=== PATIENT | female | born 1955 | race Caucasian/White ===

== ENCOUNTER 2017-03-02 22:38 | Emergency (ER) | payer BC ==
[~2017-03-02] VITALS: Ht 152.4 cm; Wt 40.6 kg
[~2017-03-02 22:38] MED LIST: ATV/2 PO; CLON1TAB3 PO; HYDR-5688 PO; OLAN-111 PO; TRAZ100T29 PO; ZOLP1TAB PO
[2017-03-02 22:45] VITALS: BP 138/90; PULSE 84; TEMP 36.7; O2SAT 95; Ht 152.4 cm; Wt 40.6 kg
[2017-03-02] MEDS ORDERED: LEVO25TA PO (23:08)
[2017-03-02] MEDS ORDERED: LIDOCAINE HCL 2% VISCOUS SOLN 60 ML, DiphenhydrAMINE HCL SYRUP 150 MG, ALUMINUM/MAGNESI... MT PRN ×4 (23:15)
--- NOTE | 2017-03-02 23:53 | EMERGENCY ROOM VISIT NOTE ---
History Report prepared by Rebecca: Maite Larkin Under the Supervision of: Dr. Yogesh Grimes M.D. 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 The patient states that she woke up this morning and noticed the pain on her tongue and states she thinks it looks abnormal. The patient currently rates the pain as 10/ 10 in severity. The patient states that she has not drank or ate hot food, nor has she bit or sustained any trauma to her tongue. The patient states she has had canker sores in her mouth in the past but not on her tongue. The patient states that she is a chronic pain patient and takes Vicodin every day for another problem, but states she took that today but it did not resolve her pain. The patient denies any history of diabetes or thrush. 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 A total of 10 systems reviewed and were otherwise negative. Past Medical & Surgical Medical Problems: (1) Osteoporosis (2) Tonsillectomy and adenoidectomy (3) Tremor Family History Patient reports no known family medical history. Social History Smoking Status: Never Smoker Marital Status: in relationship Housing Status: lives with significant other Occupation Status: unemployed Current/Historical Medications Scheduled Levothyroxine Sodium (Synthroid), 25 MCG PO QAM Olanzapine (Zyprexa), 5 MG PO QID Trazodone Hcl (Trazodone), 150 MG PO HS Scheduled PRN Hydrocodone/Acetaminophen 5MG/325MG ([place] 5MG/325MG), 1 TABLET PO Q6H PRN for Pain Lorazepam (Ativan), 2 MG PO QID PRN for Anxiety Allergies Coded Allergies: Iodinated Diagnostic Agents (Verified Allergy, Severe, ANAPHYLAXIS, 03/02/17 ) Sulfa Drugs (Verified Allergy, Unknown, 03/02/17) Physical Exam Vital Signs Date Time Temp Pulse Resp B/P (MAP) Pulse Ox O2 Delivery O2 Flow Rate FiO2 03/02/17 22:45 36.7 84 18 138/90 95 Room Air Physical Exam GENERAL: Patient is in no acute distress. HEENT: No acute trauma, normocephalic atraumatic, mucous membranes moist, no nasal congestion, no scleral icterus. No throat erythema or exudate, no laceration to the tongue, no swelling of the floor of the mouth, apparent tiny ulcers forming along the tongue laterally both on the left and right side. NECK: No stridor, no adenopathy, no meningismus, trachea is midline. LUNGS: Clear to auscultation bilaterally, no wheeze, no rhonchi, breath sounds equal. HEART: Without murmurs gallops or rubs, regular rate and rhythm. ABDOMEN: Soft, nontender, bowel sounds positive, no hernias, no peritonitis. EXTREMITIES: No cyanosis or edema, full range of motion of all the joints without pain or difficulty, no signs for acute trauma. NEUROLOGIC: Oriented x 3, no acute motor or sensory deficits, no focal weakness. SKIN: No rash, no jaundice, no diaphoresis. Medical Decision & Procedures Medications Administered Medications (Trade) Dose Ordered Sig/Zeenat Route Start Time Stop Time Status Last Admin Dose Admin Lidocaine HCl/ Diphenhydramine HCl/Al Hydroxide/ Mg Hydroxide/ Glycerin/Barcode Q4H PRN MT 03/02/17 23:15 03/03/17 00:08 DC 03/02/17 23:33 10 ML ED Course 2253: The patient was evaluated in room B4B. A complete history and physical exam was performed. 2315: Ordered Lidocaine HCl/ Diphenhydramine HCl/ AL Hydroxide/ Mg Hydroxide/ Glycerin/ Barcode MT. 2347: I reevaluated the patient. Discussed results and discharge instructions: She verbalized understanding and agreement. The patient is ready for discharge. Medical Decision The patient is a 62 year old female who presents to the ED with complaints of tongue pain. Differential diagnoses considered include ulcers, laceration, pharyngitis, abscess, and thrush. The patient presents with a sore tongue. She has some forming tiny ulcers on both sides of her tongue. There was no pharyngitis or thrush. No swelling to the floor of the mouth. She was not toxic, there was no adenopathy. She was not febrile. There is no reason for antibiotics. The patient will be using some magic swizzle for discomfort. She was given a bottle and discharged home. Medication Reconciliation: I attest that I have personally reviewed the patient' s current medication list. Blood Pressure Screening: Patient was found to have an elevated blood pressure and was referred to their primary doctor for recheck and further treatment. Impression Primary Impression: Tongue pain Scribe Attestation The scribe's documentation has been prepared under my direction and personally reviewed by me in its entirety. I confirm that the note above accurately reflects all work, treatment, procedures, and medical decision making performed by me. Departure Information Dispostion Home / Self-Care Referrals Bernard Anthony PA-C (PCP) Forms HOME CARE DOCUMENTATION FORM, IMPORTANT VISIT INFORMATION, WORK / SCHOOL INSTRUCTIONS Patient Instructions My [facility] [employer] Additional Instructions magic swizzel 1 tsp as needed for tongue pain all other meds as before return for worsening symptoms or fever
== END 2017-03-02 23:33 | disposition home or self-care (01) ==
LOC: C.EDB 22:41
DX: K14.6 Glossodynia (principal); M81.0 Age-related osteoporosis without current pathological fracture; R25.1 Tremor, unspecified; Z79.899 Other long term (current) drug therapy

== ENCOUNTER 2018-05-07 04:47 | Emergency (ER) | payer OTHER ==
[~2018-05-07] VITALS: Ht 152.4 cm; Wt 46.0 kg
[~2018-05-07 04:47] MED LIST changes: +ATV/1 PO; -ATV/2 PO; -CLON1TAB3 PO; +FERR1TAB13 PO; +GABA400C PO; +LEVO25TA PO; -ZOLP1TAB PO
[2018-05-07 04:50] VITALS: TEMP 37; Ht 152.4 cm; Wt 46.0 kg
--- NOTE | 2018-05-07 05:40 | EMERGENCY ROOM VISIT NOTE ---
History Report prepared by Rebecca: Goran King Under the Supervision of: Dr. Juliet Loza D.O. First contact with patient: 05:21 Chief Complaint: OTHER COMPLAINT Stated Complaint: BODY JERKS History of Present Illness The patient is a 63 year old female who presents to the Emergency Room with complaints of intermittent body jerks beginning two days ago. She rates the severity of her jerks an 8/10. The patient states it feels like she is falling asleep, but she is not. She reports she has had two additional episodes, one Friday morning and one Friday morning. She notes she came to the ED because she is afraid she will fall from her jerks. The patient notes there is nothing triggering her symptoms. She states a history of this before when she was out of Lorazepam. The patient reports she went to her doctor and received more. She notes she takes 1mg every 6 hours. The patient states this was decreased from 2mg a few weeks ago. She reports she has chronic neck and back pain and is in pain management. The patient notes she does not know if it is working and may be mildly anxious because of this. She states she is able to walk without assistance at home, but she uses a wheelchair when she goes out. The patient reports she has been eating more often than usual, and this has increased the amount of BMs she has been having. The caregiver notes the patient has been taking an additional 200mg of gabapentin throughout the day on top of her 400mg prescribed dose. He states she was told to take the additional gabapentin to help her sleep because of a possible pinched nerve. The patient reports she is due for another dose of Lorazepam and hydrocodone at 0600. She is very insisting she receives her medication. The patient denies other recent medication changes, family history of seizures, personal history of seizures, urinary symptoms, rashes, diarrhea, joint pain, leg swelling, numbness, tingling , recent illness, recent injury, and recent falls. Source of History: patient, caregiver Onset: two days ago Symptom Intensity: 8/10 Quality: other (jerks) Timing: intermittent Associated Symptoms: No diarrhea, No urinary symptoms, No numbness, No rash Note: Denies: joint pain, leg swelling, tingling, recent illness, recent injury Review of Systems See HPI for pertinent positives & negatives. A total of 10 systems reviewed and were otherwise negative. Past Medical & Surgical Medical Problems: (1) Osteoporosis (2) Tonsillectomy and adenoidectomy (3) Tremor Family History Patient reports no known family medical history. Social History Smoking Status: Never Smoker Marital Status: Housing Status: lives with significant other Occupation Status: retired Current/Historical Medications Scheduled Cholecalciferol (Vitamin D3 Ultra Potency), 50,000 UNITS PO WK Gabapentin (Neurontin), 400 MG PO 6AM/12NOON/12AM Gabapentin (Neurontin), 300 MG PO DAILY@6PM Gabapentin (Neurontin), 200 MG PO 12AM Hydrocodone/Acetaminophen 5MG/325MG ([place] 5MG/325MG), 1 TABLET PO QID Levothyroxine Sodium (Synthroid), 25 MCG PO QAM Lorazepam (Ativan), 1 MG PO TID Olanzapine (Zyprexa), 10 MG PO DAILY Trazodone Hcl (Trazodone), 150 MG PO HS [Ferrous Sulfate], 25 MG PO BID [Vitamin B12 Inj], 1,000 MCG IM MONTHLY Allergies Coded Allergies: Iodinated Diagnostic Agents (Verified Allergy, Severe, ANAPHYLAXIS, 03/02/17 ) Sulfa Drugs (Verified Allergy, Unknown, 03/02/17) Banana (Unverified Adverse Reaction, Severe, GI SYMPTOMS, 04/16/18) Uncoded Allergies: red beets (Adverse Reaction, Severe, GI SYMPTOMS, 04/16/18) Physical Exam Vital Signs Date Time Temp Pulse Resp B/P (MAP) Pulse Ox O2 Delivery O2 Flow Rate FiO2 05/07/18 06:45 80 20 125/96 96 Room Air 05/07/18 06:07 76 18 137/85 96 Room Air 05/07/18 04:50 37.0 83 16 123/75 96 Room Air Physical Exam GENERAL: alert, anxious appearing, well nourished, no distress, non-toxic EYE EXAM: normal conjunctiva, PERRL and EOM's grossly intact OROPHARYNX: no exudate, no erythema, lips, buccal mucosa, and tongue normal and mucous membranes are moist NECK: supple, no nuchal rigidity, no adenopathy, non-tender LUNGS: Clear to auscultation. Normal chest wall mechanics HEART: no murmurs, S1 normal and S2 normal ABDOMEN: abdomen soft, non-tender, normo-active bowel sounds, no masses, no rebound or guarding. BACK: Back is symmetrical on inspection and there is no deformity, no midline tenderness, no CVA tenderness. SKIN: no rashes and no bruising UPPER EXTREMITIES: upper extremities are grossly normal. FROM, nml pulses. LOWER EXTREMITIES: No pitting edema. FROM, nml pulses. NEURO EXAM: Normal sensorium, cranial nerves II-XII grossly intact, normal speech, no gross weakness of arms, no gross weakness of legs. Intermittent myoclonic jerks. Medical Decision & Procedures Laboratory Results 05/07/18 05:54 Red Blood Count 4.39, Mean Corpuscular Volume 75.4, Mean Corpuscular Hemoglobin 24.1, Mean Corpuscular Hemoglobin Concent 32.0, Mean Platelet Volume 9.2, Neutrophils (%) (Auto) 65.1, Lymphocytes (%) (Auto) 19.1, Monocytes (%) (Auto) 13.2, Eosinophils (%) (Auto) 1.6, Basophils (%) (Auto) 0.7, Neutrophils # (Auto ) 4.50, Lymphocytes # (Auto) 1.32, Monocytes # (Auto) 0.91, Eosinophils # (Auto ) 0.11, Basophils # (Auto) 0.05 05/07/18 05:54 Test 05/07/18 05:54 White Blood Count 6.91 K/uL (4.8-10.8) Red Blood Count 4.39 M/uL (4.2-5.4) Hemoglobin 10.6 g/dL (12.0-16.0) Hematocrit 33.1 % (37-47) Mean Corpuscular Volume 75.4 fL (80-100) Mean Corpuscular Hemoglobin 24.1 pg (25-34) Mean Corpuscular Hemoglobin Concent 32.0 g/dl (32-36) Platelet Count 307 K/uL (130-400) Mean Platelet Volume 9.2 fL (7.4-10.4) Neutrophils (%) (Auto) 65.1 % Lymphocytes (%) (Auto) 19.1 % Monocytes (%) (Auto) 13.2 % Eosinophils (%) (Auto) 1.6 % Basophils (%) (Auto) 0.7 % Neutrophils # (Auto) 4.50 K/uL (1.4-6.5) Lymphocytes # (Auto) 1.32 K/uL (1.2-3.4) Monocytes # (Auto) 0.91 K/uL (0.11-0.59) Eosinophils # (Auto) 0.11 K/uL (0-0.5) Basophils # (Auto) 0.05 K/uL (0-0.2) RDW Standard Deviation 47.4 fL (36.4-46.3) RDW Coefficient of Variation 17.1 % (11.5-14.5) Immature Granulocyte % (Auto) 0.3 % Immature Granulocyte # (Auto) 0.02 K/uL (0.00-0.02) Anion Gap 7.0 mmol/L (3-11) Est Creatinine Clear Calc Drug Dose 63.9 ml/min Estimated GFR () 109.1 Estimated GFR (Non- 94.1 BUN/Creatinine Ratio 17.5 (10-20) Calcium Level 9.1 mg/dl (8.5-10.1) Magnesium Level 2.3 mg/dl (1.8-2.4) Total Bilirubin 0.3 mg/dl (0.2-1) Aspartate Amino Transf (AST/SGOT) 19 U/L (15-37) Alanine Aminotransferase (ALT/SGPT) 16 U/L (12-78) Alkaline Phosphatase 68 U/L (45-117) Troponin I < 0.015 ng/ml (0-0.045) Total Protein 8.1 gm/dl (6.4-8.2) Albumin 3.7 gm/dl (3.4-5.0) Globulin 4.4 gm/dl (2.5-4.0) Albumin/Globulin Ratio 0.8 (0.9-2) Thyroid Stimulating Hormone (TSH) 2.200 uIu/ml (0.300-4.500) Laboratory results per my review. Medications Administered Medications (Trade) Dose Ordered Sig/Zeenat Route Start Time Stop Time Status Last Admin Dose Admin Lorazepam (Ativan Tab) 1 mg NOW STAT PO 05/07/18 05:42 05/07/18 05:44 DC 05/07/18 06:02 1 MG Acetaminophen/ Hydrocodone Bitart ([place] 5/325 Tab) 1 tab NOW STAT PO 05/07/18 05:43 05/07/18 05:44 DC 05/07/18 06:03 1 TAB ECG Per My Interpretation Indication: weakness Rate (beats per minute): 66 Rhythm: sinus rhythm Findings: T-wave inversion (V2 and V3), no acute ischemic change, no ectopy, other (Normal axis. Normal intervals.) Comparison ECG Date: 07/23/2016 Change: Inverted T-waves in V2 and V3 are new. ED Course 0529: The patient was evaluated in room A02. A complete history and physical exam was performed. 0542: Ordered Lorazepam 1mg PO 0543: Ordered [place] 5/325 1 tab PO 0557: I discussed the patient's case medication list and possible side effects with the pharmacist Annemarie. 0611: I reevaluated the patient and updated her of the pharmacist consult. 0649: Upon reevaluation, the patient is feeling better. I discussed the findings and the treatment plan with the patient. She verbalizes agreement and understanding. The patient was discharged home. Medical Decision Differential Diagnosis includes but is not limited to dehydration, stroke, anemia, hypoglycemia, hyponatremia, hypernatremia, urinary tract infection, pneumonia, bronchitis, sepsis, gastroenteritis, additional abdominal pathology, metabolic abnormalities and infections. Patient here well-appearing despite complaints, very odd affect. No ectopy noted on telemetry, labs otherwise reassuring. EKG noted to have mild no abnormalities, however patient denied chest pain, trouble breathing, dizziness, or other anginal equivalents. Patient has not noticed any change in her exercise tolerance, breathing in recent weeks. Patient states she has previously had an echo however was several years ago. Discussed with her need for close follow-up with her family doctor and possible need for additional cardiology referral due to the mild EKG abnormality noted. I do not suspect acute ACS or PE given lack of other symptoms. Patient here for her myoclonic jerks which are likely related to her medications specifically her self administration of additional gabapentin at home. Discussed with her symptoms to watch and return for, she and her healthcare advocate verbalized understanding was agreeable to plan. I do not suspect acute intracranial process or neurologic pathology. Patient was in normal nonfocal neuro exam at bedside. I do not suspect occult infectious etiology. No symptoms to suggest ACS, PE, perforation, GI bleed. I do not think these are seizures. Medication Reconcilliation Current Medication List: was personally reviewed by me Blood Pressure Screening Patient's blood pressure: Normal blood pressure Blood pressure disposition: Did not require urgent referral Impression Primary Impression: Myoclonic jerking Additional Impressions: Anemia Anxiety Abnormal EKG Scribe Attestation The scribe's documentation has been prepared under my direction and personally reviewed by me in its entirety. I confirm that the note above accurately reflects all work, treatment, procedures, and medical decision making performed by me. Departure Information Dispostion Home / Self-Care Referrals Curtis Conner MD (PCP) Forms HOME CARE DOCUMENTATION FORM, IMPORTANT VISIT INFORMATION, WORK / SCHOOL INSTRUCTIONS Patient Instructions Anemia, Heart Attack Warning Signs, Heart Disease Women, My [facility] Additional Instructions Please call and follow-up with your family doctor. Please have them recheck your blood counts as he had a very mild anemia here compared to prior records. Please try to stop using extra gabapentin and stick to your regularly prescribed dose. Please also have your family doctor recheck your EKG as it was abnormal here compared to prior also, this may also require additional cardiology testing such as an echo or stress test. If you develop any worsening tremors or jerking, develop chest pain, trouble breathing, nausea or vomiting, dizziness, increased weakness, increased numbness or tingling, you have any other new and concerning symptoms, please return the emergency room immediately. Problem Qualifiers Additional Impressions: Anemia Anemia type: unspecified type Qualified Codes: D64.9 - Anemia, unspecified
[2018-05-07] MEDS ORDERED: LORAZEPAM 1 MG TAB PO STA (05:42)
[2018-05-07] MEDS ORDERED: HYDROCODONE/ACETAMIN 5/325MG TAB PO STA (05:43)
[2018-05-07] MEDS ORDERED: GABA-113 PO (05:44)
[2018-05-07] MEDS ORDERED: GABA-112 PO (05:46)
[2018-05-07] MEDS ORDERED: FERROUS SULFATE PO (05:56)
[2018-05-07] MEDS ORDERED: OLAN-111 PO (05:58)
[2018-05-07 06:03] LABS: BASO % 0.7 %; BASO ABS # 0.05 K/uL (0-0.2); EOS % 1.6 %; EOS ABS # 0.11 K/uL (0-0.5); HEMATOCRIT 33.1 % (37-47); HEMOGLOBIN 10.6 g/dL (12.0-16.0); IG# 0.02 K/uL (0.00-0.02); LYMPH % 19.1 %; LYMPH ABS # 1.32 K/uL (1.2-3.4); MEAN CELL VOLUME 75.4 fL (80-100); MEAN CORPUSCULAR HEMOGLOBIN 24.1 pg (25-34); MEAN PLATELET VOLUME 9.2 fL (7.4-10.4); MONO % 13.2 %; MONO ABS # 0.91 K/uL (0.11-0.59); NEUT % 65.1 %; PLATELET COUNT 307 K/uL (130-400); RED CELL DISTRIBUTION WIDTH CV 17.1 % (11.5-14.5); RED CELL DISTRIBUTION WIDTH SD 47.4 fL (36.4-46.3); WHITE BLOOD COUNT 6.91 K/uL (4.8-10.8)
[2018-05-07] MEDS ORDERED: VITAMIN B12 INJ IM (06:06)
[2018-05-07] MEDS ORDERED: CHOL500024 PO (06:08)
[2018-05-07 06:35] LABS: ALBUMIN 3.7 gm/dl (3.4-5.0); ALKALINE PHOSPHATASE 68 U/L (45-117); ALT/SGPT 16 U/L (12-78); AST/SGOT 19 U/L (15-37); BLOOD UREA NITROGEN 11 mg/dl (7-18); CALCIUM 9.1 mg/dl (8.5-10.1); CARBON DIOXIDE 27 mmol/L (21-32); CREATININE 0.63 mg/dl (0.60-1.20); GLUCOSE 86 mg/dl (70-99); POTASSIUM 3.9 mmol/L (3.5-5.1); SODIUM 136 mmol/L (136-145); TOTAL PROTEIN 8.1 gm/dl (6.4-8.2)
[2018-05-07 06:45] VITALS: BP 125/96; PULSE 80; O2SAT 96
== END 2018-05-07 07:00 | disposition home or self-care (01) ==
LOC: C.EDB 04:48 → C.EDA 07:00
DX: G25.3 Myoclonus (principal); D64.9 Anemia, unspecified; F41.9 Anxiety disorder, unspecified; R94.31 Abnormal electrocardiogram [ECG] [EKG]; M81.0 Age-related osteoporosis without current pathological fracture; Z79.899 Other long term (current) drug therapy; Z91.041 Radiographic dye allergy status; Z88.2 Allergy status to sulfonamides; Z91.018 Allergy to other foods

== ENCOUNTER 2022-11-26 11:31 | Observation (INO) ==
--- NOTE | 2022-11-26 11:54 | Emergency Department Note ---
History of Present Illness General Chief Complaint: Shortness of Breath/Dyspnea Stated Complaint: SOB, WEAKNESS Time Seen by Provider: 11/26/22 11:41 History of Present Illness Provider Complaint: shortness of breath Onset (ago): week(s) (1) Consistency/Duration: + progressively worsening Relieved By: + oxygen Exacerbated By: + lying flat, + exertion and + coughing Associated symptoms: + chest pain (L sided) and + chest congestion; no fever, no wheezing or no hemoptysis Related Data Home oxygen amount: none Home Medications Medication Instructions Recorded Confirmed Type lorazepam 1 mg tablet (Ativan) 1 mg PO TID 06/18/18 11/26/22 History cyclobenzaprine 10 mg tablet 10 mg PO BID 11/06/18 11/26/22 History duloxetine 60 mg capsule,delayed 60 mg PO DAILY 11/06/18 11/26/22 History release (Cymbalta) gabapentin 400 mg capsule 400 mg PO QID 07/12/20 11/26/22 History betamethasone dipropionate 0.05 % 1 applic topical DAILY PRN skin 06/05/21 11/26/22 Rx topical cream irritation #30 grams hydrocortisone 2.5 % topical 1 applic topical DAILY #28.35 grams 06/05/21 11/26/22 Rx ointment cholecalciferol (vitamin D3) 25 25 mcg PO DAILY 10/16/22 11/26/22 History mcg (1,000 unit) capsule Ca 600 mg-D3 20 mcg-mag oxide 50 1 tab PO DAILY 11/13/22 11/26/22 History kr-Ok-qsaceq-manganese-boron tablet (Calcium 600-D3 Plus (mag-zinc)) aspirin 81 mg tablet,delayed 81 mg PO DAILY 11/13/22 11/26/22 History release (Adult Low Dose Aspirin) acetaminophen 500 mg tablet 500 mg PO QID PRN Pain 11/26/22 11/26/22 History donepezil 5 mg tablet 5 mg PO HS INSOMNIA 11/26/22 11/26/22 History ferrous sulfate 325 mg (65 mg 325 mg PO TID 11/26/22 11/26/22 History iron) tablet quetiapine 50 mg tablet 50 mg PO HS 11/26/22 11/26/22 History tramadol 50 mg tablet 50 mg PO BID 11/26/22 11/26/22 History trazodone 100 mg tablet 100 mg PO HS 11/26/22 11/26/22 History Allergies Allergy/AdvReac Type Severity Reaction Status Date / Time Iodinated Contrast Media Allergy Severe ANAPHYLAXIS Verified 11/26/22 14:59 Sulfa (Sulfonamide Allergy Unknown Verified 11/26/22 14:59 Antibiotics) banana AdvReac Severe GI SYMPTOMS Verified 11/26/22 14:59 red beets AdvReac Severe GI SYMPTOMS Uncoded 11/26/22 14:59 Past Med/Surg History Medical History (Updated 11/26/22 @ 18:44 by Federico Greco) Anemia Anxiety disorder Cervicalgia Fibromyalgia Hypothyroidism Mood disorder due to known physiological condition Somatization disorder Vitamin B12 deficiency Vitamin D deficiency Surgical History History of adenoidectomy History of tonsillectomy Family History Father Allergies Asthma Other No family history of adverse response to anesthesia No family history of bleeding disorder Social History Smoking Status: Never smoker Hx Alcohol Use: No Hx Substance Use: No Preferred Language: Sinhala Communication Ability: Effective Visual Impairment: No Limitations Hearing Ability: Normal marital status: Current Living Situation: Other current occupational status: retired Feels Safe at Home: Yes Physical Exam Vital Signs: Vital Signs - 24 hr 11/26/22 11:43 11/26/22 11:43 11/26/22 11:43 Temperature 36.7 C Temperature Source Oral Pulse Rate 76 Pulse Rate [Right Finger] Pulse Rhythm Regular Pulse Rhythm [Righ t Finger] Pulse Strength Normal Pulse Strength [Ri ght Finger] Respiratory Rate 27 H Respiratory Effort / Characteristics Labored Labored Respiratory Depth Normal Respiratory Patter n Regular Blood Pressure [Ri ght Arm] Blood Pressure Melva n [Right Arm] Pulse Oximetry 85 L 96 Oxygen Delivery Me thod Room Air Nasal Cannula Oxygen Flow Rate 1 Sepsis Recent Feve r Within 48 Hours No Sepsis New/Unexpla ined Change in Men latasha Status N/A Sepsis Action Take n by Nursing No Action Required 11/26/22 11:52 11/26/22 13:01 11/26/22 12:43 Temperature Temperature Source Pulse Rate 70 Pulse Rate [Right Finger] 73 Pulse Rhythm Pulse Rhythm [Righ t Finger] Pulse Strength Pulse Strength [Ri ght Finger] Respiratory Rate 24 Respiratory Effort / Characteristics Respiratory Depth Normal Respiratory Patter n Blood Pressure [Ri ght Arm] 126/83 Blood Pressure Melva n [Right Arm] 97 Pulse Oximetry 96 95 Oxygen Delivery Me thod Nasal Cannula Nasal Cannula Oxygen Flow Rate 1 2 Sepsis Recent Feve r Within 48 Hours Sepsis New/Unexpla ined Change in Men latasha Status Sepsis Action Take n by Nursing 11/26/22 14:35 11/26/22 16:00 11/26/22 18:04 Temperature Temperature Source Pulse Rate Pulse Rate [Right Finger] 74 75 78 Pulse Rhythm Pulse Rhythm [Righ t Finger] Regular Regular Regular Pulse Strength Pulse Strength [Ri ght Finger] Normal Normal Normal Respiratory Rate 20 24 26 H Respiratory Effort / Characteristics Non-Labored Non-Labored Non-Labored Respiratory Depth Normal Normal Normal Respiratory Patter n Regular Regular Regular Blood Pressure [Ri ght Arm] 147/89 H 138/90 138/90 Blood Pressure Melva n [Right Arm] 108 106 106 Pulse Oximetry 97 97 97 Oxygen Delivery Me thod Nasal Cannula Nasal Cannula Nasal Cannula Oxygen Flow Rate 2 2 2 Sepsis Recent Feve r Within 48 Hours Sepsis New/Unexpla ined Change in Men latasha Status Sepsis Action Take n by Nursing Physical Exam: Physical Exam GENERAL: Cachectic and frail-appearing. HENT: Exam performed. -Head: Normocephalic and atraumatic. NECK: Normal range of motion. Neck supple. No JVD present. CV: Normal rate, regular rhythm, normal heart sounds and intact distal pulses. There is no peripheral edema. Palpable radial pulses bue. PULM/CHEST: Inspiratory rales bilaterally. Expiratory wheezes bilaterally. Rhonchi bilaterally. ABD: The abdomen is soft.There is no tenderness. NEURO: Motor and sensation grossly intact. SKIN: Skin is warm and dry. She is not diaphoretic. PSYCH: She has a normal mood and affect. Behavior is normal. Judgment and thought content normal. Course Course 1141: The patient was evaluated in room C2. A complete history and physical exam was performed Cardiac monitoring: An order was placed for continuous cardiac monitoring. The monitor shows a rate of 80 with sinus rhythm interpreted by me 1345: 1 view chest x-ray shows possible right-sided pneumothorax versus skinfold. Radiology recommends two-view chest. 1428: Two-view chest does confirm right-sided pneumothorax. Discussed the case with pulmonology Dr. Mcmahon. The patient is having no respiratory distress and is tolerating nasal cannula very well. He recommends getting CT of the chest. 1559: Vital signs stable. Labs within normal limits, venous pH 7.35 venous PCO2 [address] of the chest confirms a very small right-sided pneumothorax. Patient is in no respiratory distress. Patient is asking for her home food,anxiety and pain medication. Discussed the case with Dr. Mcmahon who reviewed the patient's CT states the patient has a history of interstitial lung disease based off her CT. He states he does not think that the patient's hypoxia is secondary to the very small right-sided pneumothorax and he states he does not think the patient needs any thoracostomy tube placement at this time. I agree with Dr. Mcmahon's assessment based off the very small size of the pneumothorax. He states that the patient does not need to be on a nonrebreather and can continue the 2 L nasal cannula. He states we can try to discharge patient home with supplemental oxygen but I explained to him I thought it would be best if we observe the patient overnight to make sure she does not develop any further respiratory distress or increased size of pneumothorax. He states patient can be admitted to the hospitalist team if we decide to admit the patient and he can be on consult. [facility] hospitalist team will admit the patient. Administered Medications Discontinued Medications Albuterol (Albut/Ipratrop 3mg/0.5mg Neb 3 Ml Vial) 3 ml NEB NOW STA; Protocol Stop: 11/26/22 13:49 Last Admin: 11/26/22 14:33 Dose: 3 ml Documented By: ROXANA Ketorolac Tromethamine (Ketorolac Tromethamine 15 Mg/Ml Vial) 15 mg IV NOW STA Stop: 11/26/22 16:01 Last Admin: 11/26/22 16:08 Dose: 15 mg Documented By: ROXANA Lorazepam (Lorazepam 1 Mg Tab) 1 mg SL NOW STA Stop: 11/26/22 16:13 Last Admin: 11/26/22 18:14 Dose: 1 mg Documented By: ROXANA Methylprednisolone (Methylprednisolone 125 Mg/2 Ml Vial) 125 mg IV NOW STA Stop: 11/26/22 13:49 Last Admin: 11/26/22 14:32 Dose: 125 mg Documented By: ROXANA Tramadol HCl (Tramadol Hcl 50 Mg Tablet) 50 mg PO NOW STA Stop: 11/26/22 16:13 Last Admin: 11/26/22 18:15 Dose: 50 mg Documented By: ROXANA Medical Decision Making Laboratory Data Attestation: I reviewed the patient's lab results. 11/26/22 13:18 11/26/22 13:18 Lab Results 11/26/22 11/26/22 11/26/22 Range/Units 13:18 13:18 13:18 WBC 9.14 (4.8-10.8) K/ul RBC 4.95 (4.20-5.40) M/uL Hgb 15.1 (12.0-16.0) g/dl Hct 44.9 (37.0-47.0) % MCV 90.7 (80.0-100.0) fL MCH 30.5 (25.0-34.0) pg MCHC 33.6 (32.0-36.0) g/dL RDW Std Deviation 40.9 (36.4-46.3) fL RDW Coeff of Caridad 12.5 (11.5-14.5) % Plt Count 290 (130-400) K/uL MPV 10.0 (9.4-12.4) fL Immature Gran % (Auto) 0.2 % Neut % (Auto) 75.8 % Lymph % (Auto) 13.1 % [place] % (Auto) 6.6 % Eos % (Auto) 3.4 % Baso % (Auto) 0.9 % Neut # (Auto) 6.93 H (1.40-6.50) K/uL Lymph # (Auto) 1.20 (1.2-3.4) K/uL [place] # (Auto) 0.60 H (0.11-0.59) K/uL Eos # (Auto) 0.31 (0-0.50) K/uL Baso # (Auto) 0.08 (0-0.2) K/uL Immature Gran # (Auto) 0.02 (0.01-0.20) K/uL PT 11.3 (9.0-12.0) Seconds INR 1.1 (0.9-1.1) APTT 28.7 (21.0-31.0) Seconds PTT Ratio 1.0 VBG pH (7.36-7.41) VBG pCO2 (38-50) mmHg VBG pO2 mmHg VBG HCO3 mmol/L VBG O2 Saturation % VBG Base Excess mEq/L Sodium 134 L (136-145) mmol/L Potassium 4.5 (3.5-5.1) mmol/L Chloride 96 L (98-107) mmol/L Carbon Dioxide 33 H (21-32) mmol/L Anion Gap 5 (3-11) BUN 15 (6-23) mg/dl Creatinine 0.56 L (0.6-1.2) mg/dl Est Cr Clr Drug Dosing Not Reportable Est GFR ( Amer) 110.3 ml/min Est GFR (Non-Af Amer) 95.1 ml/min BUN/Creatinine Ratio 26.8 H (10-20) Glucose 83 (70-99(Fasting)) mg/dl Calcium 9.8 (8.5-10.1) mg/dl Magnesium 2.0 (1.7-2.4) mg/dl Total Bilirubin 0.4 (0.2-1.0) mg/dl Direct Bilirubin 0.1 (0-0.2) mg/dl AST 22 (13-39) U/L ALT 15 (7-52) U/L Alkaline Phosphatase 80 (34-104) U/L Troponin I High Sens (0-14) pg/ml B-Natriuretic Peptide (0-100) pg/ml Total Protein 8.0 (6.0-8.3) gm/dl Albumin 4.0 (3.4-5.0) gm/dl Lipase (11-82) U/L SARS-CoV-2, RNA, NAAT (NEGATIVE) 11/26/22 11/26/22 11/26/22 Range/Units 13:18 13:18 13:18 WBC (4.8-10.8) K/ul RBC (4.20-5.40) M/uL Hgb (12.0-16.0) g/dl Hct (37.0-47.0) % MCV (80.0-100.0) fL MCH (25.0-34.0) pg MCHC (32.0-36.0) g/dL RDW Std Deviation (36.4-46.3) fL RDW Coeff of Caridad (11.5-14.5) % Plt Count (130-400) K/uL MPV (9.4-12.4) fL Immature Gran % (Auto) % Neut % (Auto) % Lymph % (Auto) % [place] % (Auto) % Eos % (Auto) % Baso % (Auto) % Neut # (Auto) (1.40-6.50) K/uL Lymph # (Auto) (1.2-3.4) K/uL [place] # (Auto) (0.11-0.59) K/uL Eos # (Auto) (0-0.50) K/uL Baso # (Auto) (0-0.2) K/uL Immature Gran # (Auto) (0.01-0.20) K/uL PT (9.0-12.0) Seconds INR (0.9-1.1) APTT (21.0-31.0) Seconds PTT Ratio VBG pH 7.35 L (7.36-7.41) VBG pCO2 68 H (38-50) mmHg VBG pO2 30 mmHg VBG HCO3 38 mmol/L VBG O2 Saturation < 60.0 % VBG Base Excess 8.8 mEq/L Sodium (136-145) mmol/L Potassium (3.5-5.1) mmol/L Chloride (98-107) mmol/L Carbon Dioxide (21-32) mmol/L Anion Gap (3-11) BUN (6-23) mg/dl Creatinine (0.6-1.2) mg/dl Est Cr Clr Drug Dosing Est GFR ( Amer) ml/min Est GFR (Non-Af Amer) ml/min BUN/Creatinine Ratio (10-20) Glucose (70-99(Fasting)) mg/dl Calcium (8.5-10.1) mg/dl Magnesium (1.7-2.4) mg/dl Total Bilirubin (0.2-1.0) mg/dl Direct Bilirubin (0-0.2) mg/dl AST (13-39) U/L ALT (7-52) U/L Alkaline Phosphatase (34-104) U/L Troponin I High Sens 5.1 (0-14) pg/ml B-Natriuretic Peptide 33 (0-100) pg/ml Total Protein (6.0-8.3) gm/dl Albumin (3.4-5.0) gm/dl Lipase 33 (11-82) U/L SARS-CoV-2, RNA, NAAT (NEGATIVE) 11/26/22 Range/Units 17:52 WBC (4.8-10.8) K/ul RBC (4.20-5.40) M/uL Hgb (12.0-16.0) g/dl Hct (37.0-47.0) % MCV (80.0-100.0) fL MCH (25.0-34.0) pg MCHC (32.0-36.0) g/dL RDW Std Deviation (36.4-46.3) fL RDW Coeff of Caridad (11.5-14.5) % Plt Count (130-400) K/uL MPV (9.4-12.4) fL Immature Gran % (Auto) % Neut % (Auto) % Lymph % (Auto) % [place] % (Auto) % Eos % (Auto) % Baso % (Auto) % Neut # (Auto) (1.40-6.50) K/uL Lymph # (Auto) (1.2-3.4) K/uL [place] # (Auto) (0.11-0.59) K/uL Eos # (Auto) (0-0.50) K/uL Baso # (Auto) (0-0.2) K/uL Immature Gran # (Auto) (0.01-0.20) K/uL PT (9.0-12.0) Seconds INR (0.9-1.1) APTT (21.0-31.0) Seconds PTT Ratio VBG pH (7.36-7.41) VBG pCO2 (38-50) mmHg VBG pO2 mmHg VBG HCO3 mmol/L VBG O2 Saturation % VBG Base Excess mEq/L Sodium (136-145) mmol/L Potassium (3.5-5.1) mmol/L Chloride (98-107) mmol/L Carbon Dioxide (21-32) mmol/L Anion Gap (3-11) BUN (6-23) mg/dl Creatinine (0.6-1.2) mg/dl Est Cr Clr Drug Dosing Est GFR ( Amer) ml/min Est GFR (Non-Af Amer) ml/min BUN/Creatinine Ratio (10-20) Glucose (70-99(Fasting)) mg/dl Calcium (8.5-10.1) mg/dl Magnesium (1.7-2.4) mg/dl Total Bilirubin (0.2-1.0) mg/dl Direct Bilirubin (0-0.2) mg/dl AST (13-39) U/L ALT (7-52) U/L Alkaline Phosphatase (34-104) U/L Troponin I High Sens (0-14) pg/ml B-Natriuretic Peptide (0-100) pg/ml Total Protein (6.0-8.3) gm/dl Albumin (3.4-5.0) gm/dl Lipase (11-82) U/L SARS-CoV-2, RNA, NAAT NEGATIVE (NEGATIVE) Imaging Data Attestation: I personally reviewed and interpreted this imaging study as follows: My Impression: Chest x-ray 1 view: Right-sided pneumothorax Chest x-ray 2 views: Right-sided pneumothorax very small CT chest: Small right-sided pneumothorax Radiologist's Impression: Chest X-Ray 11/26/22 11:48 XR chest 1V portable HISTORY: Shortness of breath. COMPARISON: Chest 12/08/2007. FINDINGS: Emphysematous changes with diffuse interstitial thickening. This has progressed and is likely related to chronic interstitial lung disease. Otherwise , no new focal lung consolidations to suggest a pneumonia. No evidence for pulmonary edema. The heart is normal in size. Skinfold versus pneumothorax within the right lung apex. IMPRESSION: 1. Skinfold versus small pneumothorax within the right lung apex. Repeat PA and lateral views of the chest are recommended. 2. Emphysema with diffuse interstitial thickening which is likely chronic. ACT 112: Negative or not required by law. Electronically signed by: Miguel Ángel Vyas M.D. 11/26/2022 1:00 PM Chest X-Ray 11/26/22 13:47 XR chest 2V PA/lateral CLINICAL HISTORY: sob ro ptx TECHNIQUE: 2 views of the chest were obtained. Comparison: Comparison is made to chest radiograph 11/26/2022 FINDINGS: No lines and tubes are seen. The cardiomediastinal silhouette is normal. Reticular interstitial opacities are seen. Right apical pneumothorax is slightly increased from prior exam measuring 12 mm in greatest thickness. A skinfold is noted in the left lung. IMPRESSION: Confirmation of a right apical pneumothorax which is slightly increased in size from prior exam. Extensive interstitial disease is noted. ACT 112: Negative or not required by law. Electronically signed by: Lalo Patel M.D. 11/26/2022 2:[address] 11/26/22 14:28 CT chest diagnostic wo con CLINICAL HISTORY: RPTXr TECHNIQUE: Multidetector row helical CT of the chest was performed. Coronal and sagittal reformations were obtained. Automated dose lowering techniques and/or adjustment according to patient size were utilized for this exam. CT DOSE: 198.61 mGy.cm Comparison: Comparison is made to chest radiograph 11/18/2022 FINDINGS: Lungs and pleura: There is a small right pneumothorax. Extensive interstitial lung disease is seen with bronchiectasis and interstitial thickening. Heart and pericardium: Heart size is normal. No pericardial effusion. Vessels: Severe atherosclerotic changes in the aorta and coronary arteries. Mediastinum and reese: Subcentimeter lymph nodes are seen. Chest wall and lower neck: Unremarkable. Abdomen: Unremarkable. Bones: Degenerative changes are seen and there is irregularity in the left fifth rib which may represent a subacute fracture. IMPRESSION: Small right pneumothorax is seen, similar to appearance on chest radiograph. Extensive interstitial lung disease is noted. ACT 112: Negative or not required by law. Electronically signed by: Lalo Patel M.D. 11/26/2022 3:48 PM ECG Data Attestation: I personally reviewed and interpreted this ECG as follows: Interpretation: Sinus rhythm with a rate of 70. [place] 132 QRS [address] elevation or ST depression. [facility] Narrative 1141: The patient was evaluated in room C2. A complete history and physical exam was performed Cardiac monitoring: An order was placed for continuous cardiac monitoring. The monitor shows a rate of 80 with sinus rhythm interpreted by co 1345: 1 view chest x-ray shows possible right-sided pneumothorax versus skinfold. Radiology recommends two-view chest. 1428: Two-view chest does confirm right-sided pneumothorax. Discussed the case with pulmonology Dr. Mcmahon. The patient is having no respiratory distress and is tolerating nasal cannula very well. He recommends getting CT of the chest. 1559: Vital signs stable. Labs within normal limits, venous pH 7.35 venous PCO2 [address] of the chest confirms a very small right-sided pneumothorax. Patient is in no respiratory distress. Patient is asking for her home food,anxiety and pain medication. Discussed the case with Dr. Mcmahon who reviewed the patient's CT states the patient has a history of interstitial lung disease based off her CT. He states he does not think that the patient's hypoxia is secondary to the very small right-sided pneumothorax and he states he does not think the patient needs any thoracostomy tube placement at this time. I agree with Dr. Mcmahon's assessment based off the very small size of the pneumothorax. He states that the patient does not need to be on a nonrebreather and can continue the 2 L nasal cannula. He states we can try to discharge patient home with supplemental oxygen but I explained to him I thought it would be best if we observe the patient overnight to make sure she does not develop any further respiratory distress or increased size of pneumothorax. He states patient can be admitted to the hospitalist team if we decide to admit the patient and he can be on consult. [facility] hospitalist team will admit the patient. Impression & Plan Pneumothorax Discharge Plan Visit Data Chief Complaint: Shortness of Breath/Dyspnea Stated Complaint: SOB, WEAKNESS ED Provider: Federico Greco Discharge Problem: Pneumothorax Patient Disposition: Admitted As Inpatient Forms Stand Alone Forms: My [facility] Prescriptions Prescriptions: No Action lorazepam [Ativan] 1 mg tablet 1 mg PO TID cyclobenzaprine 10 mg tablet 10 mg PO BID duloxetine [Cymbalta] 60 mg capsule,delayed release(DR/EC) 60 mg PO DAILY gabapentin 400 mg capsule 400 mg PO QID cholecalciferol (vitamin D3) 25 mcg (1,000 unit) capsule 25 mcg PO DAILY betamethasone dipropionate 0.05 % cream 1 applic topical DAILY PRN (Reason: skin irritation) Qty: 30 0RF Rx Instructions: Apply cream daily to the affected areas on the hands for 2 weeks or until resolved. hydrocortisone 2.5 % ointment 1 applic topical DAILY Qty: 28.35 1RF Ca-D3-mag [id number]-irha-ryp-nuria-bor [Calcium 600-D3 Plus (mag-zinc)] 600 mg calcium- 20 mcg-50 mg tablet 1 tab PO DAILY aspirin [Adult Low Dose Aspirin] 81 mg tablet,delayed release (DR/EC) 81 mg PO DAILY donepezil 5 mg tablet 5 mg PO HS tramadol 50 mg tablet 50 mg PO BID acetaminophen 500 mg Tablet 500 mg PO QID PRN (Reason: Pain) trazodone 100 mg tablet 100 mg PO HS ferrous sulfate 325 mg (65 mg iron) Tablet 325 mg PO TID quetiapine 50 mg tablet 50 mg PO HS Referrals Referrals: Garth Wellington, FRANNY [Primary Care Provider] -
--- NOTE | 2022-11-26 13:02 | XRay Report ---
XR chest 1V portable HISTORY: Shortness of breath. COMPARISON: Chest 12/08/2007. FINDINGS: Emphysematous changes with diffuse interstitial thickening. This has progressed and is like ly related to chronic interstitial lung disease. Otherwise, no new focal lung consolidations to sugge st a pneumonia. No evidence for pulmonary edema. The heart is normal in size. Skinfold versus pneumot horax within the right lung apex. IMPRESSION: 1. Skinfold versus small pneumothorax within the right lung apex. Repeat PA and lateral views of the chest are recommended. 2. Emphysema with diffuse interstitial thickening which is likely chronic. ACT 112: Negative or not required by law. Electronically signed by: Miguel Ángel Vyas M.D. 11/26/2022 1:00 PM
[2022-11-26 13:43] LABS: Base Excess VBG 8.8 mEq/L; HCO3 VBG 38 mmol/L; Oxygen Saturation VBG < 60.0 %; PCO2 VBG 68 mmHg (38-50); PO2 VBG 30 mmHg; pH VBG 7.35 (7.36-7.41)
[2022-11-26 13:48] LABS: Basophils # (auto) 0.08 K/uL (0-0.2); Basophils % (auto) 0.9 %; Eosinophils # (auto) 0.31 K/uL (0-0.50); Eosinophils % (auto) 3.4 %; Hematocrit (blood only) 44.9 % (37.0-47.0); Hemoglobin 15.1 g/dl (12.0-16.0); Immature Granulocytes # (auto) 0.02 K/uL (0.01-0.20); Immature Granulocytes % (auto) 0.2 %; Lymphocytes % (auto) 13.1 %; Mean Corpuscular Hemoglobin 30.5 pg (25.0-34.0); Mean Corpuscular Hgb Conc 33.6 g/dL (32.0-36.0); Mean Corpuscular Volume 90.7 fL (80.0-100.0); Monocytes % (auto) 6.6 %; Neutrophils # (auto) 6.93 K/uL (1.40-6.50); Neutrophils % (auto) 75.8 %; Platelet Count 290 K/uL (130-400); RDW Coefficient of Variation 12.5 % (11.5-14.5); RDW Standard Deviation 40.9 fL (36.4-46.3); Red Blood Count 4.95 M/uL (4.20-5.40); White Blood Count 9.14 K/ul (4.8-10.8)
[2022-11-26] MEDS ORDERED: ALBUT/IPRATROP 3MG/0.5MG NEB 3 ML VIAL NEB STA (13:48)
[2022-11-26] MEDS ORDERED: methylPREDNISolone 125 MG/2 ML VIAL IV STA (13:48)
[2022-11-26 14:07] LABS: Troponin I High Sensitivity 5.1 pg/ml (0-14)
[2022-11-26 14:10] LABS: Alanine Aminotransferase 15 U/L (7-52); Alkaline Phosphatase 80 U/L (34-104); Anion Gap 5 (3-11); Aspartate Aminotransferase 22 U/L (13-39); BUN Creatinine Ratio 26.8 (10-20); Bilirubin Direct 0.1 mg/dl (0-0.2); Bilirubin,Total 0.4 mg/dl (0.2-1.0); Blood Urea Nitrogen 15 mg/dl (6-23); Calcium 9.8 mg/dl (8.5-10.1); Carbon Dioxide 33 mmol/L (21-32); Chloride 96 mmol/L (98-107); Est GFR (African American) 110.3 ml/min; Est GFR (Non-African American) 95.1 ml/min; Glucose 83 mg/dl (70-99(Fasting)); Potassium 4.5 mmol/L (3.5-5.1); Sodium 134 mmol/L (136-145)
[2022-11-26 14:13] LABS: INR 1.1 (0.9-1.1); Partial Thromboplastin Time 28.7 Seconds (21.0-31.0); Prothrombin Time 11.3 Seconds (9.0-12.0)
--- NOTE | 2022-11-26 14:28 | XRay Report ---
XR chest 2V PA/lateral CLINICAL HISTORY: sob ro ptx TECHNIQUE: 2 views of the chest were obtained. Comparison: Comparison is made to chest radiograph 11/26/2022 FINDINGS: No lines and tubes are seen. The cardiomediastinal silhouette is normal. Reticular interstitial opaci ties are seen. Right apical pneumothorax is slightly increased from prior exam measuring 12 mm in gre atest thickness. A skinfold is noted in the left lung. IMPRESSION: Confirmation of a right apical pneumothorax which is slightly increased in size from prior exam. Exte nsive interstitial disease is noted. ACT 112: Negative or not required by law. Electronically signed by: Lalo Patel M.D. 11/26/2022 2:27 PM
--- NOTE | 2022-11-26 14:49 | Electrocardiogram Report ---
Test Reason : Blood Pressure : / mmHG Vent. Rate : 070 BPM Atrial Rate : 070 BPM P-R Int : 132 ms QRS Dur : 074 ms QT Int : 392 ms P-R-T Axes : 019 045 040 degrees QTc Int : 423 ms Normal sinus rhythm Normal ECG When compared with ECG of 07-MAY-2018 06:20, ST no longer depressed in Anterior leads Confirmed by Fritz Stringer ([id number]) on 11/26/2022 2:49:17 PM Referred By: Garth Wellington Confirmed By:Fritz Stringer
--- NOTE | 2022-11-26 15:50 | CT Scan Report ---
CT chest diagnostic wo con CLINICAL HISTORY: RPTXr TECHNIQUE: Multidetector row helical CT of the chest was performed. Coronal and sagittal reformations were obtained. Automated dose lowering techniques and/or adjustment according to patient size were u tilized for this exam. CT DOSE: 198.61 mGy.cm Comparison: Comparison is made to chest radiograph 11/18/2022 FINDINGS: Lungs and pleura: There is a small right pneumothorax. Extensive interstitial lung disease is seen wi th bronchiectasis and interstitial thickening. Heart and pericardium: Heart size is normal. No pericardial effusion. Vessels: Severe atherosclerotic changes in the aorta and coronary arteries. Mediastinum and reese: Subcentimeter lymph nodes are seen. Chest wall and lower neck: Unremarkable. Abdomen: Unremarkable. Bones: Degenerative changes are seen and there is irregularity in the left fifth rib which may repres ent a subacute fracture. IMPRESSION: Small right pneumothorax is seen, similar to appearance on chest radiograph. Extensive interstitial l amaury disease is noted. ACT 112: Negative or not required by law. Electronically signed by: Lalo Patel M.D. 11/26/2022 3:48 PM
[2022-11-26] MEDS ORDERED: KETOROLAC TROMETHAMINE 15 MG/ML VIAL IV STA (16:00)
[2022-11-26] MEDS ORDERED: GABAPENTIN 600 MG TAB PO STA (16:12)
[2022-11-26] MEDS ORDERED: traMADol HCL 50 MG TABLET PO STA (16:12)
[2022-11-26] MEDS ORDERED: LORazepam 1 MG TAB SL STA (16:12)
--- NOTE | 2022-11-26 16:38 | History & Physical Report ---
Date of Service November 26, 2022 Assessment & Plan (1) Pneumothorax: Plan: R sided on imaging, spontaneous. no trauma/falls reported - concerns for underlying anorexia (discussed w/ endocrinology, see HPI, client evaluator consulted while inpatient) Obs med/tele Supplemental O2 to maintain sats -- aim 100% Duonebs prn, incentive spirometer Pain control -- lidocaine patch for her R posterior rib pain, reproducible on exam (hx fibromyalgia), using heating pad at home. Added heat/lidocaine patches., Can continue tramadol prn as uses at home Antiemetics prn Further recs for her ILD per pulm, appreciate assistance Follow up CXR/VBG/labs in AM (2) Aryan's thyroiditis: Plan: follows with Endocrinology -- did discuss on admit and patient w/ underlying autoimmune/hypothyroidism. US prior w/o criteria for biopsy to be on low dose synthroid however patient reported that is what caused her weight loss and she REFUSES to be on again monitor on tele for any arrhthymia given underlying untreated thyroid with her anxiety however anxiety could be the symptom alone continued encouragement/follow up (3) Weight loss: Plan: currently 32.6kg concerning for underlying anorexia/eating disorder client evaluator/[facility] consulted (4) Anxiety disorder: Plan: follows w/ psych and has been on regimen of trazodone, lorazepam, Cymbalta, seroquel for several years and doesn't want to change these as discussed cymbalta could be making her anxiety worse (5) Cluster A personality disorder: (6) Somatization disorder: (7) Fibromyalgia: (8) Noncompliance with medication treatment due to intermittent use of medication: (9) Low BMI: History of Present Illness Chief Complaint: shortness of breath Primary Care Provider: Garth Wellington 67yo with PMHx significant for somatization disorder, mood disorder, cluster A personality, anxiety, autoimmune hypothyroidism presented with shortness of breath and found to have a pneumothorax on the right. Patient evaluated in C2, wanting something to eat. Stable on 2L presently but anxious appearing. States shortness of breath has been going on for about a month, if not longer. SHe does note she has not been coughing/no sputum production or fevers and that she has been able to go to the store/[employer] and do laps/full length of the store back and forth without assistive device despite this shortness of breath. No chest pain but does have discomfort in her left posterior ribs, no fractures seen on imaging. Had been using heat at home with effectiveness and discussed will continue and will add topical lidocaine patches. Her main concern is going home with continued pain. Discussed I reached out to Rabiaadelaida from endocrinology regarding her recent TSH and low dose Synthroid, which she discontinued. She DOES NOT want to be back on that and states that's how she lost all the weight. Her mother had hx hyperthyroidism failure to thrive when she passed and it does seem patient very concerned this will happen to her despite her labs showing HYPOthyroidism. She is currently about 60kg. Endocrinology did voice concerns for underlying eating disorder. Patient does endorse eating four times daily at home, small amounts as she reports feeling full early. Very active and reports she exercises all the time. CT chest on admit w/ small RIGHT PTx, extensive interstitial lung disease. No prior hx COPD/asthma reported, not on inhalers. Pulmonary consulted, discussed by ER provider on admit and recs for supplemental O2 and monitoring. Allergies Allergy/AdvReac Type Severity Reaction Status Date / Time Iodinated Contrast Media Allergy Severe ANAPHYLAXIS Verified 11/26/22 14:59 Sulfa (Sulfonamide Allergy Unknown Verified 11/26/22 14:59 Antibiotics) banana AdvReac Severe GI SYMPTOMS Verified 11/26/22 14:59 red beets AdvReac Severe GI SYMPTOMS Uncoded 11/26/22 14:59 Home Medications Medication Instructions Recorded Confirmed Type lorazepam 1 mg tablet (Ativan) 1 mg PO TID 06/18/18 11/26/22 History cyclobenzaprine 10 mg tablet 10 mg PO BID 11/06/18 11/26/22 History duloxetine 60 mg capsule,delayed 60 mg PO DAILY 11/06/18 11/26/22 History release (Cymbalta) gabapentin 400 mg capsule 400 mg PO QID 07/12/20 11/26/22 History betamethasone dipropionate 0.05 % 1 applic topical DAILY PRN skin 06/05/21 11/26/22 Rx topical cream irritation #30 grams hydrocortisone 2.5 % topical 1 applic topical DAILY #28.35 grams 06/05/21 11/26/22 Rx ointment cholecalciferol (vitamin D3) 25 25 mcg PO DAILY 10/16/22 11/26/22 History mcg (1,000 unit) capsule Ca 600 mg-D3 20 mcg-mag oxide 50 1 tab PO DAILY 11/13/22 11/26/22 History yx-Nk-ejgwmh-manganese-boron tablet (Calcium 600-D3 Plus (mag-zinc)) aspirin 81 mg tablet,delayed 81 mg PO DAILY 11/13/22 11/26/22 History release (Adult Low Dose Aspirin) acetaminophen 500 mg tablet 500 mg PO QID PRN Pain 11/26/22 11/26/22 History donepezil 5 mg tablet 5 mg PO HS INSOMNIA 11/26/22 11/26/22 History ferrous sulfate 325 mg (65 mg 325 mg PO TID 11/26/22 11/26/22 History iron) tablet quetiapine 50 mg tablet 50 mg PO HS 11/26/22 11/26/22 History tramadol 50 mg tablet 50 mg PO BID 11/26/22 11/26/22 History trazodone 100 mg tablet 100 mg PO HS 11/26/22 11/26/22 History Past Med/Surg History Medical History (Updated 11/26/22 @ 18:44 by Federico Greco) Anemia Anxiety disorder Cervicalgia Fibromyalgia Hypothyroidism Mood disorder due to known physiological condition Somatization disorder Vitamin B12 deficiency Vitamin D deficiency Surgical History History of adenoidectomy History of tonsillectomy Family History Father Allergies Asthma Other No family history of adverse response to anesthesia No family history of bleeding disorder Social History Smoking Status: Never smoker Hx Alcohol Use: No Hx Substance Use: No Preferred Language: Mosotho Communication Ability: Effective Visual Impairment: No Limitations Hearing Ability: Normal Cleaning Porter Required: No Beliefs That Will Affect Care: None marital status: Current Living Situation: Significant Other and Other Current Living Situation Comment: Lives in a home with life partner current occupational status: retired Other Information That Helps Us Care for You: No Feels Safe at Home: Yes Safety Concerns: Feels Safe At This Time Assistive Devices: Glasses Physical Exam Physical Exam: chronically ill, thin/cachectic, anxious appearing female sitting up in bed, inquiring about getting something to eat. anxious but no acute distress HEENT: head normocephalic, nodular thyroid, mm slightly dry, trachea midline/no deviation Resp: bilateral wheezing/rales, bibasilar crackles, on 2L NC SpO2 97% CV: rrr, no significant m/r/g, no pitting edema GI: scaphoid, soft, nt ; no ornelas MSK/Neuro: follows commands, no focal deficit Psych: alerted, oriented to person/place/time Skin: cool, dry Results & Data Results & Data ([facility]) Vital Signs (Past 12 Hours) Vital Signs Temp Pulse Pulse Resp BP Pulse Ox O2 Del Method 11/26/22 16:00 75 24 138/90 97 Nasal Cannula 11/26/22 14:35 74 20 147/89 H 97 Nasal Cannula 11/26/22 12:43 95 Nasal Cannula 11/26/22 13:01 70 11/26/22 11:52 73 24 126/83 96 Nasal Cannula 11/26/22 11:43 96 Nasal Cannula 11/26/22 11:43 36.7 C 76 27 H 85 L Room Air O2 Flow Rate 11/26/22 16:00 2 11/26/22 14:35 2 11/26/22 12:43 2 11/26/22 13:01 11/26/22 11:52 1 11/26/22 11:43 1 11/26/22 11:43 Laboratory Results 11/26/22 11/26/22 11/26/22 Range/Units 13:18 13:18 13:18 WBC (4.8-10.8) K/ul RBC (4.20-5.40) M/uL Hgb (12.0-16.0) g/dl Hct (37.0-47.0) % MCV (80.0-100.0) fL MCH (25.0-34.0) pg MCHC (32.0-36.0) g/dL RDW Std Deviation (36.4-46.3) fL RDW Coeff of Caridad (11.5-14.5) % Plt Count (130-400) K/uL MPV (9.4-12.4) fL Immature Gran % (Auto) % Neut % (Auto) % Lymph % (Auto) % [place] % (Auto) % Eos % (Auto) % Baso % (Auto) % Neut # (Auto) (1.40-6.50) K/uL Lymph # (Auto) (1.2-3.4) K/uL [place] # (Auto) (0.11-0.59) K/uL Eos # (Auto) (0-0.50) K/uL Baso # (Auto) (0-0.2) K/uL Immature Gran # (Auto) (0.01-0.20) K/uL PT (9.0-12.0) Seconds INR (0.9-1.1) APTT (21.0-31.0) Seconds PTT Ratio VBG pH 7.35 L (7.36-7.41) VBG pCO2 68 H (38-50) mmHg VBG pO2 30 mmHg VBG HCO3 38 mmol/L VBG O2 Saturation < 60.0 % VBG Base Excess 8.8 mEq/L Sodium (136-145) mmol/L Potassium (3.5-5.1) mmol/L Chloride (98-107) mmol/L Carbon Dioxide (21-32) mmol/L Anion Gap (3-11) BUN (6-23) mg/dl Creatinine (0.6-1.2) mg/dl Est Cr Clr Drug Dosing Est GFR ( Amer) ml/min Est GFR (Non-Af Amer) ml/min BUN/Creatinine Ratio (10-20) Glucose (70-99(Fasting)) mg/dl Calcium (8.5-10.1) mg/dl Magnesium (1.7-2.4) mg/dl Total Bilirubin (0.2-1.0) mg/dl Direct Bilirubin (0-0.2) mg/dl AST (13-39) U/L ALT (7-52) U/L Alkaline Phosphatase (34-104) U/L Troponin I High Sens 5.1 (0-14) pg/ml B-Natriuretic Peptide 33 (0-100) pg/ml Total Protein (6.0-8.3) gm/dl Albumin (3.4-5.0) gm/dl Lipase 33 (11-82) U/L 11/26/22 11/26/22 11/26/22 Range/Units 13:18 13:18 13:18 WBC 9.14 (4.8-10.8) K/ul RBC 4.95 (4.20-5.40) M/uL Hgb 15.1 (12.0-16.0) g/dl Hct 44.9 (37.0-47.0) % MCV 90.7 (80.0-100.0) fL MCH 30.5 (25.0-34.0) pg MCHC 33.6 (32.0-36.0) g/dL RDW Std Deviation 40.9 (36.4-46.3) fL RDW Coeff of Caridad 12.5 (11.5-14.5) % Plt Count 290 (130-400) K/uL MPV 10.0 (9.4-12.4) fL Immature Gran % (Auto) 0.2 % Neut % (Auto) 75.8 % Lymph % (Auto) 13.1 % [place] % (Auto) 6.6 % Eos % (Auto) 3.4 % Baso % (Auto) 0.9 % Neut # (Auto) 6.93 H (1.40-6.50) K/uL Lymph # (Auto) 1.20 (1.2-3.4) K/uL [place] # (Auto) 0.60 H (0.11-0.59) K/uL Eos # (Auto) 0.31 (0-0.50) K/uL Baso # (Auto) 0.08 (0-0.2) K/uL Immature Gran # (Auto) 0.02 (0.01-0.20) K/uL PT 11.3 (9.0-12.0) Seconds INR 1.1 (0.9-1.1) APTT 28.7 (21.0-31.0) Seconds PTT Ratio 1.0 VBG pH (7.36-7.41) VBG pCO2 (38-50) mmHg VBG pO2 mmHg VBG HCO3 mmol/L VBG O2 Saturation % VBG Base Excess mEq/L Sodium 134 L (136-145) mmol/L Potassium 4.5 (3.5-5.1) mmol/L Chloride 96 L (98-107) mmol/L Carbon Dioxide 33 H (21-32) mmol/L Anion Gap 5 (3-11) BUN 15 (6-23) mg/dl Creatinine 0.56 L (0.6-1.2) mg/dl Est Cr Clr Drug Dosing Not Reportable Est GFR ( Amer) 110.3 ml/min Est GFR (Non-Af Amer) 95.1 ml/min BUN/Creatinine Ratio 26.8 H (10-20) Glucose 83 (70-99(Fasting)) mg/dl Calcium 9.8 (8.5-10.1) mg/dl Magnesium 2.0 (1.7-2.4) mg/dl Total Bilirubin 0.4 (0.2-1.0) mg/dl Direct Bilirubin 0.1 (0-0.2) mg/dl AST 22 (13-39) U/L ALT 15 (7-52) U/L Alkaline Phosphatase 80 (34-104) U/L Troponin I High Sens (0-14) pg/ml B-Natriuretic Peptide (0-100) pg/ml Total Protein 8.0 (6.0-8.3) gm/dl Albumin 4.0 (3.4-5.0) gm/dl Lipase (11-82) U/L Diagnostic Findings Chest X-Ray 11/26/22 11:48 XR chest 1V portable HISTORY: Shortness of breath. COMPARISON: Chest 12/08/2007. FINDINGS: Emphysematous changes with diffuse interstitial thickening. This has progressed and is likely related to chronic interstitial lung disease. Othe rwise, no new focal lung consolidations to suggest a pneumonia. No evidence for pulmonary edema. The heart is normal in size. Skinfold versus pneumothorax within the right lung apex. IMPRESSION: 1. Skinfold versus small pneumothorax within the right lung apex. Repeat PA and lateral views of the chest are recommended. 2. Emphysema with diffuse interstitial thickening which is likely chronic. ACT 112: Negative or not required by law. Electronically signed by: Miguel Ángel Vyas M.D. 11/26/2022 1:00 PM Chest X-Ray 11/26/22 13:47 XR chest 2V PA/lateral CLINICAL HISTORY: sob ro ptx TECHNIQUE: 2 views of the chest were obtained. Comparison: Comparison is made to chest radiograph 11/26/2022 FINDINGS: No lines and tubes are seen. The cardiomediastinal silhouette is normal. Reticular interstitial opacities are seen. Right apical pneumothorax is slightly increased from prior exam measuring 12 mm in greatest thickness. A skinfold is noted in the left lung. IMPRESSION: Confirmation of a right apical pneumothorax which is slightly increased in size from prior exam. Extensive interstitial disease is noted. ACT 112: Negative or not required by law. Electronically signed by: Lalo Patel M.D. 11/26/2022 2:[address] 11/26/22 14:28 CT chest diagnostic wo con CLINICAL HISTORY: RPTXr TECHNIQUE: Multidetector row helical CT of the chest was performed. Coronal and sagittal reformations were obtained. Automated dose lowering techniques and/or adjustment according to patient size were utilized for this exam. CT DOSE: 198.61 mGy.cm Comparison: Comparison is made to chest radiograph 11/18/2022 FINDINGS: Lungs and pleura: There is a small right pneumothorax. Extensive interstitial lung disease is seen with bronchiectasis and interstitial thickening. Heart and pericardium: Heart size is normal. No pericardial effusion. Vessels: Severe atherosclerotic changes in the aorta and coronary arteries. Mediastinum and reese: Subcentimeter lymph nodes are seen. Chest wall and lower neck: Unremarkable. Abdomen: Unremarkable. Bones: Degenerative changes are seen and there is irregularity in the left fifth rib which may represent a subacute fracture. IMPRESSION: Small right pneumothorax is seen, similar to appearance on chest radiograph. Extensive interstitial lung disease is noted. ACT 112: Negative or not required by law. Electronically signed by: Lalo Patel M.D. 11/26/2022 3:48 PM Supervising Physician Co-Signing Physician Notes I personally saw and examined the patient. I verified all espinoza points and agree with Ayana Laureano PA-C with the following exceptions and/or additions: 67 year old female presents to the ER with shortness of breath and chest pain. Pneumothorax seen on CXR and CT. No known lung disease per patient although she appears to have some interstitial lung disease on CT. O/E Cachectic appearing, HS RRR, no murmurs, no respiratory distress, Chest reduced breath sounds throughout, Abdo SNT A/P Pneumothorax - aim O2 sats > 94%, avoid coughing, repeat CXR in AM Chest pain - reproducible on exam, MSK, acetaminophen PRN Interstitial lung disease - consult pulmonology Severe protein calorie malnutrition PG Care Time/CCT Total # of Minutes Spent Total Time Spent with Patient: Total time spent is greater than 50% in coordination of care (as documented) at patient's floor/unit and/or counseling patient: Coding Level of Care Code 12974 INT INP/OBS CARE MIN Diagnoses Pneumothorax J93.9 Aryan's thyroiditis E06.3 Weight loss R63.4 Anxiety disorder F41.9 Cluster A personality disorder F60.9 Somatization disorder F45.0 Fibromyalgia M79.7 Noncompliance with medication treatment due to intermittent use of medication Z91.14 Low BMI
[2022-11-26] MEDS ORDERED: GABAPENTIN 400 MG CAP PO STA (18:36)
[2022-11-26] MEDS ORDERED: ONDANSETRON INJ 2 MG/ML 2 ML VIAL IV PRN (20:59)
[2022-11-26] MEDS ORDERED: ALBUT/IPRATROP 3MG/0.5MG NEB 3 ML VIAL NEB PRN (20:59)
[2022-11-26] MEDS ORDERED: DONEPEZIL HCL 5 MG TAB PO SCH (21:00)
[2022-11-26] MEDS ORDERED: QUEtiapine FUMARATE 25 MG TABLET PO SCH (21:00)
[2022-11-26] MEDS ORDERED: traZODone HCL 100 MG TAB PO SCH (21:00)
[2022-11-26] MEDS ORDERED: LIDOCAINE 5% 1 PATCH TD SCH (21:30)
[2022-11-26] MEDS: GABAPENTIN 400 MG CAP PO SCH (22:30)
[2022-11-26] MEDS: CYCLOBENZAPRINE HCL 10 MG TAB PO SCH (22:34)
[2022-11-26] MEDS: LORazepam 1 MG TAB PO SCH (22:36)
[2022-11-26] MEDS: traMADol HCL 50 MG TABLET PO SCH (22:37)
[2022-11-27 07:47] LABS: Base Excess VBG 9.2 mEq/L; Basophils # (auto) 0.02 K/uL (0-0.2); Basophils % (auto) 0.2 %; Eosinophils # (auto) 0.02 K/uL (0-0.50); Eosinophils % (auto) 0.2 %; HCO3 VBG 37 mmol/L; Hematocrit (blood only) 41.6 % (37.0-47.0); Hemoglobin 13.9 g/dl (12.0-16.0); Immature Granulocytes # (auto) 0.04 K/uL (0.01-0.20); Immature Granulocytes % (auto) 0.4 %; Lymphocytes # (auto) 1.31 K/uL (1.2-3.4); Mean Corpuscular Hemoglobin 30.3 pg (25.0-34.0); Mean Corpuscular Hgb Conc 33.4 g/dL (32.0-36.0); Mean Corpuscular Volume 90.6 fL (80.0-100.0); Mean Platelet Volume 10.1 fL (9.4-12.4); Monocytes # (auto) 0.95 K/uL (0.11-0.59); Monocytes % (auto) 10.1 %; Neutrophils # (auto) 7.03 K/uL (1.40-6.50); Neutrophils % (auto) 75.1 %; Oxygen Saturation VBG 90.6 %; PCO2 VBG 64 mmHg (38-50); PO2 VBG 61 mmHg; Platelet Count 322 K/uL (130-400); RDW Coefficient of Variation 12.2 % (11.5-14.5); RDW Standard Deviation 40.4 fL (36.4-46.3); Red Blood Count 4.59 M/uL (4.20-5.40); White Blood Count 9.37 K/ul (4.8-10.8); pH VBG 7.37 (7.36-7.41)
[2022-11-27] MEDS: CYCLOBENZAPRINE HCL 10 MG TAB PO SCH (08:07)
[2022-11-27] MEDS: GABAPENTIN 400 MG CAP PO SCH ×2 (08:07→12:52)
[2022-11-27 08:10] LABS: BUN Creatinine Ratio 43.4 (10-20); Calcium 9.2 mg/dl (8.5-10.1); Creatinine Clr Calc Pharmacy 47.8 ml/min; Est GFR (African American) 112.3 ml/min; Est GFR (Non-African American) 96.9 ml/min; Magnesium 2.3 mg/dl (1.7-2.4); Potassium 4.8 mmol/L (3.5-5.1)
[2022-11-27] MEDS: LORazepam 1 MG TAB PO SCH ×2 (08:10→13:39)
[2022-11-27] MEDS: traMADol HCL 50 MG TABLET PO SCH (08:11)
[2022-11-27] MEDS ORDERED: ASPIRIN 81 MG ECTAB PO SCH (09:00)
[2022-11-27] MEDS ORDERED: DULoxetine HCL 60 MG CAP PO SCH (09:00)
--- NOTE | 2022-11-27 09:13 | Pulmonary Consultation ---
Date of Consultation November 27, 2022 Assessment & Plan (1) Pneumothorax: (2) Hypoxemic respiratory failure, chronic: (3) Interstitial lung disease: (4) Hypersensitivity pneumonitis: Plan Impression: 67-year-old female with diffuse parenchymal lung disease. The differential is broad and would include hypersensitivity pneumonitis especially given her bird exposure, interstitial lung disease related to connective tissue disease or other systemic disorders, NSIP with other diffuse parenchymal lung disease is being less likely. She has a secondary pneumothorax likely secondary to her structural lung disease but is minimally symptomatic. I think her shortness of breath is related to her ILD and bronchiectasis. This is the acute recognition of a chronic problem. Recommendations: 1. Pneumothorax: Repeat chest x-ray today. If the pneumothorax is stable or decreased, the patient can likely be dismissed from the hospital with outpatient pulmonary follow-up as indicated below. If the pneumothorax is increasing in size, may consider chest tube placement. Given the structural abnormalities of her lungs, if chest tube placement is required would strongly recommend referral to a tertiary center for potential pleurodesis. Surgical lung biopsy could be performed at that time as well to obtain a definitive diagnosis of her lung disease. 2. Interstitial lung disease: Highly likely that this may represent chronic HP given the bird exposure. Advised the patient that the bird needs to be removed from the house and the house needs to be thoroughly cleaned to remove all potential antigens. We will send serological evaluation including HP serologies. The patient will require outpatient follow-up with pulmonary function test. Would hold immunosuppression for now especially in light of her pneumothorax. Typically avoidance of additional antigen exposure is adequate therapy. Given the extensive fibrotic changes in the patient's lungs, I am not sure that immunosuppression at this point in time is good to have much of a role. 3. Bronchiectasis: Secondary to #2. No signs of exacerbation currently. Continue to follow clinically. 4. Recommend the patient be assessed for supplemental oxygen prior to discharge from the hospital. The above recommendations and plan were extensively discussed with the patient. Questions were answered to the best my ability. She expressed understanding and is in agreement with the plan as outlined. She would like to be dismissed from the hospital if at all possible. History of Present Illness Attending Physician: Ayah Mueller MD History of Present Illness Asked by hospitalist to assist in evaluation management as patient with an abnormal x-ray, pneumothorax, and shortness of breath. History is obtained from discussion with the patient as well as review the electronic medical record. Patient is a 67-year-old non-smoking female who gets her care in [place]. She has not seen a clam treader previously that she is aware of. She reports the insidious onset of shortness of breath going on actually for the last several years but over the last month or so its become markedly worse. She was seen by her primary care provider who referred her to the emergency room due to findings of hypoxemia. In the emergency room she was noted to have an apical pneumothorax on chest x-ray which persisted on follow-up imaging and a CT scan again confirmed the presence of diffuse parenchymal lung disease with fibrotic changes as well as a small pneumothorax. The patient was placed on oxygen and admitted to the hospitalist service. The patient does not report any prior pulmonary history. No family history of lung disease that she is aware of. Again she is a lifelong non-smoker. She worked in the clerical industry and had no significant occupational or environmental exposures. Her partner does keep a cockatiel at home. The bird has been in the house for over 20 years. She is unclear if the bird is sick. There is apparently an elder filter in the house. She does not have any asbestos exposure. No family history of lung disease that she is aware of. She does have osteoarthritis and degenerative joint disease but denies any other arthralgias or joint complaints. She has not had any skin lesions. No history of connective tissue disease that she is aware of. She is never been told that she had an abnormal chest x-ray. She has never undergone pulmonary function testing in the past. Her medical history and review of systems is otherwise well-documented on the H&P. No additions or deletions. Allergies Allergy/AdvReac Type Severity Reaction Status Date / Time Iodinated Contrast Media Allergy Severe ANAPHYLAXIS Verified 11/26/22 14:59 Sulfa (Sulfonamide Allergy Unknown Verified 11/26/22 14:59 Antibiotics) banana AdvReac Severe GI SYMPTOMS Verified 11/26/22 14:59 red beets AdvReac Severe GI SYMPTOMS Uncoded 11/26/22 14:59 Home Medications Medication Instructions Recorded Confirmed Type lorazepam 1 mg tablet (Ativan) 1 mg PO TID 06/18/18 11/26/22 History cyclobenzaprine 10 mg tablet 10 mg PO BID 11/06/18 11/26/22 History duloxetine 60 mg capsule,delayed 60 mg PO DAILY 11/06/18 11/26/22 History release (Cymbalta) gabapentin 400 mg capsule 400 mg PO QID 07/12/20 11/26/22 History betamethasone dipropionate 0.05 % 1 applic topical DAILY PRN skin 06/05/21 11/26/22 Rx topical cream irritation #30 grams hydrocortisone 2.5 % topical 1 applic topical DAILY #28.35 grams 06/05/21 11/26/22 Rx ointment cholecalciferol (vitamin D3) 25 25 mcg PO DAILY 10/16/22 11/26/22 History mcg (1,000 unit) capsule Ca 600 mg-D3 20 mcg-mag oxide 50 1 tab PO DAILY 11/13/22 11/26/22 History yn-Kq-mldazg-manganese-boron tablet (Calcium 600-D3 Plus (mag-zinc)) aspirin 81 mg tablet,delayed 81 mg PO DAILY 11/13/22 11/26/22 History release (Adult Low Dose Aspirin) acetaminophen 500 mg tablet 500 mg PO QID PRN Pain 11/26/22 11/26/22 History donepezil 5 mg tablet 5 mg PO HS INSOMNIA 11/26/22 11/26/22 History ferrous sulfate 325 mg (65 mg 325 mg PO TID 11/26/22 11/26/22 History iron) tablet quetiapine 50 mg tablet 50 mg PO HS 11/26/22 11/26/22 History tramadol 50 mg tablet 50 mg PO BID 11/26/22 11/26/22 History trazodone 100 mg tablet 100 mg PO HS 11/26/22 11/26/22 History Patient History Medical History (Updated 11/27/22 @ 09:09 by Alden Mcmahon MD) Anemia Anxiety disorder Cervicalgia Fibromyalgia Hypothyroidism Mood disorder due to known physiological condition Somatization disorder Vitamin B12 deficiency Vitamin D deficiency Surgical History History of adenoidectomy History of tonsillectomy Family History Father Allergies Asthma Other No family history of adverse response to anesthesia No family history of bleeding disorder Social History Smoking Status: Never smoker Hx Alcohol Use: No Hx Substance Use: No Preferred Language: Spanish Communication Ability: Effective Visual Impairment: No Limitations Hearing Ability: Normal [employer] Station Manager Required: No Beliefs That Will Affect Care: None marital status: Current Living Situation: Significant Other and Other Current Living Situation Comment: Lives in a home with life partner current occupational status: retired Other Information That Helps Us Care for You: No Feels Safe at Home: Yes Safety Concerns: Feels Safe At This Time Assistive Devices: Glasses Review of Systems Review of Systems: Per admission H&P Physical Exam Constitutional: + thin, + cachectic, + frail appearing and cooperative; no acute distress Neck: trachea midline, no thyromegaly Respiratory: no respiratory distress, no labored breathing and not tachypneic Auscultation: + crackles; no wheezes Cardiovascular: RRR, no murmur, no edema Gastrointestinal (Abdomen): normal bowel sounds, soft, nontender, no hepatosplenomegaly Musculoskeletal: Extremities: extremities normal to inspection Skin: no rashes, warm and dry Neurologic: Nonfocal exam Lymphatic: no cervical lymphadenopathy Results & Data Results & Data ([facility]) Vital Signs (Past 12 Hours) Vital Signs Temp Pulse Pulse Resp BP Pulse Ox O2 Del Method 11/27/22 08:00 Nasal Cannula 11/27/22 07:34 36.8 C 76 20 102/67 99 Nasal Cannula 11/27/22 07:17 68 11/27/22 03:11 36.7 C 83 18 96/61 L 99 Nasal Cannula 11/26/22 22:00 96 H 11/26/22 21:24 83 11/26/22 23:01 36.6 C 85 18 116/76 95 Nasal Cannula O2 Flow Rate 11/27/22 08:00 3 11/27/22 07:34 4 11/27/22 07:17 11/27/22 03:11 4 11/26/22 22:00 11/26/22 21:24 11/26/22 23:01 2 Critical Care Results & Data Vital Signs (Past 12 Hours) Vital Signs Temp Pulse Pulse Resp BP Pulse Ox O2 Del Method 11/27/22 08:00 Nasal Cannula 11/27/22 07:34 36.8 C 76 20 102/67 99 Nasal Cannula 11/27/22 07:17 68 11/27/22 03:11 36.7 C 83 18 96/61 L 99 Nasal Cannula 11/26/22 22:00 96 H 11/26/22 21:24 83 11/26/22 23:01 36.6 C 85 18 116/76 95 Nasal Cannula O2 Flow Rate 11/27/22 08:00 3 11/27/22 07:34 4 11/27/22 07:17 11/27/22 03:11 4 11/26/22 22:00 11/26/22 21:24 11/26/22 23:01 2 Lab & Micro Results (Past 24 Hours) RBC 4.59 M/uL (4.20-5.40) 11/27/22 WBC 9.37 K/ul (4.8-10.8) 11/27/22 Hgb 13.9 g/dl (12.0-16.0) 11/27/22 Hct 41.6 % (37.0-47.0) 11/27/22 MCV 90.6 fL (80.0-100.0) 11/27/22 MCH 30.3 pg (25.0-34.0) 11/27/22 MCHC 33.4 g/dL (32.0-36.0) 11/27/22 RDW Standard Deviation 40.4 fL (36.4-46.3) 11/27/22 RDW Coefficient of Variation 12.2 % (11.5-14.5) 11/27/22 Plt Count 322 K/uL (130-400) 11/27/22 MPV 10.1 fL (9.4-12.4) 11/27/22 Neutrophils (%) (Auto) 75.1 % 11/27/22 Lymphocytes (%) (Auto) 14.0 % 11/27/22 Monocytes # (Auto) 0.95 K/uL (0.11-0.59) H 11/27/22 Eosinophils # (Auto) 0.02 K/uL (0-0.50) 11/27/22 Immature Granulocyte % (Auto) 0.4 % 11/27/22 Neutrophils # (Auto) 7.03 K/uL (1.40-6.50) H 11/27/22 Lymphocytes # (Auto) 1.31 K/uL (1.2-3.4) 11/27/22 Monocytes # (Auto) 0.95 K/uL (0.11-0.59) H 11/27/22 Eosinophils # (Auto) 0.02 K/uL (0-0.50) 11/27/22 Basophils # (Auto) 0.02 K/uL (0-0.2) 11/27/22 Immature Granulocyte # (Auto) 0.04 K/uL (0.01-0.20) 3 Na 134 mmol/L (136-145) L 11/27/22 K 4.8 mmol/L (3.5-5.1) 11/27/22 Cl 99 mmol/L (98-107) 11/27/22 CO2 32 mmol/L (21-32) 11/27/22 Anion Gap 3 (3-11) 11/27/22 BUN 23 mg/dl (6-23) 11/27/22 Creatinine 0.53 mg/dl (0.6-1.2) L 11/27/22 Estimated GFR ( Amer) 112.3 ml/min 11/27/22 Estimated GFR (Non-Af Amer) 96.9 ml/min 11/27/22 BUN/Creatinine Ratio 43.4 (10-20) H 11/27/22 Glu 101 mg/dl (70-99(Fasting)) H 11/27/22 Ca 9.2 mg/dl (8.5-10.1) 11/27/22 Total Bilirubin 0.4 mg/dl (0.2-1.0) 11/26/22 Direct Bilirubin 0.1 mg/dl (0-0.2) 11/26/22 AST 22 U/L (13-39) 11/26/22 ALT 15 U/L (7-52) 11/26/22 Alkaline Phosphatase 80 U/L (34-104) 11/26/22 TP 8.0 gm/dl (6.0-8.3) 11/26/22 Albumin 4.0 gm/dl (3.4-5.0) 11/26/22 Mg 2.3 mg/dl (1.7-2.4) 11/27/22 07:21 Calcium Level 9.2 mg/dl (8.5-10.1) 11/27/22 07:21 Prothromb Time International Ratio 1.1 (0.9-1.1) 11/26/22 13:1 8 Venous Blood pH 7.37 (7.36-7.41) 11/27/22 07:21 Venous Blood Partial Pressure CO2 64 mmHg (38-50) H 11/27/22 07 :21 Venous Blood Partial Pressure O2 61 mmHg 11/27/22 07:21 Venous Blood HCO3 37 mmol/L 11/27/22 07:21 Venous Blood Base Excess 9.2 mEq/L 11/27/22 07:21 Venous Blood Oxygen Saturation 90.6 % 11/27/22 07:21 Diagnostic Findings (Past 24 Hours) Chest X-Ray 11/26/22 11:48 XR chest 1V portable HISTORY: Shortness of breath. COMPARISON: Chest 12/08/2007. FINDINGS: Emphysematous changes with diffuse interstitial thickening. This has progressed and is likely related to chronic interstitial lung disease. Otherwise, no new focal lung consolidations to suggest a pneumonia. No evidence for pulmonary edema. The heart is normal in size. Skinfold versus pneumothorax within the right lung apex. IMPRESSION: 1. Skinfold versus small pneumothorax within the right lung apex. Repeat PA and lateral views of the chest are recommended. 2. Emphysema with diffuse interstitial thickening which is likely chronic. ACT 112: Negative or not required by law. Electronically signed by: Miguel Ángel Vyas M.D. 11/26/2022 1:00 PM Chest X-Ray 11/26/22 13:47 XR chest 2V PA/lateral CLINICAL HISTORY: sob ro ptx TECHNIQUE: 2 views of the chest were obtained. Comparison: Comparison is made to chest radiograph 11/26/2022 FINDINGS: No lines and tubes are seen. The cardiomediastinal silhouette is normal. Reticular interstitial opacities are seen. Right apical pneumothorax is slightly increased from prior exam measuring 12 mm in greatest thickness. A skinfold is noted in the left lung. IMPRESSION: Confirmation of a right apical pneumothorax which is slightly increased in size from prior exam. Extensive interstitial disease is noted. ACT 112: Negative or not required by law. Electronically signed by: Lalo Patel M.D. 11/26/2022 2:[address] 11/26/22 14:28 CT chest diagnostic wo con CLINICAL HISTORY: RPTXr TECHNIQUE: Multidetector row helical CT of the chest was performed. Coronal and sagittal reformations were obtained. Automated dose lowering techniques and/or adjustment according to patient size were utilized for this exam. CT DOSE: 198.61 mGy.cm Comparison: Comparison is made to chest radiograph 11/18/2022 FINDINGS: Lungs and pleura: There is a small right pneumothorax. Extensive interstitial lung disease is seen with bronchiectasis and interstitial thickening. Heart and pericardium: Heart size is normal. No pericardial effusion. Vessels: Severe atherosclerotic changes in the aorta and coronary arteries. Mediastinum and reese: Subcentimeter lymph nodes are seen. Chest wall and lower neck: Unremarkable. Abdomen: Unremarkable. Bones: Degenerative changes are seen and there is irregularity in the left fifth rib which may represent a subacute fracture. IMPRESSION: Small right pneumothorax is seen, similar to appearance on chest radiograph. Extensive interstitial lung disease is noted. ACT 112: Negative or not required by law. Electronically signed by: Lalo Patel M.D. 11/26/2022 3:48 PM I & O Totals 24 Hours 11/26/22 11/27/22 11/28/22 06:59 06:59 06:59 Intake Total 240 / 240 Output Total 0 / 0 Balance 240 / 240 Cumulative 11/26/22 11:19 thru 11/27/22 05:40 Intake Total 240 Output Total 0 Balance 240 RT Ventilator Mngmt (Last Documented) Ventilator Ordered Settings Respiratory Rate 20 11/27/22 07:34 Ventilator - PT Measurements Respiratory Rate 20 PG Care Time/CCT Total # of Minutes Spent Total Time Spent with Patient: Total time spent is greater than 50% in coordination of care (as documented) at patient's floor/unit and/or counseling patient: Coding Level of Care Code 91287 INT INP/OBS CARE 3/75MIN Diagnoses Pneumothorax J93.9 Hypoxemic respiratory failure, chronic J96.11 Interstitial lung disease J84.9 Hypersensitivity pneumonitis J67.9
[2022-11-27 10:11] LABS: C Reactive Protein 0.95 mg/dl (0-0.5)
[2022-11-27] MEDS: ACETAMINOPHEN 500 MG TAB PO PRN ×2 (10:56→13:39)
[2022-11-27] MEDS ORDERED: CEROVITE ADV FORMULA TAB PO SCH (11:30)
--- NOTE | 2022-11-27 12:16 | XRay Report ---
XR chest 2V PA/lateral CLINICAL HISTORY: f/u PTX TECHNIQUE: 2 views of the chest were obtained. Comparison: Comparison is made to chest radiograph 11/26/2022 FINDINGS: No lines and tubes are seen. The cardiomediastinal silhouette is normal. Extensive interstitial opaci ties are again seen. Stable right pneumothorax. IMPRESSION: Stable right pneumothorax. Redemonstration of extensive interstitial disease. ACT 112: Negative or not required by law. Electronically signed by: Lalo Patel M.D. 11/27/2022 12:15 PM
--- NOTE | 2022-11-27 13:46 | Discharge Summary ---
Date of Service November 27, 2022 Admission HPI Per Admitting Provider 67yo with PMHx significant for somatization disorder, mood disorder, cluster A personality, anxiety, autoimmune hypothyroidism presented with shortness of breath and found to have a pneumothorax on the right. Patient evaluated in C2, wanting something to eat. Stable on 2L presently but anxious appearing. States shortness of breath has been going on for about a month, if not longer. SHe does note she has not been coughing/no sputum production or fevers and that she has been able to go to the store/[employer] and do laps/full length of the store back and forth without assistive device despite this shortness of breath. No chest pain but does have discomfort in her left posterior ribs, no fractures seen on imaging. Had been using heat at home with effectiveness and discussed will continue and will add topical lidocaine patches. Her main concern is going home with continued pain. Discussed I reached out to Odalys from endocrinology regarding her recent TSH and low dose Synthroid, which she discontinued. She DOES NOT want to be back on that and states that's how she lost all the weight. Her mother had hx hyperthyroidism failure to thrive when she passed and it does seem patient very concerned this will happen to her despite her labs showing HYPOthyroidism. She is currently about 60kg. Endocrinology did voice concerns for underlying eating disorder. Patient does endorse eating four times daily at home, small amounts as she reports feeling full early. Very active and reports she exercises all the time. CT chest on admit w/ small RIGHT PTx, extensive interstitial lung disease. No prior hx COPD/asthma reported, not on inhalers. Pulmonary consulted, discussed by ER provider on admit and recs for supplemental O2 and monitoring. Discharge Data Allergies Allergy/AdvReac Type Severity Reaction Status Date / Time Iodinated Contrast Media Allergy Severe ANAPHYLAXIS Verified 11/26/22 14:59 Sulfa (Sulfonamide Allergy Unknown Verified 11/26/22 14:59 Antibiotics) banana AdvReac Severe GI SYMPTOMS Verified 11/26/22 14:59 red beets AdvReac Severe GI SYMPTOMS Uncoded 11/26/22 14:59 Consultations 11/26/22 16:09 ED Decision to Admit Stat 11/26/22 16:34 Consult Pulmonology Routine 11/26/22 16:47 Consult Psychiatry Routine Ordered Studies 11/26/22 14:28 CT chest diagnostic wo con Stat Hospital Course (1) Pneumothorax: R sided on imaging, spontaneous. no trauma/falls reported - concerns for underlying anorexia (discussed w/ endocrinology, see HPI, shank sorter consulted while inpatient) Obs med/tele Supplemental O2 to maintain sats -- aim 100% Duonebs prn, incentive spirometer Pain control -- lidocaine patch for her R posterior rib pain, reproducible on exam (hx fibromyalgia), using heating pad at home. Added heat/lidocaine patches., Can continue tramadol prn as uses at home Antiemetics prn Further recs for her ILD per pulm, appreciate assistance Follow up CXR/VBG/labs in AM (2) Aryan's thyroiditis: follows with Endocrinology -- did discuss on admit and patient w/ underlying autoimmune/hypothyroidism. US prior w/o criteria for biopsy to be on low dose synthroid however patient reported that is what caused her weight loss and she REFUSES to be on again monitor on tele for any arrhthymia given underlying untreated thyroid with her anxiety however anxiety could be the symptom alone continued encouragement/follow up (3) Weight loss: currently 32.6kg concerning for underlying anorexia/eating disorder shank sorter/[facility] consulted (4) Anxiety disorder: follows w/ psych and has been on regimen of trazodone, lorazepam, Cymbalta, seroquel for several years and doesn't want to change these as discussed cymbalta could be making her anxiety worse (5) Cluster A personality disorder: (6) Somatization disorder: (7) Fibromyalgia: (8) Noncompliance with medication treatment due to intermittent use of med ication: (9) Low BMI: Discharge Plan Discharge Items Patient Disposition: Home - Self-Care Reason For Visit: SOB, WEAKNESS Discharge Diagnosis: Pneumothorax, Interstitial lung disease Hypoxia Condition on Discharge: Fair Activity: As commented below Lifting: Gradually increase as tolerated Bathing: No limitations Exercise/Sports: As tolerated Non-emergency contact: Primary Care Provider and [employer] Account Manager Call non-emergency contact if: you have any medication questions and your symptoms worsen Follow-up/Referrals: Alden Mcmahon MD [Physician] - (Please call to schedule a hospital follow up appointment within 2 weeks.) Garth Wellington PA-C [Primary Care Provider] - (PLEASE CALL YOUR PRIMARY CARE PROVIDER TO SCHEDULE A DISCHARGE FOLLOW-UP APPOINTMENT WITHIN 7-10 DAYS) Diet: Regular Addtl Attending Provider Instructions: You were admitted with shortness of breath related to scarring in your lungs and a small pneumothorax (air outside the lung from a small hole in the lung that has healed). You are requiring 3L of oxygen to wear when you are walking. You will need to follow up with the [employer] Account Manager within 2 weeks for review of the pending blood tests and for further evaluation and treatment. It is recommended that you not be exposed to the bird in your home as this may be triggering your lung issues. The pain in your left ribs is likely from muscle strain from your difficulty with breathing. Continue the pain medicine as needed but hopefully this will improve with time now that you are on supplemental oxygen. For your severe malnourishment, it is recommended that you expand your diet to include animal proteins, and drink 3 Boost shakes (or similar) daily. You should also take a multivitamin plus minerals. Pending Studies at Discharge: Yes Studies:: Multiple serological studies for lung disease Stand-Alone Forms: My [facility] Medications and DC Order Prescriptions: New Cerovite Senior 0.4 mg-300 mcg- 250 mcg Tablet 1 tab PO QAM Qty: 30 0RF Continued lorazepam [Ativan] 1 mg tablet 1 mg PO TID cyclobenzaprine 10 mg tablet 10 mg PO BID duloxetine [Cymbalta] 60 mg capsule,delayed release(DR/EC) 60 mg PO DAILY gabapentin 400 mg capsule 400 mg PO QID cholecalciferol (vitamin D3) 25 mcg (1,000 unit) capsule 25 mcg PO DAILY betamethasone dipropionate 0.05 % cream 1 applic topical DAILY PRN (Reason: skin irritation) Qty: 30 0RF Rx Instructions: Apply cream daily to the affected areas on the hands for 2 weeks or until resolved. hydrocortisone 2.5 % ointment 1 applic topical DAILY Qty: 28.35 1RF Ca-D3-mag zo-golz-tzh-nuria-bor [Calcium 600-D3 Plus (mag-zinc)] 600 mg c alcium- 20 mcg-50 mg tablet 1 tab PO DAILY aspirin [Adult Low Dose Aspirin] 81 mg tablet,delayed release (DR/EC) 81 mg PO DAILY donepezil 5 mg tablet 5 mg PO HS tramadol 50 mg tablet 50 mg PO BID acetaminophen 500 mg Tablet 500 mg PO QID PRN (Reason: Pain) trazodone 100 mg tablet 100 mg PO HS ferrous sulfate 325 mg (65 mg iron) Tablet 325 mg PO TID quetiapine 50 mg tablet 50 mg PO HS Discharge Orders: Discharge Order (Routine); Ordered 11/27/22 Ordered By: Ayah Day/Other Patient Handouts: Interstitial Lung Disease, Pneumothorax (Collapsed Lung), Understanding Chronic Pain, Managing Fibromyalgia Admission Data Admit Date/Time: 11/26/22 17:15 Attending Provider: Ayah Mueller Admit Provider: Kade Causey Primary Care Provider: Garth Wellington Other Providers: Kade Causey ; Alden Mcmahon ; Liberty Guerrero ; Tiara Rojas ; Ibrahima Morales Other Interventions: Discharge Summary Assessment (RN) Last Done: 11/27/22 13:02 Coding Diagnoses Pneumothorax J93.9 Aryan's thyroiditis E06.3 Weight loss R63.4 Anxiety disorder F41.9 Cluster A personality disorder F60.9 Somatization disorder F45.0 Fibromyalgia M79.7 Noncompliance with medication treatment due to intermittent use of medication Z91.14 Low BMI
[2022-12-05 15:47] LABS: Angiotensin Converting Enzyme 45 U/L (9-67); Anti-Centromere Ab <1.0 NEG AI (<1.0 NEG); Anti-Neutrophil Antibody NONE DETECTED (NONE DETECTED); Anti-SS-A <1.0 NEG AI (<1.0 NEG); Anti-SS-B <1.0 NEG AI (<1.0 NEG); Anti-dsDNA Recombinant 1 IU/mL; Aspergillus fumigatus NEGATIVE (NEGATIVE); Cyclic Citrullinated Pep IgG <16 UNITS; Immunoglobulin IgE 3 kU/L (<OR=114); JO 1 Antibody <1.0 NEG AI (<1.0 NEG); Proteinase-3 Ab <1.0 AI; RNP Antibody <1.0 NEG AI (<1.0 NEG); Scleroderma Anti Scl-70 Ab <1.0 NEG AI (<1.0 NEG); Sm Antibody <1.0 NEG AI (<1.0 NEG)
== END 2022-11-27 14:15 | disposition home or self-care (01) ==
LOC: 2N 11:31 → ED 11:31 → SUATTDRO 17:15 → 2N 20:38

== ENCOUNTER 2023-02-12 09:09 | Inpatient (IN) ==
[2023-02-12] MEDS ORDERED: SODIUM CHLORIDE 0.9% 500 ML IV ONE (09:32)
--- NOTE | 2023-02-12 10:05 | XRay Report ---
SINGLE VIEW CHEST CLINICAL HISTORY: Atypical chest pain. FINDINGS: An AP, portable, upright chest radiograph is compared to study dated 01/08/2023 and correlat ed with chest CT dated 11/26/2022. The examination is degraded by portable technique and patient rotat ion. The cardiomediastinal silhouette is unremarkable noting atherosclerotic calcification of the th oracic aorta. Fibrotic change is again seen throughout both lungs with a subpleural predominance. The re is no evidence of superimposed airspace consolidation or large pleural effusion. No pneumothorax i s seen. The skeletal structures are osteopenic. There are acute to subacute right anterior 5th and 6t h rib fractures. IMPRESSION: 1. Interstitial/fibrotic lung disease as above with no air space consolidation, large pleural effusio n, or pneumothorax identified. 2. Acute to subacute right-sided rib fractures as above. ACT 112: Negative or not required by law. Electronically signed by: Yogesh Parra M.D. 02/12/2023 10:04 AM
[2023-02-12 10:42] LABS: Basophils # (auto) 0.04 K/uL (0-0.2); Basophils % (auto) 0.3 %; Eosinophils # (auto) 0.09 K/uL (0-0.50); Eosinophils % (auto) 0.6 %; Hematocrit (blood only) 39.9 % (37.0-47.0); Hemoglobin 13.4 g/dl (12.0-16.0); Immature Granulocytes # (auto) 0.34 K/uL (0.01-0.20); Immature Granulocytes % (auto) 2.2 %; Lymphocytes # (auto) 1.86 K/uL (1.2-3.4); Lymphocytes % (auto) 12.1 %; Mean Corpuscular Hemoglobin 33.4 pg (25.0-34.0); Mean Corpuscular Hgb Conc 33.6 g/dL (32.0-36.0); Mean Corpuscular Volume 99.5 fL (80.0-100.0); Mean Platelet Volume 9.1 fL (9.4-12.4); Monocytes # (auto) 0.96 K/uL (0.11-0.59); Monocytes % (auto) 6.2 %; Neutrophils # (auto) 12.13 K/uL (1.40-6.50); Neutrophils % (auto) 78.6 %; Platelet Count 268 K/uL (130-400); RDW Coefficient of Variation 15.7 % (11.5-14.5); RDW Standard Deviation 57.5 fL (36.4-46.3); Red Blood Count 4.01 M/uL (4.20-5.40); White Blood Count 15.42 K/ul (4.8-10.8)
[2023-02-12 10:56] LABS: Alanine Aminotransferase 28 U/L (7-52); Albumin Globulin Ratio 1.4 (0.9-2); Albumin Level 3.8 gm/dl (3.4-5.0); Alkaline Phosphatase 63 U/L (34-104); Anion Gap 6 (3-11); Aspartate Aminotransferase 22 U/L (13-39); BUN Creatinine Ratio 28.8 (10-20); Bilirubin,Total 0.4 mg/dl (0.2-1.0); Blood Urea Nitrogen 15 mg/dl (6-23); Calcium 9.5 mg/dl (8.6-10.3); Carbon Dioxide 34 mmol/L (21-32); Chloride 96 mmol/L (98-107); Est GFR (African American) 112.2 ml/min; Est GFR (Non-African American) 96.8 ml/min; Globulin 2.8 gm/dl (2.5-4.0); Glucose 84 mg/dl (70-99(Fasting)); Lipase 21 U/L (11-82); Magnesium 2.2 mg/dl (1.7-2.4); Sodium 136 mmol/L (136-145); Total Protein 6.6 gm/dl (6.0-8.3)
[2023-02-12 11:01] LABS: Troponin I High Sensitivity 15.5 pg/ml (0-14)
[2023-02-12 11:34] LABS: INR 0.9 (0.9-1.1)
[2023-02-12] MEDS ORDERED: ALBUT/IPRATROP 3MG/0.5MG NEB 3 ML VIAL NEB STA (12:17)
[2023-02-12] MEDS ORDERED: methylPREDNISolone 125 MG/2 ML VIAL IV STA (12:20)
--- NOTE | 2023-02-12 12:21 | Emergency Department Note ---
Impression & Plan Pneumonia, Hypoxemic respiratory failure, chronic, Interstitial lung disease ED Provider Note NAME: MACIE KOU AGE: 68 SEX: F ARRIVES VIA: Walk-In INFORMANT: Patient ED PROVIDER(S): Jacques Saenz MD CHIEF COMPLAINT: SOB PLAN: Disposition: Admit MEDICAL DECISION MAKING: The patient is a pleasant 68-year-old woman with a past medical history of chronic hypoxemic respiratory failure, interstitial lung disease, mood disorder, somatizations disorder, fibromyalgia, history of pneumothorax who presents to the emergency department via walk-in accompanied by her life partner for evaluation of worsening shortness of breath for an unclear amount of time. The patient is a poor historian and the patient's partner left shortly after bringing the patient and cannot be contacted despite multiple attempts. Patient denies any fevers, cough, nausea, vomiting, diarrhea On my evaluation the patient is chronically ill-appearing and mildly dyspneic but no acute distress, afebrile with stable vital signs. O2 saturation is in the mid 90s on her home 3 L nasal cannula. EKG without overt acute ischemia. Chest x-ray negative for acute cardiopulmonary process though note is made of subacute appearing right-sided rib fractures. WBC 15.4 with neutrophil predominance and left shift. H/H and platelets within normal limits. Chemistry without metabolic acidosis. Bicarbonate 34 consistent with the patient's chronic respiratory failure. BUN/creatinine> 20 consistent with patient's clinically dry appearance. Initial lactic acid 2.7 improving to 2.1 following IV fluid hydration. Electrolytes without significant abnormality. LFTs unremarkable. High-sensitivity troponin 15.5, marginally above normal and nonspecific. BNP is normal. Lipase is not elevated. Procalcitonin is undetectable. Respiratory viral panel/[employer] was negative. CT of the chest was performed and demonstrates diffuse airspace opacities suspicious for pneumonia given the patient's history in addition to signs of interstitial lung disease. Subacute rib fractures are further characterized where there is fractures involving the right fourth, fifth, right rib as well as left fifth rib. Blood cultures were drawn and patient was treated empirically with cefepime. Given the patient's pneumonia in the setting of her interstitial lung disease and chronic respiratory failure she was referred to the hospital service for admission. Case was d/w Dr. Causey, [facility] hospitalist who will evaluate the patient for admission. Triage Nursing notes reviewed and agree them. Prior/outside medical records reviewed Vital Signs: reviewed Differential diagnosis: Reactive airway disease, pneumonia, pneumothorax, COPD, CHF, infections, cardiac ischemia, pulmonary embolism, musculoskeletal, gastrointestinal, as well as other pathologies. ER treatment provided: See below. Diagnostics interpreted by me: ECG: Normal sinus rhythm, 87 bpm, no ectopy, no overt ST elevation or depression, QTc 4 9, QRS 70 Cardiac Monitoring: An order for continuous cardiac monitoring was placed and demonstrated Normal sinus rhythm, 87 bpm, no ectopy. Laboratory studies: See below Imaging studies: See below Consultation(s): Dr. Causey, [facility] hospitalist HPI: The patient is a pleasant 68-year-old woman with a past medical history of chronic hypoxemic respiratory failure, interstitial lung disease, mood disorder, somatizations disorder, fibromyalgia, history of pneumothorax who presents to the emergency department via walk-in accompanied by her life partner for evaluation of worsening shortness of breath for an unclear amount of time. The patient is a poor historian and the patient's partner left shortly after bringing the patient and cannot be contacted despite multiple attempts. Patient denies any fevers, cough, nausea, vomiting, diarrhea ROS: See above HPI for pertinent positives & negatives. A total of 10 systems reviewed and were otherwise negative. VITALS:See Below PHYSICAL EXAMINATION: GENERAL: Awake, alert, chronically/cachectic ill-appearing, in no distress HENT: Normocephalic, atraumatic. Oropharynx with dry mucous membranes and otherwise unremarkable. EYES: Normal conjunctiva. Sclera non-icteric. NECK: Supple. No nuchal rigidity. FROM. No JVD. RESPIRATORY: Intermittent wheezes and diminished bilateral lung barrett. CARDIAC: Regular rate, normal rhythm. Extremities warm and well perfused. Pulses equal. ABDOMEN: Soft, non-distended. No tenderness to palpation. No rebound or guarding. No masses. RECTAL: Deferred. MUSCULOSKELETAL: Chest examination reveals no tenderness. The back is symmetrical on inspection without obvious abnormality. There is no CVA tenderness to palpation. No joint edema. LOWER EXTREMITIES: Calves are equal size bilaterally and non-tender. No edema. No discoloration. NEURO: Normal sensorium. No sensory or motor deficits noted. SKIN: No rash or jaundice noted. ED COURSE: Critical Care: I have personally spent greater than 35 minutes of critical care time in the direct management of this patient. This includes bedside care, interpretation of diagnostic studies, and testing, discussion with consultants, patient, and family members, and other required patient management activities. This 35 minutes is in excess of all separately billable procedures. Jacques Saenz MD Past Med/Surg History Medical History Eustachian tube dysfunction Mixed conductive and sensorineural hearing loss of left ear with restricted hearing of right ear Pneumothorax Seasonal allergies Surgical History History of adenoidectomy History of tonsillectomy Family History Father Allergies Asthma Other No family history of adverse response to anesthesia No family history of bleeding disorder Social History Smoking Status: Never smoker Hx Alcohol Use: No Hx Substance Use: No Preferred Language: Swedish Communication Ability: Effective Visual Impairment: No Limitations Hearing Ability: Normal 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 Required: No Beliefs That Will Affect Care: None marital status: Current Living Situation: Significant Other and Other Current Living Situation Comment: Lives in a home with life partner current occupational status: retired Feels Safe at Home: Yes Assistive Devices: Other Allergies Allergies Allergy/AdvReac Type Severity Reaction Status Date / Time Iodinated Contrast Media Allergy Severe ANAPHYLAXIS Verified 02/12/23 14:14 Sulfa (Sulfonamide Allergy Unknown Verified 02/12/23 14:14 Antibiotics) banana AdvReac Severe GI SYMPTOMS Verified 02/12/23 14:14 red beets AdvReac Severe GI SYMPTOMS Uncoded 02/12/23 14:14 Home Meds Home Medications Medication Instructions Recorded Confirmed lorazepam 1 mg tablet (Ativan) 1 mg PO TID 06/18/18 02/12/23 cyclobenzaprine 10 mg tablet 10 mg PO BID 11/06/18 02/12/23 duloxetine 60 mg capsule,delayed 60 mg PO DAILY 11/06/18 02/12/23 release (Cymbalta) gabapentin 400 mg capsule 400 mg PO QID 07/12/20 02/12/23 cholecalciferol (vitamin D3) 25 25 mcg PO DAILY 10/16/22 02/12/23 mcg (1,000 unit) capsule Ca 600 mg-D3 20 mcg-mag oxide 50 1 tab PO DAILY 11/13/22 02/12/23 er-Lt-vjcxup-manganese-boron tablet (Calcium 600-D3 Plus (mag-zinc)) aspirin 81 mg tablet,delayed 81 mg PO DAILY 11/13/22 02/12/23 release (Adult Low Dose Aspirin) acetaminophen 500 mg tablet 500 mg PO QID PRN Pain 11/26/22 02/12/23 ferrous sulfate 325 mg (65 mg 325 mg PO TID 11/26/22 02/12/23 iron) tablet quetiapine 50 mg tablet 50 mg PO HS 11/26/22 02/12/23 tramadol 50 mg tablet 50 mg PO BID 11/26/22 02/12/23 trazodone 100 mg tablet 100 mg PO HS 11/26/22 02/12/23 Previous Rx's Medication Instructions Recorded betamethasone dipropionate 0.05 % 1 applic topical DAILY PRN skin 06/05/21 topical cream irritation #30 grams hydrocortisone 2.5 % topical 1 applic topical DAILY #28.35 grams 06/05/21 ointment tbijusdh-ahh-wrjsl acid 0.4 1 tab PO QAM #30 tabs 11/27/22 mg-lycopene 300 mcg-lutein 250 mcg tablet (Cerovite Senior) prednisone 20 mg tablet 20 mg PO BID #60 tabs 12/03/22 sulfamethoxazole 800 1 tab PO .COMPLEX #30 tabs 12/03/22 mg-trimethoprim 160 mg tablet (Bactrim DS) Oxygen Home #1 ea 01/24/23 Ventolin HFA 90 mcg/actuation 1 inh inhalation QID PRN shortness 02/05/23 aerosol inhaler (albuterol sulfate) of breath or wheezing #1 inhaler compressor, for nebulizer #1 ea 02/05/23 ipratropium 0.5 mg-albuterol 3 mg 3 ml inhalation Q4H PRN wheezing 02/05/23 (2.5 mg base)/3 mL nebulization #180 mL soln nebulizer accessories #2 ea 02/05/23 glycopyrrolate 9 mcg-formoterol 2 puff inhalation Q12H #10.7 grams 02/06/23 4.8 mcg HFA aerosol inhaler (Bevespi Aerosphere) Results & Data (ED) Vital Signs Vital Signs - 24 hr 02/12/23 09:13 02/12/23 09:31 02/12/23 09:31 Temperature 36.8 C Temperature Source Temporal Artery Scan Pulse Rate 98 H Pulse Rate [Apical] 85 Pulse Rhythm [Apical] Pulse Strength [Apical] Respiratory Rate 18 18 Respiratory Effort / Characteristics Non-Labored Spontaneous Respiratory Depth Normal Respiratory Pattern Regular Blood Pressure 136/82 Blood Pressure [Right Arm] 169/97 H Blood Pressure Mean 100 Blood Pressure Mean [Right Arm] 121 Blood Pressure Position [Right Arm] Sitting Pulse Oximetry 100 100 100 Oxygen Delivery Method Nasal Cannula Nasal Cannula Nasal Cannula Oxygen Flow Rate 3 3 3 Sepsis Recent Fever Within 48 Hours No Sepsis New/Unexplained Change in Mental Status No Sepsis Action Taken by Nursing No Action Required 02/12/23 09:50 02/12/23 10:52 02/12/23 10:52 Temperature Temperature Source Pulse Rate 86 Pulse Rate [Apical] Pulse Rhythm [Apical] Pulse Strength [Apical] Respiratory Rate Respiratory Effort / Characteristics Spontaneous Respiratory Depth Respiratory Pattern Blood Pressure Blood Pressure [Right Arm] Blood Pressure Mean Blood Pressure Mean [Right Arm] Blood Pressure Position [Right Arm] Pulse Oximetry Oxygen Delivery Method Room Air Oxygen Flow Rate Sepsis Recent Fever Within 48 Hours Sepsis New/Unexplained Change in Mental Status Sepsis Action Taken by Nursing 02/12/23 15:28 Temperature Temperature Source Pulse Rate Pulse Rate [Apical] 95 H Pulse Rhythm [Apical] Regular Pulse Strength [Apical] Normal Respiratory Rate 20 Respiratory Effort / Characteristics Non-Labored Spontaneous Respiratory Depth Normal Respiratory Pattern Regular Blood Pressure Blood Pressure [Right Arm] 155/88 H Blood Pressure Mean Blood Pressure Mean [Right Arm] 110 Blood Pressure Position [Right Arm] Pulse Oximetry 98 Oxygen Delivery Method Nasal Cannula Oxygen Flow Rate 3 Sepsis Recent Fever Within 48 Hours Sepsis New/Unexplained Change in Mental Status Sepsis Action Taken by Nursing Laboratory Data Attestation: I reviewed the patient's lab results. 02/12/23 10:06 02/12/23 10:06 Lab Results 02/12/23 02/12/23 02/12/23 Range/Units 10:06 10:06 10:06 WBC 15.42 H (4.8-10.8) K/ul RBC 4.01 L (4.20-5.40) M/uL Hgb 13.4 (12.0-16.0) g/dl Hct 39.9 (37.0-47.0) % MCV 99.5 (80.0-100.0) fL MCH 33.4 (25.0-34.0) pg MCHC 33.6 (32.0-36.0) g/dL RDW Std Deviation 57.5 H (36.4-46.3) fL RDW Coeff of Caridad 15.7 H (11.5-14.5) % Plt Count 268 (130-400) K/uL MPV 9.1 L (9.4-12.4) fL Immature Gran % (Auto) 2.2 % Neut % (Auto) 78.6 % Lymph % (Auto) 12.1 % [place] % (Auto) 6.2 % Eos % (Auto) 0.6 % Baso % (Auto) 0.3 % Neut # (Auto) 12.13 H (1.40-6.50) K/uL Lymph # (Auto) 1.86 (1.2-3.4) K/uL [place] # (Auto) 0.96 H (0.11-0.59) K/uL Eos # (Auto) 0.09 (0-0.50) K/uL Baso # (Auto) 0.04 (0-0.2) K/uL Immature Gran # (Auto) 0.34 H (0.01-0.20) K/uL ESR (0-30) mm/hr PT 10.0 (9.0-12.0) Seconds INR 0.9 (0.9-1.1) ABG pH (7.35-7.45) ABG pCO2 (35-46) mmHg ABG pO2 (80-95) mmHg ABG HCO3 (19-24) mmol/L ABG O2 Saturation (90-95) % ABG Base Excess (-9-1.8) mEq/L Alok Test (Pos) Oxygen Given Sodium 136 (136-145) mmol/L Potassium 4.0 (3.5-5.1) mmol/L Chloride 96 L (98-107) mmol/L Carbon Dioxide 34 H (21-32) mmol/L Anion Gap 6 (3-11) BUN 15 (6-23) mg/dl Creatinine 0.52 L (0.6-1.2) mg/dl Est Cr Clr Drug Dosing Not Reportable Est GFR ( Amer) 112.2 ml/min Est GFR (Non-Af Amer) 96.8 ml/min BUN/Creatinine Ratio 28.8 H (10-20) Glucose 84 (70-99(Fasting)) mg/dl Lactate (0.4-2.0) mmol/L Calcium 9.5 (8.6-10.3) mg/dl Magnesium 2.2 (1.7-2.4) mg/dl Total Bilirubin 0.4 (0.2-1.0) mg/dl AST 22 (13-39) U/L ALT 28 (7-52) U/L Alkaline Phosphatase 63 (34-104) U/L Troponin I High Sens 15.5 H (0-14) pg/ml C-Reactive Protein (0-0.5) mg/dl B-Natriuretic Peptide (0-100) pg/ml Total Protein 6.6 (6.0-8.3) gm/dl Albumin 3.8 (3.4-5.0) gm/dl Globulin 2.8 (2.5-4.0) gm/dl Albumin/Globulin Ratio 1.4 (0.9-2) Lipase 21 (11-82) U/L Procalcitonin (0-0.5) ng/ml Adenovirus (PCR) (NotDetected) B. pertussis DNA (PCR) (NotDetected) B.parapertussis DNA PCR (NotDetected) C. pneumoniae DNA (PCR) (NotDetected) Coronavirus OC43 (PCR) (NotDetected) Coronavirus HKU1 (PCR) (NotDetected) Coronavirus 229E (PCR) (NotDetected) SARS-CoV-2 (PCR) (NotDetected) Coronavirus NL63 (PCR) (NotDetected) Human Metapneumovir PCR (NotDetected) Influenza Type A (PCR) (NotDetected) Influenza Type B (PCR) (NotDetected) M. pneumoniae (PCR) (NotDetected) Parainfluenza 1 (PCR) (NotDetected) Parainfluenza 2 (PCR) (NotDetected) Parainfluenza 3 (PCR) (NotDetected) Parainfluenza 4 (PCR) (NotDetected) RSV (PCR) (NotDetected) Entero/Rhino (PCR) (NotDetected) 02/12/23 02/12/23 02/12/23 Range/Units 10:06 13:10 13:35 WBC (4.8-10.8) K/ul RBC (4.20-5.40) M/uL Hgb (12.0-16.0) g/dl Hct (37.0-47.0) % MCV (80.0-100.0) fL MCH (25.0-34.0) pg MCHC (32.0-36.0) g/dL RDW Std Deviation (36.4-46.3) fL RDW Coeff of Caridad (11.5-14.5) % Plt Count (130-400) K/uL MPV (9.4-12.4) fL Immature Gran % (Auto) % Neut % (Auto) % Lymph % (Auto) % [place] % (Auto) % Eos % (Auto) % Baso % (Auto) % Neut # (Auto) (1.40-6.50) K/uL Lymph # (Auto) (1.2-3.4) K/uL [place] # (Auto) (0.11-0.59) K/uL Eos # (Auto) (0-0.50) K/uL Baso # (Auto) (0-0.2) K/uL Immature Gran # (Auto) (0.01-0.20) K/uL ESR (0-30) mm/hr PT (9.0-12.0) Seconds INR (0.9-1.1) ABG pH (7.35-7.45) ABG pCO2 (35-46) mmHg ABG pO2 (80-95) mmHg ABG HCO3 (19-24) mmol/L ABG O2 Saturation (90-95) % ABG Base Excess (-9-1.8) mEq/L Alok Test (Pos) Oxygen Given Sodium (136-145) mmol/L Potassium (3.5-5.1) mmol/L Chloride (98-107) mmol/L Carbon Dioxide (21-32) mmol/L Anion Gap (3-11) BUN (6-23) mg/dl Creatinine (0.6-1.2) mg/dl Est Cr Clr Drug Dosing Est GFR ( Amer) ml/min Est GFR (Non-Af Amer) ml/min BUN/Creatinine Ratio (10-20) Glucose (70-99(Fasting)) mg/dl Lactate 2.7 H* (0.4-2.0) mmol/L Calcium (8.6-10.3) mg/dl Magnesium (1.7-2.4) mg/dl Total Bilirubin (0.2-1.0) mg/dl AST (13-39) U/L ALT (7-52) U/L Alkaline Phosphatase (34-104) U/L Troponin I High Sens (0-14) pg/ml C-Reactive Protein (0-0.5) mg/dl B-Natriuretic Peptide 56 (0-100) pg/ml Total Protein (6.0-8.3) gm/dl Albumin (3.4-5.0) gm/dl Globulin (2.5-4.0) gm/dl Albumin/Globulin Ratio (0.9-2) Lipase (11-82) U/L Procalcitonin (0-0.5) ng/ml Adenovirus (PCR) Not Detected (NotDetected) B. pertussis DNA (PCR) Not Detected (NotDetected) B.parapertussis DNA PCR Not Detected (NotDetected) C. pneumoniae DNA (PCR) Not Detected (NotDetected) Coronavirus OC43 (PCR) Not Detected (NotDetected) Coronavirus HKU1 (PCR) Not Detected (NotDetected) Coronavirus 229E (PCR) Not Detected (NotDetected) SARS-CoV-2 (PCR) Not Detected (NotDetected) Coronavirus NL63 (PCR) Not Detected (NotDetected) Human Metapneumovir PCR Not Detected (NotDetected) Influenza Type A (PCR) Not Detected (NotDetected) Influenza Type B (PCR) Not Detected (NotDetected) M. pneumoniae (PCR) Not Detected (NotDetected) Parainfluenza 1 (PCR) Not Detected (NotDetected) Parainfluenza 2 (PCR) Not Detected (NotDetected) Parainfluenza 3 (PCR) Not Detected (NotDetected) Parainfluenza 4 (PCR) Not Detected (NotDetected) RSV (PCR) Not Detected (NotDetected) Entero/Rhino (PCR) Not Detected (NotDetected) 02/12/23 02/12/23 02/12/23 Range/Units 14:40 14:40 14:40 WBC (4.8-10.8) K/ul RBC (4.20-5.40) M/uL Hgb (12.0-16.0) g/dl Hct (37.0-47.0) % MCV (80.0-100.0) fL MCH (25.0-34.0) pg MCHC (32.0-36.0) g/dL RDW Std Deviation (36.4-46.3) fL RDW Coeff of Caridad (11.5-14.5) % Plt Count (130-400) K/uL MPV (9.4-12.4) fL Immature Gran % (Auto) % Neut % (Auto) % Lymph % (Auto) % [place] % (Auto) % Eos % (Auto) % Baso % (Auto) % Neut # (Auto) (1.40-6.50) K/uL Lymph # (Auto) (1.2-3.4) K/uL [place] # (Auto) (0.11-0.59) K/uL Eos # (Auto) (0-0.50) K/uL Baso # (Auto) (0-0.2) K/uL Immature Gran # (Auto) (0.01-0.20) K/uL ESR 21 (0-30) mm/hr PT (9.0-12.0) Seconds INR (0.9-1.1) ABG pH (7.35-7.45) ABG pCO2 (35-46) mmHg ABG pO2 (80-95) mmHg ABG HCO3 (19-24) mmol/L ABG O2 Saturation (90-95) % ABG Base Excess (-9-1.8) mEq/L Alok Test (Pos) Oxygen Given Sodium (136-145) mmol/L Potassium (3.5-5.1) mmol/L Chloride (98-107) mmol/L Carbon Dioxide (21-32) mmol/L Anion Gap (3-11) BUN (6-23) mg/dl Creatinine (0.6-1.2) mg/dl Est Cr Clr Drug Dosing Est GFR ( Amer) ml/min Est GFR (Non-Af Amer) ml/min BUN/Creatinine Ratio (10-20) Glucose (70-99(Fasting)) mg/dl Lactate (0.4-2.0) mmol/L Calcium (8.6-10.3) mg/dl Magnesium (1.7-2.4) mg/dl Total Bilirubin (0.2-1.0) mg/dl AST (13-39) U/L ALT (7-52) U/L Alkaline Phosphatase (34-104) U/L Troponin I High Sens (0-14) pg/ml C-Reactive Protein 0.99 H (0-0.5) mg/dl B-Natriuretic Peptide (0-100) pg/ml Total Protein (6.0-8.3) gm/dl Albumin (3.4-5.0) gm/dl Globulin (2.5-4.0) gm/dl Albumin/Globulin Ratio (0.9-2) Lipase (11-82) U/L Procalcitonin < 0.05 (0-0.5) ng/ml Adenovirus (PCR) (NotDetected) B. pertussis DNA (PCR) (NotDetected) B.parapertussis DNA PCR (NotDetected) C. pneumoniae DNA (PCR) (NotDetected) Coronavirus OC43 (PCR) (NotDetected) Coronavirus HKU1 (PCR) (NotDetected) Coronavirus 229E (PCR) (NotDetected) SARS-CoV-2 (PCR) (NotDetected) Coronavirus NL63 (PCR) (NotDetected) Human Metapneumovir PCR (NotDetected) Influenza Type A (PCR) (NotDetected) Influenza Type B (PCR) (NotDetected) M. pneumoniae (PCR) (NotDetected) Parainfluenza 1 (PCR) (NotDetected) Parainfluenza 2 (PCR) (NotDetected) Parainfluenza 3 (PCR) (NotDetected) Parainfluenza 4 (PCR) (NotDetected) RSV (PCR) (NotDetected) Entero/Rhino (PCR) (NotDetected) 02/12/23 02/12/23 Range/Units 15:17 15:19 WBC (4.8-10.8) K/ul RBC (4.20-5.40) M/uL Hgb (12.0-16.0) g/dl Hct (37.0-47.0) % MCV (80.0-100.0) fL MCH (25.0-34.0) pg MCHC (32.0-36.0) g/dL RDW Std Deviation (36.4-46.3) fL RDW Coeff of Caridad (11.5-14.5) % Plt Count (130-400) K/uL MPV (9.4-12.4) fL Immature Gran % (Auto) % Neut % (Auto) % Lymph % (Auto) % [place] % (Auto) % Eos % (Auto) % Baso % (Auto) % Neut # (Auto) (1.40-6.50) K/uL Lymph # (Auto) (1.2-3.4) K/uL [place] # (Auto) (0.11-0.59) K/uL Eos # (Auto) (0-0.50) K/uL Baso # (Auto) (0-0.2) K/uL Immature Gran # (Auto) (0.01-0.20) K/uL ESR (0-30) mm/hr PT (9.0-12.0) Seconds INR (0.9-1.1) ABG pH 7.49 H (7.35-7.45) ABG pCO2 39 (35-46) mmHg ABG pO2 146 H (80-95) mmHg ABG HCO3 30 H (19-24) mmol/L ABG O2 Saturation > 100.0 H (90-95) % ABG Base Excess 5.9 H (-9-1.8) mEq/L Alok Test POS (Pos) Oxygen Given FLOW RATE 3L Sodium (136-145) mmol/L Potassium (3.5-5.1) mmol/L Chloride (98-107) mmol/L Carbon Dioxide (21-32) mmol/L Anion Gap (3-11) BUN (6-23) mg/dl Creatinine (0.6-1.2) mg/dl Est Cr Clr Drug Dosing Est GFR ( Amer) ml/min Est GFR (Non-Af Amer) ml/min BUN/Creatinine Ratio (10-20) Glucose (70-99(Fasting)) mg/dl Lactate 2.1 H* (0.4-2.0) mmol/L Calcium (8.6-10.3) mg/dl Magnesium (1.7-2.4) mg/dl Total Bilirubin (0.2-1.0) mg/dl AST (13-39) U/L ALT (7-52) U/L Alkaline Phosphatase (34-104) U/L Troponin I High Sens (0-14) pg/ml C-Reactive Protein (0-0.5) mg/dl B-Natriuretic Peptide (0-100) pg/ml Total Protein (6.0-8.3) gm/dl Albumin (3.4-5.0) gm/dl Globulin (2.5-4.0) gm/dl Albumin/Globulin Ratio (0.9-2) Lipase (11-82) U/L Procalcitonin (0-0.5) ng/ml Adenovirus (PCR) (NotDetected) B. pertussis DNA (PCR) (NotDetected) B.parapertussis DNA PCR (NotDetected) C. pneumoniae DNA (PCR) (NotDetected) Coronavirus OC43 (PCR) (NotDetected) Coronavirus HKU1 (PCR) (NotDetected) Coronavirus 229E (PCR) (NotDetected) SARS-CoV-2 (PCR) (NotDetected) Coronavirus NL63 (PCR) (NotDetected) Human Metapneumovir PCR (NotDetected) Influenza Type A (PCR) (NotDetected) Influenza Type B (PCR) (NotDetected) M. pneumoniae (PCR) (NotDetected) Parainfluenza 1 (PCR) (NotDetected) Parainfluenza 2 (PCR) (NotDetected) Parainfluenza 3 (PCR) (NotDetected) Parainfluenza 4 (PCR) (NotDetected) RSV (PCR) (NotDetected) Entero/Rhino (PCR) (NotDetected) Administered Medications Azithromycin 500 mg/ Dextrose 255 mls @ 127.5 mls/hr IV NOW STA Stop: 02/12/23 16:39 Last Admin: 02/12/23 15:32 Dose: 127.5 mls/hr Documented By: TW Discontinued Medications Acetaminophen (Acetaminophen 325 Mg Tab) 650 mg PO NOW STA Stop: 02/12/23 13:56 Last Admin: 02/12/23 14:29 Dose: 650 mg Documented By: AP Albuterol (Albut/Ipratrop 3mg/0.5mg Neb 3 Ml Vial) 3 ml NEB NOW STA; Protocol Stop: 02/12/23 12:18 Last Admin: 02/12/23 13:05 Dose: 3 ml Documented By: QGV Sodium Chloride (Nss) 500 mls @ 999 mls/hr IV .Q31M ONE Stop: 02/12/23 10:02 Last Infusion: 02/12/23 12:24 Dose: 0 mls/hr Documented By: Admin: 02/12/23 10:55 Dose: 999 mls/hr Documented By: AP Cefepime HCl (Maxipime) 2,000 mg in 20 mls @ 5 mls/min IV NOW STA Stop: 02/12/23 13:09 Last Admin: 02/12/23 14:29 Dose: 5 mls/min Documented By: AP Lactated Ringer's (Lr) 500 mls @ 999 mls/hr IV .Q31M ONE Stop: 02/12/23 15:15 Last Infusion: 02/12/23 16:06 Dose: 0 mls/hr Documented By: Admin: 02/12/23 15:32 Dose: 999 mls/hr Documented By: TW Lorazepam (Lorazepam 1 Mg Tab) 1 mg PO NOW STA Stop: 02/12/23 14:07 Last Admin: 02/12/23 14:29 Dose: 1 mg Documented By: AP Methylprednisolone (Methylprednisolone 125 Mg/2 Ml Vial) 125 mg IV NOW STA Stop: 02/12/23 12:21 Last Admin: 02/12/23 13:05 Dose: 125 mg Documented By: QGV Imaging Data Radiologist's Impression: Chest X-Ray 02/12/23 09:31 SINGLE VIEW CHEST CLINICAL HISTORY: Atypical chest pain. FINDINGS: An AP, portable, upright chest radiograph is compared to study dated 01/08/2023 and correlated with chest CT dated 11/26/2022. The examination is degraded by portable technique and patient rotation. The cardiomediastinal silhouette is unremarkable noting atherosclerotic calcification of the thoracic aorta. Fibrotic change is again seen throughout both lungs with a subpleural predominance. There is no evidence of superimposed airspace consolidation or large pleural effusion. No pneumothorax is seen. The skeletal structures are osteopenic. There are acute to subacute right anterior 5th and 6th rib fractures. IMPRESSION: 1. Interstitial/fibrotic lung disease as above with no air space consolidation, large pleural effusion, or pneumothorax identified. 2. Acute to subacute right-sided rib fractures as above. ACT 112: Negative or not required by law. Electronically signed by: Yogesh Parra M.D. 02/12/2023 10:[address] 02/12/23 12:17 CT chest diagnostic wo con CLINICAL HISTORY: sob TECHNIQUE: Multidetector row helical CT of the chest was performed. Coronal and sagittal reformations were obtained. Automated dose lowering techniques and/or adjustment according to patient size were utilized for this exam. CT DOSE: 116.20 mGy.cm Comparison: Comparison is made to CT chest 11/18/2022 FINDINGS: Lungs and pleura: Extensive interstitial lung disease is seen. Compared to the prior exam, there appears to be ill-defined diffuse airspace opacity most prominent in the lower lungs. Heart and pericardium: Heart size is normal. No pericardial effusion. Vessels: Severe atherosclerotic changes in the aorta and coronary arteries. Mediastinum and reese: Subcentimeter lymph nodes are seen. Chest wall and lower neck: Unremarkable. Abdomen: A hiatal hernia is seen. Bones: Subacute appearing rib fractures are seen. Although evaluation is limited by patient motion, these appear to involve the right fourth, fifth, and sixth ribs as well as the left fifth rib. IMPRESSION: 1. Ill-defined diffuse airspace opacity most prominent in the lower lungs. This may represent aspiration/pneumonia. 2. Extensive interstitial lung disease. 3. Subacute rib fractures ACT 112: Negative or not required by law. Electronically signed by: Lalo Patel M.D. 02/12/2023 1:[address] 02/12/23 14:17 CT head/brain wo con CLINICAL HISTORY: 70 years-old Female with altered mental state. Acutely altered mental status with confusion TECHNIQUE: Multiple axial CT images of the head were obtained without contrast. A dose lowering technique was utilized adhering to the principles of ALARA. CT DOSE: 547.75 mGy.cm COMPARISON: 07/24/2016 FINDINGS: No acute intracranial hemorrhage, midline shift, intracranial mass, hydrocephalus, territorial ischemia or abnormal extra-axial collection. Involutional changes with chronic microvascular scheme disease. Cerebrovascular calcifications. The calvarium is intact. Mild mucosal thickening of the ethmoid air cells. Mastoid air cells are clear. Unremarkable soft tissues. IMPRESSION: No acute intracranial abnormality. ACT 112: Negative or not required by law. The above report was generated using voice recognition software. It may contain grammatical, syntax or spelling errors. Electronically signed by: Bhargav Adamson M.D. 02/12/2023 3:10 PM Discharge Plan Visit Data Chief Complaint: Shortness of Breath/Dyspnea Stated Complaint: SOB ED Provider: Jacques Saenz Discharge Problem: Pneumonia, Hypoxemic respiratory failure, chronic, Interstitial lung disease Forms Stand Alone Forms: Formerly [facility], 1928–1983 Prescriptions Prescriptions: No Action lorazepam [Ativan] 1 mg tablet 1 mg PO TID cyclobenzaprine 10 mg tablet 10 mg PO BID duloxetine [Cymbalta] 60 mg capsule,delayed release(DR/EC) 60 mg PO DAILY gabapentin 400 mg capsule 400 mg PO QID (DME) Oxygen Home Liters Per Minute See Rx Instructions .Route Qty: 1 0RF Rx Instructions: humidifcation for oxygen albuterol sulfate [Ventolin HFA] 90 mcg/actuation HFA aerosol inhaler 1 inh inhalation QID PRN (Reason: shortness of breath or wheezing) Qty: 1 3RF Bevespi Aerosphere 9-4.8 mcg HFA aerosol inhaler 2 puff inhalation Q12H Qty: 10.7 3RF cholecalciferol (vitamin D3) 25 mcg (1,000 unit) capsule 25 mcg PO DAILY betamethasone dipropionate 0.05 % cream 1 applic topical DAILY PRN (Reason: skin irritation) Qty: 30 0RF Rx Instructions: Apply cream daily to the affected areas on the hands for 2 weeks or until resolved. hydrocortisone 2.5 % ointment 1 applic topical DAILY Qty: 28.35 1RF prednisone 20 mg tablet 20 mg PO BID Qty: 60 2RF sulfamethoxazole-trimethoprim [Bactrim DS] 800-160 mg tablet 1 tab PO .COMPLEX Qty: 30 2RF Rx Instructions: 1 tab orally every Mon, Wed, and Fri; Anoro Ellipta 62.5-25 mcg/actuation blister with device 1 inh inhalation DAILY 0RF (DME) nebulizer accessories Kit See Rx Instructions .MEDSUPPLY Qty: 2 0RF Rx Instructions: Dx: ILD. LOS 99 years (DME) compressor, for nebulizer Device See Rx Instructions .Route Qty: 1 0RF Rx Instructions: Dx: ILD, hypoxia, LOS 99 years ipratropium-albuterol 0.5 mg-3 mg(2.5 mg base)/3 mL solution for nebulization 3 ml inhalation Q4H PRN (Reason: wheezing) Qty: 180 3RF Ca-D3-mag qp-cdzi-fqn-nuria-bor [Calcium 600-D3 Plus (mag-zinc)] 600 mg calcium- 20 mcg-50 mg tablet 1 tab PO DAILY aspirin [Adult Low Dose Aspirin] 81 mg tablet,delayed release (DR/EC) 81 mg PO DAILY tramadol 50 mg tablet 50 mg PO BID acetaminophen 500 mg Tablet 500 mg PO QID PRN (Reason: Pain) trazodone 100 mg tablet 100 mg PO HS ferrous sulfate 325 mg (65 mg iron) Tablet 325 mg PO TID quetiapine 50 mg tablet 50 mg PO HS Cerovite Senior 0.4 mg-300 mcg- 250 mcg Tablet 1 tab PO QAM Qty: 30 0RF Referrals Referrals: Garth Wellington PA-C [Primary Care Provider] -
[2023-02-12] MEDS ORDERED: CEFEPIME 2,000 MG/20 ML VIAL IV STA (13:06)
--- NOTE | 2023-02-12 13:22 | CT Scan Report ---
CT chest diagnostic wo con CLINICAL HISTORY: sob TECHNIQUE: Multidetector row helical CT of the chest was performed. Coronal and sagittal reformations were obtained. Automated dose lowering techniques and/or adjustment according to patient size were u tilized for this exam. CT DOSE: 116.20 mGy.cm Comparison: Comparison is made to CT chest 11/18/2022 FINDINGS: Lungs and pleura: Extensive interstitial lung disease is seen. Compared to the prior exam, there appe ars to be ill-defined diffuse airspace opacity most prominent in the lower lungs. Heart and pericardium: Heart size is normal. No pericardial effusion. Vessels: Severe atherosclerotic changes in the aorta and coronary arteries. Mediastinum and reese: Subcentimeter lymph nodes are seen. Chest wall and lower neck: Unremarkable. Abdomen: A hiatal hernia is seen. Bones: Subacute appearing rib fractures are seen. Although evaluation is limited by patient motion, t hese appear to involve the right fourth, fifth, and sixth ribs as well as the left fifth rib. IMPRESSION: 1. Ill-defined diffuse airspace opacity most prominent in the lower lungs. This may represent aspira tion/pneumonia. 2. Extensive interstitial lung disease. 3. Subacute rib fractures ACT 112: Negative or not required by law. Electronically signed by: Lalo Patel M.D. 02/12/2023 1:20 PM
[2023-02-12] MEDS ORDERED: ACETAMINOPHEN 325 MG TAB PO STA (13:55)
[2023-02-12] MEDS ORDERED: LORazepam 1 MG TAB PO STA (14:06)
[2023-02-12 14:27] LABS: Adenovirus PCR Not Detected (NotDetected); Bordetella parapertussis PCR Not Detected (NotDetected); Bordetella pertussis PCR Not Detected (NotDetected); Chlamydia pneumoniae PCR Not Detected (NotDetected); Coronavirus 229E PCR Not Detected (NotDetected); Coronavirus CoV-2 (COVID19)PCR Not Detected (NotDetected); Coronavirus HKU1 PCR Not Detected (NotDetected); Coronavirus NL63 PCR Not Detected (NotDetected); Coronavirus OC43PCR Not Detected (NotDetected); Human Metapneumovirus PCR Not Detected (NotDetected); Influenza A PCR Not Detected (NotDetected); Influenza B PCR Not Detected (NotDetected); Mycoplasma pneumoniae PCR Not Detected (NotDetected); Parainfluenza Virus 1 PCR Not Detected (NotDetected); Parainfluenza Virus 2 PCR Not Detected (NotDetected); Parainfluenza Virus 3 PCR Not Detected (NotDetected); Parainfluenza Virus 4 PCR Not Detected (NotDetected); Respiratory Syncytial VirusPCR Not Detected (NotDetected); Rhinovirus/Enterovirus PCR Not Detected (NotDetected)
[2023-02-12] MEDS ORDERED: AZITHROMYCIN 500 MG in DEXTROSE 5% 250 ML IV STA (14:40)
[2023-02-12] MEDS ORDERED: LACTATED RINGER'S 500 ML IV ONE (14:45)
--- NOTE | 2023-02-12 14:56 | History & Physical Report ---
Date of Service February 12, 2023 Assessment & Plan (1) Shortness of breath: Plan: Told her partner she had labored breathing this morning and wanted to go to the ER. Complaining of this for the last 2 days. No increased O2 requirement. No definite cause of this but treating for pneumonia as below (2) Pneumonia: Plan: Possible diagnosis although CT chest similar to prior (without pneumothorax) and procalcitonin negative. Discussed with pulmonology - recommended Cefepime + azithromycin, repeat procalcitonin in AM, possibly can d/c antibiotics at that time. Speech consult due to dilated esophagus on CT Continue Bactrim for PJP prophylaxis Consult pulmonology for ongoing advice (3) Hypoxemic respiratory failure, chronic: Plan: ABG without hypercapnia Wean O2 sats to 90% (4) Short-term memory loss: Plan: Concern regarding this from her partner CT head without acute abnormality No hypercapnia TSH WNL B12 level WNL Regularly picking up her medications until December and then missed a brain picker for duloxetine, quetiapine, trazodone and gabapentin - reports this was prescribed by her PCP but no evidence of this and other medications prescribed by PCP appear on external med rec therefore concern she is not taking her medications as prescribed. (5) Back pain: Plan: Appears MSK on exam with reproducibility on palpation - suspect this just occurred while in the ER due to lying in bed without her usual lorazepam. Will restart on her usual medications and monitor for now. (6) Hypersensitivity pneumonitis: Plan: No acute flare suspected. ESR improving. Continue prednisone 20mg PO BID. (7) Anxiety disorder: Plan: Continue her usual outpatient regimen - trazodone, quetiapine, lorazepam, gabapentin (8) Severe protein-calorie malnutrition: Plan: Dietary consult Boost drinks Plan VTE Prophyalxis - heparin 5000 units BID Diet - regular Disposition - admit to med/tele Admission and Anticipated Discharge Date Admission Date: February 12, 2023 History of Present Illness Chief Complaint: Shortness of breath Primary Care Provider: Garth Wellington Erin Louis is a 68 year old female with hypersensitivity pneumonitis who presents to the ER with back pain and shortness of breath. After discharge on November 27 for a pneumothorax which spontaneously resolved and more of an incidental diagnosis of hypersensitivity pneumonitis she reports her shortness of breath was improving on prednisone. She is unable to give me a time course of events regarding worsening of her shortness of breath and therefore reason she is here today. She denies any coughing/choking after eating, fever, chills, cough, nasal congestion. She also is reporting back pain which she reports she had during her prior hospitalization here. She has not taken any of her medications this morning as she was coming to the ER. On discussion with her partner Robert over the phone. He reports she has been complaining of more labored breathing over the last few days and asked to come to the ER today. He confirms she did not take her medications this morning. Confirms she is out of the Bactrim and is unsure whether she still should be taking this. He denies she was having any fever, chills, nasal congestion, cough or sinus pain. To him her breathing has been no different but he obliged her request to come to the ER today. She had not been complaining of any back pain until she came to the ER. He is mostly concerned about her altered mental status over the last month and feels her short term memory loss has become a lot worse and she is requiring more help to get around. She had been taking Aricept so presumably Dr Alonso has been concerned about her memory although the patient denies a history of dementia and reports the Aricept was discontinued as it was not felt to be helping. On review of her medications she reports taking all as prescribed. However it appears she was picking up her medications regularly up until December when it looks like she missed a prescription of duloxetine, gabapentin, quetiapine, lorazepam and trazodone. She reports her PCP took over the prescription from Dr Alonso although this explanation does not make sense why it doesn't appear on her external medications reconciliation. On discussion with her partner over the phone she does not use a weekly pill organizer and she takes all of her own medication (he does not get involved). Some pills he finds are labelled as 2020. She is significantly cachectic on exam but notes no recent weight loss. She is eating and drinking normally. No change in bowel, nausea, vomiting, melena or hematochezia. Allergies Allergy/AdvReac Type Severity Reaction Status Date / Time Iodinated Contrast Media Allergy Severe ANAPHYLAXIS Verified 02/12/23 14:14 Sulfa (Sulfonamide Allergy Unknown Verified 02/12/23 14:14 Antibiotics) banana AdvReac Severe GI SYMPTOMS Verified 02/12/23 14:14 red beets AdvReac Severe GI SYMPTOMS Uncoded 02/12/23 14:14 Home Medications Medication Instructions Recorded Confirmed Type lorazepam 1 mg tablet (Ativan) 1 mg PO TID 06/18/18 02/12/23 History cyclobenzaprine 10 mg tablet 10 mg PO BID 11/06/18 02/12/23 History duloxetine 60 mg capsule,delayed 60 mg PO DAILY 11/06/18 02/12/23 History release (Cymbalta) gabapentin 400 mg capsule 400 mg PO QID 07/12/20 02/12/23 History betamethasone dipropionate 0.05 % 1 applic topical DAILY PRN skin 06/05/21 02/12/23 Rx topical cream irritation #30 grams hydrocortisone 2.5 % topical 1 applic topical DAILY #28.35 grams 06/05/21 02/12/23 Rx ointment cholecalciferol (vitamin D3) 25 25 mcg PO DAILY 10/16/22 02/12/23 History mcg (1,000 unit) capsule Ca 600 mg-D3 20 mcg-mag oxide 50 1 tab PO DAILY 11/13/22 02/12/23 History li-Tp-pxfczz-manganese-boron tablet (Calcium 600-D3 Plus (mag-zinc)) aspirin 81 mg tablet,delayed 81 mg PO DAILY 11/13/22 02/12/23 History release (Adult Low Dose Aspirin) acetaminophen 500 mg tablet 500 mg PO QID PRN Pain 11/26/22 02/12/23 History ferrous sulfate 325 mg (65 mg 325 mg PO TID 11/26/22 02/12/23 History iron) tablet quetiapine 50 mg tablet 50 mg PO HS 11/26/22 02/12/23 History tramadol 50 mg tablet 50 mg PO BID 11/26/22 02/12/23 History trazodone 100 mg tablet 100 mg PO HS 11/26/22 02/12/23 History keatqyyz-srd-myosp acid 0.4 1 tab PO QAM #30 tabs 11/27/22 02/12/23 Rx mg-lycopene 300 mcg-lutein 250 mcg tablet (Cerovite Senior) prednisone 20 mg tablet 20 mg PO BID #60 tabs 12/03/22 02/12/23 Rx sulfamethoxazole 800 1 tab PO .COMPLEX #30 tabs 12/03/22 02/12/23 Rx mg-trimethoprim 160 mg tablet (Bactrim DS) Oxygen Home #1 ea 01/24/23 02/12/23 Rx Ventolin HFA 90 mcg/actuation 1 inh inhalation QID PRN shortness 02/05/23 02/12/23 Rx aerosol inhaler (albuterol sulfate) of breath or wheezing #1 inhaler compressor, for nebulizer #1 ea 02/05/23 02/12/23 Rx ipratropium 0.5 mg-albuterol 3 mg 3 ml inhalation Q4H PRN wheezing 02/05/23 02/12/23 Rx (2.5 mg base)/3 mL nebulization #180 mL soln nebulizer accessories #2 ea 02/05/23 02/12/23 Rx glycopyrrolate 9 mcg-formoterol 2 puff inhalation Q12H #10.7 grams 02/06/23 02/12/23 Rx 4.8 mcg HFA aerosol inhaler (Bevespi Aerosphere) Past Med/Surg History Medical History Eustachian tube dysfunction Mixed conductive and sensorineural hearing loss of left ear with restricted hearing of right ear Pneumothorax Seasonal allergies Surgical History History of adenoidectomy History of tonsillectomy Family History Father Allergies Asthma Other No family history of adverse response to anesthesia No family history of bleeding disorder Social History Smoking Status: Never smoker Second Hand Exposure: No; Do You Dip or Chew Tobacco: No; Tobacco Cessation Education Requested by Patient: No Hx Alcohol Use: No Hx Substance Use: No Preferred Language: [place] Communication Ability: Effective Visual Impairment: No Limitations Hearing Ability: Normal Silk Screener Required: No Beliefs That Will Affect Care: None marital status: Current Living Situation: Alone Current Living Situation Comment: Lives in a home with life partner current occupational status: retired Other Information That Helps Us Care for You: No Feels Safe at Home: Yes Safety Concerns: Feels Safe At This Time Assistive Devices: Oxygen - Continuous Assistive Devices Comment: x1 assist OOB Review of Systems Review of Systems: All systems reviewed & are unremarkable except as noted in HPI & below Physical Exam Constitutional: + cachectic; + not well nourished and no acute distress Eyes: PERRL, conjunctivae normal, anicteric sclerae ENMT: external ear and nose normal, oropharynx normal Neck: trachea midline, no thyromegaly Respiratory: normal respiratory effort; no respiratory distress Auscultation: + diminished lung sounds (throughout); no crackles, no rales, no rhonchi and no wheezes Cardiovascular: RRR, no murmur, no edema Gastrointestinal (Abdomen): normal bowel sounds, soft, nontender, no hepatosplenomegaly Skin: no rashes, warm and dry Neurologic: moves all extremities and awake; no focal motor deficits and not confused Speech / Cognition: normal speech Motor/Sensory: no tremor and no pronator drift Psychiatric: Orientation: alert, oriented to person, oriented to place and oriented to time Eye Contact: good eye contact Motor Behavior: no psychomotor agitation and no psychomotor retardation Speech: normal rate/rhythm/volume of speech Affect: euthymic affect Mood: no anxious mood Genitourinary: no CVA tenderness Results & Data Results & Data Vital Signs (Past 12 Hours) Vital Signs Temp Pulse Pulse Resp BP BP Pulse Ox 02/12/23 10:52 02/12/23 09:50 86 02/12/23 09:31 100 02/12/23 09:31 85 18 169/97 H 100 02/12/23 09:13 36.8 C 98 H 18 136/82 100 O2 Del Method O2 Flow Rate 02/12/23 10:52 Room Air 02/12/23 09:50 02/12/23 09:31 Nasal Cannula 3 02/12/23 09:31 Nasal Cannula 3 02/12/23 09:13 Nasal Cannula 3 Laboratory Results Abnormal lab results 02/12/23 02/12/23 02/12/23 Range/Units 10:06 10:06 13:35 WBC 15.42 H (4.8-10.8) K/ul RBC 4.01 L (4.20-5.40) M/uL RDW Std Deviation 57.5 H (36.4-46.3) fL RDW Coeff of Caridad 15.7 H (11.5-14.5) % MPV 9.1 L (9.4-12.4) fL Neut # (Auto) 12.13 H (1.40-6.50) K/uL Upton # (Auto) 0.96 H (0.11-0.59) K/uL Immature Gran # (Auto) 0.34 H (0.01-0.20) K/uL ABG pH (7.35-7.45) ABG pO2 (80-95) mmHg ABG HCO3 (19-24) mmol/L ABG O2 Saturation (90-95) % ABG Base Excess (-9-1.8) mEq/L Chloride 96 L (98-107) mmol/L Carbon Dioxide 34 H (21-32) mmol/L Creatinine 0.52 L (0.6-1.2) mg/dl BUN/Creatinine Ratio 28.8 H (10-20) Lactate 2.7 H* (0.4-2.0) mmol/L Troponin I High Sens 15.5 H (0-14) pg/ml C-Reactive Protein (0-0.5) mg/dl Urine Glucose (UA) (Negative) 02/12/23 02/12/23 02/12/23 Range/Units 14:40 15:17 15:19 WBC (4.8-10.8) K/ul RBC (4.20-5.40) M/uL RDW Std Deviation (36.4-46.3) fL RDW Coeff of Caridad (11.5-14.5) % MPV (9.4-12.4) fL Neut # (Auto) (1.40-6.50) K/uL Upton # (Auto) (0.11-0.59) K/uL Immature Gran # (Auto) (0.01-0.20) K/uL ABG pH 7.49 H (7.35-7.45) ABG pO2 146 H (80-95) mmHg ABG HCO3 30 H (19-24) mmol/L ABG O2 Saturation > 100.0 H (90-95) % ABG Base Excess 5.9 H (-9-1.8) mEq/L Chloride (98-107) mmol/L Carbon Dioxide (21-32) mmol/L Creatinine (0.6-1.2) mg/dl BUN/Creatinine Ratio (10-20) Lactate 2.1 H* (0.4-2.0) mmol/L Troponin I High Sens (0-14) pg/ml C-Reactive Protein 0.99 H (0-0.5) mg/dl Urine Glucose (UA) (Negative) 02/12/23 Range/Units 17:00 WBC (4.8-10.8) K/ul RBC (4.20-5.40) M/uL RDW Std Deviation (36.4-46.3) fL RDW Coeff of Caridad (11.5-14.5) % MPV (9.4-12.4) fL Neut # (Auto) (1.40-6.50) K/uL Upton # (Auto) (0.11-0.59) K/uL Immature Gran # (Auto) (0.01-0.20) K/uL ABG pH (7.35-7.45) ABG pO2 (80-95) mmHg ABG HCO3 (19-24) mmol/L ABG O2 Saturation (90-95) % ABG Base Excess (-9-1.8) mEq/L Chloride (98-107) mmol/L Carbon Dioxide (21-32) mmol/L Creatinine (0.6-1.2) mg/dl BUN/Creatinine Ratio (10-20) Lactate (0.4-2.0) mmol/L Troponin I High Sens (0-14) pg/ml C-Reactive Protein (0-0.5) mg/dl Urine Glucose (UA) 3+ H (Negative) Diagnostic Findings CT head/brain wo con CLINICAL HISTORY: 68 years-old Female with altered mental state. Acutely altered mental status with confusion TECHNIQUE: Multiple axial CT images of the head were obtained without contrast. A dose lowering technique was utilized adhering to the principles of ALARA. CT DOSE: 547.75 mGy.cm COMPARISON: 07/24/2016 FINDINGS: No acute intracranial hemorrhage, midline shift, intracranial mass, hydrocephalus, territorial ischemia or abnormal extra-axial collection. Involutional changes with chronic microvascular scheme disease. Cerebrovascular calcifications. The calvarium is intact. Mild mucosal thickening of the ethmoid air cells. Mastoid air cells are clear. Unremarkable soft tissues. IMPRESSION: No acute intracranial abnormality. SINGLE VIEW CHEST CLINICAL HISTORY: Atypical chest pain. FINDINGS: An AP, portable, upright chest radiograph is compared to study dated 01/08/2023 and correlated with chest CT dated 11/26/2022. The examination is degraded by portable technique and patient rotation. The cardiomediastinal silhouette is unremarkable noting atherosclerotic calcification of the thoracic aorta. Fibrotic change is again seen throughout both lungs with a subpleural predominance. There is no evidence of superimposed airspace consolidation or large pleural effusion. No pneumothorax is seen. The skeletal structures are osteopenic. There are acute to subacute right anterior 5th and 6th rib fractures. IMPRESSION: 1. Interstitial/fibrotic lung disease as above with no air space consolidation, large pleural effusion, or pneumothorax identified. 2. Acute to subacute right-sided rib fractures as above. CT chest diagnostic wo con CLINICAL HISTORY: sob TECHNIQUE: Multidetector row helical CT of the chest was performed. Coronal and sagittal reformations were obtained. Automated dose lowering techniques and/or adjustment according to patient size were utilized for this exam. CT DOSE: 116.20 mGy.cm Comparison: Comparison is made to CT chest 11/18/2022 FINDINGS: Lungs and pleura: Extensive interstitial lung disease is seen. Compared to the prior exam, there appears to be ill-defined diffuse airspace opacity most prominent in the lower lungs. Heart and pericardium: Heart size is normal. No pericardial effusion. Vessels: Severe atherosclerotic changes in the aorta and coronary arteries. Mediastinum and reese: Subcentimeter lymph nodes are seen. Chest wall and lower neck: Unremarkable. Abdomen: A hiatal hernia is seen. Bones: Subacute appearing rib fractures are seen. Although evaluation is limited by patient motion, these appear to involve the right fourth, fifth, and sixth ribs as well as the left fifth rib. IMPRESSION: 1. Ill-defined diffuse airspace opacity most prominent in the lower lungs. This may represent aspiration/pneumonia. 2. Extensive interstitial lung disease. 3. Subacute rib fractures Medications Administered ER Medications Given: NSS 500ml bolus Duoneb 3ml NEB Solu-medrol 125mg IV ECG Indication: back/shoulder pain Rate (beats per minute): 87 Rhythm: normal sinus Findings: no acute ischemic change Comparison ECG Date: from (Nov 26, 2022) Change: no significant change Code Status & VTE Plan Code Status DNR/DNI - as discussed with the patient VTE Prophylaxis Plan VTE Prophylaxis will be ordered: Yes PG Care Time/CCT Total # of Minutes Spent Total Time Spent with Patient: Total time spent is greater than 50% in coordination of care (as documented) at patient's floor/unit and/or counseling patient: Coding Level of Care Code 99903 INT INP/OBS CARE 3/75MIN Diagnoses Shortness of breath R06.02 Pneumonia J18.9 Hypoxemic respiratory failure, chronic J96.11 Short-term memory loss R41.3 Back pain M54.9 Hypersensitivity pneumonitis J67.9 Anxiety disorder F41.9 Severe protein-calorie malnutrition E43
--- NOTE | 2023-02-12 15:11 | CT Scan Report ---
CT head/brain wo con CLINICAL HISTORY: 68 years-old Female with altered mental state. Acutely altered mental status with confusion TECHNIQUE: Multiple axial CT images of the head were obtained without contrast. A dose lowering tech nique was utilized adhering to the principles of ALARA. CT DOSE: 547.75 mGy.cm COMPARISON: 07/24/2016 FINDINGS: No acute intracranial hemorrhage, midline shift, intracranial mass, hydrocephalus, territorial ischem ia or abnormal extra-axial collection. Involutional changes with chronic microvascular scheme disease . Cerebrovascular calcifications. The calvarium is intact. Mild mucosal thickening of the ethmoid air cells. Mastoid air cells are mindy ar. Unremarkable soft tissues. IMPRESSION: No acute intracranial abnormality. ACT 112: Negative or not required by law. The above report was generated using voice recognition software. It may contain grammatical, syntax o r spelling errors. Electronically signed by: Bhargav Adamson M.D. 02/12/2023 3:10 PM
[2023-02-12 15:30] LABS: Base Excess ABG 5.9 mEq/L (-9-1.8); HCO3 ABG 30 mmol/L (19-24); Oxygen Saturation ABG > 100.0 % (90-95); PCO2 ABG 39 mmHg (35-46); PO2 ABG 146 mmHg (80-95); pH ABG 7.49 (7.35-7.45)
[2023-02-12 15:31] LABS: Allen Test POS (Pos)
--- NOTE | 2023-02-12 16:51 | Electrocardiogram Report ---
Test Reason : Blood Pressure : / mmHG Vent. Rate : 090 BPM Atrial Rate : 090 BPM P-R Int : 122 ms QRS Dur : 068 ms QT Int : 342 ms P-R-T Axes : 054 035 056 degrees QTc Int : 418 ms Normal sinus rhythm Normal ECG When compared with ECG of 12-FEB-2023 09:30, (unconfirmed) No significant change was found Confirmed by Micky Bustamante ([id number]) on 02/12/2023 4:51:02 PM Referred By: REFERRED SELF Confirmed By:Heath Bustamante
--- NOTE | 2023-02-12 16:52 | Electrocardiogram Report ---
Test Reason : Blood Pressure : / mmHG Vent. Rate : 087 BPM Atrial Rate : 087 BPM P-R Int : 120 ms QRS Dur : 070 ms QT Int : 340 ms P-R-T Axes : 050 033 048 degrees QTc Int : 409 ms Normal sinus rhythm Normal ECG When compared with ECG of 26-NOV-2022 12:50, No significant change was found Confirmed by Micky Bustamante ([id number]) on 02/12/2023 4:52:35 PM Referred By: REFERRED SELF Confirmed By:Heath Bustamante
[2023-02-12 17:43] LABS: Appearance Urine Clear (Clear); Bilirubin Urine Negative (Negative); Blood Urine Negative (Negative); Color Urine Yellow; Glucose Urine UA 3+ (Negative); Ketones Urine Negative (Negative); Leukocyte Esterase Urine Negative (Negative); Nitrite Urine Negative (Negative); Protein Urine Negative (Negative); Specific Gravity Urine 1.023 (1.000-1.030); Urobilinogen Urine Negative (Negative)
[2023-02-12] MEDS ORDERED: CYCLOBENZAPRINE HCL 10 MG TAB PO PRN (18:15)
[2023-02-12] MEDS ORDERED: ALBUTEROL HFA 8 GM INHALER INH PRN (18:15)
[2023-02-12] MEDS ORDERED: ONDANSETRON INJ 2 MG/ML 2 ML VIAL IV PRN (18:15)
[2023-02-12] MEDS: FERROUS SULFATE 325 MG TAB PO SCH (20:33)
[2023-02-12] MEDS: traZODone HCL 100 MG TAB PO SCH (20:33)
[2023-02-12] MEDS: QUEtiapine FUMARATE 25 MG TABLET PO SCH (20:33)
[2023-02-12] MEDS: LORazepam 1 MG TAB PO SCH (20:33)
[2023-02-12] MEDS: traMADol HCL 50 MG TABLET PO SCH (20:33)
[2023-02-12] MEDS: GABAPENTIN 100 MG CAP PO SCH ×2 (20:34→20:44)
[2023-02-12] MEDS: CEFEPIME 2,000 MG in SYRINGE 0 ML IV SCH (20:35)
[2023-02-12] MEDS: HEPARIN SOD 5,000 UNIT/0.5 ML VIAL SQ SCH ×2 (20:35→20:43)
[2023-02-12] MEDS: SULFAMETHOXAZOLE/TRIMETHOPRIM DS 800/160MG TAB PO SCH (20:38)
[2023-02-12] MEDS ORDERED: ENOXAPARIN INJ 40 MG/0.4 ML SYR SQ SCH (21:00)
[2023-02-12] MEDS ORDERED: predniSONE 20 MG TAB PO SCH (21:00)
[2023-02-12] MEDS ORDERED: ENOXAPARIN INJ 30 MG/0.3 ML SYR SQ SCH (21:00)
[2023-02-13] MEDS: ACETAMINOPHEN 500 MG TAB PO PRN (00:23)
[2023-02-13] MEDS: CEFEPIME 2,000 MG in SYRINGE 0 ML IV SCH (06:16)
[2023-02-13 07:13] LABS: Calcium 9.3 mg/dl (8.6-10.3); Creatinine Clr Calc Pharmacy 56.9 ml/min; Est GFR (African American) 111.5 ml/min; Est GFR (Non-African American) 96.2 ml/min; Potassium 4.6 mmol/L (3.5-5.1)
[2023-02-13 07:14] LABS: Basophils # (auto) 0.02 K/uL (0-0.2); Basophils % (auto) 0.1 %; Hematocrit (blood only) 36.1 % (37.0-47.0); Hemoglobin 12.3 g/dl (12.0-16.0); Immature Granulocytes # (auto) 0.33 K/uL (0.01-0.20); Immature Granulocytes % (auto) 2.3 %; Lymphocytes # (auto) 0.59 K/uL (1.2-3.4); Lymphocytes % (auto) 4.2 %; Mean Corpuscular Hemoglobin 33.1 pg (25.0-34.0); Mean Corpuscular Hgb Conc 34.1 g/dL (32.0-36.0); Monocytes # (auto) 0.73 K/uL (0.11-0.59); Monocytes % (auto) 5.1 %; Neutrophils # (auto) 12.54 K/uL (1.40-6.50); Neutrophils % (auto) 88.3 %; Platelet Count 290 K/uL (130-400); RDW Coefficient of Variation 15.4 % (11.5-14.5); RDW Standard Deviation 54.5 fL (36.4-46.3); Red Blood Count 3.72 M/uL (4.20-5.40); White Blood Count 14.21 K/ul (4.8-10.8)
[2023-02-13] MEDS ORDERED: methylPREDNISolone 40 MG in SYRINGE 0 ML IV SCH (08:00)
[2023-02-13] MEDS: CEROVITE ADV FORMULA TAB PO SCH (08:19)
[2023-02-13] MEDS: UMECLIDINIUM/VILANTEROL 62.5/25MCG 7 PUFFS/INHALER INH SCH (08:19)
[2023-02-13] MEDS: GABAPENTIN 100 MG CAP PO SCH ×4 (08:19→20:06)
[2023-02-13] MEDS: HEPARIN SOD 5,000 UNIT/0.5 ML VIAL SQ SCH ×2 (08:19→20:07)
[2023-02-13] MEDS: ASPIRIN 81 MG ECTAB PO SCH (08:19)
[2023-02-13] MEDS: FERROUS SULFATE 325 MG TAB PO SCH ×3 (08:19→20:06)
[2023-02-13] MEDS: CHOLECALCIFEROL 1,000 UNITS 25 MCG TAB PO SCH (08:19)
[2023-02-13] MEDS: DULoxetine HCL 60 MG CAP PO SCH (08:20)
[2023-02-13] MEDS: AZITHROMYCIN 250 MG TAB PO SCH (08:20)
[2023-02-13] MEDS: traMADol HCL 50 MG TABLET PO SCH (08:22)
--- NOTE | 2023-02-13 09:03 | Pulmonary Consultation ---
Date of Consultation February 13, 2023 Assessment & Plan (1) Shortness of breath: (2) Severe protein-calorie malnutrition: (3) Hypersensitivity pneumonitis: (4) Interstitial lung disease: Plan I do not suspect an infectious etiology at this time given her normal procalcitonin and relatively unchanged CT chest. She likely has chronic aspiration. I will order a modified barium swallow. She does have a dilated esophagus on CT chest imaging. We will discontinue cefepime. Continue azithromycin for the time being. Will defer to her inclusion internship, Dr. Mcmahon in terms of starting the patient on chronic azithromycin every Friday, Friday and Friday. QTc is 418 ms Continue ICS/LABA/LAMA. Her prior PFTs reveal severe restriction likely multifactorial related to ILD and neuromuscular/respiratory muscle weakness. Dietitian consultation placed due to weight loss and malnutrition. Decrease oral corticosteroids to 30 mg p.o. prednisone daily. 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 Palliative care consultation will be placed as well given the patient's weight loss, poor insight and poor prognosis overall. History of Present Illness Reason for Consultation: ILD Attending Physician: Curtis Weems MD History of Present Illness 68-year-old female with a past medical history of ILD thought to be related to hypersensitivity pneumonitis presenting to the hospital for shortness of breath and back pain. The patient gives a very disjointed history and is overall a poor historian. She notes that her cough is increased. She also notes hypoxia at home, but she cannot recall any of her oxygen saturations. She says she has a pulse oximeter at home. She notes that her shortness of breath has been getting worse over the last few days, but she cannot quantify or qualify the shortness of breath episodes. She says that she lives with her partner and that she has been taking her medications as prescribed including prednisone and Bactrim. She follows closely with the pulmonary clinic and has seen Dr. Mcmahon and BIJAN frank. Her chest CT reveals bilateral reticular and nodular opacities. There is some trace bronchiectasis. Her prior CT chest revealed a pneumothorax which is now resolved. Blood gas completed today reveals metabolic alkalosis with a pH of 7.49 and a PCO2 of 39. Serologic testing in November was negative including rheumatoid factors, Sjogren's antibodies, Rose 1 antibody, [employer] RN antibody and double-stranded DNA. She is currently on 3 L of oxygen saturating 99%. Procalcitonin is negative x2 this admission. She is currently on methylprednisone 40 mg, 3 times daily, Bactrim every Friday and Friday and cefepime 2 g, 3 times daily. Allergies Allergy/AdvReac Type Severity Reaction Status Date / Time Iodinated Contrast Media Allergy Severe ANAPHYLAXIS Verified 02/12/23 14:14 Sulfa (Sulfonamide Allergy Unknown Verified 02/12/23 14:14 Antibiotics) banana AdvReac Severe GI SYMPTOMS Verified 02/12/23 14:14 red beets AdvReac Severe GI SYMPTOMS Uncoded 02/12/23 14:14 Home Medications Medication Instructions Recorded Confirmed Type lorazepam 1 mg tablet (Ativan) 1 mg PO TID 06/18/18 02/12/23 History cyclobenzaprine 10 mg tablet 10 mg PO BID 11/06/18 02/12/23 History duloxetine 60 mg capsule,delayed 60 mg PO DAILY 11/06/18 02/12/23 History release (Cymbalta) gabapentin 400 mg capsule 400 mg PO QID 07/12/20 02/12/23 History betamethasone dipropionate 0.05 % 1 applic topical DAILY PRN skin 06/05/21 02/12/23 Rx topical cream irritation #30 grams hydrocortisone 2.5 % topical 1 applic topical DAILY #28.35 grams 06/05/21 02/12/23 Rx ointment cholecalciferol (vitamin D3) 25 25 mcg PO DAILY 10/16/22 02/12/23 History mcg (1,000 unit) capsule Ca 600 mg-D3 20 mcg-mag oxide 50 1 tab PO DAILY 11/13/22 02/12/23 History mw-Ob-fxzkph-manganese-boron tablet (Calcium 600-D3 Plus (mag-zinc)) aspirin 81 mg tablet,delayed 81 mg PO DAILY 11/13/22 02/12/23 History release (Adult Low Dose Aspirin) acetaminophen 500 mg tablet 500 mg PO QID PRN Pain 11/26/22 02/12/23 History ferrous sulfate 325 mg (65 mg 325 mg PO TID 11/26/22 02/12/23 History iron) tablet quetiapine 50 mg tablet 50 mg PO HS 11/26/22 02/12/23 History tramadol 50 mg tablet 50 mg PO BID 11/26/22 02/12/23 History trazodone 100 mg tablet 100 mg PO HS 11/26/22 02/12/23 History zeffrgqe-bps-mdhzj acid 0.4 1 tab PO QAM #30 tabs 11/27/22 02/12/23 Rx mg-lycopene 300 mcg-lutein 250 mcg tablet (Cerovite Senior) prednisone 20 mg tablet 20 mg PO BID #60 tabs 12/03/22 02/12/23 Rx sulfamethoxazole 800 1 tab PO .COMPLEX #30 tabs 12/03/22 02/12/23 Rx mg-trimethoprim 160 mg tablet (Bactrim DS) Oxygen Home #1 ea 01/24/23 02/12/23 Rx Ventolin HFA 90 mcg/actuation 1 inh inhalation QID PRN shortness 02/05/23 02/12/23 Rx aerosol inhaler (albuterol sulfate) of breath or wheezing #1 inhaler compressor, for nebulizer #1 ea 02/05/23 02/12/23 Rx ipratropium 0.5 mg-albuterol 3 mg 3 ml inhalation Q4H PRN wheezing 02/05/23 02/12/23 Rx (2.5 mg base)/3 mL nebulization #180 mL soln nebulizer accessories #2 ea 02/05/23 02/12/23 Rx glycopyrrolate 9 mcg-formoterol 2 puff inhalation Q12H #10.7 grams 02/06/23 02/12/23 Rx 4.8 mcg HFA aerosol inhaler (Bevespi Aerosphere) Patient History Medical History Eustachian tube dysfunction Mixed conductive and sensorineural hearing loss of left ear with restricted hearing of right ear Pneumothorax Seasonal allergies Surgical History History of adenoidectomy History of tonsillectomy Family History Father Allergies Asthma Other No family history of adverse response to anesthesia No family history of bleeding disorder Social History Smoking Status: Never smoker Second Hand Exposure: No; Do You Dip or Chew Tobacco: No; Tobacco Cessation Education Requested by Patient: No Hx Alcohol Use: No Hx Substance Use: No Preferred Language: Greek Communication Ability: Effective Visual Impairment: No Limitations Hearing Ability: Normal Surveyor Helper Rod Required: No Beliefs That Will Affect Care: None marital status: Current Living Situation: Alone Current Living Situation Comment: Lives in a home with life partner current occupational status: retired Other Information That Helps Us Care for You: No Feels Safe at Home: Yes Safety Concerns: Feels Safe At This Time Assistive Devices: Oxygen - Continuous Assistive Devices Comment: x1 assist OOB Review of Systems Review of Systems: All systems reviewed & are unremarkable except as noted in HPI & below Physical Exam Physical Exam: Constitutional: Frail and thin appearing female no apparent distress. Eyes: Pupils are equal round and reactive to light. Conjunctivae are normal. Anicteric sclera. Ears nose, mouth and throat: Mallampati class 2. Normal posterior oropharynx. Uvula is midline. Neck: Trachea is midline. Visual inspection is normal. Respiratory: Mild inspiratory crackles in the lower lobes. No wheezes. Prolonged phase of exhalation. Cardiovascular: Regular rate and rhythm. No murmurs. No edema. Gastrointestinal: Normal bowel sounds, soft, nontender and nondistended. No hepatosplenomegaly noted. Musculoskeletal: No cyanosis. Patient is able to move all extremities. Strength is 5 out of 5 in the upper and lower extremities. Skin: No rashes, warm dry and intact. Neurologic: No obvious focal neurological deficits seen. Psychiatric: Alert and oriented x3 with a euthymic affect. Results & Data Results & Data Vital Signs (Past 12 Hours) Vital Signs Temp Pulse Pulse Pulse Resp BP BP 02/13/23 08:42 02/13/23 07:42 36.3 C L 96 H 20 120/77 02/13/23 03:05 36.5 C 88 18 122/77 02/13/23 01:20 02/12/23 22:00 99 H 02/12/23 23:10 36.3 C L 95 H 20 115/81 Pulse Ox O2 Del Method O2 Flow Rate 02/13/23 08:42 Nasal Cannula 3 02/13/23 07:42 99 Nasal Cannula 3 02/13/23 03:05 94 Room Air 02/13/23 01:20 Nasal Cannula 3 02/12/23 22:00 02/12/23 23:10 93 Room Air PG Care Time/CCT Total # of Minutes Spent Total Time Spent with Patient: Total time spent is greater than 50% in coordination of care (as documented) at patient's floor/unit and/or counseling patient: Coding Level of Care Code 19436 INT INP/OBS CARE 3/75MIN Diagnoses Shortness of breath R06.02 Severe protein-calorie malnutrition E43 Hypersensitivity pneumonitis J67.9 Interstitial lung disease J84.9
[2023-02-13] MEDS: LORazepam 1 MG TAB PO SCH ×4 (10:50→20:06)
[2023-02-13] MEDS: predniSONE 10 MG TABLET PO SCH (10:50)
--- NOTE | 2023-02-13 11:21 | Palliative Care Consultation ---
Date of Consultation February 13, 2023 Assessment & Plan (1) Palliative care by specialist: Met with pt. Provided overview of Palliative Medicine, a subspecialty that provides specialized medical care for people living with a serious illness by offering a focus on quality of life. Palliative Medicine is often conflated with hospice: I advised patient/family that Palliative and hospice can be partners but we are not the same. It is important to understand the difference so that we may be informed, and not afraid. Palliative Medicine works to improve QOL through reduction of symptom burden/more control over their illness, for both the patient and family. Palliative medicine clinicians are board certified, sp ecially-trained and another member of the patient's medical care team. We often provide an extra layer of support because our care is based on the needs of the patient, not the prognosis; as such, it's appropriate at any age/advancing stage of a serious illness and can be provided along with curative treatment. Palliative Medicine clinicians are also trained in advanced communication methodologies, to facilitate complex discussions about advanced illness planning, which are needed to help assure that the treatment choices match the patient's goals, aka delivering Goal Concordant care. Finally, we discussed that hospice is a visiting nurse service that focuses on care delivered at the very end of life for patients with terminal illness, with life expectancy less than 6 month. (2) Advanced care planning/counseling discussion: I spoke with Erin face to face for 75 min at bedside for this lengthy and complex ACP discussion: Erin's information seeking in low but she wants explanation in easy to understand terms about the status of her medical issues. We reviewed that all chronic/progressive disease such as her HP, has a declining trajectory over time where facets of patient self-identity and independence are lost. Every acute event leads to a further decline, resulting- many times, in a new baseline. Advised that the greatest priority is to determine what matters most to pt, then family and to develop a plan of care that is aligned with those kash orities.Advance illness planning conversations are conducted to review goals and expectations, support shared decision-making, and engage in disease specific advance care planning. This type of advance care planning is sometimes referred to as 'preparedness planning. It is used to review the risks and benefits of offered therapy, elicit and deepen understanding of the underlying illness and therapeutic options, ensure adequate psychosocial support, address existential concerns and coping, and engage in end-of-life planning. Preparedness planning is not meant to replace informed consent discussions. Palliative medicine plays a role in the process of deepening a patients understanding of this specific medical intervention and ensuring this treatment aligns with their goals of care remains a central tenet of the planning conversation. ILD + Pall Med: The majority of IPF patients in a hospital with ongoing life-prolonging procedures until . The frequent use of opioids is an indicator of an intention to relieve symptoms, but end-of-life decisions were still made very late. Early integrated palliative care with advance care plan could improve the end-of-life care of dying IPF patients. (Leeanna Teresa, Jolanta HyattT, Dana Darby, Isabel E, Ej Carty, Bertin Darby. End-of-life care of patients with idiopathic pulmonary fibrosis. BMC Palliat Care. 2016;15(1):85. Published 2016 Jul 10. doi:10.1186/h47662-988-5259-7) We spoke about limited treatment options toshia at this advanced age: although transplantation is a potentially effective surgical therapy, less than 20% of patients ever receive a lung transplant. The remaining 80% have few treatment options. As fibrosis advances and lung function deteriorates, patients experience a progressive increase in shortness of breath, cough and fatigue. These symptoms are distressing to patients and family care givers and present a challenge in maintaining quality of life as the disease relentlessly progresses. Despite the fatal prognosis, patients and caregivers often fail to understand the poor prognosis. (Abel GIVENS, Di E, Fan M, et al. Impact of a disease-management program on symptom burden and health- related quality of life in patients with idiopathic pulmonary fibrosis and their care partners. Heart Lung J Acute Crit Care. 2010;39(4):421846 and Ree Galvez, Alley Teresa, Sathya GALVAN. Interstitial lung disease original article: a qualitative study of informal caregivers perspectives on the effects of idiopathic pulmonary fibrosis. BMJ Open Resp Res. 2014:1.) Erin is very clear about goals: she knows her lung disease is fatal. She knows it is severe and time is running out. She did not understand the swallow study which we reviewed in detail and I advised her it showed she has profound esophageal issues. She has limited to no movement of food from her upper esophagus. She is unable to accept p.o. at this time as it will definitely result in aspiration and vomiting. Dr. Guy was called into the study with recommendation for GI scope and barium swallow if she can stand. She declined this firmly. Her esoph disease is profound both structurally and functionally. Erin is aware of the complexity of issues. She tells me her goal is to be home with Andre. She does not want to in hospital. She is open to hospice. I provided education about the hospice benefit: an interdisciplinary program offered by nurses, nurses aides, social workers, chaplains and a medical direct or for patients with a terminal condition and a life expectancy of less than 6 months. This is covered by Medicare at 100%/no out of pocket expense to patient and all meds/supplies needed by patient for the reason they are on hospice are paid for/covered by hospice. The goal is assure quality of life of the patient in their home setting (home, [facility], inpatient hospice setting) by providing symptoms management, psychosocial and spiritual support. However, they cannot offer 24 hours care and if the family is unable to provide that care, they will have to consider personal care with out of pocket cost vs. [facility] placement. We discussed the goals of hospice as a patient service and the goals of care; we discussed EOL trajectories and transitions toshia the emotional impact of realizing mortality as a concrete reality from prior abstract considerations. Pt was reassured that no matter where they are along this trajectory, they are not alone - their medical team will remain by their side through their journey. Discussed the pros/cons of accepting help when especially weakened and distressed by pain-which would also help provide relief/decrease caregiver burden/strain. She would like home with hospice. She wants focus on comfort. no further aggressive interventions (3) Dyspnea and respiratory abnormalities: (4) Hypersensitivity pneumonitis: (5) Hypoxemic respiratory failure, chronic: (6) Interstitial lung disease: (7) Weakness generalized: (8) Noncompliance with medication treatment due to intermittent use of medication: (9) Severe protein-calorie malnutrition: Plan Home with hospice primary team ST and CM aware Thank you for allowing us to participate in the ongoing care of this patient. Please don't hesitate to call or page with any additional concerns. Dr. Eulalia Chavarria DNP Director, Palliative Care History of Present Illness Reason for Consultation: ILD, poor insight, poor prgnosis Requesting Physician: Altagracia Attending Physician: Curtis Weems MD History of Present Illness 68yo female with chronic HP (bird exposure > 20yr) with worsening ILD presented to ED with c/o refractory dyspnea pt lives in trailer style home with Andre rodriguez. she states he re-homed the birds they are working on getting the trailer deep cleaned but have not completed it in prior pulm clinic visits she has indicated no desire to pursue lung transp lant evaluation Allergies Allergy/AdvReac Type Severity Reaction Status Date / Time Iodinated Contrast Media Allergy Severe ANAPHYLAXIS Verified 02/12/23 14:14 Sulfa (Sulfonamide Allergy Unknown Verified 02/12/23 14:14 Antibiotics) banana AdvReac Severe GI SYMPTOMS Verified 02/12/23 14:14 red beets AdvReac Severe GI SYMPTOMS Uncoded 02/12/23 14:14 Home Medications Medication Instructions Recorded Confirmed Type lorazepam 1 mg tablet (Ativan) 1 mg PO TID 06/18/18 02/12/23 History cyclobenzaprine 10 mg tablet 10 mg PO BID 11/06/18 02/12/23 History duloxetine 60 mg capsule,delayed 60 mg PO DAILY 11/06/18 02/12/23 History release (Cymbalta) gabapentin 400 mg capsule 400 mg PO QID 07/12/20 02/12/23 History betamethasone dipropionate 0.05 % 1 applic topical DAILY PRN skin 06/05/21 02/12/23 Rx topical cream irritation #30 grams hydrocortisone 2.5 % topical 1 applic topical DAILY #28.35 grams 06/05/21 02/12/23 Rx ointment cholecalciferol (vitamin D3) 25 25 mcg PO DAILY 10/16/22 02/12/23 History mcg (1,000 unit) capsule Ca 600 mg-D3 20 mcg-mag oxide 50 1 tab PO DAILY 11/13/22 02/12/23 History lq-Ys-yzezux-manganese-boron tablet (Calcium 600-D3 Plus (mag-zinc)) aspirin 81 mg tablet,delayed 81 mg PO DAILY 11/13/22 02/12/23 History release (Adult Low Dose Aspirin) acetaminophen 500 mg tablet 500 mg PO QID PRN Pain 11/26/22 02/12/23 History ferrous sulfate 325 mg (65 mg 325 mg PO TID 11/26/22 02/12/23 History iron) tablet quetiapine 50 mg tablet 50 mg PO HS 11/26/22 02/12/23 History tramadol 50 mg tablet 50 mg PO BID 11/26/22 02/12/23 History trazodone 100 mg tablet 100 mg PO HS 11/26/22 02/12/23 History kvrsxixl-vyw-xrjtm acid 0.4 1 tab PO QAM #30 tabs 11/27/22 02/12/23 Rx mg-lycopene 300 mcg-lutein 250 mcg tablet (Cerovite Senior) prednisone 20 mg tablet 20 mg PO BID #60 tabs 12/03/22 02/12/23 Rx sulfamethoxazole 800 1 tab PO .COMPLEX #30 tabs 12/03/22 02/12/23 Rx mg-trimethoprim 160 mg tablet (Bactrim DS) Oxygen Home #1 ea 01/24/23 02/12/23 Rx Ventolin HFA 90 mcg/actuation 1 inh inhalation QID PRN shortness 02/05/23 02/12/23 Rx aerosol inhaler (albuterol sulfate) of breath or wheezing #1 inhaler compressor, for nebulizer #1 ea 02/05/23 02/12/23 Rx ipratropium 0.5 mg-albuterol 3 mg 3 ml inhalation Q4H PRN wheezing 02/05/23 02/12/23 Rx (2.5 mg base)/3 mL nebulization #180 mL soln nebulizer accessories #2 ea 02/05/23 02/12/23 Rx glycopyrrolate 9 mcg-formoterol 2 puff inhalation Q12H #10.7 grams 02/06/23 02/12/23 Rx 4.8 mcg HFA aerosol inhaler (Bevespi Aerosphere) Patient History Medical History (Updated 02/13/23 @ 15:13 by Curtis Weems MD) Advanced care planning/counseling discussion Dyspnea and respiratory abnormalities Eustachian tube dysfunction Mixed conductive and sensorineural hearing loss of left ear with restricted hearing of right ear Palliative care by specialist Pneumothorax Seasonal allergies Weakness generalized Surgical History History of adenoidectomy History of tonsillectomy Family History Father Allergies Asthma Other No family history of adverse response to anesthesia No family history of bleeding disorder Social History Smoking Status: Never smoker Second Hand Exposure: No; Do You Dip or Chew Tobacco: No; Tobacco Cessation Education Requested by Patient: No Hx Alcohol Use: No Hx Substance Use: No Preferred Language: Israeli Communication Ability: Impaired Visual Impairment: No Limitations Hearing Ability: Normal Supervisor [employer]ning Required: No Beliefs That Will Affect Care: None marital status: Current Living Situation: Alone Current Living Situation Comment: Lives in a home with life partner current occupational status: retired Other Information That Helps Us Care for You: No Feels Safe at Home: Yes Safety Concerns: Feels Safe At This Time Assistive Devices: Glasses and Oxygen - Continuous Assistive Devices Comment: x1 assist OOB Review of Systems Review of Systems: All systems reviewed & are unremarkable except as noted in Subjective Physical Exam Constitutional: + ill appearing, + cachectic, + frail appearing and + disheveled Eyes: PERRL, conjunctivae normal, anicteric sclerae ENMT: Mouth: + dry oral mucous membranes and + poor dentition Neck: trachea midline, no thyromegaly Respiratory: + respiratory distress, + uses accessory muscles and symmetric chest movement Auscultation: + diminished lung sounds and + crackles Cardiovascular: RRR, no murmur, no edema Gastrointestinal (Abdomen): Inspection/Auscultation: normal bowel sounds and + scaphoid Musculoskeletal: +generalized weakness Skin: + turgor decreased, + skin tightening, + dry skin and + pallor Neurologic: PERRL, EOMI, accommodation nl, no face palsy, no dysarthria Psychiatric: A+Ox3, euthymic affect Results & Data Vital Signs (Past 12 Hours) Vital Signs Temp Pulse Resp BP BP Pulse Ox O2 Del Method 02/13/23 08:42 Nasal Cannula 02/13/23 07:42 36.3 C L 96 H 20 120/77 99 Nasal Cannula 02/13/23 03:05 36.5 C 88 18 122/77 94 Room Air 02/13/23 01:20 Nasal Cannula O2 Flow Rate 02/13/23 08:42 3 02/13/23 07:42 3 02/13/23 03:05 05/18/23 01:20 3 Laboratory Results data reviewed Diagnostic Findings Video swallow today, verbal from ST: video swallow on 276-2. While she does not aspirate she has profound esophageal issues. She has limited to no movement of food from her upper esophagus. She is unable to accept p.o. at this time as it will definitely result in aspiration and vomiting. Dr. Guy was called into the study with recommendation for GI scope and barium swallow if she can stand. PG Care Time/CCT Total # of Minutes Spent Total Time Spent: 125 Total Time Spent with Patient: Total time spent is greater than 50% in coordination of care (as documented) at patient's floor/unit and/or counseling patient: 75 min with ACP 50 min with pt, exam, chart review, discussion with other providers and review of OSH records, PFT data Prolonged Care Time Prolonged Care Time: Yes Advanced Care Planning 47753 Advanced Care Planning 30 Min 04442 Advanced Care Planning Additional 30 [place] [address] IN/OBS CONSULT LVL 5,80M Patient Type New History Comprehensive Exam Comprehensive Medical Decision Making High Complexity Diagnoses Palliative care by specialist Z51.5 Advanced care planning/counseling discussion Z71.89 Dyspnea and respiratory abnormalities R06.00; R06.89 Hypersensitivity pneumonitis J67.9 Hypoxemic respiratory failure, chronic J96.11 Interstitial lung disease J84.9 Weakness generalized R53.1 Noncompliance with medication treatment due to intermittent use of medication Z91.14 Severe protein-calorie malnutrition E43 Additional Codes Advanced Care Planning - 83665 Advanced Care Planning 30 Min: [id number] Advanced Care Planning 30 Min ([id number]) Advanced Care Planning - 12819 Advanced Care Planning Additional 30 Min: 18418 Advanced Care Planning Additional 30 Min ([id number]) Prolonged Care Time - Prolonged Care Time: Yes ([id number])
[2023-02-13] MEDS ORDERED: traMADol HCL 50 MG TABLET PO PRN (13:27)
--- NOTE | 2023-02-13 15:16 | Hospitalist Progress Note ---
Date of Service February 13, 2023 Assessment & Plan (1) Shortness of breath: Plan: No CHF on presentation. No evidence of pneumonia. Procalcitonin is negative x2. She denies aspiration but has markedly abnormal video swallow evaluation. GI consultation was recommended but she adamantly refuses EGD evaluation. She is on room air (2) Pneumonia: Plan: Ruled out. Antibiotics discontinued. Procalcitonin normal x2 (3) Hypoxemic respiratory failure, chronic: Plan: ABG without hypercapnia. Resolved. She is now on room air. (4) Short-term memory loss: Plan: She probably has a component of dementia. CT head without acute abnormality. Supportive care. No hypercapnia. She is on multiple INSECTICIDE SPRAYER affecting medications and this could be playing a role . Her PCP will need to address this (5) Back pain: Plan: Appears to be musculoskeletal. Will use tramadol as needed. Will avoid narcotics since she had issues with narcotic usage in the past (6) Hypersensitivity pneumonitis: Plan: No acute flare suspected. ESR improving. Continue prednisone 20mg PO BID. (7) Anxiety disorder: Plan: Continue her usual outpatient regimen - trazodone, quetiapine, lorazepam, gabapentin (8) Severe protein-calorie malnutrition: Plan: Dietary consult. Boost drinks (9) Presbyesophagus: Plan: She denies aspiration. She refuses EGD evaluation. Appreciate speech therapy recommendations Plan Anticipate discharge to home tomorrow, February 14 Admission and Anticipated Discharge Date Admission Date: February 12, 2023 Subjective Alert. No acute distress. Significant other is present but he left before results of the video swallow could be discussed. Video swallow was markedly abnormal and GI consultation has been recommended. However, the patient adamantly refuses to undergo EGD. This will need to be addressed as an outpatient. She denies any difficulty with swallowing although the swallowing study is markedly abnormal. She has suffered multiple falls and has acute or subacute right fifth and right sixth rib fracture, but minimally symptomatic. W ill use tramadol as needed. Procalcitonin is negative x2. Antibiotics discontinued. Probably home tomorrow, February 14 Review of Systems Review of Systems: Constitutional-no fever or chills ENT-no blurred vision, no double vision, no epistaxis, no sore throat Respiratory-no cough, no wheezing, no shortness of breath Cardiac-no palpitations, no chest pain, no syncope GI-no nausea, vomiting, diarrhea, melena, hematochezia -no urinary retention, no urinary incontinence, no dysuria, no hematuria Musculoskeletal-no joint pain, no muscle tenderness Skin-no bruising, no rashes, no pruritus Neuro-no isolated weakness, no paresthesia, no weakness Psych-no depression, no anxiety Physical Exam Physical Exam: General-alert. No acute distress. Cachectic appearing HEENT-head atraumatic and normocephalic, pupils equal and reactive to light, extraocular muscles intact Neck-no lymphadenopathy or thyromegaly, trachea midline Chest-diminished breath sounds bilaterally. No wheezing Cardiac-regular rate and rhythm, normal S1 and S2 Abdomen-normal bowel sounds, nontender, no hepatosplenomegaly Extremities-no cyanosis, clubbing, or edema Neuro-cranial nerves II through XII intact, motor and sensory function within normal limits, strength symmetrical , no focal deficits Psych-normal affect, normal mood Results & Data Results & Data Vital Signs (Past 12 Hours) Vital Signs Temp Pulse Pulse Resp BP Pulse Ox O2 Del Method 02/13/23 15:01 36.3 C L 99 H 20 142/94 H 100 Nasal Cannula 02/13/23 07:00 96 H 02/13/23 11:33 36.7 C 99 H 18 153/98 H 97 Nasal Cannula 02/13/23 08:42 Nasal Cannula 02/13/23 07:42 36.3 C L 96 H 20 120/77 99 Nasal Cannula O2 Flow Rate 02/13/23 15:01 3 02/13/23 07:00 02/13/23 11:33 3 02/13/23 08:42 3 02/13/23 07:42 3 Laboratory Results 02/13/23 06:42 02/13/23 06:42 PG Care Time/CCT Total # of Minutes Spent Total Time Spent with Patient: Total time spent is greater than 50% in coordination of care (as documented) at patient's floor/unit and/or counseling patient: Coding Level of Care Code 76746 SUB INP/OBS CARE 3/50MIN Diagnoses Shortness of breath R06.02 Pneumonia J18.9 Hypoxemic respiratory failure, chronic J96.11 Short-term memory loss R41.3 Back pain M54.9 Hypersensitivity pneumonitis J67.9 Anxiety disorder F41.9 Severe protein-calorie malnutrition E43 Presbyesophagus K22.89
--- NOTE | 2023-02-13 15:38 | Fluoroscopy Report ---
MODIFIED BARIUM SWALLOW CLINICAL HISTORY: concern for aspiration COMPARISON STUDY: Chest CT February 12, 2023. FLUOROSCOPY TIME: 2.1 minutes. Ka, r: 14.39 mGy. TECHNIQUE: A modified barium swallow was performed in conjunction with Speech Pathology. The patient ingested varying consistencies of barium containing material. Video fluoroscopy was performed. FINDINGS: No tracheal aspiration was identified with thin liquids, mildly thick liquids or pudding co nsistencies. Mild pharyngeal residuals were noted with pudding consistencies. Epiglottic inversion wa s mildly diminished. Although suboptimally assessed on this exam, there is severe esophageal dysmotil ity. There was a standing column of contrast within the esophagus. Contrast reached the midesophagus. Despite prolonged imaging, contrast did not pass into the distal esophagus. The opacified portion of the esophagus is mildly dilated. IMPRESSION: 1. No tracheal aspiration identified. 2. Findings suggestive of severe esophageal dysmotility, as detailed above. Opacified portion of the esophagus is mildly dilated. Remainder of the esophagus suboptimally assessed on this examination. 3. Full recommendations by Speech pathology to follow. ACT 112: Negative or not required by law. Electronically signed by: Jared Guy M.D. 02/13/2023 3:37 PM
[2023-02-13] MEDS: QUEtiapine FUMARATE 25 MG TABLET PO SCH (20:06)
[2023-02-13] MEDS: traZODone HCL 100 MG TAB PO SCH (20:07)
[2023-02-14] MEDS: ASPIRIN 81 MG ECTAB PO SCH (08:15)
[2023-02-14] MEDS: AZITHROMYCIN 250 MG TAB PO SCH (08:15)
[2023-02-14] MEDS: LORazepam 1 MG TAB PO SCH ×2 (08:16→13:34)
[2023-02-14] MEDS: DULoxetine HCL 60 MG CAP PO SCH (08:16)
[2023-02-14] MEDS: UMECLIDINIUM/VILANTEROL 62.5/25MCG 7 PUFFS/INHALER INH SCH (08:16)
[2023-02-14] MEDS: predniSONE 10 MG TABLET PO SCH (08:16)
[2023-02-14] MEDS: GABAPENTIN 100 MG CAP PO SCH ×2 (08:16→13:34)
[2023-02-14] MEDS: SULFAMETHOXAZOLE/TRIMETHOPRIM DS 800/160MG TAB PO SCH (08:16)
[2023-02-14] MEDS: ACETAMINOPHEN 500 MG TAB PO PRN (08:16)
[2023-02-14] MEDS: FERROUS SULFATE 325 MG TAB PO SCH ×2 (08:16→13:35)
[2023-02-14] MEDS: CHOLECALCIFEROL 1,000 UNITS 25 MCG TAB PO SCH (08:16)
[2023-02-14] MEDS: CEROVITE ADV FORMULA TAB PO SCH (10:26)
[2023-02-14] MEDS: HEPARIN SOD 5,000 UNIT/0.5 ML VIAL SQ SCH (10:27)
--- NOTE | 2023-02-14 12:18 | Hospitalist Progress Note ---
Date of Service February 14, 2023 Assessment & Plan (1) Shortness of breath: Plan: No CHF on presentation. No evidence of pneumonia. Procalcitonin is negative x2. She denies aspiration but has markedly abnormal video swallow evaluation. GI consultation was recommended but she adamantly refuses EGD evaluation. She is on room air (2) Pneumonia: Plan: Ruled out. Antibiotics have been discontinued. Procalcitonin normal x2 (3) Hypoxemic respiratory failure, chronic: Plan: ABG without hypercapnia. She states she is chronically on home oxygen. She is now back to her baseline. (4) Short-term memory loss: Plan: She probably has a component of dementia. CT head without acute abnormality. Supportive care. No hypercapnia. She is on multiple CHILD SUPPORT SPECIALIST affecting medications and this could be playing a role . Her PCP will need to address this (5) Back pain: Plan: Appears to be musculoskeletal. Will use tramadol as needed. Will avoid narcotics since she had issues with narcotic usage in the past (6) Hypersensitivity pneumonitis: Plan: No acute flare suspected. ESR improving. Continue prednisone 20mg PO BID. (7) Anxiety disorder: Plan: Continue her usual outpatient regimen - trazodone, quetiapine, lorazepam, gabapentin (8) Severe protein-calorie malnutrition: Plan: Dietary consult. Boost drinks (9) Presbyesophagus: Plan: She denies aspiration. She refuses EGD evaluation. Appreciate speech therapy recommendations Plan She is now requesting SNF placement. Case management notified Admission and Anticipated Discharge Date Admission Date: February 12, 2023 Subjective Alert and oriented. No acute distress. The patient now states she wants SNF placement. Case management notified. Appreciate palliative care consultation and recommendations. Eventual return to home with hospice care. She flatly refuses EGD evaluation of what appears to be presbyesophagus with markedly abnormal video swallow. Review of Systems Review of Systems: Constitutional-no fever or chills ENT-no blurred vision, no double vision, no epistaxis, no sore throat Respiratory-no cough, no wheezing, no shortness of breath Cardiac-no palpitations, no chest pain, no syncope GI-no nausea, vomiting, diarrhea, melena, hematochezia -no urinary retention, no urinary incontinence, no dysuria, no hematuria Musculoskeletal-no joint pain, no muscle tenderness Skin-no bruising, no rashes, no pruritus Neuro-no isolated weakness, no paresthesia, no weakness Psych-no depression, no anxiety Physical Exam Physical Exam: General-alert. No acute distress. Cachectic appearing HEENT-head atraumatic and normocephalic, pupils equal and reactive to light, extraocular muscles intact Neck-no lymphadenopathy or thyromegaly, trachea midline Chest-diminished breath sounds bilaterally. No wheezing Cardiac-regular rate and rhythm, normal S1 and S2 Abdomen-normal bowel sounds, nontender, no hepatosplenomegaly Extremities-no cyanosis, clubbing, or edema Neuro-cranial nerves II through XII intact, motor and sensory function within normal limits, strength symmetrical , no focal deficits Psych-normal affect, normal mood Results & Data Results & Data Vital Signs (Past 12 Hours) Vital Signs Temp Pulse Pulse Resp BP BP Pulse Ox 02/14/23 11:22 36.7 C 106 H 19 135/85 97 02/14/23 08:06 36.8 C 60 19 123/86 96 02/14/23 07:25 109 H 02/14/23 03:07 95 02/14/23 02:58 36.7 C 92 H 18 123/80 96 O2 Del Method O2 Flow Rate 02/14/23 11:22 Nasal Cannula 2 02/14/23 08:06 Nasal Cannula 2 02/14/23 07:25 02/14/23 03:07 Nasal Cannula 3 02/14/23 02:58 Room Air Laboratory Results 02/13/23 06:42 02/13/23 06:42 PG Care Time/CCT Total # of Minutes Spent Total Time Spent with Patient: Total time spent is greater than 50% in coordination of care (as documented) at patient's floor/unit and/or counseling patient: Coding Level of Care Code 90201 SUB INP/OBS CARE 3/50MIN Diagnoses Shortness of breath R06.02 Pneumonia J18.9 Hypoxemic respiratory failure, chronic J96.11 Short-term memory loss R41.3 Back pain M54.9 Hypersensitivity pneumonitis J67.9 Anxiety disorder F41.9 Severe protein-calorie malnutrition E43 Presbyesophagus K22.89
--- NOTE | 2023-02-14 14:09 | Discharge Summary ---
Date of Service February 14, 2023 Admission HPI Per Admitting Provider Erin Louis is a 68 year old female with hypersensitivity pneumonitis who presents to the ER with back pain and shortness of breath. After discharge on November 27 for a pneumothorax which spontaneously resolved and more of an incidental diagnosis of hypersensitivity pneumonitis she reports her shortness of breath was improving on prednisone. She is unable to give me a time course of events regarding worsening of her shortness of breath and therefore reason she is here today. She denies any coughing/choking after eating, fever, chills, cough, nasal congestion. She also is reporting back pain which she reports she had during her prior hospitalization here. She has not taken any of her medications this morning as she was coming to the ER. On discussion with her partner Robert over the phone. He reports she has been complaining of more labored breathing over the last few days and asked to come to the ER today. He confirms she did not take her medications this morning. Confirms she is out of the Bactrim and is unsure whether she still should be taking this. He denies she was having any fever, chills, nasal congestion, cough or sinus pain. To him her breathing has been no different but he obliged her request to come to the ER today. She had not been complaining of any back pain until she came to the ER. He is mostly concerned about her altered mental status over the last month and feels her short term memory loss has become a lot worse and she is requiring more help to get around. She had been taking Aricept so presumably Dr Alonso has been concerned about her memory although the patient denies a history of dementia and reports the Aricept was discontinued as it was not felt to be helping. On review of her medications she reports taking all as prescribed. However it appears she was picking up her medications regularly up until December when it looks like she missed a prescription of duloxetine, gabapentin, quetiapine, lorazepam and trazodone. She reports her PCP took over the prescription from Dr Alonso although this explanation does not make sense why it doesn't appear on her external medications reconciliation. On discussion with her partner over the phone she does not use a weekly pill organizer and she takes all of her own medication (he does not get involved). Some pills he finds are labelled as 2020. She is significantly cachectic on exam but notes no recent weight loss. She is eating and drinking normally. No change in bowel, nausea, vomiting, melena or hematochezia. Principal Diagnosis Shortness of breath, presbyesophagus, acute fracture of right fifth and right sixth ribs, multiple mechanical falls Discharge Exam General-alert. No acute distress. Cachectic appearing HEENT-head atraumatic and normocephalic, pupils equal and reactive to light, extraocular muscles intact Neck-no lymphadenopathy or thyromegaly, trachea midline Chest-diminished breath sounds bilaterally. No wheezing Cardiac-regular rate and rhythm, normal S1 and S2 Abdomen-normal bowel sounds, nontender, no hepatosplenomegaly Extremities-no cyanosis, clubbing, or edema Neuro-cranial nerves II through XII intact, motor and sensory function within normal limits, strength symmetrical , no focal deficits Psych-normal affect, normal mood Discharge Data Allergies Allergy/AdvReac Type Severity Reaction Status Date / Time Iodinated Contrast Media Allergy Severe ANAPHYLAXIS Verified 02/12/23 14:14 Sulfa (Sulfonamide Allergy Unknown Verified 02/12/23 14:14 Antibiotics) banana AdvReac Severe GI SYMPTOMS Verified 02/12/23 14:14 beet AdvReac Unknown Gastrointestinal Verified 02/13/23 16:55 Upset Consultations 02/12/23 13:38 ED Decision to Admit Stat 02/12/23 18:15 Consult Pulmonology Routine 02/13/23 09:02 Consult Palliative Care Routine Ordered Studies 02/12/23 12:17 CT chest diagnostic wo con Stat 02/12/23 14:17 CT head/brain wo con Stat 02/13/23 08:58 Fluoro swallow [FL video swallow] Routine Hospital Course (1) Shortness of breath: No CHF on presentation. No evidence of pneumonia. Procalcitonin is negative x2. She denies aspiration but has markedly abnormal video swallow evaluation. GI consultation was recommended but she adamantly refuses EGD evaluation. She is on room air . Right rib fractures are probably playing a role (2) Pneumonia: Ruled out. Antibiotics have been discontinued. Procalcitonin normal x2 (3) Hypoxemic respiratory failure, chronic: ABG without hypercapnia. She states she is chronically on home oxygen. She is now back to her baseline. (4) Short-term memory loss: She probably has a component of dementia. CT head without acute abnormality. Supportive care. No hypercapnia. She is on multiple FREIGHT BREAKER affecting medications and this could be playing a role . Her PCP will need to address this (5) Back pain: Appears to be musculoskeletal. Will use tramadol as needed. Will avoid narcotics since she had issues with narcotic usage in the past . Right rib fractures are probably contributing (6) Hypersensitivity pneumonitis: No acute flare suspected. ESR improving. Continue prednisone 20mg PO BID. (7) Anxiety disorder: Continue her usual outpatient regimen - trazodone, quetiapine, lorazepam, gabapentin (8) Severe protein-calorie malnutrition: Dietary consult appreciated. Boost drinks (9) Presbyesophagus: She denies aspiration. She refuses EGD evaluation. Appreciate speech therapy recommendations (10) Multiple rib fractures: Right fifth and right sixth ribs are fractured. Probably due to mechanical falls at home. Symptomatic treatment Plan We will discharge to [facility] today, February 14 Total Time Total Time Spent Total Time Spent (In Minutes): 45 minutes Discharge Plan Discharge Items Patient Disposition: Transfer Inpatient Rehab Fac Reason For Visit: SHORTNESS OF BREATH, ALTERED MENTAL STATUS Discharge Diagnosis: Multiple mechanical falls. Fractured right fifth and sixth ribs producing shortness of breath, presbyesophagus Activity: Resume your previous activity Non-emergency contact: Primary Care Provider Call non-emergency contact if: you have any medication questions Follow-up/Referrals: Garth Wellington PA-C [Primary Care Provider] - Diet: Regular and Heart Healthy Addtl Attending Provider Instructions: All medications remain the same Pending Studies at Discharge: No Stand-Alone Forms: My [facility] Skilled Items Patient informed of condition?: Yes DNR: Yes Discharge Level of Care: Acute rehab Communicable Disease: No Discharge Prognosis: Stable Lines: None Urinary Catheter: No Medications and DC Order Prescriptions: Continued lorazepam [Ativan] 1 mg tablet 1 mg PO TID cyclobenzaprine 10 mg tablet 10 mg PO BID duloxetine [Cymbalta] 60 mg capsule,delayed release(DR/EC) 60 mg PO DAILY gabapentin 400 mg capsule 400 mg PO QID (DME) Oxygen Home Liters Per Minute See Rx Instructions .Route Qty: 1 0RF Rx Instructions: humidifcation for oxygen albuterol sulfate [Ventolin HFA] 90 mcg/actuation HFA aerosol inhaler 1 inh inhalation QID PRN (Reason: shortness of breath or wheezing) Qty: 1 3RF Bevespi Aerosphere 9-4.8 mcg HFA aerosol inhaler 2 puff inhalation Q12H Qty: 10.7 3RF cholecalciferol (vitamin D3) 25 mcg (1,000 unit) capsule 25 mcg PO DAILY betamethasone dipropionate 0.05 % cream 1 applic topical DAILY PRN (Reason: skin irritation) Qty: 30 0RF Rx Instructions: Apply cream daily to the affected areas on the hands for 2 weeks or until resolved. hydrocortisone 2.5 % ointment 1 applic topical DAILY Qty: 28.35 1RF prednisone 20 mg tablet 20 mg PO BID Qty: 60 2RF sulfamethoxazole-trimethoprim [Bactrim DS] 800-160 mg tablet 1 tab PO .COMPLEX Qty: 30 2RF Rx Instructions: 1 tab orally every Mon, Wed, and Fri; Anoro Ellipta 62.5-25 mcg/actuation blister with device 1 inh inhalation DAILY 0RF (DME) nebulizer accessories Kit See Rx Instructions .MEDSUPPLY Qty: 2 0RF Rx Instructions: Dx: ILD. LOS 99 years (DME) compressor, for nebulizer Device See Rx Instructions .Route Qty: 1 0RF Rx Instructions: Dx: ILD, hypoxia, LOS 99 years ipratropium-albuterol 0.5 mg-3 mg(2.5 mg base)/3 mL solution for nebulization 3 ml inhalation Q4H PRN (Reason: wheezing) Qty: 180 3RF Ca-D3-mag fh-dgof-nrm-nuria-bor [Calcium 600-D3 Plus (mag-zinc)] 600 mg calcium- 20 mcg-50 mg tablet 1 tab PO DAILY aspirin [Adult Low Dose Aspirin] 81 mg tablet,delayed release (DR/EC) 81 mg PO DAILY tramadol 50 mg tablet 50 mg PO BID acetaminophen 500 mg Tablet 500 mg PO QID PRN (Reason: Pain) trazodone 100 mg tablet 100 mg PO HS ferrous sulfate 325 mg (65 mg iron) Tablet 325 mg PO TID quetiapine 50 mg tablet 50 mg PO HS Cerovite Senior 0.4 mg-300 mcg- 250 mcg Tablet 1 tab PO QAM Qty: 30 0RF Discharge Orders: Discharge Order (Routine); Ordered 02/14/23 Ordered By: Curtis Weems Admission Data Admit Date/Time: 02/12/23 14:46 Attending Provider: Curtis Weems Admit Provider: Kade Causey Primary Care Provider: Garth Wellington Other Providers: Kade Causey ; Lc Frias ; Juliet Mehta ; [facility] Coding Level of Care Code 07313 INP/OBS DISCH >30 MIN Diagnoses Shortness of breath R06.02 Pneumonia J18.9 Hypoxemic respiratory failure, chronic J96.11 Short-term memory loss R41.3 Back pain M54.9 Hypersensitivity pneumonitis J67.9 Anxiety disorder F41.9 Severe protein-calorie malnutrition E43 Presbyesophagus K22.89 Multiple rib fractures S22.49XA
--- NOTE | 2023-02-14 15:40 | Communication Note ---
Date of Service: February 14, 2023 Palliative Med Brief Note Advised pt now desires rehab She is unable to tell me if she prefers rehab over home with hospice but david rendon "I want to be with Andre." Her esophageal and swallow issues will not improve with rehab, swallow therapy or a PEG given the end stage/terminal nature of her lung disease. Rehab benefit, if any, will be low. I recommend a family meeting with pt, her signif other and all relevant specialties along with CM to clarify and solidify true goals and a plan of care moving forward. I do not believe she has a long anticipated survival with pulmonary cachexia, declining PS, progressive hypoxic resp failure, aspiration, esoph failure. Meeting coordination deferred to CM and primary team. Thank you for allowing us to participate in the ongoing care of this patient. Please don't hesitate to call or page with any additional concerns. Dr. Eulalia Chavarria DNP Director, Palliative Care
== END 2023-02-14 16:01 | DRG 183 ==
LOC: ED 09:09 → SUATTDRO 14:46 → 2N 14:46

== ENCOUNTER 2023-02-27 15:35 | Inpatient (IN) ==
[2023-02-27] MEDS ORDERED: ACETAMINOPHEN 500 MG TAB PO STA (16:36)
--- NOTE | 2023-02-27 16:41 | Emergency Department Note ---
History of Present Illness General Chief complaint: Fall Time Seen by Provider: 02/27/23 16:17 History of Present Illness Maximum Pain Intensity: 9 68-year-old female with past medical history significant for mood disorder, interstitial lung disease, hypothyroidism,fibromyalgia who presents to the emergency department via BLS for evaluation s/p fall. Patient states around 11 AM this morning she was walking to the kitchen while opening letters and lost her balance and fell. She reports left forearm pain as well as right hip/buttock pain. She was able to get herself off the floor and walk to her bedroom without issue. She denies hitting her head. She reports history of frequent falls secondary to "losing her balance." She denies feeling dizzy/lightheaded, having chest pain, shortness of breath, abdominal pain, feeling weak prior to fall. She denies headache, neck pain, back pain. There was no LOC. She denies nausea/vomiting. She was recently discharged from [facility] 5 days ago. She has not taken anything for her symptoms. Home Medications Medication Instructions Recorded Confirmed Type lorazepam 1 mg tablet (Ativan) 1 mg PO Q8H 06/18/18 02/27/23 History cyclobenzaprine 10 mg tablet 10 mg PO BID PRN MUSCLE SPASMS 11/06/18 02/27/23 History duloxetine 60 mg capsule,delayed 60 mg PO DAILY 11/06/18 02/27/23 History release (Cymbalta) betamethasone dipropionate 0.05 % 1 applic topical DAILY PRN skin 06/05/21 02/27/23 Rx topical cream irritation #30 grams cholecalciferol (vitamin D3) 25 25 mcg PO DAILY 10/16/22 02/27/23 History mcg (1,000 unit) capsule Ca 600 mg-D3 20 mcg-mag oxide 50 1 tab PO DAILY 11/13/22 02/27/23 History wz-Gw-jrdnue-manganese-boron tablet (Calcium 600-D3 Plus (mag-zinc)) aspirin 81 mg tablet,delayed 81 mg PO DAILY 11/13/22 02/27/23 History release (Adult Low Dose Aspirin) acetaminophen 500 mg tablet 500 mg PO QID PRN Pain 11/26/22 02/27/23 History ferrous sulfate 325 mg (65 mg 325 mg PO TID 11/26/22 02/27/23 History iron) tablet tramadol 50 mg tablet 50 mg PO BID 11/26/22 02/27/23 History trazodone 100 mg tablet 100 mg PO HS 11/26/22 02/27/23 History fyeujasc-drb-fzfjr acid 0.4 1 tab PO QAM #30 tabs 11/27/22 02/27/23 Rx mg-lycopene 300 mcg-lutein 250 mcg tablet (Cerovite Senior) prednisone 20 mg tablet 20 mg PO BID #60 tabs 12/03/22 02/27/23 Rx Oxygen Home #1 ea 01/24/23 02/12/23 Rx compressor, for nebulizer #1 ea 02/05/23 02/12/23 Rx nebulizer accessories #2 ea 02/05/23 02/12/23 Rx glycopyrrolate 9 mcg-formoterol 2 puff inhalation Q12H #10.7 grams 02/06/23 02/27/23 Rx 4.8 mcg HFA aerosol inhaler (Bevespi Aerosphere) donepezil 5 mg tablet 2.5 mg PO HS 02/27/23 02/27/23 History gabapentin 100 mg capsule 200 mg PO QID 02/27/23 02/27/23 History quetiapine 100 mg tablet (Seroquel) 100 mg PO HS 02/27/23 02/27/23 History sulfamethoxazole 800 1 tab PO 3XWK 02/27/23 02/27/23 History mg-trimethoprim 160 mg tablet (Bactrim DS) vit A 300 mcg-C 200 mg-E 27 1 tab PO DAILY 02/27/23 02/27/23 History mg-lutein 2 mg and minerals tablet (Vision Formula (with lutein)) Allergies Allergy/AdvReac Type Severity Reaction Status Date / Time Iodinated Contrast Media Allergy Severe ANAPHYLAXIS Verified 02/27/23 18:55 Sulfa (Sulfonamide Allergy Unknown SEE COMMENT Verified 02/27/23 18:55 Antibiotics) banana AdvReac Severe GI SYMPTOMS Verified 02/27/23 18:55 beet AdvReac Unknown Gastrointestinal Verified 02/27/23 18:55 Upset Past Med/Surg History Medical History Advanced care planning/counseling discussion Dyspnea and respiratory abnormalities Eustachian tube dysfunction Mixed conductive and sensorineural hearing loss of left ear with restricted hearing of right ear Palliative care by specialist Pneumothorax Seasonal allergies Weakness generalized Surgical History History of adenoidectomy History of tonsillectomy Family History Father Allergies Asthma Other No family history of adverse response to anesthesia No family history of bleeding disorder Social History Smoking Status: Never smoker Second Hand Exposure: No; Do You Dip or Chew Tobacco: No; Hx Alcohol Use: No Hx Substance Use: No Preferred Language: Maori Communication Ability: Impaired Visual Impairment: No Limitations Hearing Ability: Normal Blueprint Cutter Required: No Beliefs That Will Affect Care: None marital status: Current Living Situation: Alone Current Living Situation Comment: Lives in a home with life partner current occupational status: retired Feels Safe at Home: Yes Assistive Devices: Glasses and Oxygen - Continuous Physical Exam Vital Signs Vital Signs - 24 hr 02/27/23 15:28 02/27/23 15:28 02/27/23 16:06 Temperature 36.7 C 36.7 C Temperature Source Axillary Axillary Pulse Rate 92 H 94 H Pulse Rate [Bilateral] 92 H Pulse Rhythm Regular Respiratory Rate 20 20 Respiratory Effort / Characteristics Spontaneous Spontaneous Respiratory Depth Normal Normal Respiratory Pattern Regular Regular Blood Pressure 119/97 Blood Pressure [Right Arm] 119/97 Blood Pressure Mean 104 Blood Pressure Mean [Right Arm] 104 Blood Pressure Position Semi-fowlers Blood Pressure Position [Right Arm] Semi-fowlers Pulse Oximetry 98 98 Oxygen Delivery Method Nasal Cannula Nasal Cannula Oxygen Flow Rate 3 3 Sepsis Recent Fever Within 48 Hours No Sepsis New/Unexplained Change in Mental Status N/A Sepsis Action Taken by Nursing No Action Required 02/27/23 16:00 02/27/23 21:02 Temperature Temperature Source Pulse Rate 95 H Pulse Rate [Bilateral] 93 H Pulse Rhythm Respiratory Rate 22 25 H Respiratory Effort / Characteristics Non-Labored Respiratory Depth Respiratory Pattern Blood Pressure Blood Pressure [Right Arm] 139/89 Blood Pressure Mean Blood Pressure Mean [Right Arm] 105 Blood Pressure Position Blood Pressure Position [Right Arm] Pulse Oximetry 95 Oxygen Delivery Method Room Air Oxygen Flow Rate Sepsis Recent Fever Within 48 Hours Sepsis New/Unexplained Change in Mental Status Sepsis Action Taken by Nursing Constitutional: alert and oriented x3. no acute distress. Frail-appearing HEENT: normocephalic, atraumatic. Head nontender. No step-off or scalp hematoma. Normal conjunctiva.PERRLA. EOM's grossly intact. TMs pearly alcocer without effusion. Pharynx pink without exudate. Tonsils nonenlarged. Mucus membranes moist Neck: neck is supple, nontender. Midline C-spine nontender Respiratory: lungs are clear to auscultation without wheezes, rhonchi, or rales bilaterally. equal chest rise. normal respiratory effort, no accessory muscle use. Cardiovascular: normal heart sounds without murmur. regular rate and rhythm. GI: abdomen is soft, nontender. No palpable masses. No rebound tenderness or guarding. MSK: Mildly tender to palpation left lateral distal forearm with associated ecchymosis. No obvious bony deformity or swelling. Wrist/hand/elbow nontender. Left upper extremity ROM intact. Tender to palpation right gluteal region. Right hip nontender to palpation. Lower extremities and right upper extremity nontender to palpation. Midline thoracic and lumbar spine nontender Strength +3 and equal bilaterally Peripheral vascular: Upper and lower extremities warm and well perfused with palpable pulses. Brisk capillary refill. Sensation intact. Neuro: without focal neuro deficits. CNII-XII intact. Speech clear, tongue midline, without facial droop. Strength equal throughout all for extremities. Psych:appropriate mood and affect. Course Administered Medications Discontinued Medications Acetaminophen (Acetaminophen 500 Mg Tab) 1,000 mg PO NOW STA Stop: 02/27/23 16:37 Last Admin: 02/27/23 16:54 Dose: 1,000 mg Documented By: Sodium Chloride (Nss 1000ml) 1,000 mls @ 999 mls/hr IV .Q1H1M ONE Stop: 02/27/23 21:29 Last Admin: 02/27/23 20:59 Dose: 999 mls/hr Documented By: STEPHY Tramadol HCl (Tramadol Hcl 50 Mg Tablet) 50 mg PO NOW STA Stop: 02/27/23 20:23 Last Admin: 02/27/23 20:58 Dose: 50 mg Documented By: STEPHY Medical Decision Making Differential Diagnosis Fracture, dislocation, contusion, intra-abdominal, pneumothorax, intrathoracic, intracranial, neurologic, compartment syndrome, rhabdomyolysis, as well as other pathologies. Laboratory Data Attestation: I reviewed the patient's lab results. 02/27/23 20:56 02/27/23 20:56 Lab Results 02/27/23 Range/Units 20:56 WBC 14.53 H (4.8-10.8) K/ul RBC 3.72 L (4.20-5.40) M/uL Hgb 12.6 (12.0-16.0) g/dl Hct 36.6 L (37.0-47.0) % MCV 98.4 (80.0-100.0) fL MCH 33.9 (25.0-34.0) pg MCHC 34.4 (32.0-36.0) g/dL RDW Std Deviation 52.5 H (36.4-46.3) fL RDW Coeff of Caridad 14.4 (11.5-14.5) % Plt Count 266 (130-400) K/uL MPV 8.9 L (9.4-12.4) fL Immature Gran % (Auto) 3.4 % Neut % (Auto) 79.5 % Lymph % (Auto) 9.8 % Harvey % (Auto) 6.6 % Eos % (Auto) 0.4 % Baso % (Auto) 0.3 % Neut # (Auto) 11.54 H (1.40-6.50) K/uL Lymph # (Auto) 1.43 (1.2-3.4) K/uL Harvey # (Auto) 0.96 H (0.11-0.59) K/uL Eos # (Auto) 0.06 (0-0.50) K/uL Baso # (Auto) 0.04 (0-0.2) K/uL Immature Gran # (Auto) 0.50 H (0.01-0.20) K/uL Imaging Data My Impression: Left forearm x-ray personally viewed and per my interpretation demonstrates a comminuted distal ulna fracture mildly displaced. Right hip and pelvic x-ray personally reviewed and per my interpretation demonstrates a pubic symphysis fracture Radiologist's Impression: Forearm X-Ray 02/27/23 16:36 XR forearm LT 2V CLINICAL HISTORY: fall distal forearm pain TECHNIQUE: 2 views of the left forearm were obtained. Comparison: None available at the time of this dictation. FINDINGS: There is a comminuted fracture of the ulna with overriding of fragments. Joint spaces are well-preserved. Soft tissue swelling is seen. IMPRESSION: Comminuted fracture of the ulna with associated soft tissue swelling. ACT 112: Negative or not required by law. Electronically signed by: Lalo Patel M.D. 02/27/2023 6:54 PM Hip/Pelvis X-Ray 02/27/23 16:36 XR hip RT 2V w pelvis CLINICAL HISTORY: right hip pain TECHNIQUE: 2 views of the right hip and single frontal view of the pelvis were obtained. Comparison: None available at the time of this dictation. FINDINGS: Fixation hardware in the right femoral neck is noted. There is a fracture of the right pubic symphysis. Degenerative changes are seen in the hip joint. No soft tissue abnormality is seen. IMPRESSION: Right pubic symphysis fracture is seen. ACT 112: Negative or not required by law. Electronically signed by: aLlo Patel M.D. 02/27/2023 6:[address] 02/27/23 18:53 Exam(s): CT PELVIS Without Contrast EXAM: CT Pelvis Without Intravenous Contrast CLINICAL HISTORY: Reason for exam: trauma right hip/pelvic pain. TECHNIQUE: Axial computed tomography images of the pelvis without intravenous contrast. Automated exposure control was utilized for the study. A dose lowering technique was utilized adhering to the principles of ALARA. COMPARISON: No relevant prior studies available. FINDINGS: Bowel: Unremarkable. No obstruction. No mucosal thickening. Appendix: No findings to suggest acute appendicitis. Intraperitoneal space: Unremarkable. No free air. No significant fluid collection. Bladder: Unremarkable. No stones. Reproductive: Unremarkable as visualized. Bones/joints: Mildly displaced fracture of the RIGHT parasymphyseal superior pubic ramus. Nondisplaced fracture of the RIGHT inferior pubic ramus. Nondisplaced fracture of the RIGHT sacral ala. Severe osteoporosis. Lumbar spondylosis. 3 lag screws in the RIGHT femoral neck from percutaneous pinning. Old fracture deformity is identified. No acute fracture of the RIGHT hip. No dislocation. No LEFT hip fracture. Soft tissues: Unremarkable. Vasculature: Unremarkable. No lower abdominal aortic aneurysm. Lymph nodes: Unremarkable. No enlarged lymph nodes. IMPRESSION: Right-sided Malgaigne fracture: Mildly displaced fracture of the RIGHT parasymphyseal superior pubic ramus. Nondisplaced fracture of the RIGHT inferior pubic ramus. Nondisplaced fracture of the RIGHT sacral ala. Electronically signed by: Igor Trimble MD 02/27/23 20:34 PM MDM Narrative 68-year-old female who presents emergency department for evaluation of left arm and right hip pain s/p mechanical fall from ground. Review of pertinent visits and past medical history performed. Vital signs in ED demonstrate mild tachycardia otherwise within normal limits. She is afebrile. X-ray of the left forearm as well as right hip/pelvis were obtained. These were personally reviewed as well as interpreted by radiology and demonstrates a left distal ulnar fracture as well as a right pubic symphysis fracture. A CT of the pelvis without contrast was obtained for further evaluation of the pelvic fracture. This demonstrates fractures of the right superior and inferior pubic ramus as well as the sacral ala. Given findings, case was discussed with on-call orthopedics, Dr. Cornell, who did not feel surgical intervention was warranted at this time and recommended pain control with weightbearing as tolerated and physical therapy. On exam, patient is nontoxic-appearing in no acute distress. Lungs CTA. Ab domen is benign. She is neurologically intact without focal deficits. No signs of head injury. Midline spine nontender. There is tenderness over the left lateral forearm with associated swelling and ecchymosis. She is also tender to palpation over the right gluteal region. Pain elicited with hip ROM. All extremities are neurovascularly intact. She was initially treated with p.o. Tylenol for her symptoms. Upon reevaluation, patient remains stable. She did request something additional for pain. She was given dose of tramadol. She was updated on all exam findings and test results. Patient was placed in a sugar tong splint for her ulnar fracture. She is not able to ambulate on right leg secondary to pain. Fracture of left arm also causes concern for getting around and performing ADLs. Given this, I feel patient would be best managed inpatient for pain control and physical therapy. Patient was agreeable to this plan. Case was discussed with hospitalist, Dr. Glass, who reviewed work up and graciously accepted patient to his service. She was admitted in stable condition. Case was discussed with attending, Dr. Grimes, who agreed with work up and treatment plan Impression & Plan Left ulnar fracture, Closed fracture of symphysis pubis, Ambulatory dysfunction Discharge Plan Visit Data Chief Complaint: Fall ED Provider: Yogesh Grimes ED Midlevel Provider: Rand Arambula Discharge Problem: Left ulnar fracture, Closed fracture of symphysis pubis, Ambulatory dysfunction Forms Stand Alone Forms: My [facility] Prescriptions Prescriptions: No Action lorazepam [Ativan] 1 mg tablet 1 mg PO Q8H cyclobenzaprine 10 mg tablet 10 mg PO BID PRN (Reason: MUSCLE SPASMS) duloxetine [Cymbalta] 60 mg capsule,delayed release(DR/EC) 60 mg PO DAILY (DME) Oxygen Home Liters Per Minute See Rx Instructions .Route Qty: 1 0RF Rx Instructions: humidifcation for oxygen Bevespi Aerosphere 9-4.8 mcg HFA aerosol inhaler 2 puff inhalation Q12H Qty: 10.7 3RF cholecalciferol (vitamin D3) 25 mcg (1,000 unit) capsule 25 mcg PO DAILY betamethasone dipropionate 0.05 % cream 1 applic topical DAILY PRN (Reason: skin irritation) Qty: 30 0RF Rx Instructions: Apply cream daily to the affected areas on the hands for 2 weeks or until resolved. prednisone 20 mg tablet 20 mg PO BID Qty: 60 2RF Anoro Ellipta 62.5-25 mcg/actuation blister with device 1 inh inhalation DAILY 0RF (DME) nebulizer accessories Kit See Rx Instructions .MEDSUPPLY Qty: 2 0RF Rx Instructions: Dx: ILD. LOS 99 years (DME) compressor, for nebulizer Device See Rx Instructions .Route Qty: 1 0RF Rx Instructions: Dx: ILD, hypoxia, LOS 99 years Ca-D3-mag rm-arhc-grn-nuria-bor [Calcium 600-D3 Plus (mag-zinc)] 600 mg calcium- 20 mcg-50 mg tablet 1 tab PO DAILY aspirin [Adult Low Dose Aspirin] 81 mg tablet,delayed release (DR/EC) 81 mg PO DAILY tramadol 50 mg tablet 50 mg PO BID acetaminophen 500 mg Tablet 500 mg PO QID PRN (Reason: Pain) trazodone 100 mg tablet 100 mg PO HS ferrous sulfate 325 mg (65 mg iron) Tablet 325 mg PO TID Cerovite Senior 0.4 mg-300 mcg- 250 mcg Tablet 1 tab PO QAM Qty: 30 0RF donepezil 5 mg tablet 2.5 mg PO HS quetiapine [Seroquel] 100 mg Tablet 100 mg PO HS gabapentin 100 mg Capsule 200 mg PO QID Vision Formula (with lutein) 300 mcg-200 mg-27 mg-2 mg Tablet 1 tab PO DAILY Rx Instructions: administer after a meal sulfamethoxazole-trimethoprim [Bactrim DS] 800-160 mg tablet 1 tab PO 3XWK Rx Instructions: 1 tab orally every Mon, Wed, and Fri; Referrals Referrals: Garth Wellington PA-C [Primary Care Provider] -
--- NOTE | 2023-02-27 18:49 | XRay Report ---
XR hip RT 2V w pelvis CLINICAL HISTORY: right hip pain TECHNIQUE: 2 views of the right hip and single frontal view of the pelvis were obtained. Comparison: None available at the time of this dictation. FINDINGS: Fixation hardware in the right femoral neck is noted. There is a fracture of the right pubic symphysi s. Degenerative changes are seen in the hip joint. No soft tissue abnormality is seen. IMPRESSION: Right pubic symphysis fracture is seen. ACT 112: Negative or not required by law. Electronically signed by: Lalo Patel M.D. 02/27/2023 6:47 PM
--- NOTE | 2023-02-27 18:56 | XRay Report ---
XR forearm LT 2V CLINICAL HISTORY: fall distal forearm pain TECHNIQUE: 2 views of the left forearm were obtained. Comparison: None available at the time of this dictation. FINDINGS: There is a comminuted fracture of the ulna with overriding of fragments. Joint spaces are well-preser cesar. Soft tissue swelling is seen. IMPRESSION: Comminuted fracture of the ulna with associated soft tissue swelling. ACT 112: Negative or not required by law. Electronically signed by: Lalo Patel M.D. 02/27/2023 6:54 PM
--- NOTE | 2023-02-27 19:07 | Emergency Department Note ---
ED Visit Note I was consulted by the Advanced Practice Provider. I saw the patient personally and performed a substantive portion of the visit. This includes aspects of the HPI, MDM, diagnostic interpretations, and disposition/plan. The patient has fractured her distal ulna and also her right symphysis pubis. She cannot walk. She will require hospitalization. .
[2023-02-27] MEDS ORDERED: traMADol HCL 50 MG TABLET PO STA (20:22)
[2023-02-27] MEDS ORDERED: SODIUM CHLORIDE 0.9% 1000ML 1,000 ML IV ONE (20:29)
--- NOTE | 2023-02-27 21:02 | CT Scan Report ---
Exam(s): CT PELVIS Without Contrast EXAM: CT Pelvis Without Intravenous Contrast CLINICAL HISTORY: Reason for exam: trauma right hip/pelvic pain. TECHNIQUE: Axial computed tomography images of the pelvis without intravenous contrast. Automated exposure control was utilized for the study. A dose lowering technique was utilized adhering to the principles of ALARA. COMPARISON: No relevant prior studies available. FINDINGS: Bowel: Unremarkable. No obstruction. No mucosal thickening. Appendix: No findings to suggest acute appendicitis. Intraperitoneal space: Unremarkable. No free air. No significant fluid collection. Bladder: Unremarkable. No stones. Reproductive: Unremarkable as visualized. Bones/joints: Mildly displaced fracture of the RIGHT parasymphyseal superior pubic ramus. Nondisplaced fracture of the RIGHT inferior pubic ramus. Nondisplaced fracture of the RIGHT sacral ala. Severe osteoporosis. Lumbar spondylosis. 3 lag screws in the RIGHT femoral neck from percutaneous pinning. Old fracture deformity is identified. No acute fracture of the RIGHT hip. No dislocation. No LEFT hip fracture. Soft tissues: Unremarkable. Vasculature: Unremarkable. No lower abdominal aortic aneurysm. Lymph nodes: Unremarkable. No enlarged lymph nodes. IMPRESSION: Right-sided Malgaigne fracture: Mildly displaced fracture of the RIGHT parasymphyseal superior pubic ramus. Nondisplaced fracture of the RIGHT inferior pubic ramus. Nondisplaced fracture of the RIGHT sacral ala. Electronically signed by: Igor Trimble MD 02/27/23 20:34 PM
--- NOTE | 2023-02-27 21:14 | History & Physical Report ---
Resident Physician Supervision Note: I discussed the case with the resident and agree with the findings and plan as documented in the note. Documented By: Serge Glass MD Date of Service February 27, 2023 Assessment & Plan (1) Left ulnar fracture: Plan: Fracture of left Ulna and Right Hip - Ulna is splinted - Hemodynamically stable, will consult orthopedics - Non-weight bearing until she sees ortho - NPO after midnight pending evaluation - Pain Regimen; scheduled Tylenol, morphine prn Multiple Falls - Seem to be mechanical in nature - Will need PT/OT after ortho eval Leukocytosis - likely secondary to prednisone use - Afebrile without infectious symptoms - continue to trend Interstitial Lung Disease - On home oxygen, continue supplemental oxygen with a goal SpO2>88 - Continue prednisone 20mg twice daily - Continue Bactrim MWF, does have a listed sulfa allergy but she states she has been taking this without issue - continue home inhalers Anxiety/Mood Disorder - Continue home regimen; trazodone, quetiapine, lorazepam, gabapentin, duloxetine Malnutrition - Was seen by telemarketing fundraiser upon last admission, would likely benefit from Booster supplementation once she is no longer NPO History of Aryan's Thyroiditis - not currently on any medications - Will repeat TSH Iron Def Anemia - continue iron supplementation - Hemoglobin= 12.6 Diet; NPO after midnight pending ortho eval DVT Prophylaxis: SCD, defer pharmaceutical until ortho eval Dispo: Med Surg with Tele (2) Closed fracture of symphysis pubis: (3) Ambulatory dysfunction: (4) Hypoxemic respiratory failure, chronic: (5) Interstitial lung disease: (6) Aryan's thyroiditis: (7) Anxiety disorder: (8) Cluster A personality disorder: (9) Fibromyalgia: (10) Anemia: History of Present Illness Primary Care Provider: Garth Wellington 68 year old female with a past medical history of mood disorder, interstitial lung disease, hypothyroidism, fibromyalgia presenting after fall. Around 1100 this morning she was walking into her kitchen and lost her balance. She states that she was at the table doing bills and fell. States that she has pain in her left forearm and right hip. She was able to get up off the floor and walk to the bathroom. States she did not hit her head and no LOC. Does state that she has had multiple falls in the past few months. Lives in a one story house with her partner. Couple of steps to get into the house. She was recently discharged from [facility] after hospitalization for respitory failure/multiple falls. Denies headache, chest pain, dyspnea, nausea, vomiting. ED workup significant for Comminuted fracture of the left ulna and Mildly displaced fracture of the RIGHT parasymphyseal superior pubic ramus.Nondisplaced fracture of the RIGHT inferior pubic ramus. Nondisplaced fracture of the RIGHT sacral ala.. WBC= 14 in the setting in steroid use. Allergies Allergy/AdvReac Type Severity Reaction Status Date / Time Iodinated Contrast Media Allergy Severe ANAPHYLAXIS Verified 02/27/23 18:55 Sulfa (Sulfonamide Allergy Unknown SEE COMMENT Verified 02/27/23 18:55 Antibiotics) banana AdvReac Severe GI SYMPTOMS Verified 02/27/23 18:55 beet AdvReac Unknown Gastrointestinal Verified 02/27/23 18:55 Upset Home Medications Medication Instructions Recorded Confirmed Type lorazepam 1 mg tablet (Ativan) 1 mg PO Q8H 06/18/18 02/27/23 History cyclobenzaprine 10 mg tablet 10 mg PO BID PRN MUSCLE SPASMS 11/06/18 02/27/23 History duloxetine 60 mg capsule,delayed 60 mg PO DAILY 11/06/18 02/27/23 History release (Cymbalta) betamethasone dipropionate 0.05 % 1 applic topical DAILY PRN skin 06/05/21 02/27/23 Rx topical cream irritation #30 grams cholecalciferol (vitamin D3) 25 25 mcg PO DAILY 10/16/22 02/27/23 History mcg (1,000 unit) capsule Ca 600 mg-D3 20 mcg-mag oxide 50 1 tab PO DAILY 11/13/22 02/27/23 History xz-Iy-jpyqxa-manganese-boron tablet (Calcium 600-D3 Plus (mag-zinc)) aspirin 81 mg tablet,delayed 81 mg PO DAILY 11/13/22 02/27/23 History release (Adult Low Dose Aspirin) acetaminophen 500 mg tablet 500 mg PO QID PRN Pain 11/26/22 02/27/23 History ferrous sulfate 325 mg (65 mg 325 mg PO TID 11/26/22 02/27/23 History iron) tablet tramadol 50 mg tablet 50 mg PO BID 11/26/22 02/27/23 History trazodone 100 mg tablet 100 mg PO HS 11/26/22 02/27/23 History dqwmfapf-zhe-mxtze acid 0.4 1 tab PO QAM #30 tabs 11/27/22 02/27/23 Rx mg-lycopene 300 mcg-lutein 250 mcg tablet (Cerovite Senior) prednisone 20 mg tablet 20 mg PO BID #60 tabs 12/03/22 02/27/23 Rx Oxygen Home #1 ea 01/24/23 02/12/23 Rx compressor, for nebulizer #1 ea 02/05/23 02/12/23 Rx nebulizer accessories #2 ea 02/05/23 02/12/23 Rx glycopyrrolate 9 mcg-formoterol 2 puff inhalation Q12H #10.7 grams 02/06/23 02/27/23 Rx 4.8 mcg HFA aerosol inhaler (Bevespi Aerosphere) donepezil 5 mg tablet 2.5 mg PO HS 02/27/23 02/27/23 History gabapentin 100 mg capsule 200 mg PO QID 02/27/23 02/27/23 History quetiapine 100 mg tablet (Seroquel) 100 mg PO HS 02/27/23 02/27/23 History sulfamethoxazole 800 1 tab PO 3XWK 02/27/23 02/27/23 History mg-trimethoprim 160 mg tablet (Bactrim DS) vit A 300 mcg-C 200 mg-E 27 1 tab PO DAILY 02/27/23 02/27/23 History mg-lutein 2 mg and minerals tablet (Vision Formula (with lutein)) Past Med/Surg History Medical History Advanced care planning/counseling discussion Dyspnea and respiratory abnormalities Eustachian tube dysfunction Mixed conductive and sensorineural hearing loss of left ear with restricted hearing of right ear Palliative care by specialist Pneumothorax Seasonal allergies Weakness generalized Surgical History History of adenoidectomy History of tonsillectomy Family History Father Allergies Asthma Other No family history of adverse response to anesthesia No family history of bleeding disorder Social History Smoking Status: Never smoker Second Hand Exposure: No; Do You Dip or Chew Tobacco: No; Hx Alcohol Use: No Hx Substance Use: No Preferred Language: Niuean Communication Ability: Impaired Visual Impairment: No Limitations Hearing Ability: Normal Sail Maker Required: No Beliefs That Will Affect Care: None marital status: Current Living Situation: Alone Current Living Situation Comment: Lives in a home with life partner current occupational status: retired Feels Safe at Home: Yes Assistive Devices: Glasses and Oxygen - Continuous Review of Systems Review of Systems: As per above Physical Exam Physical Exam: Constitutional: well-appearing, no acute distress HEENT: NCAT, no conjunctival injection CV: regular rhythm, no murmur appreciated, extremities well-perfused, no LE ed anabell Resp: CTABL, no wheezes/rales/rhonchi appreciated, no increased work of breathing GI: soft, nondistended, nontender, BS normoactive MSK: no gross deformities appreciated, strength 5/5 LE, sensations intact, dorsal pedis pulses present. Left arm in splint Skin: warm, dry, no rash appreciated Neuro: alert, oriented, no focal neurologic deficit appreciated Results & Data Results & Data Vital Signs (Past 12 Hours) Vital Signs Temp Pulse Pulse Resp BP BP Pulse Ox 02/27/23 21:02 93 H 25 H 139/89 95 02/27/23 16:00 95 H 22 02/27/23 16:06 94 H 02/27/23 15:28 36.7 C 92 H 20 119/97 98 02/27/23 15:28 36.7 C 92 H 20 119/97 98 O2 Del Method O2 Flow Rate 02/27/23 21:02 Room Air 02/27/23 16:00 02/27/23 16:06 02/27/23 15:28 Nasal Cannula 3 02/27/23 15:28 Nasal Cannula 3 Resident Activity Tracking Resident Involvement: Resident Care Provided Care Provided: Adult Hospital Medicine
[2023-02-27 21:27] LABS: Basophils # (auto) 0.04 K/uL (0-0.2); Basophils % (auto) 0.3 %; Eosinophils # (auto) 0.06 K/uL (0-0.50); Eosinophils % (auto) 0.4 %; Hematocrit (blood only) 36.6 % (37.0-47.0); Hemoglobin 12.6 g/dl (12.0-16.0); Immature Granulocytes % (auto) 3.4 %; Lymphocytes # (auto) 1.43 K/uL (1.2-3.4); Lymphocytes % (auto) 9.8 %; Mean Corpuscular Hemoglobin 33.9 pg (25.0-34.0); Mean Corpuscular Hgb Conc 34.4 g/dL (32.0-36.0); Mean Corpuscular Volume 98.4 fL (80.0-100.0); Mean Platelet Volume 8.9 fL (9.4-12.4); Monocytes # (auto) 0.96 K/uL (0.11-0.59); Monocytes % (auto) 6.6 %; Neutrophils # (auto) 11.54 K/uL (1.40-6.50); Neutrophils % (auto) 79.5 %; Platelet Count 266 K/uL (130-400); RDW Coefficient of Variation 14.4 % (11.5-14.5); RDW Standard Deviation 52.5 fL (36.4-46.3); Red Blood Count 3.72 M/uL (4.20-5.40); White Blood Count 14.53 K/ul (4.8-10.8)
[2023-02-27 21:42] LABS: Albumin Globulin Ratio 1.4 (0.9-2); Albumin Level 3.3 gm/dl (3.4-5.0); BUN Creatinine Ratio 35.6 (10-20); Bilirubin,Total 0.6 mg/dl (0.2-1.0); Calcium 8.8 mg/dl (8.6-10.3); Creatinine Clr Calc Pharmacy 62.6 ml/min; Est GFR (African American) 117.7 ml/min; Est GFR (Non-African American) 101.5 ml/min; Globulin 2.4 gm/dl (2.5-4.0); Potassium 4.1 mmol/L (3.5-5.1); Total Protein 5.7 gm/dl (6.0-8.3)
[2023-02-28] MEDS ORDERED: MoRPHine SULFATE 2 MG/ML CARP IV PRN (00:13)
[2023-02-28] MEDS: ACETAMINOPHEN 500 MG TAB PO SCH ×4 (00:41→20:56)
[2023-02-28] MEDS ORDERED: QUEtiapine FUMARATE 100 MG TABLET PO ONE (01:24)
[2023-02-28] MEDS: LORazepam 1 MG TAB PO SCH ×3 (05:40→21:07)
--- NOTE | 2023-02-28 06:53 | Hospitalist Progress Note ---
Date of Service February 28, 2023 Assessment & Plan (1) Left ulnar fracture: Plan: 68-year-old female with history of chronic prednisone use for ILD who presented with a mechanical fall and discovered to have a Malgaigne fracture of RIGHT hip and LEFT ulna fracture. Malgaigne Fracture of RIGHT Hip - Following mechanical fall at home in setting of chronic prednisone use in postmenopausal female - CT demonstrating mildly displaced parasymphyseal superior pubic ramus fracture, alongside nondisplaced fractures of inferior ramus and sacral ala - Orthopedics consult appreciated - Maintain NWB for now, PT and OT when appropriate - Pain: APAP, oxycodone - Will require outpatient osteoporosis treatment discussion 6-8 weeks post- fracture Left Ulna Fracture - Continue stabilization with splint - Appreciate orthopedic input - PT/OT, pain control - Will require osteoporosis management as outpatient Multiple Falls - Seem to be mechanical in nature - Will need PT/OT after ortho eval Leukocytosis - Secondary to stress demargination from acute event and chronic steroids - No e/o infection at this time, will monitor Interstitial Lung Disease -- with pulmonary cachexia - On home oxygen, continue supplemental oxygen with a goal SpO2>88 - Continue prednisone 20mg twice daily - Continue Bactrim MWF for PJP PPX, does have a listed sulfa allergy but she states she has been taking this without issue - continue home inhalers - Seen by palliative during last admission: not interested in hospice at that time Presbyesophagus, Dysphagia - Extensively evaluated during last admission. Previous refused EGD evaluation - ROLLER LEVELER evaluated: Permissive aspiration per discussion. Aspiration and reflux precautions Anxiety/Mood Disorder - Continue home regimen; trazodone, quetiapine, lorazepam, gabapentin, duloxetine Malnutrition - Was seen by laborer prestressed concrete upon last admission, would likely benefit from Booster supplementation once she is no longer NPO History of Aryan's Thyroiditis - not currently on any medications - Will repeat TSH Iron Def Anemia - continue iron supplementation - Hemoglobin= 12.6 Severe protein calorie malnutrition - consult mail delivery supervisor Diet; regular diet DVT Prophylaxis: SCD, heparin Dispo: Med Surg with Tele Code: DNR/DNI (2) Closed fracture of symphysis pubis: (3) Ambulatory dysfunction: (4) Hypoxemic respiratory failure, chronic: (5) Interstitial lung disease: (6) Aryan's thyroiditis: (7) Anxiety disorder: (8) Cluster A personality disorder: (9) Fibromyalgia: (10) Anemia: Admission and Anticipated Discharge Date Admission Date: February 27, 2023 Supervising Physician Co-Signing Physician Notes Resident Physician Supervision Note: I independently interviewed and examined the patient and verified the espinoza history and physical, reviewed labs and image studies and agree with resident findings and care plan. Subjective NAEO. Continues to have pain in R hip/groin region. No numbness/tingling going down leg. No SOB. Review of Systems Review of Systems: as per HPI Physical Exam Physical Exam: General: 68-year-old female who is lying back in her bed with hips flexed, NAD. HEENT: NCAT. - Eyes - Sclera are white, anicteric, and without injection. - Mouth - MMM - Neck - supple, no appreciable JVD Cardiac: Normal rate and regular rhythm; S1 and S2 present with no murmur detected Pulmonary: Good respiratory effort with symmetric expansion of the chest. No use of accessory muscles. Lungs were CTAB Abdominal: Normoactive bowel sounds. Abdomen was soft, nondistended, and non- tender to palpation. Extremities: Upper and lower extremities are warm and well perfused. Ankle strength is 5/5 bilaterally. Normal sensation to light touch. No peripheral edema in the lower extremities bilaterally Results & Data Results & Data Vital Signs (Past 12 Hours) Vital Signs Temp Pulse Pulse Resp BP BP Pulse Ox 02/28/23 02:14 36.7 C 84 16 150/83 H 99 02/28/23 00:05 81 02/28/23 00:00 02/28/23 00:00 36.7 C 89 20 144/80 H 95 02/27/23 23:00 97 H 33 H 02/27/23 23:00 131/80 02/27/23 22:30 92 H 25 H 02/27/23 22:00 89 25 H 02/27/23 22:00 128/77 02/27/23 21:30 95 H 24 95 02/27/23 21:02 93 H 26 H 96 02/27/23 21:02 139/89 02/27/23 21:01 91 H 24 02/27/23 19:00 148/92 H 02/27/23 18:52 100 H 23 02/27/23 22:00 87 02/27/23 21:02 93 H 25 H 139/89 95 O2 Del Method O2 Flow Rate 02/28/23 02:14 Nasal Cannula 2 02/28/23 00:05 02/28/23 00:00 Nasal Cannula 2 02/28/23 00:00 Nasal Cannula 2 02/27/23 23:00 02/27/23 23:00 02/27/23 22:30 02/27/23 22:00 02/27/23 22:00 02/27/23 21:30 02/27/23 21:02 02/27/23 21:02 02/27/23 21:01 02/27/23 19:00 02/27/23 18:52 02/27/23 22:00 02/27/23 21:02 Room Air
[2023-02-28] MEDS: FERROUS SULFATE 325 MG TAB PO SCH ×3 (07:55→17:16)
[2023-02-28] MEDS: GABAPENTIN 100 MG CAP PO SCH ×4 (07:56→20:52)
[2023-02-28] MEDS: predniSONE 20 MG TAB PO SCH ×2 (07:56→20:53)
[2023-02-28] MEDS: UMECLIDINIUM/VILANTEROL 62.5/25MCG 7 PUFFS/INHALER INH SCH (07:56)
[2023-02-28] MEDS: DULoxetine HCL 60 MG CAP PO SCH (07:56)
[2023-02-28 08:46] LABS: Basophils # (auto) 0.02 K/uL (0-0.2); Basophils % (auto) 0.2 %; Eosinophils # (auto) 0.05 K/uL (0-0.50); Eosinophils % (auto) 0.6 %; Hematocrit (blood only) 35.1 % (37.0-47.0); Hemoglobin 11.5 g/dl (12.0-16.0); Immature Granulocytes # (auto) 0.31 K/uL (0.01-0.20); Immature Granulocytes % (auto) 3.7 %; Lymphocytes # (auto) 1.11 K/uL (1.2-3.4); Lymphocytes % (auto) 13.4 %; Mean Corpuscular Hemoglobin 33.5 pg (25.0-34.0); Mean Corpuscular Hgb Conc 32.8 g/dL (32.0-36.0); Mean Corpuscular Volume 102.3 fL (80.0-100.0); Mean Platelet Volume 8.7 fL (9.4-12.4); Monocytes # (auto) 0.67 K/uL (0.11-0.59); Monocytes % (auto) 8.1 %; Neutrophils # (auto) 6.14 K/uL (1.40-6.50); Platelet Count 191 K/uL (130-400); RDW Coefficient of Variation 14.3 % (11.5-14.5); RDW Standard Deviation 53.6 fL (36.4-46.3); Red Blood Count 3.43 M/uL (4.20-5.40)
[2023-02-28] MEDS ORDERED: SULFAMETHOXAZOLE/TRIMETHOPRIM DS 800/160MG TAB PO SCH (09:00)
[2023-02-28] MEDS ORDERED: UMECLIDINIUM/VILANTEROL 62.5/25MCG 7 PUFFS/INHALER INH SCH (09:00)
[2023-02-28 09:05] LABS: Albumin Globulin Ratio 1.4 (0.9-2); Albumin Level 3.1 gm/dl (3.4-5.0); BUN Creatinine Ratio 31.6 (10-20); Bilirubin,Total 0.6 mg/dl (0.2-1.0); Calcium 8.3 mg/dl (8.6-10.3); Creatinine Clr Calc Pharmacy 76.1 ml/min; Est GFR (African American) 124.4 ml/min; Est GFR (Non-African American) 107.3 ml/min; Globulin 2.2 gm/dl (2.5-4.0); Magnesium 1.8 mg/dl (1.7-2.4); Potassium 3.4 mmol/L (3.5-5.1); Total Protein 5.3 gm/dl (6.0-8.3)
--- NOTE | 2023-02-28 09:18 | Orthopedic Consultation ---
Date of Service February 28, 2023 Assessment & Plan (1) Left ulnar fracture: Plan: Nonoperative management for these fractures. Will cancel npo order as no orthopedic surgery planned. She was seen and examined by Dr. Burdick today as well. She can weightbear as tolerated on the lower extremities. It will take about 3 months for this pelvis fracture to fully heal but she can wbat. She may also weight bear on the left arm in the cast, which she will likely need to do using a walker, and it is okay to use her hand for activities in the cast. PT/OT ordered. She will likely need to go to a rehab facility. She will need to be in the cast for about 6 weeks. Follow up with Dr. Burdick in approximately 6 weeks for cast removal. (2) Pelvis fracture: History of Present Illness Reason for Consultation: . Requesting Physician: . Attending Physician: Jennyfer Espinoza MD . Erin is a 68 year old patient who fell yesterday while at home. She was brought to the ER, xrays showed a pelvis fracture/ulna fracture, and she was admitted to the hospitalist service. She is complaining of left wrist pain and right buttock pain. No groin pain. No other orthopedic complaints. She does have a history of screw fixation of the right femoral neck, which she says was done at [facility] in 2019. Allergies Allergy/AdvReac Type Severity Reaction Status Date / Time Iodinated Contrast Media Allergy Severe ANAPHYLAXIS Verified 02/27/23 18:55 Sulfa (Sulfonamide Allergy Unknown SEE COMMENT Verified 02/27/23 18:55 Antibiotics) banana AdvReac Severe GI SYMPTOMS Verified 02/27/23 18:55 beet AdvReac Unknown Gastrointestinal Verified 02/27/23 18:55 Upset Home Medications Medication Instructions Recorded Confirmed Type lorazepam 1 mg tablet (Ativan) 1 mg PO Q8H 06/18/18 02/27/23 History cyclobenzaprine 10 mg tablet 10 mg PO BID PRN MUSCLE SPASMS 11/06/18 02/27/23 History duloxetine 60 mg capsule,delayed 60 mg PO DAILY 11/06/18 02/27/23 History release (Cymbalta) betamethasone dipropionate 0.05 % 1 applic topical DAILY PRN skin 06/05/21 02/27/23 Rx topical cream irritation #30 grams cholecalciferol (vitamin D3) 25 25 mcg PO DAILY 10/16/22 02/27/23 History mcg (1,000 unit) capsule Ca 600 mg-D3 20 mcg-mag oxide 50 1 tab PO DAILY 11/13/22 02/27/23 History sf-Ua-aqaijq-manganese-boron tablet (Calcium 600-D3 Plus (mag-zinc)) aspirin 81 mg tablet,delayed 81 mg PO DAILY 11/13/22 02/27/23 History release (Adult Low Dose Aspirin) acetaminophen 500 mg tablet 500 mg PO QID PRN Pain 11/26/22 02/27/23 History ferrous sulfate 325 mg (65 mg 325 mg PO TID 11/26/22 02/27/23 History iron) tablet tramadol 50 mg tablet 50 mg PO BID 11/26/22 02/27/23 History trazodone 100 mg tablet 100 mg PO HS 11/26/22 02/27/23 History grifpcme-trx-oghqk acid 0.4 1 tab PO QAM #30 tabs 11/27/22 02/27/23 Rx mg-lycopene 300 mcg-lutein 250 mcg tablet (Cerovite Senior) prednisone 20 mg tablet 20 mg PO BID #60 tabs 12/03/22 02/27/23 Rx Oxygen Home #1 ea 01/24/23 02/12/23 Rx compressor, for nebulizer #1 ea 02/05/23 02/12/23 Rx nebulizer accessories #2 ea 02/05/23 02/12/23 Rx glycopyrrolate 9 mcg-formoterol 2 puff inhalation Q12H #10.7 grams 02/06/23 02/27/23 Rx 4.8 mcg HFA aerosol inhaler (Bevespi Aerosphere) donepezil 5 mg tablet 2.5 mg PO HS 02/27/23 02/27/23 History gabapentin 100 mg capsule 200 mg PO QID 02/27/23 02/27/23 History quetiapine 100 mg tablet (Seroquel) 100 mg PO HS 02/27/23 02/27/23 History sulfamethoxazole 800 1 tab PO 3XWK 02/27/23 02/27/23 History mg-trimethoprim 160 mg tablet (Bactrim DS) vit A 300 mcg-C 200 mg-E 27 1 tab PO DAILY 02/27/23 02/27/23 History mg-lutein 2 mg and minerals tablet (Vision Formula (with lutein)) Past Med/Surg History Medical History Advanced care planning/counseling discussion Dyspnea and respiratory abnormalities Eustachian tube dysfunction Mixed conductive and sensorineural hearing loss of left ear with restricted hearing of right ear Palliative care by specialist Pneumothorax Seasonal allergies Weakness generalized Surgical History History of adenoidectomy History of tonsillectomy Family History Father Allergies Asthma Other No family history of adverse response to anesthesia No family history of bleeding disorder Social History Smoking Status: Never smoker Second Hand Exposure: No; Do You Dip or Chew Tobacco: No; Hx Alcohol Use: No Hx Substance Use: No Preferred Language: Bruneian Communication Ability: Effective Visual Impairment: No Limitations Hearing Ability: Normal Interface Analyst Required: No Beliefs That Will Affect Care: None marital status: Current Living Situation: Other Current Living Situation Comment: partner Robert current occupational status: retired Feels Safe at Home: Yes Assistive Devices: Oxygen - Continuous and Walker Review of Systems All systems reviewed & are unremarkable except as noted in HPI & below. Physical Exam . alert and oriented. NAD Left arm: splint removed. Small abrasion on the ulnar side of wrist, with some ecchymosis. No pain with elbow range of motion. Tender at the distal ulna. Able to move her thumb and fingers, NVI Right leg: Able to do a straight leg raise. No groin pain with range of motion of her hip. Results & Data Results & Data Laboratory Results . Diagnostic Findings . xrays of the forearm and pelvis, as well as a ct scan of the pelvis reviewed and show a comminuted distal ulna fracture, right superior and inferior pubic rami fractures, and sacral ala fracture. She has previous screw fixation of the right femoral neck. PG Care Time/CCT Total # of Minutes Spent Total Time Spent with Patient: Total time spent is greater than 50% in coordination of care (as documented) at patient's floor/unit and/or counseling patient: Coding Level of Care Code 85604 IN/OBS CONSULT LVL 3,45M Diagnoses Left ulnar fracture S52.202A Pelvis fracture S32.9XXA
[2023-02-28] MEDS ORDERED: POTASSIUM CHLORIDE CRTAB 20 MEQ TABCR PO STA (09:49)
[2023-02-28] MEDS: oxyCODONE HCL IR 5 MG TAB (IMMEDIATE RELEASE) PO PRN ×2 (14:36→21:06)
[2023-02-28] MEDS: DONEPEZIL HCL 5 MG TAB PO SCH (20:52)
[2023-02-28] MEDS: traZODone HCL 100 MG TAB PO SCH (20:54)
[2023-02-28] MEDS: QUEtiapine FUMARATE 100 MG TABLET PO SCH (20:54)
[2023-02-28] MEDS: HEPARIN SOD 5,000 UNIT/0.5 ML VIAL SQ SCH (20:56)
[2023-03-01] MEDS: LORazepam 1 MG TAB PO SCH ×3 (05:46→21:39)
[2023-03-01] MEDS: ACETAMINOPHEN 500 MG TAB PO SCH ×3 (05:47→21:37)
[2023-03-01 06:45] LABS: Basophils # (auto) 0.04 K/uL (0-0.2); Basophils % (auto) 0.4 %; Eosinophils # (auto) 0.01 K/uL (0-0.50); Eosinophils % (auto) 0.1 %; Hematocrit (blood only) 37.9 % (37.0-47.0); Immature Granulocytes # (auto) 0.35 K/uL (0.01-0.20); Immature Granulocytes % (auto) 3.3 %; Lymphocytes # (auto) 0.94 K/uL (1.2-3.4); Mean Corpuscular Hemoglobin 33.9 pg (25.0-34.0); Mean Corpuscular Hgb Conc 34.3 g/dL (32.0-36.0); Mean Corpuscular Volume 98.7 fL (80.0-100.0); Mean Platelet Volume 9.2 fL (9.4-12.4); Monocytes # (auto) 0.52 K/uL (0.11-0.59); Neutrophils # (auto) 8.63 K/uL (1.40-6.50); Neutrophils % (auto) 82.2 %; Platelet Count 218 K/uL (130-400); RDW Coefficient of Variation 13.8 % (11.5-14.5); RDW Standard Deviation 50.4 fL (36.4-46.3); Red Blood Count 3.84 M/uL (4.20-5.40); White Blood Count 10.49 K/ul (4.8-10.8)
[2023-03-01 07:08] LABS: Albumin Globulin Ratio 1.2 (0.9-2); Albumin Level 3.4 gm/dl (3.4-5.0); BUN Creatinine Ratio 28.9 (10-20); Bilirubin,Total 0.5 mg/dl (0.2-1.0); Calcium 9.5 mg/dl (8.6-10.3); Creatinine Clr Calc Pharmacy 60.1 ml/min; Est GFR (African American) 117.7 ml/min; Est GFR (Non-African American) 101.5 ml/min; Globulin 2.9 gm/dl (2.5-4.0); Potassium 4.5 mmol/L (3.5-5.1); Total Protein 6.3 gm/dl (6.0-8.3)
--- NOTE | 2023-03-01 07:29 | Hospitalist Progress Note ---
Date of Service March 01, 2023 Assessment & Plan (1) Left ulnar fracture: Plan: 68-year-old female with history of chronic prednisone use for ILD who presented with a mechanical fall and discovered to have a Malgaigne fracture of RIGHT hip and LEFT ulna fracture. Malgaigne Fracture of RIGHT Hip - Following mechanical fall at home in setting of chronic prednisone use in postmenopausal female - CT demonstrating mildly displaced parasymphyseal superior pubic ramus fracture, alongside nondisplaced fractures of inferior ramus and sacral ala - Orthopedics following: Nonoperative management. WBAT. - PT, OT evaluations appreciated -- anticipating rehab - Pain: APAP, oxycodone - Will require outpatient osteoporosis treatment discussion 6-8 weeks post- fracture Left Ulna Fracture - Casted in the ED. Per orthopedics, OK w/ weightbearing as tolerated - PT, OT - Will require osteoporosis management as outpatient Multiple Falls - Seem to be mechanical in nature - PT, OT Interstitial Lung Disease -- with pulmonary cachexia Chronic Oxygen Requirement (~2L, goal SpO2 >88%) -- at baseline - Previously on 20mg b.i.d. -- during last admission, lowered to 30mg, but seems that the 40mg dose was continued at discharge - Recommend lowering dose to 30mg daily as suggested by [facility] Pulmonology once acute stressors resolve - Continue Bactrim MWF for PJP PPX, does have a listed sulfa allergy but she states she has been taking this without issue - Continue home inhalers - Seen by palliative during last admission: not interested in hospice at that time Presbyesophagus, Dysphagia - Extensively evaluated during last admission. Previous refused EGD evaluation - SOLAR/RENEWABLE ENERGY SALES evaluated: Permissive aspiration per discussion. Aspiration and reflux precautions Anxiety/Mood Disorder - Continue home regimen; trazodone, quetiapine, lorazepam, gabapentin, duloxetine Malnutrition - Was seen by terminal operator upon last admission, would likely benefit from Booster supplementation once she is no longer NPO History of Aryan's Thyroiditis - not currently on any medications - Will repeat TSH Iron Def Anemia - continue iron supplementation - Hemoglobin= 12.6 Severe Protein-Calorie Malnutrition - Nutrition consultation appreciated Diet: Permissive aspiration per [employer], soft/easy to chew DVT Prophylaxis: Heparin Dispo: MS Code: DNR/DNI (2) Closed fracture of symphysis pubis: (3) Ambulatory dysfunction: (4) Hypoxemic respiratory failure, chronic: (5) Interstitial lung disease: (6) Aryan's thyroiditis: (7) Anxiety disorder: (8) Cluster A personality disorder: (9) Fibromyalgia: (10) Anemia: Admission and Anticipated Discharge Date Admission Date: February 27, 2023 Supervising Physician Co-Signing Physician Notes Resident Physician Supervision Note: I independently interviewed and examined the patient and verified the espinoza history and physical, reviewed labs and image studies and agree with resident findings and care plan. Subjective Required 2 doses of oxycodone overnight. Otherwise feeling great today. Eager for rehab. Denies major pain. Review of Systems Review of Systems: as per HPI Physical Exam Physical Exam: General: 68-year-old female who is lying back in her bed NAD. HEENT: NCAT. - Eyes - Sclera are white, anicteric, and without injection. - Mouth - MMM - Neck - supple, no appreciable JVD Cardiac: Normal rate and regular rhythm; S1 and S2 present with no murmur detected Pulmonary: Good respiratory effort with symmetric expansion of the chest. No use of accessory muscles. Lungs were CTAB Abdominal: Normoactive bowel sounds. Abdomen was soft, nondistended, and non- tender to palpation. Extremities: Unchanged. Upper and lower extremities are warm and well perfused. Ankle strength is 5/5 bilaterally. Normal sensation to light touch. No peripheral edema in the lower extremities bilaterally Results & Data Results & Data Vital Signs (Past 12 Hours) Vital Signs Temp Pulse Pulse Resp BP Pulse Ox O2 Del Method 03/01/23 03:53 36.2 C L 107 H 20 123/87 98 Nasal Cannula 03/01/23 01:27 97 H 02/28/23 22:22 36.5 C 104 H 18 103/73 98 Nasal Cannula 02/28/23 21:20 Nasal Cannula 02/28/23 19:24 36.5 C 113 H 22 95 Nasal Cannula O2 Flow Rate 03/01/23 03:53 2 03/01/23 01:27 02/28/23 22:22 2 02/28/23 21:20 2 02/28/23 19:24 2 Resident Activity Tracking Resident Involvement: Resident Care Provided Care Provided: Adult Hospital Medicine
[2023-03-01] MEDS: oxyCODONE HCL IR 5 MG TAB (IMMEDIATE RELEASE) PO PRN ×3 (08:28→21:38)
[2023-03-01] MEDS: predniSONE 20 MG TAB PO SCH ×2 (08:29→21:36)
[2023-03-01] MEDS: FERROUS SULFATE 325 MG TAB PO SCH ×3 (08:29→16:28)
[2023-03-01] MEDS: DULoxetine HCL 60 MG CAP PO SCH (08:29)
[2023-03-01] MEDS: HEPARIN SOD 5,000 UNIT/0.5 ML VIAL SQ SCH ×2 (08:30→21:34)
[2023-03-01] MEDS: UMECLIDINIUM/VILANTEROL 62.5/25MCG 7 PUFFS/INHALER INH SCH (08:30)
[2023-03-01] MEDS: GABAPENTIN 100 MG CAP PO SCH ×4 (08:30→21:34)
--- NOTE | 2023-03-01 08:52 | Progress Notes ---
DATE OF SERVICE: 03/01/2023. SUBJECTIVE: A 68-year-old female admitted with a stable pelvis fracture and a left ulna fracture. S he is doing well this morning. Really denies any hip pain, just a little bit of thigh discomfort pos teriorly. Cast seems to be fitting well. Some pain in the cast, but manageable. OBJECTIVE: VITAL SIGNS: Temperature 36.2. Vital signs are stable. EXTREMITIES: The left arm reveals a short arm fiberglass cast is fitting well. She can flex and ext end her fingers appropriately. Full elbow motion. She is neurologically intact. Examination of the right hip reveals no obvious deformity. She can do a straight leg raise. Minimal, if any, pain wit h hip motion. ASSESSMENT: A 68-year-old female with: 1. Stable pelvis fracture. History of cannulated screw fixation in the past. This is a stable frac ture and she can weight bear as tolerated. 2. Left ulna fracture. Stable. She is in a short-arm cast. She will need a cast for 6 weeks. She can weight bear on that as tolerated and use a walker. As far as orthopedic followup care, we need to check her back in 6 weeks. She can use her left arm a s tolerated. Any orthopedic questions can be directed to me at [phone]. Job ID: [id number]
[2023-03-01] MEDS ORDERED: traMADol HCL 50 MG TABLET PO STA (11:10)
[2023-03-01] MEDS: DONEPEZIL HCL 5 MG TAB PO SCH (21:33)
[2023-03-01] MEDS: QUEtiapine FUMARATE 100 MG TABLET PO SCH (21:36)
[2023-03-01] MEDS: traZODone HCL 100 MG TAB PO SCH (21:37)
[2023-03-02] MEDS: ACETAMINOPHEN 500 MG TAB PO SCH ×2 (05:42→13:07)
[2023-03-02] MEDS: LORazepam 1 MG TAB PO SCH ×2 (05:42→13:07)
--- NOTE | 2023-03-02 06:54 | Hospitalist Progress Note ---
Date of Service March 02, 2023 Assessment & Plan (1) Left ulnar fracture: Plan: 68-year-old female with history of chronic prednisone use for ILD who presented with a mechanical fall and discovered to have a Malgaigne fracture of RIGHT hip and LEFT ulna fracture. Malgaigne Fracture of RIGHT Hip - Following mechanical fall at home in setting of chronic prednisone use in postmenopausal female - CT demonstrating mildly displaced parasymphyseal superior pubic ramus fracture, alongside nondisplaced fractures of inferior ramus and sacral ala - Orthopedics following: Nonoperative management. WBAT. - PT, OT evaluations appreciated -- anticipating rehab - Pain: APAP, oxycodone - Will require outpatient osteoporosis treatment discussion 6-8 weeks post- fracture Left Ulna Fracture - Casted in the ED. Per orthopedics, OK w/ weightbearing as tolerated - PT, OT - Will require osteoporosis management as outpatient Multiple Falls - Seem to be mechanical in nature - PT, OT Interstitial Lung Disease -- with pulmonary cachexia Chronic Oxygen Requirement (~2L, goal SpO2 >88%) -- at baseline - Previously on 20mg b.i.d. -- during last admission, lowered to 30mg, but seems that the 40mg dose was continued at discharge - Recommend lowering dose to 30mg daily as suggested by [facility] once acute stressors resolve - Continue Bactrim MWF for PJP PPX, does have a listed sulfa allergy but she states she has been taking this without issue - Continue home inhalers - Seen by palliative during last admission: not interested in hospice at that time Presbyesophagus, Dysphagia - Extensively evaluated during last admission. Previous refused EGD evaluation - WEIGHER OPERATOR evaluated: Permissive aspiration per discussion. Aspiration and reflux precautions Anxiety/Mood Disorder - Continue home regimen; trazodone, quetiapine, lorazepam, gabapentin, duloxetine Malnutrition - Was seen by product marketer upon last admission, would likely benefit from Booster supplementation once she is no longer NPO History of Aryan's Thyroiditis - not currently on any medications - Will repeat TSH Iron Def Anemia - continue iron supplementation - Hemoglobin= 12.6 Severe Protein-Calorie Malnutrition - Nutrition consultation appreciated Diet: Permissive aspiration per WEIGHER OPERATOR, soft/easy to chew DVT Prophylaxis: Heparin Dispo: MS Code: DNR/DNI (2) Closed fracture of symphysis pubis: (3) Ambulatory dysfunction: (4) Hypoxemic respiratory failure, chronic: (5) Interstitial lung disease: (6) Aryan's thyroiditis: (7) Anxiety disorder: (8) Cluster A personality disorder: (9) Fibromyalgia: (10) Anemia: Admission and Anticipated Discharge Date Admission Date: February 27, 2023 Results & Data Results & Data Vital Signs (Past 12 Hours) Vital Signs Temp Pulse Pulse Resp BP BP Pulse Ox 03/02/23 04:00 36.5 C 102 H 18 110/68 96 03/02/23 03:30 81 03/01/23 23:47 36.5 C 81 18 118/64 98 03/01/23 21:49 03/01/23 19:00 36.4 C L 89 18 129/86 98 O2 Del Method O2 Flow Rate 03/02/23 04:00 Nasal Cannula 2 03/02/23 03:30 03/01/23 23:47 Nasal Cannula 2 03/01/23 21:49 Nasal Cannula 2 03/01/23 19:00 Nasal Cannula 2
[2023-03-02] MEDS: oxyCODONE HCL IR 5 MG TAB (IMMEDIATE RELEASE) PO PRN (08:09)
[2023-03-02] MEDS: FERROUS SULFATE 325 MG TAB PO SCH ×2 (08:11→13:06)
[2023-03-02] MEDS: DULoxetine HCL 60 MG CAP PO SCH (08:12)
[2023-03-02] MEDS: GABAPENTIN 100 MG CAP PO SCH ×2 (08:13→13:07)
[2023-03-02] MEDS: predniSONE 20 MG TAB PO SCH (08:13)
[2023-03-02] MEDS: HEPARIN SOD 5,000 UNIT/0.5 ML VIAL SQ SCH (08:13)
[2023-03-02] MEDS: UMECLIDINIUM/VILANTEROL 62.5/25MCG 7 PUFFS/INHALER INH SCH (08:14)
--- NOTE | 2023-03-02 11:25 | Discharge Summary ---
Date of Service March 02, 2023 Admission HPI Per Admitting Provider 68 year old female with a past medical history of mood disorder, interstitial lung disease, hypothyroidism, fibromyalgia presenting after fall. Around 1100 this morning she was walking into her kitchen and lost her balance. She states that she was at the table doing bills and fell. States that she has pain in her left forearm and right hip. She was able to get up off the floor and walk to the bathroom. States she did not hit her head and no LOC. Does state that she has had multiple falls in the past few months. Lives in a one story house with her partner. Couple of steps to get into the house. She was recently discharged from [facility] after hospitalization for respitory failure/multiple falls. Denies headache, chest pain, dyspnea, nausea, vomiting. ED workup significant for Comminuted fracture of the left ulna and Mildly displaced fracture of the RIGHT parasymphyseal superior pubic ramus.Nondisplaced fracture of the RIGHT inferior pubic ramus. Nondisplaced fracture of the RIGHT sacral ala.. WBC= 14 in the setting in steroid use. Admission Exam Per Admitting Provider Constitutional: well-appearing, no acute distress HEENT: NCAT, no conjunctival injection CV: regular rhythm, no murmur appreciated, extremities well-perfused, no LE edema Resp: CTABL, no wheezes/rales/rhonchi appreciated, no increased work of breathing GI: soft, nondistended, nontender, BS normoactive MSK: no gross deformities appreciated, strength 5/5 LE, sensations intact, dorsal pedis pulses present. Left arm in splint Skin: warm, dry, no rash appreciated Neuro: alert, oriented, no focal neurologic deficit appreciated Principal Diagnosis right Malgaigne fx, left ulnar fx Discharge Exam Constitutional: well appearing, no acute distress HEENT: normocephalic, no conjunctival injection CV: regular rhythm, no murmur, no LE edema Respiratory: Clear to auscultation bilaterally. No rhonchi, wheezes, or crackles. No increased work of breathing MSK: no gross deformities noted- left arm in cast Skin: warm, dry, no rashes Neuro: alert, oriented, no FND noted Discharge Data Allergies Allergy/AdvReac Type Severity Reaction Status Date / Time Iodinated Contrast Media Allergy Severe ANAPHYLAXIS Verified 02/27/23 18:55 Sulfa (Sulfonamide Allergy Unknown SEE COMMENT Verified 02/27/23 18:55 Antibiotics) banana AdvReac Severe GI SYMPTOMS Verified 02/27/23 18:55 beet AdvReac Unknown Gastrointestinal Verified 02/27/23 18:55 Upset Consultations 02/27/23 20:46 ED Decision to Admit Stat 02/27/23 22:20 Consult Orthopedic Surgery Routine Ordered Studies 02/27/23 18:53 CT pelvis wo con Stat IMPRESSION: Right-sided Malgaigne fracture: Mildly displaced fracture of the RIGHT parasymphyseal superior pubic ramus. Nondisplaced fracture of the RIGHT inferior pubic ramus. Nondisplaced fracture of the RIGHT sacral ala. Hospital Course (1) Left ulnar fracture: 68-year-old female with history of chronic prednisone use for ILD who presented with a mechanical fall and discovered to have a Malgaigne fracture of RIGHT hip and LEFT ulna fracture. Malgaigne Fracture of RIGHT Hip - Following mechanical fall at home in setting of chronic prednisone use in postmenopausal female - CT demonstrating mildly displaced parasymphyseal superior pubic ramus fracture, alongside nondisplaced fractures of inferior ramus and sacral ala - Orthopedics following: Nonoperative management. WBAT. - PT, OT evaluations appreciated; d/c to rehab - Pain controlled with APAP, oxycodone - Will require outpatient osteoporosis treatment discussion 6-8 weeks post- fracture Left Ulna Fracture - Casted in the ED. Per orthopedics, OK w/ weightbearing as tolerated - Will require osteoporosis management as outpatient Multiple Falls - Seem to be mechanical in nature Interstitial Lung Disease--with pulmonary cachexia Chronic Oxygen Requirement (~2L, goal SpO2 >88%)--at baseline - Previously on 20mg b.i.d. -- during last admission, lowered to 30mg, but seems that the 40mg dose was continued at discharge - Recommend lowering dose to 30mg daily as suggested by [facility] [place] once acute stressors resolve - Continue Bactrim MWF for PJP PPX, does have a listed sulfa allergy but she states she has been taking this without issue - Continue home inhalers - Seen by palliative during last admission: not interested in hospice at that time Presbyesophagus,Dysphagia - Extensively evaluated during last admission. Previous refused EGD evaluation - CLOTH MERCERIZER OPERATOR evaluated: Permissive aspiration per discussion. Aspiration and reflux precautions Anxiety/Mood Disorder - Continue home regimen; trazodone, quetiapine, lorazepam, gabapentin, duloxetine Severe protein-calorie Malnutrition - seen by brake lining curer upon last admission - Boost supplementation twice a day and frequent snacking recommended. History of Aryan's Thyroiditis - not currently on any medications - recent TSH 02/12 WNL Iron Def Anemia - continue iron supplementation - Hemoglobin= 12.6 Diet: Permissive aspiration per CLOTH MERCERIZER OPERATOR, soft/easy to chew DVT Prophylaxis: Heparin Dispo: rehab Code: DNR/DNI (2) Closed fracture of symphysis pubis: (3) Ambulatory dysfunction: (4) Hypoxemic respiratory failure, chronic: (5) Interstitial lung disease: (6) Aryan's thyroiditis: (7) Anxiety disorder: (8) Cluster A personality disorder: (9) Fibromyalgia: (10) Anemia: Total Time Total Time Spent Total Time Spent (In Minutes): as per attending attestation Discharge Plan Discharge Items Patient Disposition: Transfer Inpatient Rehab Fac Reason For Visit: HIP FRACTURE Discharge Diagnosis: right Malgaigne fracture, left ulnar fracture Activity: Per Instructions section Weightbearing: Full weightbearing Non-emergency contact: Primary Care Provider Call non-emergency contact if: you have any medication questions, your symptoms worsen and your pain is not controlled Follow-up/Referrals: Shashi Burdick MD [Physician] - (Orthopedic follow-up 6 weeks from admission date.) Garth Wellington PA-C [Primary Care Provider] - Diet: Regular Addtl Attending Provider Instructions: 68-year-old female with history of chronic prednisone use for ILD who presented with a mechanical fall and discovered to have a Malgaigne fracture of RIGHT hip and LEFT ulna fracture. Malgaigne Fracture of RIGHT Hip - Following mechanical fall at home in setting of chronic prednisone use in postmenopausal female - CT demonstrating mildly displaced parasymphyseal superior pubic ramus fracture, alongside nondisplaced fractures of inferior ramus and sacral ala - Orthopedics following: Nonoperative management. WBAT. - PT, OT evaluations appreciated -- anticipating rehab - Pain: APAP, oxycodone 5 mg q6hr PRN - Will require outpatient osteoporosis treatment discussion 6-8 weeks post- fracture Left Ulna Fracture - Casted in the ED. Per orthopedics, OK w/ weightbearing as tolerated - Will require osteoporosis management as outpatient Multiple Falls - Seem to be mechanical in nature Interstitial Lung Disease--with pulmonary cachexia Chronic Oxygen Requirement (~2L, goal SpO2 >88%)--at baseline - Previously on 20mg b.i.d. -- during last admission, lowered to 30mg, but seems that the 40mg dose was continued at discharge - Recommend lowering dose to 30mg daily as suggested by [facility] [place] once acute stressors resolve - Continue Bactrim MWF for PJP PPX, does have a listed sulfa allergy but she states she has been taking this without issue - Continue home inhalers - Seen by palliative during last admission: not interested in hospice at that time Presbyesophagus,Dysphagia - Extensively evaluated during last admission. Previous refused EGD evaluation - CLOTH MERCERIZER OPERATOR evaluated: Permissive aspiration per discussion. Aspiration and reflux precautions Anxiety/Mood Disorder - Continue home regimen; trazodone, quetiapine, lorazepam, gabapentin, duloxetine Malnutrition - Was seen by brake lining curer upon last admission, would likely benefit from Booster supplementation once she is no longer NPO History of Aryan's Thyroiditis - not currently on any medications - last TSH 02/12 WNL Iron Def Anemia - continue iron supplementation - Hemoglobin= 12.6 Severe Protein-Calorie Malnutrition - Nutrition consultation appreciated Diet: Permissive aspiration per CLOTH MERCERIZER OPERATOR, soft/easy to chew DVT Prophylaxis: Heparin Dispo: inpatient rehab Code: DNR/DNI Addtl Dowel Inspector Provider Instructions: May fully Weightbear as tolerated. Will need a walker May weightbear on left arm in cast as tolerated. Pending Studies at Discharge: No Stand-Alone Forms: [employer] Skilled Items Patient informed of condition?: Yes DNR: Yes Discharge Level of Care: Acute rehab Communicable Disease: No Discharge Prognosis: Stable Lines: None Urinary Catheter: No Medications and DC Order Prescriptions: Continued lorazepam [Ativan] 1 mg tablet 1 mg PO Q8H cyclobenzaprine 10 mg tablet 10 mg PO BID PRN (Reason: MUSCLE SPASMS) duloxetine [Cymbalta] 60 mg capsule,delayed release(DR/EC) 60 mg PO DAILY (DME) Oxygen Home Liters Per Minute See Rx Instructions .Route Qty: 1 0RF Rx Instructions: humidifcation for oxygen Bevespi Aerosphere 9-4.8 mcg HFA aerosol inhaler 2 puff inhalation Q12H Qty: 10.7 3RF cholecalciferol (vitamin D3) 25 mcg (1,000 unit) capsule 25 mcg PO DAILY betamethasone dipropionate 0.05 % cream 1 applic topical DAILY PRN (Reason: skin irritation) Qty: 30 0RF Rx Instructions: Apply cream daily to the affected areas on the hands for 2 weeks or until resolved. prednisone 20 mg tablet 20 mg PO BID Qty: 60 2RF Anoro Ellipta 62.5-25 mcg/actuation blister with device 1 inh inhalation DAILY 0RF (DME) nebulizer accessories Kit See Rx Instructions .MEDSUPPLY Qty: 2 0RF Rx Instructions: Dx: ILD. LOS 99 years (DME) compressor, for nebulizer Device See Rx Instructions .Route Qty: 1 0RF Rx Instructions: Dx: ILD, hypoxia, LOS 99 years Ca-D3-mag [id number] [Calcium 600-D3 Plus (mag-zinc)] 600 mg calc ium- 20 mcg-50 mg tablet 1 tab PO DAILY aspirin [Adult Low Dose Aspirin] 81 mg tablet,delayed release (DR/EC) 81 mg PO DAILY tramadol 50 mg tablet 50 mg PO BID acetaminophen 500 mg Tablet 500 mg PO QID PRN (Reason: Pain) trazodone 100 mg tablet 100 mg PO HS ferrous sulfate 325 mg (65 mg iron) Tablet 325 mg PO TID Cerovite Senior 0.4 mg-300 mcg- 250 mcg Tablet 1 tab PO QAM Qty: 30 0RF donepezil 5 mg tablet 2.5 mg PO HS quetiapine [Seroquel] 100 mg Tablet 100 mg PO HS gabapentin 100 mg Capsule 200 mg PO QID Vision Formula (with lutein) 300 mcg-200 mg-27 mg-2 mg Tablet 1 tab PO DAILY Rx Instructions: administer after a meal sulfamethoxazole-trimethoprim [Bactrim DS] 800-160 mg tablet 1 tab PO [id number] Rx Instructions: 1 tab orally every Mon, Wed, and Fri; Discharge Orders: Discharge Order (Routine); Ordered 03/02/23 Ordered By: Debra Rios Admission Data Admit Date/Time: 02/27/23 22:02 Attending Provider: Jennyfer Espinoza Admit Provider: Mariangel Cabrera Primary Care Provider: Garth Wellington Other Providers: [facility] ; Serge Glass ; Hung Hernández ; Ayana Lombardi ; Gus Madrigal ; Sweta Thompson ; Napoleon Moore ; Dee Alonso ; Bess Lyons ; Salas Davis ; Shashi Burdick ; Ebonie Johnson ; Eloy Cali ; Sekou Joe ; Sekou Good Other Interventions: Discharge Summary Assessment (RN) Last Done: 03/02/23 14:35 Supervising Physician Co-Signing Physician Notes Resident Physician Supervision Note: I independently interviewed and examined the patient and verified the espinoza history and physical, reviewed labs and image studies and agree with resident findings and care plan. Resident Activity Tracking Resident Involvement: Resident Care Provided Care Provided: Adult Hospital Medicine
== END 2023-03-02 15:35 | DRG 963 ==
LOC: ED 15:35 → 2N 22:02 → SUATTDRO 22:02 → 2N 23:49

== ENCOUNTER 2023-04-28 19:23 | Inpatient (IN) ==
[2023-04-28 20:44] LABS: Hematocrit (blood only) 37.8 % (37.0-47.0); Hemoglobin 12.7 g/dl (12.0-16.0); Mean Corpuscular Hemoglobin 33.5 pg (25.0-34.0); Mean Corpuscular Hgb Conc 33.6 g/dL (32.0-36.0); Mean Corpuscular Volume 99.7 fL (80.0-100.0); Platelet Count 359 K/uL (130-400); RDW Coefficient of Variation 12.5 % (11.5-14.5); RDW Standard Deviation 46.2 fL (36.4-46.3); Red Blood Count 3.79 M/uL (4.20-5.40)
[2023-04-28 21:01] LABS: Albumin Globulin Ratio 1.2 (0.9-2); Albumin Level 3.7 gm/dl (3.4-5.0); BUN Creatinine Ratio 38.2 (10-20); Bilirubin,Total 0.4 mg/dl (0.2-1.0); Calcium 9.7 mg/dl (8.6-10.3); Creatinine Clr Calc Pharmacy 43.8 ml/min; Est GFR (African American) 92.1 ml/min; Est GFR (Non-African American) 79.5 ml/min; Potassium 4.3 mmol/L (3.5-5.1); Total Protein 6.7 gm/dl (6.0-8.3)
[2023-04-28 21:18] LABS: Appearance Urine Clear (Clear); Bacteria Urine Automated Negative (Negative); Bilirubin Urine Negative (Negative); Blood Urine Negative (Negative); Cast Urine Automated 0 /lpf (0-5); Color Urine Yellow; Glucose Urine UA Negative (Negative); Ketones Urine Trace (Negative); Leukocyte Esterase Urine Negative (Negative); Nitrite Urine Negative (Negative); Protein Urine Trace (Negative); Specific Gravity Urine 1.034 (1.000-1.030); Urobilinogen Urine Negative (Negative); pH Urine 5.5 (4.5-7.5)
[2023-04-28 21:26] LABS: Basophils # (auto) 0.07 K/uL (0-0.2); Basophils % (auto) 0.5 %; Eosinophils # (auto) 0.02 K/uL (0-0.50); Eosinophils % (auto) 0.1 %; Immature Granulocytes # (auto) 0.79 K/uL (0.01-0.20); Immature Granulocytes % (auto) 5.5 %; Lymphocytes # (auto) 1.04 K/uL (1.2-3.4); Lymphocytes % (auto) 7.2 %; Monocytes # (auto) 1.01 K/uL (0.11-0.59); Neutrophils # (auto) 11.47 K/uL (1.40-6.50); Neutrophils % (auto) 79.7 %
[2023-04-28] MEDS ORDERED: ACETAMINOPHEN 1,000 MG/100 ML VIAL IV STA (21:40)
--- NOTE | 2023-04-28 23:11 | CT Scan Report ---
Exam(s): CT ABDOMEN + PELVIS Without Contrast EXAM: CT Abdomen and Pelvis Without Intravenous Contrast CLINICAL HISTORY: rlq pain. TECHNIQUE: Axial computed tomography images of the abdomen and pelvis without intravenous contrast. Automated exposure control was utilized for the study. A dose lowering technique was utilized adhering to the principles of ALARA. COMPARISON: No relevant prior studies available. FINDINGS: Lung bases: Unremarkable. No mass. No consolidation. ABDOMEN: Liver: Unremarkable. Gallbladder and bile ducts: Unremarkable. No calcified stones. No ductal dilation. Pancreas: Unremarkable. No ductal dilation. Spleen: Unremarkable. No splenomegaly. Adrenals: Unremarkable. No mass. Kidneys and ureters: Unremarkable. No obstructing stones. No hydronephrosis. Stomach and bowel: No evidence for bowel obstruction. Evaluation of the bowel mucosa is slightly limited without contrast; however, no definite focal asymmetry suggested. At least moderate stool burden involving the cecum and ascending colon with some retained fecal appearing material in nondilated small bowel loops in the pelvis. PELVIS: Appendix: The appendix is not clearly delineated. No secondary findings to suggest acute appendicitis. Bladder: Unremarkable. No stones. Reproductive: Unremarkable as visualized. ABDOMEN and PELVIS: Intraperitoneal space: Unremarkable. No free air. No significant fluid collection. Bones/joints: There has been interval healing of the previously noted right symphysis pubis and right inferior pubic rami with incomplete osseous bridging. Developing sclerosis involving the lateral left sacral wing adjacent to sacroiliac joint is noted, consistent with a healing fracture. Prior ORIF of the proximal right femur and hip are stable. No dislocation. Soft tissues: Unremarkable. Vasculature: Unremarkable. No abdominal aortic aneurysm. Lymph nodes: Unremarkable. No enlarged lymph nodes. IMPRESSION: 1. No evidence for bowel obstruction. Evaluation of the bowel mucosa is slightly limited without contrast; however, no definite focal asymmetry suggested. At least moderate stool burden involving the cecum and ascending colon with some retained fecal appearing material in nondilated small bowel loops in the pelvis. Findings suggest a component of constipation with potential reactive enteritis and delayed transit through the small bowel. No free intraperitoneal fluid or pneumoperitoneum. 2. There has been interval healing of the previously noted right symphysis pubis and right inferior pubic rami with incomplete osseous bridging. Developing sclerosis involving the lateral left sacral wing adjacent to sacroiliac joint is noted, consistent with a healing fracture. Electronically signed by: Mannie Aquino MD 04/28/23 23:10 PM
--- NOTE | 2023-04-28 23:18 | CT Scan Report ---
Exam(s): CT L SPINE EXAM: CT Lumbar Spine Without Intravenous Contrast CLINICAL HISTORY: lbp. TECHNIQUE: Axial computed tomography images of the lumbar spine without intravenous contrast. Automated exposure control was utilized for the study. A dose lowering technique was utilized adhering to the principles of ALARA. COMPARISON: CT abdomen and pelvis dated 01/09/2013 FINDINGS: Vertebrae: There are compression fractures at T12 and L2 levels. There is approximately 65% loss of height centrally at T12 level and approximately 70% loss of height centrally at L2 level. There is buckling of the posterior cortex bilaterally with only 2-3 mm retropulsion noted at each level. No extension to the pedicles identified. The pedicles, facet joints, spinous processes and transverse processes are intact. The remaining lumbar vertebral body heights are maintained without acute fracture. Sacrum/coccyx: Healing right sacral wing fracture noted. Discs/spinal canal/neural foramina: No acute findings. No spinal canal stenosis. Soft tissues: Unremarkable. IMPRESSION: 1. There are compression fractures at T12 and L2 levels. There is approximately 65% loss of height centrally at T12 level and approximately 70% loss of height centrally at L2 level. There is buckling of the posterior cortex bilaterally with only 2-3 mm retropulsion noted at each level. No extension to the pedicles or posterior elements identified. 2. Subacute healing fracture involving the lateral right sacral wing. Electronically signed by: Mannie Aquino MD 04/28/23 23:17 PM
[2023-04-28] MEDS ORDERED: MoRPHine SULFATE 4 MG/ML 1 ML CARP\\VIAL IV STA (23:30)
--- NOTE | 2023-04-28 23:53 | History & Physical Report ---
Date of Service April 28, 2023 Assessment & Plan (1) Closed compression fracture of L2 vertebra: (2) Compression fracture of T12 vertebra: (3) Pelvis fracture: (4) Closed fracture of symphysis pubis: (5) Ambulatory dysfunction: (6) Cluster A personality disorder: (7) Mood disorder due to known physiological condition: (8) Fibromyalgia: (9) Anxiety disorder: Plan Closed compression fracture of T12 with 65% height loss/closed fracture of L2 with 70% height loss- Tramadol 50 mg by mouth 4 times daily as needed moderate pain Morphine sulfate 2 mg IV every 4 hours as needed severe pain Continue cyclobenzaprine Consult orthopedic spine surgery Dr. [place] Anxiety/fibromyalgia- Continue trazodone, quetiapine, lorazepam, gabapentin, duloxetine and donepezil COPD- Continue usual inhalers and nebulizers History of Present Illness Chief Complaint: The patient presents to the emergency department with complaint of 10/10 back pain all day long. Primary Care Provider: Garth Wellington The patient is a 68-year-old female resident of local [facility], who presents to the emergency department complaining of back pain over the past 4 days, which is worsened to 10/10 throughout the day today. She denies any history of trauma, and reports that this came on suddenly. CT scan of lumbar spine shows T12 compression fracture with 65% height loss, and L2 compression fracture with 70% height loss CT scan of abdomen pelvis primarily shows fecal retention with suggestion of reactive enteritis and delayed transit through the small bowel. CT scan abdomen pelvis also shows healing pelvic fractures Allergies Allergy/AdvReac Type Severity Reaction Status Date / Time Iodinated Contrast Media Allergy Severe ANAPHYLAXIS Verified 02/27/23 18:55 Sulfa (Sulfonamide Allergy Unknown SEE COMMENT Verified 02/27/23 18:55 Antibiotics) banana AdvReac Severe GI SYMPTOMS Verified 02/27/23 18:55 beet AdvReac Unknown Gastrointestinal Verified 02/27/23 18:55 Upset Home Medications Medication Instructions Recorded Confirmed Type lorazepam 1 mg tablet (Ativan) 1 mg PO Q8H 06/18/18 04/29/23 History cyclobenzaprine 10 mg tablet 10 mg PO BID PRN MUSCLE SPASMS 11/06/18 04/28/23 History duloxetine 60 mg capsule,delayed 60 mg PO DAILY 11/06/18 04/29/23 History release (Cymbalta) cholecalciferol (vitamin D3) 25 25 mcg PO DAILY 10/16/22 04/29/23 History mcg (1,000 unit) capsule aspirin 81 mg tablet,delayed 81 mg PO DAILY 11/13/22 04/29/23 History release (Adult Low Dose Aspirin) ferrous sulfate 325 mg (65 mg 325 mg PO DAILY 11/26/22 04/29/23 History iron) tablet trazodone 100 mg tablet 100 mg PO HS 11/26/22 04/29/23 History Oxygen Home #1 ea 01/24/23 04/29/23 Rx compressor, for nebulizer #1 ea 02/05/23 04/29/23 Rx nebulizer accessories #2 ea 02/05/23 04/29/23 Rx donepezil 5 mg tablet 2.5 mg PO HS 02/27/23 04/28/23 History quetiapine 100 mg tablet (Seroquel) 100 mg PO HS 02/27/23 04/29/23 History sulfamethoxazole 800 1 tab PO 3XWK 02/27/23 04/29/23 History mg-trimethoprim 160 mg tablet (Bactrim DS) gabapentin 400 mg capsule 400 mg PO TID 04/28/23 04/28/23 History calcium carbonate 500 mg-vitamin 1 tab PO DAILY 04/29/23 04/29/23 History D3 5 mcg (200 unit) tablet (Oyster Shell Calcium-Vitamin D3) oxycodone 5 mg tablet 5 mg PO QID PRN pain 4-10 04/29/23 04/29/23 History prednisone 20 mg tablet 20 mg PO DAILY 04/29/23 04/29/23 History Past Med/Surg History Medical History (Updated 04/29/23 @ 04:21 by Chidi Woods MD) Anxiety disorder Dyspnea and respiratory abnormalities Eustachian tube dysfunction Hypersensitivity pneumonitis Hypoxemic respiratory failure, chronic Interstitial lung disease Mixed conductive and sensorineural hearing loss of left ear with restricted hearing of right ear Pneumothorax Seasonal allergies Severe protein-calorie malnutrition Short-term memory loss Weakness generalized Surgical History History of adenoidectomy History of tonsillectomy Family History Father Allergies Asthma Other No family history of adverse response to anesthesia No family history of bleeding disorder Social History Smoking Status: Never smoker Second Hand Exposure: No; Do You Dip or Chew Tobacco: No; Hx Alcohol Use: No Hx Substance Use: No Preferred Language: Uzbek Communication Ability: Effective Visual Impairment: No Limitations Hearing Ability: Normal Fur Trimmer Required: No Beliefs That Will Affect Care: None marital status: Current Living Situation: Personal Care Facility Current Living Situation Comment: [facility] current occupational status: retired Feels Safe at Home: Yes Safety Concerns: Feels Safe At This Time Assistive Devices: Glasses, Oxygen - Continuous and Walker Review of Systems Review of Systems: The patient denies chest pain, palpitations, shortness of breath, dyspnea on exertion, cough, lower extremity swelling, sore throat, fevers, chills, sweats, weight change, fatigue, nausea, vomiting, diarrhea , constipation, abdominal pain, pelvic pain, blood in urine or stool, dysuria, urinary frequency or urgency, lightheadedness, dizziness, headache, memory loss, loss of consciousness, rash, abnormal bruising or bleeding, focal or generalized weakness, numbness or tingling in arms or legs, generalized arthralgias or myalgias, or night sweats. The review of systems is otherwise negative other than for that already noted above, and at least 10 systems have been reviewed. Physical Exam Physical Exam: The patient is awake, alert and oriented 3, well developed and well nourished, normocephalic and atraumatic, lying in bed and in moderate distress. HEENT--PERRL, EOMI, mucous membranes and oropharynx dry. Neck--supple. No JVD. No bruits. Thyroid normal, trachea midline, no adenopathy. Heart--normal S1 and S2. No murmurs, rubs or gallops. Lungs--clear bilaterally, no respiratory distress, no accessory muscle use. Abdomen--normal bowel sounds and soft. Nontender. Nondistended, no hernias or masses, no organomegaly. Extremities--no cyanosis or clubbing. No edema. There are good distal pulses b/l. Dermatologic--normal skin turgor, normal color, no abnormal lymph nodes, no rash. Neurologic--cranial nerves II through XII grossly intact. Rheumatologic--exam limited by back pain, reproducible pain over T12 L2 and and less so over remaining lumbar spine Psychiatric--normal affect. Results & Data Results & Data Vital Signs (Past 12 Hours) Vital Signs Temp Pulse Pulse Resp BP BP Pulse Ox 04/28/23 23:25 84 04/28/23 23:00 85 23 96 04/28/23 23:00 137/84 04/28/23 22:50 84 20 97 04/28/23 22:40 81 24 138/85 97 04/28/23 22:37 85 24 95 04/28/23 22:37 138/85 04/28/23 22:10 82 24 97 04/28/23 22:00 83 23 97 04/28/23 22:00 134/83 04/28/23 21:50 84 25 H 97 04/28/23 21:40 83 40 H 97 04/28/23 21:30 84 26 H 97 04/28/23 21:30 124/79 04/28/23 21:20 84 28 H 97 04/28/23 21:10 85 34 H 98 04/28/23 21:00 98 H 20 95 04/28/23 21:00 146/97 H 04/28/23 20:50 90 25 H 97 04/28/23 21:44 85 18 124/79 96 04/28/23 21:11 24 146/97 H 97 04/28/23 20:40 83 22 97 04/28/23 20:30 84 22 97 04/28/23 20:30 131/86 04/28/23 20:20 85 97 04/28/23 20:10 88 23 95 04/28/23 20:00 87 23 95 04/28/23 20:00 114/78 04/28/23 19:50 87 23 96 04/28/23 19:40 92 H 18 94 04/28/23 19:33 99 H 18 88 L 04/28/23 19:33 126/84 04/28/23 19:34 95 H 04/28/23 19:15 36.4 C L 25 H 95 04/28/23 19:15 36.4 C L 93 H 27 H 126/84 95 O2 Del Method O2 Flow Rate 04/28/23 23:25 04/28/23 23:00 07/31/23 23:00 04/28/23 22:50 04/28/23 22:40 04/28/23 22:37 04/28/23 22:37 04/28/23 22:10 04/28/23 22:00 04/28/23 22:00 04/28/23 21:50 04/28/23 21:40 04/28/23 21:30 04/28/23 21:30 04/28/23 21:20 04/28/23 21:10 04/28/23 21:00 04/28/23 21:00 04/28/23 20:50 04/28/23 21:44 Room Air 04/28/23 21:11 Nasal Cannula 2 04/28/23 20:40 04/28/23 20:30 04/28/23 20:30 04/28/23 20:20 04/28/23 20:10 04/28/23 20:00 04/28/23 20:00 04/28/23 19:50 04/28/23 19:40 04/28/23 19:33 04/28/23 19:33 04/28/23 19:34 04/28/23 19:15 3 04/28/23 19:15 3 Laboratory Results Laboratory Results WBC 14.40 K/ul (4.8-10.8) H 04/28/23 19:13 RBC 3.79 M/uL (4.20-5.40) L 04/28/23 19:13 Hgb 12.7 g/dl (12.0-16.0) 04/28/23 19:13 Hct 37.8 % (37.0-47.0) 04/28/23 19:13 MCV 99.7 fL (80.0-100.0) 04/28/23 19:13 MCH 33.5 pg (25.0-34.0) 04/28/23 19:13 MCHC 33.6 g/dL (32.0-36.0) 04/28/23 19:13 RDW Std Deviation 46.2 fL (36.4-46.3) 04/28/23 19:13 RDW Coeff of [place] 12.5 % (11.5-14.5) 04/28/23 19:13 Plt Count 359 K/uL (130-400) 04/28/23 19:13 MPV 9.0 fL (9.4-12.4) L 04/28/23 19:13 Immature Gran % (Auto) 5.5 % 04/28/23 19:13 Neut % (Auto) 79.7 % 04/28/23 19:13 Lymph % (Auto) 7.2 % 04/28/23 19:13 [place] % (Auto) 7.0 % 04/28/23 19:13 Eos % (Auto) 0.1 % 04/28/23 19:13 Baso % (Auto) 0.5 % 04/28/23 19:13 Neut # (Auto) 11.47 K/uL (1.40-6.50) H 04/28/23 19:13 Lymph # (Auto) 1.04 K/uL (1.2-3.4) L 04/28/23 19:13 [place] # (Auto) 1.01 K/uL (0.11-0.59) H 04/28/23 19:13 Eos # (Auto) 0.02 K/uL (0-0.50) 04/28/23 19:13 Baso # (Auto) 0.07 K/uL (0-0.2) 04/28/23 19:13 Immature Gran # (Auto) 0.79 K/uL (0.01-0.20) H 04/28/23 19:13 Sodium 137 mmol/L (136-145) 04/28/23 19:13 Potassium 4.3 mmol/L (3.5-5.1) 04/28/23 19:13 Chloride 100 mmol/L (98-107) 04/28/23 19:13 Carbon Dioxide 29 mmol/L (21-32) 04/28/23 19:13 Anion Gap 8 (3-11) 04/28/23 19:13 BUN 29 mg/dl (6-23) H 04/28/23 19:13 Creatinine 0.76 mg/dl (0.6-1.2) 04/28/23 19:13 Est Cr Clr Drug Dosing 43.8 ml/min 04/28/23 19:13 Est GFR ( Amer) 92.1 ml/min 04/28/23 19:13 Est GFR (Non-Af Amer) 79.5 ml/min 04/28/23 19:13 BUN/Creatinine Ratio 38.2 (10-20) H 04/28/23 19:13 Glucose 121 mg/dl (70-99(Fasting)) H 04/28/23 19:13 Calcium 9.7 mg/dl (8.6-10.3) 04/28/23 19:13 Total Bilirubin 0.4 mg/dl (0.2-1.0) 04/28/23 19:13 AST 17 U/L (13-39) 04/28/23 19:13 ALT 31 U/L (7-52) 04/28/23 19:13 Alkaline Phosphatase 116 U/L (34-104) H 04/28/23 19:13 Total Protein 6.7 gm/dl (6.0-8.3) 04/28/23 19:13 Albumin 3.7 gm/dl (3.4-5.0) 04/28/23 19:13 Globulin 3.0 gm/dl (2.5-4.0) 04/28/23 19:13 Albumin/Globulin Ratio 1.2 (0.9-2) 04/28/23 19:13 Urine Color Yellow 04/28/23 21:03 Urine Appearance Clear (Clear) 04/28/23 21:03 Urine pH 5.5 (4.5-7.5) 04/28/23 21:03 Ur Specific [place] 1.034 (1.000-1.030) H 04/28/23 21:03 Urine Protein Trace (Negative) H 04/28/23 21:03 Urine Glucose (UA) Negative (Negative) 04/28/23 21:03 Urine Ketones Trace (Negative) H 04/28/23 21:03 Urine Blood Negative (Negative) 04/28/23 21:03 Urine Nitrite Negative (Negative) 04/28/23 21:03 Urine Bilirubin Negative (Negative) 04/28/23 21:03 Urine Urobilinogen Negative (Negative) 04/28/23 21:03 Ur Leukocyte Esterase Negative (Negative) 04/28/23 21:03 Urine WBC (Auto) 1-5 /hpf (0-5) 04/28/23 21:03 Urine RBC (Auto) 5-10 /hpf (0-4) H 04/28/23 21:03 U Hyaline Cast (Auto) 0 /lpf (0-5) 04/28/23 21:03 U Epithel Cells (Auto) 5-10 /lpf (0-5) H 04/28/23 21:03 Urine Bacteria (Auto) Negative (Negative) 04/28/23 21:03 Impressions Abdomen/Pelvis CT 04/28/23 21:40 Exam(s): CT ABDOMEN + PELVIS Without Contrast EXAM: CT Abdomen and Pelvis Without Intravenous Contrast CLINICAL HISTORY: rlq pain. TECHNIQUE: Axial computed tomography images of the abdomen and pelvis without intravenous contrast. Automated exposure control was utilized for the study. A dose lowering technique was utilized adhering to the principles of ALARA. COMPARISON: No relevant prior studies available. FINDINGS: Lung bases: Unremarkable. No mass. No consolidation. ABDOMEN: Liver: Unremarkable. Gallbladder and bile ducts: Unremarkable. No calcified stones. No ductal dilation. Pancreas: Unremarkable. No ductal dilation. Spleen: Unremarkable. No splenomegaly. Adrenals: Unremarkable. No mass. Kidneys and ureters: Unremarkable. No obstructing stones. No hydronephrosis. Stomach and bowel: No evidence for bowel obstruction. Evaluation of the bowel mucosa is slightly limited without contrast; however, no definite focal asymmetry suggested. At least moderate stool burden involving the cecum and ascending colon with some retained fecal appearing material in nondilated small bowel loops in the pelvis. PELVIS: Appendix: The appendix is not clearly delineated. No secondary findings to suggest acute appendicitis. Bladder: Unremarkable. No stones. Reproductive: Unremarkable as visualized. ABDOMEN and PELVIS: Intraperitoneal space: Unremarkable. No free air. No significant fluid collection. Bones/joints: There has been interval healing of the previously noted right symphysis pubis and right inferior pubic rami with incomplete osseous bridging. Developing sclerosis involving the lateral left sacral wing adjacent to sacroiliac joint is noted, consistent with a healing fracture. Prior ORIF of the proximal right femur and hip are stable. No dislocation. Soft tissues: Unremarkable. Vasculature: Unremarkable. No abdominal aortic aneurysm. Lymph nodes: Unremarkable. No enlarged lymph nodes. IMPRESSION: 1. No evidence for bowel obstruction. Evaluation of the bowel mucosa is slightly limited without contrast; however, no definite focal asymmetry suggested. At least moderate stool burden involving the cecum and ascending colon with some retained fecal appearing material in nondilated small bowel loops in the pelvis. Findings suggest a component of constipation with potential reactive enteritis and delayed transit through the small bowel. No free intraperitoneal fluid or pneumoperitoneum. 2. There has been interval healing of the previously noted right symphysis pubis and right inferior pubic rami with incomplete osseous bridging. Developing sclerosis involving the lateral left sacral wing adjacent to sacroiliac joint is noted, consistent with a healing fracture. Electronically signed by: Mannie Aquino MD 04/28/23 23:[address] 04/28/23 21:40 Exam(s): CT L SPINE EXAM: CT Lumbar Spine Without Intravenous Contrast CLINICAL HISTORY: lbp. TECHNIQUE: Axial computed tomography images of the lumbar spine without intravenous contrast. Automated exposure control was utilized for the study. A dose lowering technique was utilized adhering to the principles of ALARA. COMPARISON: CT abdomen and pelvis dated 01/09/2013 FINDINGS: Vertebrae: There are compression fractures at T12 and L2 levels. There is approximately 65% loss of height centrally at T12 level and approximately 70% loss of height centrally at L2 level. There is buckling of the posterior cortex bilaterally with only 2-3 mm retropulsion noted at each level. No extension to the pedicles identified. The pedicles, facet joints, spinous processes and transverse processes are intact. The remaining lumbar vertebral body heights are maintained without acute fracture. Sacrum/coccyx: Healing right sacral wing fracture noted. Discs/spinal canal/neural foramina: No acute findings. No spinal canal stenosis. Soft tissues: Unremarkable. IMPRESSION: 1. There are compression fractures at T12 and L2 levels. There is approximately 65% loss of height centrally at T12 level and approximately 70% loss of height centrally at L2 level. There is buckling of the posterior cortex bilaterally with only 2-3 mm retropulsion noted at each level. No extension to the pedicles or posterior elements identified. 2. Subacute healing fracture involving the lateral right sacral wing. Electronically signed by: Mannie Aquino MD 04/28/23 23:17 PM Code Status & VTE Plan Code Status Full code VTE Prophylaxis Plan VTE Prophylaxis will be ordered: Yes PG Care Time/CCT Total # of Minutes Spent Total Time Spent with Patient: Total time spent is greater than 50% in coordination of care (as documented) at patient's floor/unit and/or counseling patient: Coding Level of Care Code 55205 INT INP/OBS CARE 3/75MIN Diagnoses Closed compression fracture of L2 vertebra S32.020A Encounter type: initial encounter Compression fracture of T12 vertebra S22.080A Pelvis fracture S32.9XXA Closed fracture of symphysis pubis S32.599A Ambulatory dysfunction R26.2 Cluster A personality disorder F60.9 Mood disorder due to known physiological condition F06.30 Fibromyalgia M79.7 Anxiety disorder F41.9 (1) Closed compression fracture of L2 vertebra Encounter type: initial encounter Qualified Code(s): S32.020A - Wedge compression fracture of second lumbar vertebra, initial encounter for closed fracture
[2023-04-29] MEDS ORDERED: ACETAMINOPHEN 325 MG TAB PO PRN (01:11)
[2023-04-29] MEDS ORDERED: CYCLOBENZAPRINE HCL 10 MG TAB PO PRN (01:11)
[2023-04-29] MEDS ORDERED: ONDANSETRON INJ 2 MG/ML 2 ML VIAL IV PRN (01:11)
--- NOTE | 2023-04-29 01:38 | Emergency Department Note ---
History of Present Illness General Chief complaint: Back Injury/Pain Stated complaint: BACK PAIN, NAUSEA Time Seen by Provider: 04/28/23 21:26 History of Present Illness Maximum Pain Intensity: 5 This 68-year-old from the residential presents ER complaining of severe back pain for the past 4 days. Patient did not fall. Patient denies chest pain, dyspnea, nausea, vomiting, abdominal pain, numbness, tingling, localized weakness. Home Medications Medication Instructions Recorded Confirmed Type lorazepam 1 mg tablet (Ativan) 1 mg PO Q8H 06/18/18 04/29/23 History cyclobenzaprine 10 mg tablet 10 mg PO BID PRN MUSCLE SPASMS 11/06/18 04/28/23 History duloxetine 60 mg capsule,delayed 60 mg PO DAILY 11/06/18 04/29/23 History release (Cymbalta) cholecalciferol (vitamin D3) 25 25 mcg PO DAILY 10/16/22 04/29/23 History mcg (1,000 unit) capsule aspirin 81 mg tablet,delayed 81 mg PO DAILY 11/13/22 04/29/23 History release (Adult Low Dose Aspirin) ferrous sulfate 325 mg (65 mg 325 mg PO DAILY 11/26/22 04/29/23 History iron) tablet trazodone 100 mg tablet 100 mg PO HS 11/26/22 04/29/23 History Oxygen Home #1 ea 01/24/23 04/29/23 Rx compressor, for nebulizer #1 ea 02/05/23 04/29/23 Rx nebulizer accessories #2 ea 02/05/23 04/29/23 Rx donepezil 5 mg tablet 2.5 mg PO HS 02/27/23 04/28/23 History quetiapine 100 mg tablet (Seroquel) 100 mg PO HS 02/27/23 04/29/23 History sulfamethoxazole 800 1 tab PO 3XWK 02/27/23 04/29/23 History mg-trimethoprim 160 mg tablet (Bactrim DS) gabapentin 400 mg capsule 400 mg PO TID 04/28/23 04/28/23 History calcium carbonate 500 mg-vitamin 1 tab PO DAILY 04/29/23 04/29/23 History D3 5 mcg (200 unit) tablet (Oyster Shell Calcium-Vitamin D3) oxycodone 5 mg tablet 5 mg PO QID PRN pain 4-10 04/29/23 04/29/23 History prednisone 20 mg tablet 20 mg PO DAILY 04/29/23 04/29/23 History Allergies Allergy/AdvReac Type Severity Reaction Status Date / Time Iodinated Contrast Media Allergy Severe ANAPHYLAXIS Verified 02/27/23 18:55 Sulfa (Sulfonamide Allergy Unknown SEE COMMENT Verified 02/27/23 18:55 Antibiotics) banana AdvReac Severe GI SYMPTOMS Verified 02/27/23 18:55 beet AdvReac Unknown Gastrointestinal Verified 02/27/23 18:55 Upset Past Med/Surg History Medical History Anxiety disorder Dyspnea and respiratory abnormalities Eustachian tube dysfunction Hypersensitivity pneumonitis Hypoxemic respiratory failure, chronic Interstitial lung disease Mixed conductive and sensorineural hearing loss of left ear with restricted hearing of right ear Pneumothorax Seasonal allergies Severe protein-calorie malnutrition Short-term memory loss Weakness generalized Surgical History History of adenoidectomy History of tonsillectomy Family History Father Allergies Asthma Other No family history of adverse response to anesthesia No family history of bleeding disorder Social History Smoking Status: Never smoker Second Hand Exposure: No; Do You Dip or Chew Tobacco: No; Hx Alcohol Use: No Hx Substance Use: No Preferred Language: Trinidadian Communication Ability: Effective Visual Impairment: No Limitations Hearing Ability: Normal Associate Agent Insurance Sales Required: No Beliefs That Will Affect Care: None marital status: Current Living Situation: Personal Care Facility Current Living Situation Comment: [facility] current occupational status: retired Feels Safe at Home: Yes Safety Concerns: Feels Safe At This Time Assistive Devices: Glasses, Oxygen - Continuous and Walker Review of Systems A total of 10 systems reviewed and were otherwise negative Physical Exam Vital Signs Vital Signs - 24 hr 04/28/23 19:15 04/28/23 19:15 04/28/23 19:34 Temperature 36.4 C L 36.4 C L Temperature Source Oral Oral Pulse Rate 93 H 95 H Pulse Rate [Apical] Pulse Rate from SpO2 Sensor Respiratory Rate 27 H 25 H Respiratory Depth Normal Blood Pressure 126/84 Blood Pressure [Left Arm] Blood Pressure Mean 98 Blood Pressure Mean [Left Arm] Pulse Oximetry 95 95 Oxygen Delivery Method Oxygen Flow Rate 3 3 Sepsis Recent Fever Within 48 Hours No Sepsis New/Unexplained Change in Mental Status N/A Sepsis Action Taken by Nursing No Action Required 04/28/23 19:33 04/28/23 19:33 04/28/23 19:40 Temperature Temperature Source Pulse Rate 99 H 92 H Pulse Rate [Apical] Pulse Rate from SpO2 Sensor 92 H Respiratory Rate 18 18 Respiratory Depth Blood Pressure 126/84 Blood Pressure [Left Arm] Blood Pressure Mean 93 Blood Pressure Mean [Left Arm] Pulse Oximetry 88 L 94 Oxygen Delivery Method Oxygen Flow Rate Sepsis Recent Fever Within 48 Hours Sepsis New/Unexplained Change in Mental Status Sepsis Action Taken by Nursing 04/28/23 19:50 04/28/23 20:00 04/28/23 20:00 Temperature Temperature Source Pulse Rate 87 87 Pulse Rate [Apical] Pulse Rate from SpO2 Sensor 87 Respiratory Rate 23 23 Respiratory Depth Blood Pressure 114/78 Blood Pressure [Left Arm] Blood Pressure Mean 94 Blood Pressure Mean [Left Arm] Pulse Oximetry 96 95 Oxygen Delivery Method Oxygen Flow Rate Sepsis Recent Fever Within 48 Hours Sepsis New/Unexplained Change in Mental Status Sepsis Action Taken by Nursing 04/28/23 20:10 04/28/23 20:20 04/28/23 20:30 Temperature Temperature Source Pulse Rate 88 85 Pulse Rate [Apical] Pulse Rate from SpO2 Sensor 88 85 Respiratory Rate 23 Respiratory Depth Blood Pressure 131/86 Blood Pressure [Left Arm] Blood Pressure Mean 104 Blood Pressure Mean [Left Arm] Pulse Oximetry 95 97 Oxygen Delivery Method Oxygen Flow Rate Sepsis Recent Fever Within 48 Hours Sepsis New/Unexplained Change in Mental Status Sepsis Action Taken by Nursing 04/28/23 20:30 04/28/23 20:40 04/28/23 21:11 Temperature Temperature Source Pulse Rate 84 83 Pulse Rate [Apical] Pulse Rate from SpO2 Sensor Respiratory Rate 22 22 24 Respiratory Depth Blood Pressure Blood Pressure [Left Arm] 146/97 H Blood Pressure Mean Blood Pressure Mean [Left Arm] 113 Pulse Oximetry 97 97 97 Oxygen Delivery Method Nasal Cannula Oxygen Flow Rate 2 Sepsis Recent Fever Within 48 Hours Sepsis New/Unexplained Change in Mental Status Sepsis Action Taken by Nursing 04/28/23 21:44 04/28/23 20:50 04/28/23 21:00 Temperature Temperature Source Pulse Rate 90 Pulse Rate [Apical] 85 Pulse Rate from SpO2 Sensor 89 Respiratory Rate 18 25 H Respiratory Depth Blood Pressure 146/97 H Blood Pressure [Left Arm] 124/79 Blood Pressure Mean 111 Blood Pressure Mean [Left Arm] 94 Pulse Oximetry 96 97 Oxygen Delivery Method Room Air Oxygen Flow Rate Sepsis Recent Fever Within 48 Hours Sepsis New/Unexplained Change in Mental Status Sepsis Action Taken by Nursing 04/28/23 21:00 04/28/23 21:10 04/28/23 21:20 Temperature Temperature Source Pulse Rate 98 H 85 84 Pulse Rate [Apical] Pulse Rate from SpO2 Sensor 98 H 85 85 Respiratory Rate 20 34 H 28 H Respiratory Depth Blood Pressure Blood Pressure [Left Arm] Blood Pressure Mean Blood Pressure Mean [Left Arm] Pulse Oximetry 95 98 97 Oxygen Delivery Method Oxygen Flow Rate Sepsis Recent Fever Within 48 Hours Sepsis New/Unexplained Change in Mental Status Sepsis Action Taken by Nursing 04/28/23 21:30 04/28/23 21:30 04/28/23 21:40 Temperature Temperature Source Pulse Rate 84 83 Pulse Rate [Apical] Pulse Rate from SpO2 Sensor 85 83 Respiratory Rate 26 H 40 H Respiratory Depth Blood Pressure 124/79 Blood Pressure [Left Arm] Blood Pressure Mean 95 Blood Pressure Mean [Left Arm] Pulse Oximetry 97 97 Oxygen Delivery Method Oxygen Flow Rate Sepsis Recent Fever Within 48 Hours Sepsis New/Unexplained Change in Mental Status Sepsis Action Taken by Nursing 04/28/23 21:50 04/28/23 22:00 04/28/23 22:00 Temperature Temperature Source Pulse Rate 84 83 Pulse Rate [Apical] Pulse Rate from SpO2 Sensor 84 83 Respiratory Rate 25 H 23 Respiratory Depth Blood Pressure 134/83 Blood Pressure [Left Arm] Blood Pressure Mean 106 Blood Pressure Mean [Left Arm] Pulse Oximetry 97 97 Oxygen Delivery Method Oxygen Flow Rate Sepsis Recent Fever Within 48 Hours Sepsis New/Unexplained Change in Mental Status Sepsis Action Taken by Nursing 04/28/23 22:10 04/28/23 22:37 04/28/23 22:37 Temperature Temperature Source Pulse Rate 82 85 Pulse Rate [Apical] Pulse Rate from SpO2 Sensor 82 84 Respiratory Rate 24 24 Respiratory Depth Blood Pressure 138/85 Blood Pressure [Left Arm] Blood Pressure Mean 102 Blood Pressure Mean [Left Arm] Pulse Oximetry 97 95 Oxygen Delivery Method Oxygen Flow Rate Sepsis Recent Fever Within 48 Hours Sepsis New/Unexplained Change in Mental Status Sepsis Action Taken by Nursing 04/28/23 22:40 04/28/23 22:50 04/28/23 23:00 Temperature Temperature Source Pulse Rate 81 84 Pulse Rate [Apical] Pulse Rate from SpO2 Sensor 81 84 Respiratory Rate 24 20 Respiratory Depth Blood Pressure 138/85 137/84 Blood Pressure [Left Arm] Blood Pressure Mean 102 93 Blood Pressure Mean [Left Arm] Pulse Oximetry 97 97 Oxygen Delivery Method Oxygen Flow Rate Sepsis Recent Fever Within 48 Hours Sepsis New/Unexplained Change in Mental Status Sepsis Action Taken by Nursing 04/28/23 23:00 04/28/23 23:25 04/28/23 23:10 Temperature Temperature Source Pulse Rate 85 84 83 Pulse Rate [Apical] Pulse Rate from SpO2 Sensor 87 83 Respiratory Rate 23 22 Respiratory Depth Blood Pressure Blood Pressure [Left Arm] Blood Pressure Mean Blood Pressure Mean [Left Arm] Pulse Oximetry 96 96 Oxygen Delivery Method Nasal Cannula Oxygen Flow Rate 2 Sepsis Recent Fever Within 48 Hours Sepsis New/Unexplained Change in Mental Status Sepsis Action Taken by Nursing 04/28/23 23:20 04/28/23 23:30 04/28/23 23:30 Temperature Temperature Source Pulse Rate 82 85 Pulse Rate [Apical] Pulse Rate from SpO2 Sensor 82 85 Respiratory Rate Respiratory Depth Blood Pressure 140/84 Blood Pressure [Left Arm] Blood Pressure Mean 99 Blood Pressure Mean [Left Arm] Pulse Oximetry 97 96 Oxygen Delivery Method Oxygen Flow Rate Sepsis Recent Fever Within 48 Hours Sepsis New/Unexplained Change in Mental Status Sepsis Action Taken by Nursing 04/28/23 23:40 04/28/23 23:50 Temperature Temperature Source Pulse Rate 87 87 Pulse Rate [Apical] Pulse Rate from SpO2 Sensor 87 Respiratory Rate 23 Respiratory Depth Blood Pressure Blood Pressure [Left Arm] Blood Pressure Mean Blood Pressure Mean [Left Arm] Pulse Oximetry 97 Oxygen Delivery Method Oxygen Flow Rate Sepsis Recent Fever Within 48 Hours Sepsis New/Unexplained Change in Mental Status Sepsis Action Taken by Nursing VITALS: Vitals are noted on the nurse's note and reviewed by myself. Vital signs stable. GENERAL: Pleasant female who appears in pain, in no acute distress, nondiaphoretic, well-developed well-nourished. SKIN: The skin was without rashes, erythema, edema, or bruising. There is no tenting of the skin. Capillary reflex less than 2 seconds. HEAD: Normocephalic atraumatic. EARS: External auditory canals clear, EYES: Pupils equal round and reactive to light and accommodation. Conjunctivae without injection, sclerae without icterus. Extraocular movements intact. NOSE: Patent, turbinates without inflammation or discharge MOUTH: Mucous membranes moist. Pharynx without erythema or exudate. Uvula midline. Airway patent. Tongue does not deviate. NECK: Supple without nuchal rigidity. No lymphadenopathy. No thyromegaly. Cervical spine is nontender. No JVD. HEART: Regular rate and rhythm LUNGS: Clear to auscultation bilaterally without wheezes, rales or rhonchi. No retractions or accessory muscle use. ABDOMEN: Positive bowel sounds x 4. Normal tympanic percussion. Soft, tender right lower quadrant, without masses or organomegaly. Ward sign negative. No guarding or rebound tenderness. No CVA tenderness MUSCULOSKELETAL: No muscle atrophy, erythema, or edema noted. No thoracic tenderness. Lumbar tenderness present. No step-offs. NEURO: Patient was alert and oriented to person place and time. Normal sensation to light and sharp touch. No focal neurological deficits. Course Administered Medications Discontinued Medications Acetaminophen (Ofirmev) 1,000 mg in 100 mls @ 400 mls/hr IV NOW STA Stop: 04/28/23 21:54 Last Infusion: 04/28/23 22:01 Dose: 0 mls/hr Documented By: Admin: 04/28/23 21:46 Dose: 400 mls/hr Documented By: FLEX Morphine Sulfate (Morphine Sulfate 4 Mg/Ml 1 Ml Carp\Vial) 4 mg IV NOW STA Stop: 04/28/23 23:31 Last Admin: 04/29/23 00:16 Dose: 4 mg Documented By: LYNN Medical Decision Making Medical Records Attestation: I reviewed the patient's medical records. Home Medications Current Medication List: was personally reviewed by me Laboratory Data Attestation: I reviewed the patient's lab results. 04/28/23 19:13 04/28/23 19:13 Lab Results 04/28/23 04/28/23 04/28/23 Range/Units 19:13 19:13 21:03 WBC 14.40 H (4.8-10.8) K/ul RBC 3.79 L (4.20-5.40) M/uL Hgb 12.7 (12.0-16.0) g/dl Hct 37.8 (37.0-47.0) % MCV 99.7 (80.0-100.0) fL MCH 33.5 (25.0-34.0) pg MCHC 33.6 (32.0-36.0) g/dL RDW Std Deviation 46.2 (36.4-46.3) fL RDW Coeff of [place] 12.5 (11.5-14.5) % Plt Count 359 (130-400) K/uL MPV 9.0 L (9.4-12.4) fL Immature Gran % (Auto) 5.5 % Neut % (Auto) 79.7 % Lymph % (Auto) 7.2 % [place] % (Auto) 7.0 % Eos % (Auto) 0.1 % Baso % (Auto) 0.5 % Neut # (Auto) 11.47 H (1.40-6.50) K/uL Lymph # (Auto) 1.04 L (1.2-3.4) K/uL [place] # (Auto) 1.01 H (0.11-0.59) K/uL Eos # (Auto) 0.02 (0-0.50) K/uL Baso # (Auto) 0.07 (0-0.2) K/uL Immature Gran # (Auto) 0.79 H (0.01-0.20) K/uL Sodium 137 (136-145) mmol/L Potassium 4.3 (3.5-5.1) mmol/L Chloride 100 (98-107) mmol/L Carbon Dioxide 29 (21-32) mmol/L Anion Gap 8 (3-11) BUN 29 H (6-23) mg/dl Creatinine 0.76 (0.6-1.2) mg/dl Est Cr Clr Drug Dosing 43.8 ml/min Est GFR ( Amer) 92.1 ml/min Est GFR (Non-Af Amer) 79.5 ml/min BUN/Creatinine Ratio 38.2 H (10-20) Glucose 121 H (70-99(Fasting)) mg/dl Calcium 9.7 (8.6-10.3) mg/dl Total Bilirubin 0.4 (0.2-1.0) mg/dl AST 17 (13-39) U/L ALT 31 (7-52) U/L Alkaline Phosphatase 116 H (34-104) U/L Total Protein 6.7 (6.0-8.3) gm/dl Albumin 3.7 (3.4-5.0) gm/dl Globulin 3.0 (2.5-4.0) gm/dl Albumin/Globulin Ratio 1.2 (0.9-2) Urine Color Yellow Urine Appearance Clear (Clear) Urine pH 5.5 (4.5-7.5) Ur Specific [place] 1.034 H (1.000-1.030) Urine Protein Trace H (Negative) Urine Glucose (UA) Negative (Negative) Urine Ketones Trace H (Negative) Urine Blood Negative (Negative) Urine Nitrite Negative (Negative) Urine Bilirubin Negative (Negative) Urine Urobilinogen Negative (Negative) Ur Leukocyte Esterase Negative (Negative) Urine WBC (Auto) 1-5 (0-5) /hpf Urine RBC (Auto) 5-10 H (0-4) /hpf U Hyaline Cast (Auto) 0 (0-5) /lpf U Epithel Cells (Auto) 5-10 H (0-5) /lpf Urine Bacteria (Auto) Negative (Negative) Imaging Data Attestation: I personally reviewed and interpreted this imaging study as vickie moore: Radiologist's Impression: Abdomen/Pelvis CT 04/28/23 21:40 Exam(s): CT ABDOMEN + PELVIS Without Contrast EXAM: CT Abdomen and Pelvis Without Intravenous Contrast CLINICAL HISTORY: rlq pain. TECHNIQUE: Axial computed tomography images of the abdomen and pelvis without intravenous contrast. Automated exposure control was utilized for the study. A dose lowering technique was utilized adhering to the principles of ALARA. COMPARISON: No relevant prior studies available. FINDINGS: Lung bases: Unremarkable. No mass. No consolidation. ABDOMEN: Liver: Unremarkable. Gallbladder and bile ducts: Unremarkable. No calcified stones. No ductal dilation. Pancreas: Unremarkable. No ductal dilation. Spleen: Unremarkable. No splenomegaly. Adrenals: Unremarkable. No mass. Kidneys and ureters: Unremarkable. No obstructing stones. No hydronephrosis. Stomach and bowel: No evidence for bowel obstruction. Evaluation of the bowel mucosa is slightly limited without contrast; however, no definite focal asymmetry suggested. At least moderate stool burden involving the cecum and ascending colon with some retained fecal appearing material in nondilated small bowel loops in the pelvis. PELVIS: Appendix: The appendix is not clearly delineated. No secondary findings to suggest acute appendicitis. Bladder: Unremarkable. No stones. Reproductive: Unremarkable as visualized. ABDOMEN and PELVIS: Intraperitoneal space: Unremarkable. No free air. No significant fluid collection. Bones/joints: There has been interval healing of the previously noted right symphysis pubis and right inferior pubic rami with incomplete osseous bridging. Developing sclerosis involving the lateral left sacral wing adjacent to sacroiliac joint is noted, consistent with a healing fracture. Prior ORIF of the proximal right femur and hip are stable. No dislocation. Soft tissues: Unremarkable. Vasculature: Unremarkable. No abdominal aortic aneurysm. Lymph nodes: Unremarkable. No enlarged lymph nodes. IMPRESSION: 1. No evidence for bowel obstruction. Evaluation of the bowel mucosa is slightly limited without contrast; however, no definite focal asymmetry suggested. At least moderate stool burden involving the cecum and ascending colon with some retained fecal appearing material in nondilated small bowel loops in the pelvis. Findings suggest a component of constipation with potential reactive enteritis and delayed transit through the small bowel. No free intraperitoneal fluid or pneumoperitoneum. 2. There has been interval healing of the previously noted right symphysis pubis and right inferior pubic rami with incomplete osseous bridging. Developing sclerosis involving the lateral left sacral wing adjacent to sacroiliac joint is noted, consistent with a healing fracture. Electronically signed by: Mannie Aquino MD 04/28/23 23:[address] 04/28/23 21:40 Exam(s): CT L SPINE EXAM: CT Lumbar Spine Without Intravenous Contrast CLINICAL HISTORY: lbp. TECHNIQUE: Axial computed tomography images of the lumbar spine without intravenous contrast. Automated exposure control was utilized for the study. A dose lowering technique was utilized adhering to the principles of ALARA. COMPARISON: CT abdomen and pelvis dated 01/09/2013 FINDINGS: Vertebrae: There are compression fractures at T12 and L2 levels. There is approximately 65% loss of height centrally at T12 level and approximately 70% loss of height centrally at L2 level. There is buckling of the posterior cortex bilaterally with only 2-3 mm retropulsion noted at each level. No extension to the pedicles identified. The pedicles, facet joints, spinous processes and transverse processes are intact. The remaining lumbar vertebral body heights are maintained without acute fracture. Sacrum/coccyx: Healing right sacral wing fracture noted. Discs/spinal canal/neural foramina: No acute findings. No spinal canal stenosis. Soft tissues: Unremarkable. IMPRESSION: 1. There are compression fractures at T12 and L2 levels. There is approximately 65% loss of height centrally at T12 level and approximately 70% loss of height centrally at L2 level. There is buckling of the posterior cortex bilaterally with only 2-3 mm retropulsion noted at each level. No extension to the pedicles or posterior elements identified. 2. Subacute healing fracture involving the lateral right sacral wing. Electronically signed by: Mannie Aquino MD 04/28/23 23:17 PM MDM Narrative Prior records/ancillary studies reviewed. Triage Nursing notes reviewed. Additional history obtained from nursing. The patient's history was concerning for back pain. Differential diagnosis: Etiologies such as musculoskeletal, disc herniation, fracture, aortic disease, metastatic disease, cord compression, discitis, infection, renal colic, gastrointestinal, acute exacerbation of chronic back pain, sciatica, cauda equina, as well as others were entertained. Physical findings: As above. No focal neurologic findings noted. ER treatment provided: Tylenol and morphine were ordered On reassessment the patient felt better. Diagnostics interpreted by me: The labs Independently Interpreted by myself revealed leukocytosis, negative urine Imaging studies: CT of the L-spine concerning for compression fractures of T12 and L2 per my independent interpretation and report was reviewed as above CT the abdomen pelvis concerning for healing pubic rami fracture per my independent interpretation and report was reviewed as above Consultation: A consultation was placed with hospitalist. The case was discussed and diagnostics were reviewed. Patient will be admitted for further evaluation and work. This appears to be consistent with compressions fractures of the T and L-spine. Patient had no trauma. She was in severe amount of pain. Medicine is consulted the case is discussed. She will be evaluated for possible admission. Patient is agreeable. Labs and diagnostics were independent after by myself. Patient was neurovascularly neurologically intact. Patient is agreeable. By the evaluation outlined above emergent etiologies such as aortic disease, metastatic disease, infection, renal colic, gastrointestinal, cord compression, cauda equina, as well as others were deemed relatively unlikely. The pt informed about the findings as listed above. All questions were answered and pleased with the treatment. The chart was completed utilizing [employer] recognition software. Grammatical errors, random word insertions, pronoun errors, and incomplete sentences are an occassional consequence of this system due to software limitations, ambient noise, and hardware issues. Any formal questions or concerns about the content, text, or information contained within the body of this dictation should be directly addressed to the physician captain assistant for clarification. Impression & Plan Closed compression fracture of L2 vertebra, Compression fracture of T12 vertebra Discharge Plan Visit Data Chief Complaint: Back Injury/Pain Stated Complaint: BACK PAIN, NAUSEA ED Provider: Ju[facility] ED Midlevel Provider: Anna Christian Discharge Problem: Closed compression fracture of L2 vertebra, Compression fracture of T12 vertebra Patient Disposition: Admitted As Inpatient Condition: Fair Discharge Instructions Interventions: ED Discharge Assessment Last Done: 04/29/23 00:40
[2023-04-29] MEDS ORDERED: QUEtiapine FUMARATE 100 MG TABLET PO STA (01:46)
[2023-04-29] MEDS ORDERED: traZODone HCL 100 MG TAB PO STA (01:46)
[2023-04-29] MEDS ORDERED: DONEPEZIL HCL 5 MG TAB PO STA (01:46)
[2023-04-29] MEDS: traMADol HCL 50 MG TABLET PO PRN ×4 (01:59→20:31)
[2023-04-29] MEDS: MoRPHine SULFATE 2 MG/ML CARP IV PRN ×3 (04:20→14:43)
[2023-04-29] MEDS: LORazepam 1 MG TAB PO SCH ×3 (05:23→21:51)
[2023-04-29] MEDS: HEPARIN SOD 5,000 UNIT/0.5 ML VIAL SQ SCH ×2 (07:30→20:32)
[2023-04-29] MEDS: CALCIUM 600MG + VIT D 400 IU TAB PO SCH (07:31)
[2023-04-29] MEDS: DULoxetine HCL 60 MG CAP PO SCH (07:33)
[2023-04-29] MEDS: CHOLECALCIFEROL 1,000 UNITS 25 MCG TAB PO SCH (07:33)
[2023-04-29] MEDS: ASPIRIN 81 MG ECTAB PO SCH (07:33)
[2023-04-29] MEDS: FERROUS SULFATE 325 MG TAB PO SCH ×3 (07:33→20:32)
[2023-04-29] MEDS: GABAPENTIN 100 MG CAP PO SCH ×4 (07:33→20:31)
[2023-04-29] MEDS: predniSONE 20 MG TAB PO SCH ×2 (07:34→20:31)
[2023-04-29] MEDS: CEROVITE ADV FORMULA TAB PO SCH (07:34)
[2023-04-29] MEDS: UMECLIDINIUM/VILANTEROL 62.5/25MCG 7 PUFFS/INHALER INH SCH (07:34)
--- NOTE | 2023-04-29 12:30 | Orthopedic Consultation ---
Date of Consultation April 29, 2023 Assessment & Plan (1) Compression fracture of T12 vertebra: Assessment T12 and L2 compression fracture plan at this time we will attempt a trial of a TLSO brace and physical therapy. Ideally these would heal without surgical intervention. If she continues to have incapacitating pain she may be a candidate for kyphoplasty. She understands agrees with this plan. History of Present Illness Reason for Consultation: Back pain Attending Physician: Billy Vo History of Present Illness This is a very pleasant 68-year-old female presents with fairly incapacitating thoracolumbar back pain. She states this began last . She does not recall any specific trauma fall or event. She states she did undergo a prolonged car ride that may have caused the symptoms. She denies any numbness or tingling in the lower extremities but denies any leg weakness. She does state her pain is a 10 out of 10 with activity. She is comfortable at this time lying in bed. Allergies Allergy/AdvReac Type Severity Reaction Status Date / Time Iodinated Contrast Media Allergy Severe ANAPHYLAXIS Verified 02/27/23 18:55 Sulfa (Sulfonamide Allergy Unknown SEE COMMENT Verified 02/27/23 18:55 Antibiotics) banana AdvReac Severe GI SYMPTOMS Verified 02/27/23 18:55 beet AdvReac Unknown Gastrointestinal Verified 02/27/23 18:55 Upset Home Medications Medication Instructions Recorded Confirmed Type lorazepam 1 mg tablet (Ativan) 1 mg PO Q8H 06/18/18 04/29/23 History cyclobenzaprine 10 mg tablet 10 mg PO BID PRN MUSCLE SPASMS 11/06/18 04/28/23 History duloxetine 60 mg capsule,delayed 60 mg PO DAILY 11/06/18 04/29/23 History release (Cymbalta) cholecalciferol (vitamin D3) 25 25 mcg PO DAILY 10/16/22 04/29/23 History mcg (1,000 unit) capsule aspirin 81 mg tablet,delayed 81 mg PO DAILY 11/13/22 04/29/23 History release (Adult Low Dose Aspirin) ferrous sulfate 325 mg (65 mg 325 mg PO DAILY 11/26/22 04/29/23 History iron) tablet trazodone 100 mg tablet 100 mg PO HS 11/26/22 04/29/23 History Oxygen Home #1 ea 01/24/23 04/29/23 Rx compressor, for nebulizer #1 ea 02/05/23 04/29/23 Rx nebulizer accessories #2 ea 02/05/23 04/29/23 Rx donepezil 5 mg tablet 2.5 mg PO HS 02/27/23 04/28/23 History quetiapine 100 mg tablet (Seroquel) 100 mg PO HS 02/27/23 04/29/23 History sulfamethoxazole 800 1 tab PO 3XWK 02/27/23 04/29/23 History mg-trimethoprim 160 mg tablet (Bactrim DS) gabapentin 400 mg capsule 400 mg PO TID 04/28/23 04/28/23 History calcium carbonate 500 mg-vitamin 1 tab PO DAILY 04/29/23 04/29/23 History D3 5 mcg (200 unit) tablet (Oyster Shell Calcium-Vitamin D3) oxycodone 5 mg tablet 5 mg PO QID PRN pain 4-10 04/29/23 04/29/23 History prednisone 20 mg tablet 20 mg PO DAILY 04/29/23 04/29/23 History Patient History Medical History (Updated 04/29/23 @ 04:21 by Chidi Woods MD) Anxiety disorder Dyspnea and respiratory abnormalities Eustachian tube dysfunction Hypersensitivity pneumonitis Hypoxemic respiratory failure, chronic Interstitial lung disease Mixed conductive and sensorineural hearing loss of left ear with restricted hearing of right ear Pneumothorax Seasonal allergies Severe protein-calorie malnutrition Short-term memory loss Weakness generalized Surgical History History of adenoidectomy History of tonsillectomy Family History Father Allergies Asthma Other No family history of adverse response to anesthesia No family history of bleeding disorder Social History Smoking Status: Never smoker Second Hand Exposure: No; Do You Dip or Chew Tobacco: No; Hx Alcohol Use: No Hx Substance Use: No Preferred Language: Greek Communication Ability: Effective Visual Impairment: No Limitations Hearing Ability: Normal Director Of Public Health Required: No Beliefs That Will Affect Care: None marital status: Current Living Situation: Personal Care Facility Current Living Situation Comment: [facility] current occupational status: retired Feels Safe at Home: Yes Safety Concerns: Feels Safe At This Time Assistive Devices: Glasses, Oxygen - Continuous and Walker Physical Exam Physical Exam: On exam she is alert and oriented and very cooperative. She has good strength testing lower extremities. Sensory is intact. Results & Data Vital Signs (Past 12 Hours) Vital Signs Temp Pulse Pulse Resp BP BP Pulse Ox 04/29/23 09:55 04/29/23 07:23 36.9 C 92 H 16 117/75 95 04/29/23 00:40 89 19 92 04/29/23 00:30 90 20 93 04/29/23 00:30 154/97 H 04/29/23 00:40 04/29/23 01:17 04/29/23 01:17 36.5 C 81 16 157/79 H 95 O2 Del Method O2 Flow Rate 04/29/23 09:55 Nasal Cannula 2 04/29/23 07:23 Nasal Cannula 1.5 04/29/23 00:40 04/29/23 00:30 04/29/23 00:30 04/29/23 00:40 Room Air 04/29/23 01:17 Nasal Cannula 2 04/29/23 01:17 Nasal Cannula 2
[2023-04-29] MEDS: ACETAMINOPHEN 325 MG TAB PO SCH ×2 (20:31→21:42)
[2023-04-29] MEDS: traZODone HCL 100 MG TAB PO SCH (20:32)
[2023-04-29] MEDS: QUEtiapine FUMARATE 100 MG TABLET PO SCH (20:32)
--- NOTE | 2023-04-29 21:16 | Hospitalist Progress Note ---
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 Canada added calcitonin and tylenol on 04/29 Anxiety/fibromyalgia- Continue trazodone, quetiapine, lorazepam, gabapentin, duloxetine and donepezil COPD- Continue usual inhalers and nebulizers Admission and Anticipated Discharge Date Admission Date: April 28, 2023 Subjective Patient reports no new symptoms. Review of Systems Review of Systems: All systems reviewed & are unremarkable except as noted in HPI & below Physical Exam Physical Exam: The patient is awake, alert and oriented 3 HEENT--PERRL, EOMI Neck--supple. No JVD. No bruits. Thyroid normal, trachea midline, no adenopathy. Heart--normal S1 and S2. No murmurs, rubs or gallops. Lungs--clear bilaterally, no respiratory distress, no accessory muscle use. Abdomen--normal bowel sounds and soft. Nontender. Nondistended Extremities--no cyanosis or clubbing. No edema. There are good distal pulses b/l. Dermatologic--normal skin turgor, normal color, no abnormal lymph nodes, no rash. Neurologic--cranial nerves II through XII grossly intact. Rheumatologic--exam limited by back pain, reproducible pain over T12 L2 and and less so over remaining lumbar spine Psychiatric--normal affect. Results & Data Results & Data Vital Signs (Past 12 Hours) Vital Signs Temp Pulse Pulse Resp BP BP Pulse Ox 04/29/23 20:20 36.5 C 86 20 136/82 94 04/29/23 15:14 36.9 C 96 H 18 163/90 H 91 04/29/23 09:55 O2 Del Method O2 Flow Rate 04/29/23 20:20 Nasal Cannula 2 04/29/23 15:14 Nasal Cannula 2 04/29/23 09:55 Nasal Cannula 2 PG Care Time/CCT Total # of Minutes Spent Total Time Spent with Patient: Total time spent is greater than 50% in coordination of care (as documented) at patient's floor/unit and/or counseling patient: Coding Level of Care Code 40542 SUB INP/OBS CARE 2/35MIN Diagnoses Closed compression fracture of L2 vertebra S32.020A Encounter type: initial encounter Compression fracture of T12 vertebra S22.080A Pelvis fracture S32.9XXA Closed fracture of symphysis pubis S32.599A Ambulatory dysfunction R26.2 Cluster A personality disorder F60.9 Mood disorder due to known physiological condition F06.30 Fibromyalgia M79.7 Anxiety disorder F41.9 (1) Closed compression fracture of L2 vertebra Encounter type: initial encounter Qualified Code(s): S32.020A - Wedge compression fracture of second lumbar vertebra, initial encounter for closed fracture
[2023-04-29] MEDS: CALCITONIN SALMON NA 200 IU/AC 3.7 ML BTL SCH (21:40)
[2023-04-29] MEDS: DONEPEZIL HCL 5 MG TAB PO SCH (21:52)
[2023-04-30] MEDS: MoRPHine SULFATE 2 MG/ML CARP IV PRN ×4 (04:18→19:29)
[2023-04-30] MEDS: LORazepam 1 MG TAB PO SCH ×3 (05:35→21:02)
[2023-04-30] MEDS: traMADol HCL 50 MG TABLET PO PRN (08:03)
[2023-04-30] MEDS: CEROVITE ADV FORMULA TAB PO SCH (08:04)
[2023-04-30] MEDS: DULoxetine HCL 60 MG CAP PO SCH (08:04)
[2023-04-30] MEDS: predniSONE 20 MG TAB PO SCH ×2 (08:04→21:00)
[2023-04-30] MEDS: GABAPENTIN 100 MG CAP PO SCH ×4 (08:05→21:00)
[2023-04-30] MEDS: CALCIUM 600MG + VIT D 400 IU TAB PO SCH (08:05)
[2023-04-30] MEDS: ASPIRIN 81 MG ECTAB PO SCH (08:05)
[2023-04-30] MEDS: FERROUS SULFATE 325 MG TAB PO SCH ×3 (08:05→21:00)
[2023-04-30] MEDS: HEPARIN SOD 5,000 UNIT/0.5 ML VIAL SQ SCH ×2 (08:06→21:00)
[2023-04-30] MEDS: CHOLECALCIFEROL 1,000 UNITS 25 MCG TAB PO SCH (08:06)
[2023-04-30] MEDS: ACETAMINOPHEN 325 MG TAB PO SCH ×4 (08:06→20:59)
[2023-04-30] MEDS: UMECLIDINIUM/VILANTEROL 62.5/25MCG 7 PUFFS/INHALER INH SCH (08:07)
[2023-04-30 08:50] LABS: Hemoglobin 12.7 g/dl (12.0-16.0); Mean Corpuscular Hemoglobin 33.5 pg (25.0-34.0); Mean Corpuscular Hgb Conc 33.4 g/dL (32.0-36.0); Mean Corpuscular Volume 100.3 fL (80.0-100.0); Mean Platelet Volume 8.8 fL (9.4-12.4); Platelet Count 340 K/uL (130-400); RDW Coefficient of Variation 12.5 % (11.5-14.5); RDW Standard Deviation 46.1 fL (36.4-46.3); Red Blood Count 3.79 M/uL (4.20-5.40); White Blood Count 9.95 K/ul (4.8-10.8)
[2023-04-30 09:21] LABS: BUN Creatinine Ratio 51.1 (10-20); C Reactive Protein 1.47 mg/dl (0-0.5); Calcium 9.4 mg/dl (8.6-10.3); Creatinine Clr Calc Pharmacy 65.1 ml/min; Est GFR (Non-African American) 100.1 ml/min; Potassium 4.1 mmol/L (3.5-5.1)
[2023-04-30] MEDS: QUEtiapine FUMARATE 100 MG TABLET PO SCH (21:00)
[2023-04-30] MEDS: traZODone HCL 100 MG TAB PO SCH (21:00)
[2023-04-30] MEDS: DONEPEZIL HCL 5 MG TAB PO SCH (21:00)
[2023-04-30] MEDS: CALCITONIN SALMON NA 200 IU/AC 3.7 ML BTL SCH (21:01)
--- NOTE | 2023-04-30 22:37 | Hospitalist Progress Note ---
Date of Service April 30, 2023 Assessment & Plan (1) Closed compression fracture of L2 vertebra: Plan: osteoporosis with current pathological fracture, L2 and T12 vertebrae Closed compression fracture of T12 with 65% height loss/closed fracture of L2 with 70% height loss- Tramadol 50 mg by mouth 4 times daily as needed moderate pain Morphine sulfate 2 mg IV every 4 hours as needed severe pain Continue cyclobenzaprine Consult orthopedic spine surgery Dr. 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 Review of Systems Review of Systems: All systems reviewed & are unremarkable except as noted in HPI & below Physical Exam Physical Exam: The patient is awake, alert and oriented 3 HEENT--PERRL, EOMI Neck--supple. No JVD. No bruits. Thyroid normal, trachea midline, no adenopathy. Heart--normal S1 and S2. No murmurs, rubs or gallops. Lungs--clear bilaterally, no respiratory distress, no accessory muscle use. Abdomen--normal bowel sounds and soft. Nontender. Nondistended Extremities--no cyanosis or clubbing. No edema. There are good distal pulses b/l. Dermatologic--normal skin turgor, normal color, no abnormal lymph nodes, no rash. Neurologic--cranial nerves II through XII grossly intact. Rheumatologic--exam limited by back pain, reproducible pain over T12 L2 and and less so over remaining lumbar spine Psychiatric--normal affect. Results & Data Results & Data Vital Signs (Past 12 Hours) Vital Signs Temp Pulse Resp BP BP Pulse Ox O2 Del Method 04/30/23 22:23 36.4 C L 84 16 113/68 98 Room Air 04/30/23 16:12 36.6 C 95 H 15 151/93 H 95 Nasal Cannula O2 Flow Rate 04/30/23 22:23 04/30/23 16:12 2 PG Care Time/CCT Total # of Minutes Spent Total Time Spent with Patient: Total time spent is greater than 50% in coordination of care (as documented) at patient's floor/unit and/or counseling patient: Coding Level of Care Code 68633 SUB INP/OBS CARE 2/35MIN Diagnoses Closed compression fracture of L2 vertebra S32.020A Encounter type: initial encounter Compression fracture of T12 vertebra S22.080A Pelvis fracture S32.9XXA Closed fracture of symphysis pubis S32.599A Ambulatory dysfunction R26.2 Cluster A personality disorder F60.9 Mood disorder due to known physiological condition F06.30 Fibromyalgia M79.7 Anxiety disorder F41.9 (1) Closed compression fracture of L2 vertebra Encounter type: initial encounter Qualified Code(s): S32.020A - Wedge compression fracture of second lumbar vertebra, initial encounter for closed fracture
[2023-05-01] MEDS: traMADol HCL 50 MG TABLET PO PRN ×2 (02:23→17:13)
[2023-05-01] MEDS: MoRPHine SULFATE 2 MG/ML CARP IV PRN ×3 (04:56→19:19)
[2023-05-01] MEDS: LORazepam 1 MG TAB PO SCH ×3 (06:00→21:16)
[2023-05-01] MEDS: CHOLECALCIFEROL 1,000 UNITS 25 MCG TAB PO SCH (07:36)
[2023-05-01] MEDS: ASPIRIN 81 MG ECTAB PO SCH (07:36)
[2023-05-01] MEDS: DULoxetine HCL 60 MG CAP PO SCH (07:37)
[2023-05-01] MEDS: HEPARIN SOD 5,000 UNIT/0.5 ML VIAL SQ SCH ×2 (07:37→20:50)
[2023-05-01] MEDS: predniSONE 20 MG TAB PO SCH ×2 (07:37→20:49)
[2023-05-01] MEDS: CALCIUM 600MG + VIT D 400 IU TAB PO SCH (07:37)
[2023-05-01] MEDS: CEROVITE ADV FORMULA TAB PO SCH (07:37)
[2023-05-01] MEDS: FERROUS SULFATE 325 MG TAB PO SCH ×3 (07:38→20:51)
[2023-05-01] MEDS: GABAPENTIN 100 MG CAP PO SCH ×4 (07:38→20:51)
[2023-05-01] MEDS: UMECLIDINIUM/VILANTEROL 62.5/25MCG 7 PUFFS/INHALER INH SCH (07:39)
[2023-05-01] MEDS: ACETAMINOPHEN 325 MG TAB PO SCH ×4 (07:42→21:12)
--- NOTE | 2023-05-01 09:49 | Hospitalist Progress Note ---
Date of Service May 01, 2023 Assessment & Plan (1) Closed compression fracture of L2 vertebra: Plan: osteoporosis with current pathological fracture, L2 and T12 vertebrae Closed compression fracture of T12 with 65% height loss/closed fracture of L2 with 70% height loss- Tramadol 50 mg by mouth 4 times daily as needed moderate pain Morphine sulfate 2 mg IV every 4 hours as needed severe pain Continue cyclobenzaprine Consult orthopedic spine surgery Dr. 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: (8) Fibromyalgia: (9) Anxiety disorder: Admission and Anticipated Discharge Date Admission Date: April 28, 2023 Subjective Pt is with good pain control, able to have some movement, brace at bedside Physical Exam Physical Exam: cardiac exam is regular, lungs are clear no radicular leg pain Results & Data Results & Data Vital Signs (Past 12 Hours) Vital Signs Temp Pulse Resp BP Pulse Ox O2 Del Method O2 Flow Rate 05/01/23 07:47 Nasal Cannula 2 05/01/23 07:18 97.9 F 85 17 128/87 97 Nasal Cannula 2 04/30/23 22:23 97.5 F L 84 16 113/68 98 Room Air PG Care Time/CCT Total # of Minutes Spent Total Time Spent with Patient: Total time spent is greater than 50% in coordination of care (as documented) at patient's floor/unit and/or counseling patient: Coding Level of Care Code 03194 SUB INP/OBS CARE 2/35MIN Diagnoses Closed compression fracture of L2 vertebra S32.020A Encounter type: initial encounter Compression fracture of T12 vertebra S22.080A Pelvis fracture S32.9XXA Closed fracture of symphysis pubis S32.599A Ambulatory dysfunction R26.2 Cluster A personality disorder F60.9 Mood disorder due to known physiological condition F06.30 Fibromyalgia M79.7 Anxiety disorder F41.9 (1) Closed compression fracture of L2 vertebra Encounter type: initial encounter Qualified Code(s): S32.020A - Wedge compression fracture of second lumbar vertebra, initial encounter for closed fracture
[2023-05-01] MEDS: CALCITONIN SALMON NA 200 IU/AC 3.7 ML BTL SCH (19:22)
[2023-05-01] MEDS: traZODone HCL 100 MG TAB PO SCH (20:50)
[2023-05-01] MEDS: QUEtiapine FUMARATE 100 MG TABLET PO SCH (20:51)
[2023-05-01] MEDS: DONEPEZIL HCL 5 MG TAB PO SCH (21:12)
[2023-05-02] MEDS: LORazepam 1 MG TAB PO SCH ×3 (05:33→23:12)
[2023-05-02] MEDS: MoRPHine SULFATE 2 MG/ML CARP IV PRN (05:34)
[2023-05-02] MEDS: HEPARIN SOD 5,000 UNIT/0.5 ML VIAL SQ SCH ×2 (08:14→19:57)
[2023-05-02] MEDS: GABAPENTIN 100 MG CAP PO SCH ×4 (08:14→19:57)
[2023-05-02] MEDS: ACETAMINOPHEN 325 MG TAB PO SCH ×2 (08:14→13:33)
[2023-05-02] MEDS: CHOLECALCIFEROL 1,000 UNITS 25 MCG TAB PO SCH (08:15)
[2023-05-02] MEDS: CEROVITE ADV FORMULA TAB PO SCH (08:15)
[2023-05-02] MEDS: FERROUS SULFATE 325 MG TAB PO SCH ×3 (08:15→19:57)
[2023-05-02] MEDS: DULoxetine HCL 60 MG CAP PO SCH (08:15)
[2023-05-02] MEDS: CALCIUM 600MG + VIT D 400 IU TAB PO SCH (08:15)
[2023-05-02] MEDS: predniSONE 20 MG TAB PO SCH (08:15)
[2023-05-02] MEDS: UMECLIDINIUM/VILANTEROL 62.5/25MCG 7 PUFFS/INHALER INH SCH (08:16)
[2023-05-02] MEDS: ASPIRIN 81 MG ECTAB PO SCH (08:16)
[2023-05-02] MEDS: traMADol HCL 50 MG TABLET PO PRN (13:30)
[2023-05-02] MEDS ORDERED: traMADol HCL 50 MG TABLET PO PRN (15:31)
--- NOTE | 2023-05-02 15:36 | Hospitalist Progress Note ---
Date of Service May 02, 2023 Assessment & Plan (1) Closed compression fracture of L2 vertebra: Plan: osteoporosis with current pathological fracture, L2 and T12 vertebrae Closed compression fracture of T12 with 65% height loss/closed fracture of L2 with 70% height loss- Tramadol 50 mg by mouth 4 times daily as needed moderate pain has not been effective we will use oxycodone 5 every 6 6 as needed Morphine sulfate 2 mg IV every 4 hours as needed severe pain Continue cyclobenzaprine Consult orthopedic spine surgery Dr. 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 Her pain is not optimally controlled. She has no radicular components Of note pain medicine to use cautiously this patient is on many psychotropic medications including benzodiazepines and atypical antipsychotic Physical Exam Physical Exam: cardiac exam is regular, lungs are clear no radicular leg pain Results & Data Results & Data Vital Signs (Past 12 Hours) Vital Signs Temp Pulse Resp BP BP Pulse Ox O2 Del Method 05/02/23 14:00 97.5 F L 96 H 18 131/83 97 Nasal Cannula 05/02/23 08:00 Nasal Cannula 05/02/23 07:20 85 17 128/83 96 Nasal Cannula O2 Flow Rate 05/02/23 14:00 2 05/02/23 08:00 2 05/02/23 07:20 2 PG Care Time/CCT Total # of Minutes Spent Total Time Spent with Patient: Total time spent is greater than 50% in coordination of care (as documented) at patient's floor/unit and/or counseling patient: Coding Level of Care Code 92466 SUB INP/OBS CARE 2/35MIN Diagnoses Closed compression fracture of L2 vertebra S32.020A Encounter type: initial encounter Compression fracture of T12 vertebra S22.080A Pelvis fracture S32.9XXA Closed fracture of symphysis pubis S32.599A Ambulatory dysfunction R26.2 Cluster A personality disorder F60.9 Mood disorder due to known physiological condition F06.30 Fibromyalgia M79.7 Anxiety disorder F41.9 (1) Closed compression fracture of L2 vertebra Encounter type: initial encounter Qualified Code(s): S32.020A - Wedge compression fracture of second lumbar vertebra, initial encounter for closed fracture
[2023-05-02] MEDS: CALCITONIN SALMON NA 200 IU/AC 3.7 ML BTL SCH (19:55)
[2023-05-02] MEDS: DONEPEZIL HCL 5 MG TAB PO SCH (19:56)
[2023-05-02] MEDS: QUEtiapine FUMARATE 100 MG TABLET PO SCH (19:58)
[2023-05-02] MEDS: traZODone HCL 100 MG TAB PO SCH (19:59)
[2023-05-02] MEDS: ACETAMINOPHEN 500 MG TAB PO SCH (20:00)
[2023-05-02] MEDS: oxyCODONE HCL IR 5 MG TAB (IMMEDIATE RELEASE) PO PRN (23:11)
[2023-05-03] MEDS: oxyCODONE HCL IR 5 MG TAB (IMMEDIATE RELEASE) PO PRN ×2 (05:45→21:47)
[2023-05-03] MEDS: LORazepam 1 MG TAB PO SCH ×2 (05:46→13:39)
[2023-05-03] MEDS: ACETAMINOPHEN 500 MG TAB PO SCH ×3 (07:54→19:16)
[2023-05-03] MEDS: ASPIRIN 81 MG ECTAB PO SCH (07:55)
[2023-05-03] MEDS: CHOLECALCIFEROL 1,000 UNITS 25 MCG TAB PO SCH (07:56)
[2023-05-03] MEDS: FERROUS SULFATE 325 MG TAB PO SCH ×2 (07:56→13:39)
[2023-05-03] MEDS: CALCIUM 600MG + VIT D 400 IU TAB PO SCH (07:56)
[2023-05-03] MEDS: DULoxetine HCL 60 MG CAP PO SCH (07:56)
[2023-05-03] MEDS: CEROVITE ADV FORMULA TAB PO SCH (07:57)
[2023-05-03] MEDS: GABAPENTIN 100 MG CAP PO SCH ×4 (07:57→19:14)
[2023-05-03] MEDS: HEPARIN SOD 5,000 UNIT/0.5 ML VIAL SQ SCH ×2 (07:58→19:15)
[2023-05-03] MEDS: predniSONE 20 MG TAB PO SCH (08:02)
[2023-05-03] MEDS: UMECLIDINIUM/VILANTEROL 62.5/25MCG 7 PUFFS/INHALER INH SCH (08:03)
[2023-05-03] MEDS ORDERED: LIDOCAINE 5% 1 PATCH TD STA (10:48)
[2023-05-03] MEDS ORDERED: oxyCODONE HCL IR 5 MG TAB (IMMEDIATE RELEASE) PO STA (10:51)
--- NOTE | 2023-05-03 13:15 | Discharge Summary ---
Date of Service May 03, 2023 Admission HPI Per Admitting Provider The patient is a 68-year-old female resident [facility], who presents to the emergency department complaining of back pain over the past 4 days, which is worsened to 10/10 throughout the day today. She denies any history of trauma, and reports that this came on suddenly. CT scan of lumbar spine shows T12 compression fracture with 65% height loss, and L2 compression fracture with 70% height loss CT scan of abdomen pelvis primarily shows fecal retention with suggestion of reactive enteritis and delayed transit through the small bowel. CT scan abdomen pelvis also shows healing pelvic fractures Principal Diagnosis T12 L2 osteoporotic pathological compression fracture polypharmacy Discharge Exam cardiac exam is regular, lungs are clear no radicular leg pain Discharge Data Allergies Allergy/AdvReac Type Severity Reaction Status Date / Time Iodinated Contrast Media Allergy Severe ANAPHYLAXIS Verified 02/27/23 18:55 Sulfa (Sulfonamide Allergy Unknown SEE COMMENT Verified 02/27/23 18:55 Antibiotics) banana AdvReac Severe GI SYMPTOMS Verified 02/27/23 18:55 beet AdvReac Unknown Gastrointestinal Verified 02/27/23 18:55 Upset Consultations 04/28/23 23:34 ED Decision to Admit Stat 04/29/23 04:24 Consult Orthopedic Spine Surgery Routine Ordered Studies 04/28/23 21:40 CT abd pelvis wo con Stat CT lumbar spine wo con Stat Hospital Course (1) Closed compression fracture of L2 vertebra: osteoporosis with current pathological fracture, L2 and T12 vertebrae Closed compression fracture of T12 with 65% height loss/closed fracture of L2 with 70% height loss- patient typically on home oxycodone as needed this may be why it is less than effective increase the dose to 10 from 5 patient also chronically on gabapentin and this dose was continued Continue cyclobenzaprine Consult orthopedic spine surgery Dr. Canada recommend attempts at medical management and TLSO brace. 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: (8) Fibromyalgia: (9) Anxiety disorder: Plan patient able to move reasonably well rehab's choice whether to use chemoprophylaxis for DVT prevention Total Time Total Time Spent Total Time Spent (In Minutes): it required greater than 30 minutes to prepare this patient for discharge Discharge Plan Discharge Items Patient Disposition: Transfer Inpatient Rehab Fac Reason For Visit: T12 & L2 COMPRESSION FRACTURES, PELVIC FRACTURES Discharge Diagnosis: T12 and L2 compression fractures Condition on Discharge: Fair Activity: Per Instructions section Activity Comment: wear brace when ambulating Non-emergency contact: Primary Care Provider Call non-emergency contact if: your symptoms worsen Follow-up/Referrals: Garth Wellington PA-C [Primary Care Provider] - Diet: Regular Addtl Attending Provider Instructions: Dr. Canada is seen this patient in consultation and recommends a trial of pain medications and physical therapy with a TLSO brace. He is open to repeat visit in the office to consider kyphoplasty if her pain is suboptimally controlled of note the patient is on many habit-forming medications and medications that likely using combination may be unfavorable for someone in their 70s however these are her home medications and we have had some challenges controlling pain likely due to chronic opiate use at home. Subsequently her pain regiment does include her home opiates a slightly higher dose but as her pain improves it may be an opportunity to consider having a pharmacy consult for medicine reconciliation to streamline her medication list Pending Studies at Discharge: No Stand-Alone Forms: My [facility] Skilled Items Patient informed of condition?: Yes DNR: No Discharge Level of Care: Acute rehab Communicable Disease: No Discharge Prognosis: Stable Lines: None Urinary Catheter: No Medications and DC Order Prescriptions: New acetaminophen [Tylenol Extra Strength] 500 mg Tablet 1,000 mg PO TID Qty: 90 0RF calcitonin (salmon) 200 unit/actuation [place],Non-Aerosol 1 spray NA Q24H Qty: 1 0RF lidocaine [Lidoderm] 5 % adhesive patch,medicated 1 patch topical DAILY Qty: 15 0RF Rx Instructions: leave on most painful area for up to 12 hrs Continued lorazepam [Ativan] 1 mg tablet 1 mg PO Q8H cyclobenzaprine 10 mg tablet 10 mg PO BID PRN (Reason: MUSCLE SPASMS) duloxetine [Cymbalta] 60 mg capsule,delayed release(DR/EC) 60 mg PO DAILY (DME) Oxygen Home Liters Per Minute See Rx Instructions .Route Qty: 1 0RF Rx Instructions: humidifcation for oxygen cholecalciferol (vitamin D3) 25 mcg (1,000 unit) capsule 25 mcg PO DAILY Anoro Ellipta 62.5-25 mcg/actuation blister with device 1 inh inhalation DAILY 0RF (DME) nebulizer accessories Kit See Rx Instructions .MEDSUPPLY Qty: 2 0RF Rx Instructions: Dx: ILD. LOS 99 years (DME) compressor, for nebulizer Device See Rx Instructions .Route Qty: 1 0RF Rx Instructions: Dx: ILD, hypoxia, LOS 99 years aspirin [Adult Low Dose Aspirin] 81 mg tablet,delayed release (DR/EC) 81 mg PO DAILY trazodone 100 mg tablet 100 mg PO HS ferrous sulfate 325 mg (65 mg iron) Tablet 325 mg PO DAILY donepezil 5 mg tablet 2.5 mg PO HS quetiapine [Seroquel] 100 mg Tablet 100 mg PO HS sulfamethoxazole-trimethoprim [Bactrim DS] 800-160 mg tablet 1 tab PO 3XWK Rx Instructions: 1 tab orally every Mon, Wed, and Fri; gabapentin 400 mg capsule 400 mg PO TID calcium carbonate-vitamin D3 [Oyster Shell Calcium-Vit D3] 500 mg-5 mcg (200 unit) Tablet 1 tab PO DAILY prednisone 20 mg tablet 20 mg PO DAILY Changed oxycodone 5 mg tablet 10 mg PO QID PRN (Reason: pain 4-10) Qty: 60 0RF Discharge Orders: Discharge Order (Routine); Ordered 05/03/23 Ordered By: Elieser Cutler Admission Data Admit Date/Time: 04/28/23 23:52 Attending Provider: Elieser Cutler Admit Provider: Chidi Woods Primary Care Provider: Garth Wellington. Other Providers: Chidi Woods ; Alden Canada ; [facility] Coding Level of Care Code 98854 INP/OBS DISCH >30 MIN Diagnoses Closed compression fracture of L2 vertebra S32.020A Encounter type: initial encounter Compression fracture of T12 vertebra S22.080A Pelvis fracture S32.9XXA Closed fracture of symphysis pubis S32.599A Ambulatory dysfunction R26.2 Cluster A personality disorder F60.9 Mood disorder due to known physiological condition F06.30 Fibromyalgia M79.7 Anxiety disorder F41.9
[2023-05-03] MEDS: CALCITONIN SALMON NA 200 IU/AC 3.7 ML BTL SCH (18:20)
[2023-05-03] MEDS: DONEPEZIL HCL 5 MG TAB PO SCH (19:13)
[2023-05-03] MEDS: QUEtiapine FUMARATE 100 MG TABLET PO SCH (19:15)
[2023-05-03] MEDS ORDERED: traZODone HCL 50 MG TAB PO SCH (21:00)
[2023-05-03] MEDS: LORazepam 0.5 MG TAB PO SCH (21:47)
[2023-05-04] MEDS: oxyCODONE HCL IR 5 MG TAB (IMMEDIATE RELEASE) PO PRN ×3 (06:09→18:45)
[2023-05-04] MEDS: LORazepam 0.5 MG TAB PO SCH ×2 (06:09→14:16)
[2023-05-04] MEDS: ASPIRIN 81 MG ECTAB PO SCH (08:33)
[2023-05-04] MEDS: ACETAMINOPHEN 500 MG TAB PO SCH ×2 (08:33→14:16)
[2023-05-04] MEDS: CALCIUM 600MG + VIT D 400 IU TAB PO SCH (08:35)
[2023-05-04] MEDS: CHOLECALCIFEROL 1,000 UNITS 25 MCG TAB PO SCH (08:35)
[2023-05-04] MEDS: GABAPENTIN 100 MG CAP PO SCH ×3 (08:36→17:04)
[2023-05-04] MEDS: CEROVITE ADV FORMULA TAB PO SCH (08:36)
[2023-05-04] MEDS: DULoxetine HCL 60 MG CAP PO SCH (08:36)
[2023-05-04] MEDS: predniSONE 20 MG TAB PO SCH (08:36)
[2023-05-04] MEDS: UMECLIDINIUM/VILANTEROL 62.5/25MCG 7 PUFFS/INHALER INH SCH (08:37)
[2023-05-04] MEDS: HEPARIN SOD 5,000 UNIT/0.5 ML VIAL SQ SCH (08:37)
--- NOTE | 2023-05-04 10:05 | Orthopedic Progress Note ---
Date of Service May 04, 2023 Assessment & Plan (1) Compression fracture of T12 vertebra: Plan: At this time and recommend that she continue physical therapy with the brace. Would like to avoid surgery. She understands agrees. She is stable from an orthopedic standpoint. Admission and Anticipated Discharge Date Admission Date: April 28, 2023 Subjective Patient states her back pain is still troublesome but it is improving. She is tolerating physical therapy. Physical Exam Physical Exam: On exam she is sitting in bed. She appears comfortable. She is neurologically intact. Results & Data Vital Signs (Past 12 Hours) Vital Signs Temp Pulse Resp BP Pulse Ox O2 Del Method O2 Flow Rate 05/04/23 07:30 36.4 C L 81 18 115/72 98 Nasal Cannula 2 05/04/23 07:10 Nasal Cannula 2
--- NOTE | 2023-05-04 16:58 | Hospitalist Progress Note ---
Date of Service May 04, 2023 Assessment & Plan (1) Closed compression fracture of L2 vertebra: Plan: osteoporosis with current pathological fracture, L2 and T12 vertebrae Closed compression fracture of T12 with 65% height loss/closed fracture of L2 with 70% height loss- patient typically on home oxycodone as needed this may be why it is less than effective increase the dose to 10 from 5 patient also chronically on gabapentin and this dose was continued Continue cyclobenzaprine Consult orthopedic spine surgery Dr. Canada recommend attempts at medical management and TLSO brace. 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: (8) Fibromyalgia: (9) Anxiety disorder: Plan patient able to move reasonably well rehab's choice whether to use chemoprophylaxis for DVT prevention Admission and Anticipated Discharge Date Admission Date: April 28, 2023 Subjective pt has fair pain control was seen by Dr Canada and continued to have plan of TLSO brace and medication for pain control and rehab Physical Exam Physical Exam: Awake and alert no focal pain or radicular losses Results & Data Results & Data Vital Signs (Past 12 Hours) Vital Signs Temp Pulse Resp BP Pulse Ox O2 Del Method O2 Flow Rate 05/04/23 15:55 97.5 F L 74 18 138/82 97 Nasal Cannula 2 05/04/23 07:30 97.5 F L 81 18 115/72 98 Nasal Cannula 2 05/04/23 07:10 Nasal Cannula 2 PG Care Time/CCT Total # of Minutes Spent Total Time Spent with Patient: Total time spent is greater than 50% in coordination of care (as documented) at patient's floor/unit and/or counseling patient: Coding Diagnoses Closed compression fracture of L2 vertebra S32.020A Encounter type: initial encounter Compression fracture of T12 vertebra S22.080A Pelvis fracture S32.9XXA Closed fracture of symphysis pubis S32.599A Ambulatory dysfunction R26.2 Cluster A personality disorder F60.9 Mood disorder due to known physiological condition F06.30 Fibromyalgia M79.7 Anxiety disorder F41.9 (1) Closed compression fracture of L2 vertebra Encounter type: initial encounter Qualified Code(s): S32.020A - Wedge compression fracture of second lumbar vertebra, initial encounter for closed fracture
--- NOTE | 2023-05-04 16:59 | Discharge Summary ---
Date of Service May 04, 2023 Admission HPI Per Admitting Provider The patient is a 68-year-old female resident of local senior care, who presents to the emergency department complaining of back pain over the past 4 days, which is worsened to 10/10 throughout the day today. She denies any history of trauma, and reports that this came on suddenly. CT scan of lumbar spine shows T12 compression fracture with 65% height loss, and L2 compression fracture with 70% height loss CT scan of abdomen pelvis primarily shows fecal retention with suggestion of reactive enteritis and delayed transit through the small bowel. CT scan abdomen pelvis also shows healing pelvic fractures Principal Diagnosis Compression fracture T12 L2 Underweight BMI of 15.9 Fibromyalgia with polypharmacy Discharge Exam Patient is awake and alert still has back pain no radicular pain or focal neurological deficits Discharge Data Allergies Allergy/AdvReac Type Severity Reaction Status Date / Time Iodinated Contrast Media Allergy Severe ANAPHYLAXIS Verified 02/27/23 18:55 Sulfa (Sulfonamide Allergy Unknown SEE COMMENT Verified 02/27/23 18:55 Antibiotics) banana AdvReac Severe GI SYMPTOMS Verified 02/27/23 18:55 beet AdvReac Unknown Gastrointestinal Verified 02/27/23 18:55 Upset Consultations 04/28/23 23:34 ED Decision to Admit Stat 04/29/23 04:24 Consult Orthopedic Spine Surgery Routine Ordered Studies 04/28/23 21:40 CT abd pelvis wo con Stat CT lumbar spine wo con Stat Hospital Course (1) Closed compression fracture of L2 vertebra: osteoporosis with current pathological fracture, L2 and T12 vertebrae Closed compression fracture of T12 with 65% height loss/closed fracture of L2 with 70% height loss- patient typically on home oxycodone as needed this may be why it is less than effective increase the dose to 10 from 5 patient also chronically on gabapentin and this dose was continued Continue cyclobenzaprine Consult orthopedic spine surgery Dr. Canada recommend attempts at medical management and TLSO brace. 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: (8) Fibromyalgia: (9) Anxiety disorder: Plan patient able to move reasonably well rehab's choice whether to use chemoprophylaxis for DVT prevention Total Time Total Time Spent Total Time Spent (In Minutes): It required less than 30 minutes to prepare this patient for discharge Discharge Plan Discharge Items Patient Disposition: Transfer Inpatient Rehab Fac Reason For Visit: T12 & L2 COMPRESSION FRACTURES, PELVIC FRACTURES Discharge Diagnosis: T12 and L2 compression fractures Condition on Discharge: Fair Activity: Per Instructions section Activity Comment: wear brace when ambulating Non-emergency contact: Primary Care Provider Call non-emergency contact if: your symptoms worsen Follow-up/Referrals: Garth Wellington PA-C [Primary Care Provider] - Diet: Regular Addtl Attending Provider Instructions: Dr. Canada is seen this patient in consultation and recommends a trial of pain medications and physical therapy with a TLSO brace. He is open to repeat visit in the office to consider kyphoplasty if her pain is suboptimally controlled of note the patient is on many habit-forming medications and medications that likely using combination may be unfavorable for someone in their 70s however these are her home medications and we have had some challenges controlling pain likely due to chronic opiate use at home. Subsequently her pain regiment does include her home opiates a slightly higher dose but as her pain improves it may be an opportunity to consider having a pharmacy consult for medicine reconciliation to streamline her medication list Pending Studies at Discharge: No Stand-Alone Forms: My [facility] Skilled Items Patient informed of condition?: Yes DNR: No Discharge Level of Care: Acute rehab Communicable Disease: No Discharge Prognosis: Stable Lines: None Urinary Catheter: No Medications and DC Order Prescriptions: New acetaminophen [Tylenol Extra Strength] 500 mg Tablet 1,000 mg PO TID Qty: 90 0RF calcitonin (salmon) 200 unit/actuation Lyman,Non-Aerosol 1 spray NA Q24H Qty: 1 0RF lidocaine [Lidoderm] 5 % adhesive patch,medicated 1 patch topical DAILY Qty: 15 0RF Rx Instructions: leave on most painful area for up to 12 hrs celecoxib [Celebrex] 100 mg capsule 100 mg PO DAILY Qty: 20 0RF Continued lorazepam [Ativan] 1 mg tablet 1 mg PO Q8H cyclobenzaprine 10 mg tablet 10 mg PO BID PRN (Reason: MUSCLE SPASMS) duloxetine [Cymbalta] 60 mg capsule,delayed release(DR/EC) 60 mg PO DAILY (DME) Oxygen Home Liters Per Minute See Rx Instructions .Route Qty: 1 0RF Rx Instructions: humidifcation for oxygen cholecalciferol (vitamin D3) 25 mcg (1,000 unit) capsule 25 mcg PO DAILY Anoro Ellipta 62.5-25 mcg/actuation blister with device 1 inh inhalation DAILY 0RF (DME) nebulizer accessories Kit See Rx Instructions .MEDSUPPLY Qty: 2 0RF Rx Instructions: Dx: ILD. LOS 99 years (DME) compressor, for nebulizer Device See Rx Instructions .Route Qty: 1 0RF Rx Instructions: Dx: ILD, hypoxia, LOS 99 years aspirin [Adult Low Dose Aspirin] 81 mg tablet,delayed release (DR/EC) 81 mg PO DAILY trazodone 100 mg tablet 100 mg PO HS ferrous sulfate 325 mg (65 mg iron) Tablet 325 mg PO DAILY donepezil 5 mg tablet 2.5 mg PO HS quetiapine [Seroquel] 100 mg Tablet 100 mg PO HS sulfamethoxazole-trimethoprim [Bactrim DS] 800-160 mg tablet 1 tab PO [id number] Rx Instructions: 1 tab orally every Mon, Wed, and Fri; gabapentin 400 mg capsule 400 mg PO TID calcium carbonate-vitamin D3 [Oyster Shell Calcium-Vit D3] 500 mg-5 mcg (200 unit) Tablet 1 tab PO DAILY prednisone 20 mg tablet 20 mg PO DAILY Changed oxycodone 5 mg tablet 10 mg PO QID PRN (Reason: pain 4-10) Qty: 60 0RF Discharge Orders: Discharge Order (Routine); Ordered 05/04/23 Ordered By: Elieser Cutler Admission Data Admit Date/Time: 04/28/23 23:52 Attending Provider: Elieser Cutler Admit Provider: Chidi Woods Primary Care Provider: Garth Wellington Other Providers: Chidi Woods ; Alden Canada ; [facility] Other Interventions: Discharge Summary Assessment (RN) Last Done: 05/03/23 13:32 Coding Level of Care Code 45203 IN/OBS DISCH 30 MIN/LESS Diagnoses Closed compression fracture of L2 vertebra S32.020A Encounter type: initial encounter Compression fracture of T12 vertebra S22.080A Pelvis fracture S32.9XXA Closed fracture of symphysis pubis S32.599A Ambulatory dysfunction R26.2 Cluster A personality disorder F60.9 Mood disorder due to known physiological condition F06.30 Fibromyalgia M79.7 Anxiety disorder F41.9
[2023-05-04] MEDS: CALCITONIN SALMON NA 200 IU/AC 3.7 ML BTL SCH (18:42)
[2023-05-05] MEDS ORDERED: FERROUS SULFATE 325 MG TAB PO SCH (09:00)
== END 2023-05-04 19:18 | DRG 543 ==
LOC: ED 19:23 → 3N 23:52 → SUATTDRO 23:52 → 3N 04-29 00:40 → 3W 04-29 19:03

== ENCOUNTER 2023-08-25 15:14 | Inpatient (IN) ==
[2023-08-25 16:16] LABS: Appearance Urine Clear (Clear); Bacteria Urine Automated Negative (Negative); Bilirubin Urine Negative (Negative); Blood Urine 2+ (Negative); Color Urine Yellow; Epithelial Cell Urine Auto 20-30 /lpf (0-5); Glucose Urine UA Negative (Negative); Ketones Urine Negative (Negative); Leukocyte Esterase Urine Negative (Negative); Nitrite Urine Negative (Negative); Protein Urine 1+ (Negative); Specific Gravity Urine 1.019 (1.000-1.030); Urobilinogen Urine Negative (Negative); pH Urine 6.5 (4.5-7.5)
[2023-08-25 16:21] LABS: Hematocrit (blood only) 38.3 % (37.0-47.0); Hemoglobin 12.7 g/dl (12.0-16.0); Mean Corpuscular Hemoglobin 29.9 pg (25.0-34.0); Mean Corpuscular Hgb Conc 33.2 g/dL (32.0-36.0); Mean Corpuscular Volume 90.1 fL (80.0-100.0); Mean Platelet Volume 9.8 fL (9.4-12.4); Platelet Count 299 K/uL (130-400); RDW Coefficient of Variation 13.6 % (11.5-14.5); RDW Standard Deviation 44.5 fL (36.4-46.3); Red Blood Count 4.25 M/uL (4.20-5.40)
--- NOTE | 2023-08-25 16:30 | XRay Report ---
SINGLE VIEW CHEST CLINICAL HISTORY: Sepsis FINDINGS: An AP, portable, upright chest radiograph is compared to study chest x-ray and chest CT 01/27. The examination is degraded by portable technique and patient rotation. The patient's head pa rtially obscures the apices. The cardiomediastinal silhouette is unremarkable noting atherosclerotic calcification of the thoracic aorta. Fibrotic change is again seen throughout both lungs with a subpl eural predominance. Diffuse interstitial thickening is increased from previous. No lobar consolidatio n or large pleural effusion. No pneumothorax is seen. The skeletal structures are osteopenic. The bon y thorax is grossly intact. IMPRESSION: 1. Interstitial/fibrotic lung disease as above with no lobar consolidation or large pleural effusion identified. 2. Diffuse interstitial thickening appears increased from previous. This may be due to low lung volum es. Correlate clinically for evidence of a superimposed pneumonitis or possibly fluid overload/conges tive change. Radiographic follow-up to resolution is recommended. ACT 112: Negative or not required by law. Electronically signed by: Yogesh Parra M.D. 08/25/2023 4:29 PM
[2023-08-25 16:42] LABS: Basophils # (auto) 0.05 K/uL (0.00-0.20); Basophils % (auto) 0.3 %; Eosinophils # (auto) 0.02 K/uL (0.00-0.50); Eosinophils % (auto) 0.1 %; Immature Granulocytes # (auto) 0.11 K/uL (0.01-0.20); Immature Granulocytes % (auto) 0.6 %; Lymphocytes # (auto) 0.55 K/uL (1.20-3.40); Lymphocytes % (auto) 2.8 %; Monocytes % (auto) 4.6 %; Neutrophils # (auto) 17.87 K/uL (1.40-6.50); Neutrophils % (auto) 91.6 %
[2023-08-25 17:12] LABS: Adenovirus PCR Not Detected (NotDetected); Bordetella parapertussis PCR Not Detected (NotDetected); Bordetella pertussis PCR Not Detected (NotDetected); Chlamydia pneumoniae PCR Not Detected (NotDetected); Coronavirus 229E PCR Not Detected (NotDetected); Coronavirus CoV-2 (COVID19)PCR Not Detected (NotDetected); Coronavirus HKU1 PCR Not Detected (NotDetected); Coronavirus NL63 PCR Not Detected (NotDetected); Coronavirus OC43PCR Not Detected (NotDetected); Human Metapneumovirus PCR Not Detected (NotDetected); Influenza A PCR Not Detected (NotDetected); Influenza B PCR Not Detected (NotDetected); Mycoplasma pneumoniae PCR Not Detected (NotDetected); Parainfluenza Virus 1 PCR Not Detected (NotDetected); Parainfluenza Virus 2 PCR Not Detected (NotDetected); Parainfluenza Virus 3 PCR Not Detected (NotDetected); Parainfluenza Virus 4 PCR Not Detected (NotDetected); Respiratory Syncytial VirusPCR Not Detected (NotDetected); Rhinovirus/Enterovirus PCR Not Detected (NotDetected)
[2023-08-25 19:07] LABS: Albumin Level 3.2 gm/dl (3.4-5.0); BUN Creatinine Ratio 31.4 (10-20); Bilirubin Direct 0.1 mg/dl (0-0.2); Bilirubin,Total 0.5 mg/dl (0.2-1.0); Calcium 8.8 mg/dl (8.6-10.3); Creatinine Clr Calc Pharmacy 84.5 ml/min; Est GFR (African American) 127.8 ml/min; Est GFR (Non-African American) 110.3 ml/min; Magnesium 1.6 mg/dl (1.7-2.4); Potassium 3.8 mmol/L (3.5-5.1); Total Protein 6.8 gm/dl (6.0-8.3)
--- NOTE | 2023-08-25 20:24 | History & Physical Report ---
Date of Service August 25, 2023 Assessment & Plan (1) Shortness of breath: Plan: 68 year old female admitted for shortness of breath, possible pneumonia. -Increased oxygen requirement to 6L, home O2 2L NC. -WBC 19.50, neutrophil 17.87, procal negative, hemoglobin 12.7 -CXR with diffuse interstitial thickening increased from previous CXR. -Patient w/ history of ILD, lives in [facility] health care associated pneumonia -Will cover with Cefepime 2g q8h IV. -Duoneb and albuterol inhaler PRN. Flutter valve and mucinex ordered. -Will continue to monitor on telemetry. (2) Interstitial lung disease: Plan: -Chronic, noted, had followed with Dr. Mcmahon in the past. Per patient she does not take any inhalers on a daily basis and is on 2L chronically at home. Plan as above while inpatient. (3) Severe protein-calorie malnutrition: Plan: -Chronic, noted. Albumin 3.2 on admission. Encourage good PO intake, appetite not affected by infection per patient. (4) Osteoporosis: Plan: -Noted, continue home calcium-vitamin D supplement. (5) Anxiety disorder: Plan: -Continue home fluoxetine (6) Closed compression fracture of L2 vertebra: Plan: -Chronic, tylenol 650mg PRN PO q6h ordered. Can add on oxycodone if not at goal with tylenol. (7) Nicholas's thyroiditis: Plan: -TSH stable from previous blood work, not on any medications currently. (8) Cluster A personality disorder: Plan: -Continue trazodone, lorazepam, gabapentin, fluoxetine. Plan F/E/N/GI: Regular DVT Prophylaxis: Lovenox 30mg SQ qAM. Code status: DNR/DNI Dispo: telemetry History of Present Illness Chief Complaint: Shortness of breath Primary Care Provider: Napoleon Wang DO Erin is a 68 year old female w/ PmHx interstitial lung disease, history of pneumothorax, osteoporosis, severe protein-calorie malnutrition, short-term memory loss, presbyesophagus, anxiety, cluster A personality disorder, nicholas's thyroiditis coming in for shortness of breath/difficulty breathing. Patient states that over the past 3 weeks she's had progressive worsening of her shortness of breath. There has not been any associated cough, sore throat, sputum production, post nasal drip, ear pain, fevers, or chills. She states that in the past she had been diagnosed with ILD and had seen Dr. Mcmahon previously for pulmonology. She has not seen him for a while however per patient. She currently lives at the [facility] living. In the ER WBC 19.50, neutrophil 17.87, Na 133, Mag 1.6, procal 0.25. UA with RBC and 1+ protein. Respiratory panel negative. CXR interstitial/fibrotic lung disease with no lobar consolidation or large pleural effusion, diffuse interstitial thickening appears increased from previous. Patient was not given anything in the ER. Allergies Allergy/AdvReac Type Severity Reaction Status Date / Time Iodinated Contrast Media Allergy Severe ANAPHYLAXIS Verified 07/01/23 12:49 Sulfa (Sulfonamide Allergy Unknown SEE COMMENT Verified 07/01/23 12:49 Antibiotics) banana AdvReac Severe GI SYMPTOMS Verified 07/01/23 12:49 beet AdvReac Unknown Gastrointestinal Verified 07/01/23 12:49 Upset Home Medications Medication Instructions Recorded Confirmed Type lorazepam 1 mg tablet (Ativan) 1 mg PO Q8H 06/18/18 08/25/23 History Oxygen Home #1 ea 01/24/23 08/25/23 Rx compressor, for nebulizer #1 ea 02/05/23 08/25/23 Rx nebulizer accessories #2 ea 02/05/23 08/25/23 Rx aspirin 81 mg tablet,delayed 81 mg PO DAILY #90 tabs 05/26/23 08/25/23 Rx release (Adult Low Dose Aspirin) calcitonin (salmon) 200 1 spray NA Q24H 30 days #1 inhaler 05/26/23 08/25/23 Rx unit/actuation nasal spray calcium carbonate 500 mg-vitamin 1 tab PO DAILY #90 tabs 05/26/23 08/25/23 Rx D3 5 mcg (200 unit) tablet (Oyster Shell Calcium-Vitamin D3) cholecalciferol (vitamin D3) 25 25 mcg PO DAILY #90 caps 05/26/23 08/25/23 Rx mcg (1,000 unit) capsule cyclobenzaprine 10 mg tablet 10 mg PO BID PRN MUSCLE SPASMS #60 05/26/23 08/25/23 Rx tabs donepezil 5 mg tablet 2.5 mg (1/2 x 5 mg) PO HS #90 tabs 05/26/23 08/25/23 Rx ferrous sulfate 325 mg (65 mg 325 mg PO DAILY #90 tabs 05/26/23 08/25/23 Rx iron) tablet gabapentin 400 mg capsule 400 mg PO TID #90 caps 05/26/23 08/25/23 Rx quetiapine 100 mg tablet (Seroquel) 100 mg PO HS #90 tabs 05/26/23 08/25/23 Rx trazodone 100 mg tablet 100 mg PO HS #90 tabs 05/26/23 08/25/23 Rx fluoxetine 20 mg capsule 20 mg PO DAILY 07/01/23 08/25/23 History lidocaine 4 % topical patch 1 patch topical DAILY pain #30 ea 07/15/23 08/25/23 Rx (Salonpas (lidocaine)) oxycodone 5 mg tablet 5 mg PO Q6H PRN pain 4-10 #120 tabs 08/08/23 08/25/23 Rx acetaminophen 500 mg tablet 1,000 mg PO Q8 08/25/23 08/25/23 History (Tylenol Extra Strength) celecoxib 100 mg capsule (Celebrex) 100 mg PO QAM 08/25/23 08/25/23 History fluoxetine 10 mg capsule 10 mg PO DAILY 08/25/23 08/25/23 History Past Med/Surg History Medical History Weakness generalized Dyspnea and respiratory abnormalities Hypersensitivity pneumonitis Hypoxemic respiratory failure, chronic Eustachian tube dysfunction Mixed conductive and sensorineural hearing loss of left ear with restricted hearing of right ear Seasonal allergies Surgical History History of adenoidectomy History of tonsillectomy Family History Father Allergies Asthma Other No family history of adverse response to anesthesia No family history of bleeding disorder Social History Smoking Status: Never smoker Second Hand Exposure: No; Do You Dip or Chew Tobacco: No; Hx Alcohol Use: No Hx Substance Use: No Preferred Language: Nauruan Communication Ability: Effective Visual Impairment: Limited Hearing Ability: Normal Commercial [employer] Retro[employer] Required: No Beliefs That Will Affect Care: None marital status: Current Living Situation: Personal Care Facility Current Living Situation Comment: [facility] current occupational status: retired How many Children do You have: 0 Feels Safe at Home: Yes Childhood Exposure to Second-Hand Smoke: No Diet: regular caffeine: Yes during the past year weight has: remained stable Dental Care, Regularly: Yes Physical Activity Frequency: 5-6 Times per Week Seatbelt Use: always Sunscreen Use: No Assistive Devices: Glasses, Oxygen - Continuous, Walker and Wheelchair Review of Systems Review of Systems: As per HPI. Physical Exam Constitutional: WD/WN, vitals as above + frail appearing Eyes: PERRL, conjunctivae normal, anicteric sclerae Respiratory: Course breath sounds on the R with inspiration, not as pronounced on the left. Cardiovascular: Rate/Rhythm: regular rhythm and + tachycardic Heart Sounds: normal S1 and normal S2 Gastrointestinal (Abdomen): normal bowel sounds, soft, nontender, no hepatosplenomegaly Psychiatric: A+Ox3, euthymic affect Results & Data Results & Data Vital Signs (Past 12 Hours) Vital Signs Temp Pulse Pulse Resp BP BP Pulse Ox 08/25/23 19:46 94 H 08/25/23 18:15 98 H 22 160/89 H 93 08/25/23 16:08 99 08/25/23 15:46 101 H 08/25/23 15:36 37.8 C H 97 H 22 157/107 H 98 08/25/23 15:36 98 08/25/23 15:36 37.8 C H 97 H 24 157/107 H 100 O2 Del Method O2 Flow Rate 08/25/23 19:46 08/25/23 18:15 Nasal Cannula 6 08/25/23 16:08 Nasal Cannula 6 08/25/23 15:46 08/25/23 15:36 Nasal Cannula 6 08/25/23 15:36 Room Air 6 08/25/23 15:36 Nasal Cannula 6 Supervising Physician Co-Signing Physician Notes Patient seen and examined, chart reviewed, case discussed with Dr. Ngo and I agree with the assessment and plan as above Resident Activity Tracking Resident Involvement: Resident Care Provided Care Provided: Adult Hospital Medicine (6) Closed compression fracture of L2 vertebra Encounter type: initial encounter Qualified Code(s): S32.020A - Wedge compression fracture of second lumbar vertebra, initial encounter for closed fracture
--- NOTE | 2023-08-25 20:44 | Emergency Department Note ---
History of Present Illness General Chief complaint: Shortness of Breath/Dyspnea Stated complaint: SHORTNESS OF BREATH Time Seen by Provider: 08/25/23 15:54 History of Present Illness This is a 68-year-old female presenting to the emergency department via EMS from assisted living for evaluation of shortness of breath and difficulty breathing. Patient has known history of interstitial lung disease and typically wears 2 L nasal cannula at home. When EMS arrived the patient was at 84% on 2 L and was increased to 6 L. She has been able to maintain an O2 sat greater than 92% on the 6 L. She does not report any known fevers or chills. No distinct chest pain or abdominal pain. She rates her discomfort a 5/10. Home Medications Medication Instructions Recorded Confirmed Type lorazepam 1 mg tablet (Ativan) 1 mg PO Q8H 06/18/18 07/01/23 History Oxygen Home #1 ea 01/24/23 07/01/23 Rx compressor, for nebulizer #1 ea 02/05/23 07/01/23 Rx nebulizer accessories #2 ea 02/05/23 07/01/23 Rx acetaminophen 500 mg tablet 1,000 mg (2 x 500 mg) PO TID #90 05/26/23 07/01/23 Rx (Tylenol Extra Strength) tabs aspirin 81 mg tablet,delayed 81 mg PO DAILY #90 tabs 05/26/23 07/01/23 Rx release (Adult Low Dose Aspirin) calcitonin (salmon) 200 1 spray NA Q24H 30 days #1 inhaler 05/26/23 07/01/23 Rx unit/actuation nasal spray calcium carbonate 500 mg-vitamin 1 tab PO DAILY #90 tabs 05/26/23 07/01/23 Rx D3 5 mcg (200 unit) tablet (Oyster Shell Calcium-Vitamin D3) celecoxib 100 mg capsule (Celebrex) 100 mg PO DAILY #90 caps 05/26/23 07/01/23 Rx cholecalciferol (vitamin D3) 25 25 mcg PO DAILY #90 caps 05/26/23 07/01/23 Rx mcg (1,000 unit) capsule cyclobenzaprine 10 mg tablet 10 mg PO BID PRN MUSCLE SPASMS #60 05/26/23 07/01/23 Rx tabs donepezil 5 mg tablet 2.5 mg (1/2 x 5 mg) PO HS #90 tabs 05/26/23 07/01/23 Rx ferrous sulfate 325 mg (65 mg 325 mg PO DAILY #90 tabs 05/26/23 07/01/23 Rx iron) tablet gabapentin 400 mg capsule 400 mg PO TID #90 caps 05/26/23 07/01/23 Rx quetiapine 100 mg tablet (Seroquel) 100 mg PO HS #90 tabs 05/26/23 07/01/23 Rx trazodone 100 mg tablet 100 mg PO HS #90 tabs 05/26/23 07/01/23 Rx fluoxetine 20 mg capsule 20 mg PO DAILY 07/01/23 07/01/23 History lidocaine 4 % topical patch 1 patch topical DAILY pain #30 ea 07/15/23 Rx (Salonpas (lidocaine)) oxycodone 5 mg tablet 5 mg PO Q6H PRN pain 4-10 #120 tabs 08/08/23 Rx Allergies Allergy/AdvReac Type Severity Reaction Status Date / Time Iodinated Contrast Media Allergy Severe ANAPHYLAXIS Verified 07/01/23 12:49 Sulfa (Sulfonamide Allergy Unknown SEE COMMENT Verified 07/01/23 12:49 Antibiotics) banana AdvReac Severe GI SYMPTOMS Verified 07/01/23 12:49 beet AdvReac Unknown Gastrointestinal Verified 07/01/23 12:49 Upset Past Med/Surg History Medical History Weakness generalized Dyspnea and respiratory abnormalities Hypersensitivity pneumonitis Hypoxemic respiratory failure, chronic Eustachian tube dysfunction Mixed conductive and sensorineural hearing loss of left ear with restricted hearing of right ear Seasonal allergies Surgical History History of adenoidectomy History of tonsillectomy Family History Father Allergies Asthma Other No family history of adverse response to anesthesia No family history of bleeding disorder Social History Smoking Status: Unknown if ever smoked Second Hand Exposure: No; Do You Dip or Chew Tobacco: No; Hx Alcohol Use: No Hx Substance Use: No Preferred Language: Turkmen Communication Ability: Effective Visual Impairment: Limited Hearing Ability: Normal Phototypesetting Equipment Monitor Required: No Beliefs That Will Affect Care: None marital status: Current Living Situation: Personal Care Facility Current Living Situation Comment: [facility] current occupational status: retired How many Children do You have: 0 Feels Safe at Home: Yes Childhood Exposure to Second-Hand Smoke: No Diet: regular caffeine: Yes during the past year weight has: remained stable Dental Care, Regularly: Yes Physical Activity Frequency: 5-6 Times per Week Seatbelt Use: always Sunscreen Use: No Assistive Devices: Glasses, Oxygen - Continuous, Walker and Wheelchair Review of Systems A total of 10 systems reviewed and were otherwise negative Physical Exam Vital Signs Vital Signs - 24 hr 08/25/23 15:36 08/25/23 15:36 08/25/23 15:36 Temperature 37.8 C H 37.8 C H Temperature Source Axillary Axillary Pulse Rate 97 H Pulse Rate [Bilateral] 97 H Pulse Rhythm [Bilateral] Pulse Strength [Bilateral] Respiratory Rate 24 22 Respiratory Effort / Characteristics Non-Labored Respiratory Depth Normal Blood Pressure 157/107 H Blood Pressure [Right Arm] 157/107 H Blood Pressure Mean 123 Blood Pressure Mean [Right Arm] 123 Pulse Oximetry 100 98 98 Oxygen Delivery Method Nasal Cannula Room Air Nasal Cannula Oxygen Flow Rate 6 6 6 Sepsis Recent Fever Within 48 Hours Yes Sepsis New/Unexplained Change in Mental Status No Sepsis Action Taken by Nursing No Action Required 08/25/23 15:46 08/25/23 16:08 08/25/23 18:15 Temperature Temperature Source Pulse Rate 101 H Pulse Rate [Bilateral] 98 H Pulse Rhythm [Bilateral] Regular Pulse Strength [Bilateral] Normal Respiratory Rate 22 Respiratory Effort / Characteristics Non-Labored Spontaneous Respiratory Depth Normal Blood Pressure Blood Pressure [Right Arm] 160/89 H Blood Pressure Mean Blood Pressure Mean [Right Arm] 112 Pulse Oximetry 99 93 Oxygen Delivery Method Nasal Cannula Nasal Cannula Oxygen Flow Rate 6 6 Sepsis Recent Fever Within 48 Hours Sepsis New/Unexplained Change in Mental Status Sepsis Action Taken by Nursing 08/25/23 19:46 Temperature Temperature Source Pulse Rate 94 H Pulse Rate [Bilateral] Pulse Rhythm [Bilateral] Pulse Strength [Bilateral] Respiratory Rate Respiratory Effort / Characteristics Respiratory Depth Blood Pressure Blood Pressure [Right Arm] Blood Pressure Mean Blood Pressure Mean [Right Arm] Pulse Oximetry Oxygen Delivery Method Oxygen Flow Rate Sepsis Recent Fever Within 48 Hours Sepsis New/Unexplained Change in Mental Status Sepsis Action Taken by Nursing VITALS: Vitals are noted on the nurse's note and reviewed by myself. Vital signs stable. GENERAL: Cachectic white female who is in no acute distress HEAD: Normocephalic atraumatic. HEART: Regular rate and rhythm without murmurs gallops or rubs. LUNGS: Mildly coarse throughout without distinct crackles or rails ABDOMEN: Positive normal bowel sounds x 4. Soft, nontender, without masses or organomegaly. No guarding or rebound tenderness. MUSCULOSKELETAL: No muscle atrophy, erythema, or edema noted. NEURO: Patient was alert and oriented to person place and time. CN II through XII grossly intact. Medical Decision Making Differential Diagnosis Differential diagnosis includes, but is not limited to: Myocardial infarction, dysrhythmia, pericarditis, pneumothorax, aortic aneurysm/dissection, DVT/PE, anxiety, GERD, PUD, electrolyte imbalance, thyroid disorder, pneumonia, bronchitis, pancreatitis, and others Laboratory Data 08/25/23 15:45 08/25/23 18:33 Lab Results 08/25/23 08/25/23 08/25/23 Range/Units 14:45 15:30 15:45 WBC 19.50 H (4.8-10.8) K/ul RBC 4.25 (4.20-5.40) M/uL Hgb 12.7 (12.0-16.0) g/dl Hct 38.3 (37.0-47.0) % MCV 90.1 (80.0-100.0) fL MCH 29.9 (25.0-34.0) pg MCHC 33.2 (32.0-36.0) g/dL RDW Std Deviation 44.5 (36.4-46.3) fL RDW Coeff of [place] 13.6 (11.5-14.5) % Plt Count 299 (130-400) K/uL MPV 9.8 (9.4-12.4) fL Immature Gran % (Auto) 0.6 % Neut % (Auto) 91.6 % Lymph % (Auto) 2.8 % Story % (Auto) 4.6 % Eos % (Auto) 0.1 % Baso % (Auto) 0.3 % Neut # (Auto) 17.87 H (1.40-6.50) K/uL Lymph # (Auto) 0.55 L (1.20-3.40) K/uL Story # (Auto) 0.90 H (0.11-0.59) K/uL Eos # (Auto) 0.02 (0.00-0.50) K/uL Baso # (Auto) 0.05 (0.00-0.20) K/uL Immature Gran # (Auto) 0.11 (0.01-0.20) K/uL Sodium Cancelled Potassium Cancelled Chloride Cancelled Carbon Dioxide Cancelled Anion Gap Cancelled BUN Cancelled Creatinine Cancelled Est Cr Clr Drug Dosing Cancelled Est GFR ( Amer) Cancelled Est GFR (Non-Af Amer) Cancelled BUN/Creatinine Ratio Cancelled Glucose Cancelled Lactate (0.4-2.0) mmol/L Calcium Cancelled Magnesium Cancelled Total Bilirubin Cancelled Direct Bilirubin Cancelled AST Cancelled ALT Cancelled Alkaline Phosphatase Cancelled Total Protein Cancelled Albumin Cancelled Procalcitonin 0.25 (0-0.5) ng/ml Urine Color Urine Appearance (Clear) Urine pH (4.5-7.5) Ur Specific [place] (1.000-1.030) Urine Protein (Negative) Urine Glucose (UA) (Negative) Urine Ketones (Negative) Urine Blood (Negative) Urine Nitrite (Negative) Urine Bilirubin (Negative) Urine Urobilinogen (Negative) Ur Leukocyte Esterase (Negative) Urine WBC (Auto) (0-5) /hpf Urine RBC (Auto) (0-4) /hpf U Hyaline Cast (Auto) (0-5) /lpf U Epithel Cells (Auto) (0-5) /lpf Urine Bacteria (Auto) (Negative) Adenovirus (PCR) Not Detected (NotDetected) B. pertussis DNA (PCR) Not Detected (NotDetected) B.parapertussis DNA PCR Not Detected (NotDetected) C. pneumoniae DNA (PCR) Not Detected (NotDetected) Coronavirus OC43 (PCR) Not Detected (NotDetected) Coronavirus HKU1 (PCR) Not Detected (NotDetected) Coronavirus 229E (PCR) Not Detected (NotDetected) SARS-CoV-2 (PCR) Not Detected (NotDetected) Coronavirus NL63 (PCR) Not Detected (NotDetected) Human Metapneumovir PCR Not Detected (NotDetected) Influenza Type A (PCR) Not Detected (NotDetected) Influenza Type B (PCR) Not Detected (NotDetected) M. pneumoniae (PCR) Not Detected (NotDetected) Parainfluenza 1 (PCR) Not Detected (NotDetected) Parainfluenza 2 (PCR) Not Detected (NotDetected) Parainfluenza 3 (PCR) Not Detected (NotDetected) Parainfluenza 4 (PCR) Not Detected (NotDetected) RSV (PCR) Not Detected (NotDetected) Entero/Rhino (PCR) Not Detected (NotDetected) 08/25/23 08/25/23 Range/Units 18:33 Unknown WBC (4.8-10.8) K/ul RBC (4.20-5.40) M/uL Hgb (12.0-16.0) g/dl Hct (37.0-47.0) % MCV (80.0-100.0) fL MCH (25.0-34.0) pg MCHC (32.0-36.0) g/dL RDW Std Deviation (36.4-46.3) fL RDW Coeff of [place] (11.5-14.5) % Plt Count (130-400) K/uL MPV (9.4-12.4) fL Immature Gran % (Auto) % Neut % (Auto) % Lymph % (Auto) % Story % (Auto) % Eos % (Auto) % Baso % (Auto) % Neut # (Auto) (1.40-6.50) K/uL Lymph # (Auto) (1.20-3.40) K/uL Story # (Auto) (0.11-0.59) K/uL Eos # (Auto) (0.00-0.50) K/uL Baso # (Auto) (0.00-0.20) K/uL Immature Gran # (Auto) (0.01-0.20) K/uL Sodium 133 L Potassium 3.8 Chloride 94 L Carbon Dioxide 33 H Anion Gap 6 BUN 11 Creatinine 0.35 L Est Cr Clr Drug Dosing 84.5 Est GFR ( Amer) 127.8 Est GFR (Non-Af Amer) 110.3 BUN/Creatinine Ratio 31.4 H Glucose 111 H Lactate 1.2 (0.4-2.0) mmol/L Calcium 8.8 Magnesium 1.6 L Total Bilirubin 0.5 Direct Bilirubin 0.1 AST 18 ALT 10 Alkaline Phosphatase 86 Total Protein 6.8 Albumin 3.2 L Procalcitonin (0-0.5) ng/ml Urine Color Yellow Urine Appearance Clear (Clear) Urine pH 6.5 (4.5-7.5) Ur Specific [place] 1.019 (1.000-1.030) Urine Protein 1+ H (Negative) Urine Glucose (UA) Negative (Negative) Urine Ketones Negative (Negative) Urine Blood 2+ H (Negative) Urine Nitrite Negative (Negative) Urine Bilirubin Negative (Negative) Urine Urobilinogen Negative (Negative) Ur Leukocyte Esterase Negative (Negative) Urine WBC (Auto) 1-5 (0-5) /hpf Urine RBC (Auto) 10-30 H (0-4) /hpf U Hyaline Cast (Auto) 1-5 (0-5) /lpf U Epithel Cells (Auto) 20-30 H (0-5) /lpf Urine Bacteria (Auto) Negative (Negative) Adenovirus (PCR) (NotDetected) B. pertussis DNA (PCR) (NotDetected) B.parapertussis DNA PCR (NotDetected) C. pneumoniae DNA (PCR) (NotDetected) Coronavirus OC43 (PCR) (NotDetected) Coronavirus HKU1 (PCR) (NotDetected) Coronavirus 229E (PCR) (NotDetected) SARS-CoV-2 (PCR) (NotDetected) Coronavirus NL63 (PCR) (NotDetected) Human Metapneumovir PCR (NotDetected) Influenza Type A (PCR) (NotDetected) Influenza Type B (PCR) (NotDetected) M. pneumoniae (PCR) (NotDetected) Parainfluenza 1 (PCR) (NotDetected) Parainfluenza 2 (PCR) (NotDetected) Parainfluenza 3 (PCR) (NotDetected) Parainfluenza 4 (PCR) (NotDetected) RSV (PCR) (NotDetected) Entero/Rhino (PCR) (NotDetected) Imaging Data Radiologist's Impression: Chest X-Ray 11/27/23 16:01 SINGLE VIEW CHEST CLINICAL HISTORY: Sepsis FINDINGS: An AP, portable, upright chest radiograph is compared to study chest x-ray and chest CT 02/12/2023. The examination is degraded by portable technique and patient rotation. The patient's head partially obscures the apices. The cardiomediastinal silhouette is unremarkable noting atherosclerotic calcification of the thoracic aorta. Fibrotic change is again seen throughout both lungs with a subpleural predominance. Diffuse interstitial thickening is increased from previous. No lobar consolidation or large pleural effusion. No pneumothorax is seen. The skeletal structures are osteopenic. The bony thorax is grossly intact. IMPRESSION: 1. Interstitial/fibrotic lung disease as above with no lobar consolidation or large pleural effusion identified. 2. Diffuse interstitial thickening appears increased from previous. This may be due to low lung volumes. Correlate clinically for evidence of a superimposed pneumonitis or possibly fluid overload/congestive change. Radiographic follow-up to resolution is recommended. ACT 112: Negative or not required by law. Electronically signed by: Yogesh Parra M.D. 08/25/2023 4:29 PM MDM Narrative Physical exam and history were performed. Nursing notes, EMR, and Medication List were personally reviewed. No social concerns were identified as barriers to patients care. Patient appears to have difficulty breathing bring her to the ER. She was 84% per EMS on 2 L, but is doing much better on 6 L. On my arrival to the room the patient feels better on the oxygen. She does not appear obviously toxic. IV access was established and labs were obtained. Urine collected. Patient's blood work is as above and was reviewed. Patient does have an elevated white cell count of 19,000. She does not have significant anemia or gross electrolyte imbalance. Lactic is negative with cultures pending. Bio fire is negative. Urine without distinct evidence of infection. X-ray is difficult to evaluate as she has chronic lung issues. She may have pneumonitis or possible fluid overload. Overall the patient remains reliant on the 6 L nasal cannula to maintain an O2 saturation greater than 90%. She does not seem well for discharge, as this seems much worse than her baseline. Case was discussed with the on-call hospitalist team who agreed to evaluate the patient here in the ER. Please see their dictation for further patient course, plan, disposition. The chart was completed utilizing [employer] Voice Recognition Software. Grammatical errors, random word insertions, pronoun errors, and incomplete sentences are an occasional consequence of this system due to software limitations, ambient noise, and hardware issues. Any formal questions or concerns about the content, text, or information contained within the body of this dictation should be directly addressed to the provider for clarification. . Impression & Plan Shortness of breath, Elevated WBC count Discharge Plan Visit Data Chief Complaint: Shortness of Breath/Dyspnea Stated Complaint: SHORTNESS OF BREATH ED Provider: Federico Greco ED Midlevel Provider: Shashi Melendez Discharge Problem: Shortness of breath, Elevated WBC count Forms Stand Alone Forms: [facility] Prescriptions Prescriptions: No Action lorazepam [Ativan] 1 mg tablet 1 mg PO Q8H (DME) Oxygen Home Liters Per Minute See Rx Instructions .Route Qty: 1 0RF Rx Instructions: humidifcation for oxygen lidocaine [Salonpas (lidocaine)] 4 % adhesive patch,medicated 1 patch topical DAILY Qty: 30 5RF oxycodone 5 mg tablet 5 mg PO Q6H PRN (Reason: pain 4-10) Qty: 120 0RF acetaminophen [Tylenol Extra Strength] 500 mg tablet 1,000 mg PO TID Qty: 90 11RF aspirin [Adult Low Dose Aspirin] 81 mg tablet,delayed release (DR/EC) 81 mg PO DAILY Qty: 90 3RF calcitonin (salmon) 200 unit/actuation spray,non-aerosol 1 spray NA Q24H 30 Days Qty: 1 11RF calcium carbonate-vitamin D3 [Oyster Shell Calcium-Vit D3] 500 mg-5 mcg (200 unit) tablet 1 tab PO DAILY Qty: 90 3RF celecoxib [Celebrex] 100 mg capsule 100 mg PO DAILY Qty: 90 3RF cholecalciferol (vitamin D3) 25 mcg (1,000 unit) capsule 25 mcg PO DAILY Qty: 90 3RF cyclobenzaprine 10 mg tablet 10 mg PO BID PRN (Reason: MUSCLE SPASMS) Qty: 60 11RF donepezil 5 mg tablet 2.5 mg PO HS Qty: 90 3RF ferrous sulfate 325 mg (65 mg iron) tablet 325 mg PO DAILY Qty: 90 3RF gabapentin 400 mg capsule 400 mg PO TID Qty: 90 11RF quetiapine [Seroquel] 100 mg tablet 100 mg PO HS Qty: 90 3RF trazodone 100 mg tablet 100 mg PO HS Qty: 90 3RF fluoxetine 20 mg capsule 20 mg PO DAILY (DME) nebulizer accessories Kit See Rx Instructions .MEDSUPPLY Qty: 2 0RF Rx Instructions: Dx: ILD. LOS 99 years (DME) compressor, for nebulizer Device See Rx Instructions .Route Qty: 1 0RF Rx Instructions: Dx: ILD, hypoxia, LOS 99 years Referrals Referrals: Napoleon Wang DO [Primary Care Provider] -
[2023-08-25] MEDS ORDERED: POLYETHYLENE (MIRALAX) 17 GM PACK PO PRN (21:39)
[2023-08-25] MEDS ORDERED: ALBUTEROL HFA 8 GM INHALER INH PRN (21:39)
[2023-08-25] MEDS: traZODone HCL 100 MG TAB PO SCH (22:04)
[2023-08-25] MEDS: guaiFENesin 600 MG TABCR PO SCH (22:04)
[2023-08-25] MEDS: QUEtiapine FUMARATE 100 MG TABLET PO SCH (22:05)
[2023-08-25] MEDS: DONEPEZIL HCL 5 MG TAB PO SCH (22:05)
[2023-08-25] MEDS: GABAPENTIN 400 MG CAP PO SCH (22:05)
[2023-08-25] MEDS: ENOXAPARIN INJ 30 MG/0.3 ML SYR SQ SCH (22:06)
[2023-08-25] MEDS: CEFEPIME 2,000 MG in SYRINGE 0 ML IV SCH (22:08)
[2023-08-25] MEDS: MAGNESIUM SULFATE / D5W 1 GM/100 ML BAG IV SCH ×2 (22:08→23:40)
--- OUTSIDE RECORDS SUMMARY | 2023-08-25 22:09 | External Medical Summary ---
Author Name Unknown Address Unknown Organization [id number]:[facility] [place] [place] [address] Laboratory Report Ordering Provider Test Date Status HY,DEPAMPHILIS 05/06/2023 05:45:00 Final Observation Date Value Abnormality Reference (Units ) Status WBC, Total 05/06/2023 05:45:00 15.96 Above high normal 4 .00-10.80 (K/uL) Final RBC 05/06/2023 05:45:00 3.92 3.85-5.15 (M/uL) Final Hemoglobin 05/06/2023 05:45:00 13.0 12.0-15.3 (g/dL) Final HCT 05/06/2023 05:45:00 40.6 36.0-45.2 (%) Final MCV 05/06/2023 05:45:00 103.6 81.5-97.5 (fL) Final MCH 05/06/2023 05:45:00 33.2 27.0-34.0 (pg) Final MCHC 05/06/2023 05:45:00 32.0 32.0-36.0 (g/dL) Final RDW 05/06/2023 05:45:00 12.9 11.5-15.5 (%) Final Platelets 05/06/2023 05:45:00 380 140-400 (K /uL) Final MPV 05/06/2023 05:45:00 9.3 6.6-11.1 ( fL) Final Performing Location [facility] [place] [address]
--- OUTSIDE RECORDS SUMMARY | 2023-08-25 22:09 | External Medical Summary ---
Author Name Unknown Address Unknown Organization [id number]:[facility] [place] [address] Laboratory Report Ordering Provider Test Date Status HY,DEPAMPHILIS 05/13/2023 05:30:00 Final Observation Date Value Abnormality Reference (Units ) Status BUN 05/13/2023 05:30:00 30 Above high normal 6-20 (mg/dL) Final Creatinine 05/13/2023 05:30:00 0.6 0.5-1.0 (mg/dL) Final Glomerular filtration rate/1.73 sq M.predicted [Volume Rate/Area] in Serum, Plasma or Blood by Creatinine-based formula (CKD-EPI) 05/13/2023 05:30:00 >90 >=60 (mL/min) Final eGFR is calculated based on the CKD-EPI 2020 equation SODIUM 05/13/2023 05:30:00 138 135-146 (m mol/L) Final Potassium 05/13/2023 05:30:00 4.9 3.5-5.1 (m mol/L) Final Cl 05/13/2023 05:30:00 100 98-107 (mm ol/L) Final CO2 05/13/2023 05:30:00 30 22-32 (mmo l/L) Final Anion gap 05/13/2023 05:30:00 8 7-15 (mmol /L) Final Glucose 05/13/2023 05:30:00 108 70-120 (mg /dL) Final Calcium 05/13/2023 05:30:00 9.0 8.4-10.2 ( mg/dL) Final Performing Location [facility] [place] [address]
--- OUTSIDE RECORDS SUMMARY | 2023-08-25 22:09 | External Medical Summary | Continuity of Care Document ---
Author Name GARTH WELLINGTON Address [address] [place] [address] Phone [phone] [facility] Address [address] [place] [address] Phone [phone] Care Team Providers Care Elevator Mechanic Name Role Phone Psychiatry - Psychiatry Care Team Information Re ceiver Unavailable [facility] Care Team Information Pediatric Neurologist [phone] Problems Active Problems Provider Date Chronic pain due to injury Bernard Anthony PA-C Onset: 06/20/2017 Generalized anxiety disorder TOREY Bardales Onset: 06/20/2017 Panic disorder with agoraphobia Bernard Anthony PA-C Onset: 06/20/2017 Hypothyroidism Bernard Anthony PA-C Onset: Vitamin D deficiency Bernard Anthony PA-C Onset : 06/20/2017 Thiamine deficiency Bernard Anthony PA-C Onset: 06/20/2017 Hyperlipidemia Bernard Anthony PA-C Onset: Polyosteoarthritis, unspecified Bernard Anthony PA-C Onset: 06/20/2017 Chronic fatigue syndrome Bernard Anthony PA-C O nset: 06/20/2017 Intervertebral disc disorder of cervical region with myelopathy Curtis Conner JR, MD Onset: 03/10/2018 Insomnia Curtis Conner JR, MD Onset: 0 05/11/2018 Cobalamin deficiency Curtis Conner JR, MD Ons et: 05/11/2018 Iron deficiency anemia Curtis Conner JR, MD O nset: 07/13/2018 Cervical disc disorder Garth Wellington PA-C O nset: 10/21/2019 Interstitial lung disease Psychiatry Onset: 11/27/2022 Note: Document: 11/27/22 - P олегmonary Consult Social History Type Date Description Comments Sex Unknown Tobacco Use Reviewed: 04/21/23 Never Smoked Cigarette s Tobacco Use Reviewed: 04/21/23 Never Smoked Cigars Tobacco Use Reviewed: 04/21/23 Never Smoked A Pipe Smoking Status Reviewed: 04/21/23 Never Smoked A Pipe Smokeless Tobacco 04/21/2023 Never Used Smokeless To bacco ETOH Use Denies alcohol use Tobacco Use Reviewed: 06/13/22 Patient has never smok ed Recreational Drug Use Denies Drug Use Enjoy Exercising Does not enjoy exercisin g Sun Exposure minimum amount of sun exposu re Sun Exposure Does not use sunscreen Seat Belt/Car Seat always uses seat belt Allergies and adverse reactions Description No Known Drug Allergies Medications Active Medications SIG Qnty Indications Order ing Provider Date Rollator Ultra-LightMisc with seat and brakes - use at all times while ambulating dx: g91.9 r53.1 1units R53.1 Angelina Andrade MD 04/21/2023 Oxygen ConcentratorMisc 2l portable oxyg en tank lightweight 1units J84.170 Angelina Andrade MD 04/21/2023 OxygenMisc 2l continuous flow - please get patient humidifier use 21/04 length need 99 months dx: j84.170, j96.11 1units J84.170 Angelina Andrade MD 04/21/2023 Quetiapine Pkwadufh997qp Tablets take 1 tablet by mouth everyday at bedtime 90tabs Angelina Andrade MD 04/21/2023 Preservision/LuteinCaps ules 1 by mouth daily Unknown 03/02/2023 Sulfamethoxazole/Trimet hoprim RG326-202zn Tablets 1 by mouth 3Xweek. 1 tab every vum-twh-ymqgkl Unknown 03/02/2023 Betamethasone Dipropionate0.05% Cream apply to affected area daily as needed Unknown 03/02/2023 Anoro Yeipfdq34.5-25mcg/Act Aerosol 1 puff once/day 60units Angelina Andrade MD 02/06/2023 Ventolin UEH658(90Base) mcg/Act Aerosol 2 puffs by mouth every 4-6 hours as needed wheezing 8gm Angelina Andrade MD 02/06/2023 OxygenMisc 3l continuous flow - please get patient humidifier use 21/04 Length need 99 months Dx: J84.170, J96.11 1units Angelina Andrade MD 12/05/2022 Hyxhsvizc147(65Fe) mg Tablets 1 by mouth two times daily 180tabs D64.9 Alvin Ibrahim MD 10/24/2020 Xapdoaavwm398ek Capsules take 1 capsule by mouth three times daily 270caps G89.21 Angelina Andrade MD 05/09/[address] 1 by mouth every day Unknown 03/03/2020 Donepezil HCL5mg Tablets 1 by mouth every day 90tabs Alvin Ibrahim MD 03/03/2020 Tylenol Extra Zoudsiju061rx Tablets 2 by mouth three times a day Unknown 03/03/2020 Tramadol LDG55aq Tablets take 1 tablet by mouth twice daily 60tabs Angelina Andrade MD 03/03/2020 Calcium 600+D High Gydxjml901-291qe-Xjei Tablets 1 tab by mouth twice a day 180tabs E55.9 Curtis Conner JR, MD 07/13/2019 Cyclobenzaprine YCO11yn Tablets take 1 tablet by mouth twice daily as needed for muscle spasm 60tabs Angelina Andrade MD 12/08/2018 Vitamin D3 Ultra Yzaujua48263Dftt Tablets take 1 tablet once a week 12tabs Curtis Conner JR, MD Trazodone KEB071zu Tablets take 1 tablet by mouth 90tabs Alvin bIrahim MD Ciojspays3ea Tablets 1 tab by mouth tid needed for anxiety as needed F41.1 Unknown Medications Administered in Office Medication SIG Qnty Indications Ordering Provider Date Injection Kenalog 10 MG NDC [id number] Payal Alves 04/18/2020 Injection Dexamethasone Sodi um Phosphate, 1 MGInjection Garth son PA-C 04/18/2020 Injection Vitamin B-12 Cyanocobalamin To 1000 mcgInjection Garth Wellington PA-C 09/30 Injection Vitamin B-12 Up To 1000 mcgInjection Curtis Conner JR, MD 04/12/2019 Injection Vitamin B-12 Up To 1000 mcgInjection Curtis Conner JR, MD 01/11/2019 Injection Vitamin B-12 Up To 1000 mcgInjection Curtis Conner JR, MD 10/12/2018 Injection Vitamin B-12 Up To 1000 mcgInjection Curtis Conner JR, MD 07/13/2018 Injection Vitamin B-12 Up To 1000 mcgInjection Curtis Conner JR, MD 05/11/2018 Injection Vitamin B-12 Cyanocobalamin To 1000 mcgInjection Curtis Conner JR, MD 04/29 Injection Vitamin B-12 Up To 1000 mcgInjection Curtis Conner JR, MD 04/09/2018 Injection Vitamin B-12 Cyanocobalamin To 1000 mcgInjection Curtis Conner JR, MD 03/29 Injection Vitamin B-12 Up To 1000 mcgInjection TOREY Bardales-C 0 02/09/2018 Injection Vitamin B-12 Up To 1000 mcgInjection TOREY Bardales-C 0 01/09/2018 Injection Vitamin B-12 Up To 1000 mcgInjection TOREY Bardales-L[place]ton 1 11/19/2016 Injection Vitamin B-12 Up To 1000 mcgInjection TOREY Bardales-[place] 1 11/19/2016 Injection Vitamin B-12 Up To 1000 mcgInjection TOREY Bardales-C 1 10/19/2016 Injection Vitamin B-12 Up To 1000 mcgInjection TOREY Bardales-C 1 Injection Vitamin B-12 Cyanocobalamin To 1000 mcgInjection TOREY Bardales-Layton 2016 Immunizations CPT Code Status Date Vaccine Lot # [id number] Given 09/01/2022 Tdap (Tetanus, diphtheria & acel. pertussis) Adacel or Boostrix 85904 Given 07/30/2022 Moderna Sars-Co v-2 (Covid-19) Vaccine, BiValent Booster 12y+ [id number] Given 01/15/2022 Moderna Covid-19 Vaccine 50mcg Booster [id number] 73911 Given 07/04/2021 Moderna Sars-Co v-2 (Covid-19) vaccine, 100 mcg/ 0.5 mL 12Y+ [id number] 48023 Given 12/01/2020 Moderna Sars-Co v-2 (Covid-19) vaccine, 100 mcg/ 0.5 mL 12Y+ [id number] 99673 Given 11/03/2020 Moderna Sars-Co v-2 (Covid-19) vaccine, 100 mcg/ 0.5 mL 12Y+ [id number] U-TD Given 12/25/2006 Td(Adult),Unspecified [id number] Refused 02/06/2023 Shingrix 86585 Refused 10/03/2021 Influenza Virus Vaccine, Quadrivalent (Cciiv4), Derived From Cell 84184 Refused 07/17/2020 Influenza Vaccine High Do se 0.5ML [id number] 35090 Refused 10/21/2019 Influenza Virus Vaccine, Quadrivalent, Im Use 59160 Refused 10/21/2019 Shingrix 02777 Refused 01/11/2019 Pneumococcal Conjugate-Pr evnar 13 46542 Refused 01/11/2019 Pneumococcal Vaccine/Pneu movax 23 52453 Refused 07/13/2018 Influenza Virus Vaccine, Quadrivalent (Cciiv4), Derived From Cell 43092 Refused 04/09/2018 Shingrix 93602 Refused 04/09/2018 Pneumococcal Conjugate-Pr evnar 13 U-FLU Refused 02/09/2018 Influenza,Unspecified Vital Signs Date Vital Result Comment 04/21/2023 3:31pm BP Systolic 110 mmHg BP Diastolic 66 mmHg Body Temperature 98.1 F Heart Rate 106 /min Respiratory Rate 19 /min Weight 84.38 lb Weight 38.273 kg O2 % BldC Oximetry 95 % 02/06/2023 9:10am BP Systolic 98 mmHg BP Diastolic 62 mmHg Body Temperature 97.3 F Heart Rate 110 /min Respiratory Rate 18 /min Weight 68.50 lb Weight 31.072 kg Height 60 inches 5'0" BMI (Body Mass Index) 13.4 kg/m2 O2 % BldC Oximetry 100 % [place] Body Weight 100 lb Procedures Date Code Description Status 04/21/2023 1101F PT SCR Future Fall Risk, No Fall Or 1 W/Out Injury Completed 12/05/2022 1111F D/C Medications Reconciled W/Current Medications In Outpt MR Completed 11/29/2022 1111F D/C Medications Reconciled W/Current Medications In Outpt MR Completed Medical Devices Description No Information Available Encounters Type Date Location Provider Dx Diagnosis Office Visit 04/21/2023 3:30p Ham Wellington PA-C Z00.01 Encounter for general adult medical exam w abnormal findings J84.170 Interstit lung dis w progr fibrotic phenotype dis classd e R53.1 Weakness F33.1 Major depressive dis order, recurrent, moderate Office Visit 02/06/2023 9:30a Ham dumont PA-C J84.170 Interstit lung dis w progr fibrotic phenotype dis classd e J93.9 Pneumothorax, unspec ified G47.33 Obstructive sleep ap rolando (adult) (pediatric) R64 Cachexia F33.1 Major depressive dis order, recurrent, moderate Office Visit 12/05/2022 10:00a Ham Wellington PA-C J84.170 Interstit lung dis w progr fibrotic phenotype dis classd e J93.9 Pneumothorax, unspec ified J96.11 Chronic respiratory failure with hypoxia Office Visit 11/26/2022 9:45a Ham dumont PA-C R06.02 Shortness of breath J90 Pleural effusion, no t elsewhere classified R63.4 Abnormal weight loss R64 Cachexia Assessments Date Code Description Provider 04/21/2023 Z00.01 [facility] with abnormal findings Garth Wellington PA-C 04/21/2023 J84.170 Progressive fibr otic interstitial lung disease Garth Wellington PA-C 04/21/2023 R53.1 Weakness Garth nath PA-C 04/21/2023 F33.1 Major depressive disorder, recurrent, moderate Garth Wellington PA-C 02/06/2023 J84.170 Progressive fibr otic interstitial lung disease Garth Wellington PA-C 02/06/2023 J93.9 Pneumothorax, unspecified Je harshil Wellington PA-C 02/06/2023 G47.33 Obstructive slee p apnea (adult) (pediatric) Garth Wellington PA-C 02/06/2023 R64 Cachexia Garth nath PA-C 02/06/2023 F33.1 Major depressive disorder, recurrent, moderate SOMMER AlvesC 12/05/2022 J84.170 Progressive fibr otic interstitial lung disease Garth Wellington PA-C 12/05/2022 J93.9 Pneumothorax, unspecified Je SOMMER RodC 12/05/2022 J96.11 Chronic respiratory failure with hypoxia Garth Wellington PA-C 11/28/2022 R06.02 Shortness of breath Garth Wellington PA-C 11/26/2022 R06.02 Shortness of breath SOMMER MartinezC 11/26/2022 J90 Pleural effusion, not elsewh ere classified Garth Wellington PA-C 11/26/2022 R63.4 Abnormal weight loss Garth Wellington PA-C 11/26/2022 R64 Cachexia Garth nath PA-C Plan of Treatment Future Appointment(s):* 07/22/2023 2:15 pm - Garth Wellington PA-C at [facility] 04/21/2023 - Garth Wellington PA-C* Z00.01 Encounter for general adult medical examination with abnormal findings* Follow up:* Follow up 3 months * J84.170 Progressive fibrotic interstitial lung disease* New Medication:* Oxygen Concentrator - 2l portable oxygen tank lightweight * Oxygen - 2l continuous flow - please get patient humidifier use 21/04 length need 99 months dx: j84.170, j96.11 * R53.1 Weakness* New Medication:* Rollator Ultra-Light - with seat and brakes - use at all times while ambulating dx: g91.9 r53.1 * F33.1 Major depressive disorder, recurrent, moderate Functional Status Description No Information Available Mental Status Description No Information Available Referrals Description No Information Available
--- OUTSIDE RECORDS SUMMARY | 2023-08-25 22:09 | External Medical Summary ---
Author Name Unknown Address Unknown Organization K09:[facility] [place] [address] Laboratory Report Ordering Provider Test Date Status HY,DEPAMPHILIS 05/13/2023 05:30:00 Final Observation Date Value Abnormality Reference (Units ) Status WBC, Total 05/13/2023 05:30:00 17.30 Above high normal 4 .00-10.80 (K/uL) Final RBC 05/13/2023 05:30:00 3.84 3.85-5.15 (M/uL) Final Hemoglobin 05/13/2023 05:30:00 13.1 12.0-15.3 (g/dL) Final HCT 05/13/2023 05:30:00 39.4 36.0-45.2 (%) Final MCV 05/13/2023 05:30:00 102.6 81.5-97.5 (fL) Final MCH 05/13/2023 05:30:00 34.1 27.0-34.0 (pg) Final MCHC 05/13/2023 05:30:00 33.2 32.0-36.0 (g/dL) Final RDW 05/13/2023 05:30:00 13.4 11.5-15.5 (%) Final Platelets 05/13/2023 05:30:00 278 140-400 (K /uL) Final MPV 05/13/2023 05:30:00 9.9 6.6-11.1 ( fL) Final Performing Location [facility] [place] [address]
--- OUTSIDE RECORDS SUMMARY | 2023-08-25 22:09 | External Medical Summary ---
Author Name Unknown Address Unknown Organization K09:[facility] [place] [address] Laboratory Report Ordering Provider Test Date Status HY,DEPAMPHILIS 05/06/2023 05:45:00 Final Observation Date Value Abnormality Reference (Units ) Status BUN 05/06/2023 05:45:00 28 Above high normal 6-20 (mg/dL) Final Creatinine 05/06/2023 05:45:00 0.6 0.5-1.0 (mg/dL) Final Glomerular filtration rate/1.73 sq M.predicted [Volume Rate/Area] in Serum, Plasma or Blood by Creatinine-based formula (CKD-EPI) 05/06/2023 05:45:00 >90 >=60 (mL/min) Final eGFR is calculated based on the CKD-EPI 2020 equation SODIUM 05/06/2023 05:45:00 135 135-146 (m mol/L) Final Potassium 05/06/2023 05:45:00 4.7 3.5-5.1 (m mol/L) Final Cl 05/06/2023 05:45:00 96 Below low normal 98- 107 (mmol/L) Final CO2 05/06/2023 05:45:00 29 22-32 (mmo l/L) Final Anion gap 05/06/2023 05:45:00 10 7-15 (mmol /L) Final Glucose 05/06/2023 05:45:00 104 70-120 (mg /dL) Final Calcium 05/06/2023 05:45:00 9.5 8.4-10.2 ( mg/dL) Final Performing Location [facility] [place] [address]
--- OUTSIDE RECORDS SUMMARY | 2023-08-25 22:10 | External Medical Summary ---
Author Name Unknown Address Unknown Organization K09:[facility] [place] [address] Laboratory Report Ordering Provider Test Date Status HY,DEPAMPHILIS 03/17/2023 05:50:00 Final Observation Date Value Abnormality Reference (Units ) Status BUN 03/17/2023 05:50:00 22 Above high normal 6-20 (mg/dL) Final Creatinine 03/17/2023 05:50:00 0.4 Below low normal 0.5-1.0 (mg/dL) Final Glomerular filtration rate/1.73 sq M.predicted [Volume Rate/Area] in Serum, Plasma or Blood by Creatinine-based formula (CKD-EPI) 03/17/2023 05:50:00 >90 >=60 (mL/min) Final eGFR is calculated based on the CKD-EPI 2020 equation SODIUM 03/17/2023 05:50:00 136 135-146 (m mol/L) Final Potassium 03/17/2023 05:50:00 5.1 3.5-5.1 (m mol/L) Final Cl 03/17/2023 05:50:00 98 98-107 (mm ol/L) Final CO2 03/17/2023 05:50:00 29 22-32 (mmo l/L) Final Anion gap 03/17/2023 05:50:00 9 7-15 (mmol /L) Final Glucose 03/17/2023 05:50:00 112 70-120 (mg /dL) Final Calcium 03/17/2023 05:50:00 9.5 8.4-10.2 ( mg/dL) Final Performing Location [facility] [place] [address]
--- OUTSIDE RECORDS SUMMARY | 2023-08-25 22:10 | External Medical Summary ---
Author Name Unknown Address Unknown Organization K09:[facility] [place] [address] Laboratory Report Ordering Provider Test Date Status HY,DEPAMPHILIS 03/03/2023 05:55:00 Final Observation Date Value Abnormality Reference (Units ) Status BUN 03/03/2023 05:55:00 12 6-20 (mg/dL) Final Creatinine 03/03/2023 05:55:00 0.4 Below low normal 0.5-1.0 (mg/dL) Final Glomerular filtration rate/1.73 sq M.predicted [Volume Rate/Area] in Serum, Plasma or Blood by Creatinine-based formula (CKD-EPI) 03/03/2023 05:55:00 >90 >=60 (mL/min) Final eGFR is calculated based on the CKD-EPI 2020 equation SODIUM 03/03/2023 05:55:00 136 135-146 (m mol/L) Final Potassium 03/03/2023 05:55:00 4.4 3.5-5.1 (m mol/L) Final Cl 03/03/2023 05:55:00 98 98-107 (mm ol/L) Final CO2 03/03/2023 05:55:00 28 22-32 (mmo l/L) Final Anion gap 03/03/2023 05:55:00 10 7-15 (mmol /L) Final Glucose 03/03/2023 05:55:00 105 70-120 (mg /dL) Final Calcium 03/03/2023 05:55:00 9.0 8.4-10.2 ( mg/dL) Final Performing Location [facility] [place] [address]
--- OUTSIDE RECORDS SUMMARY | 2023-08-25 22:10 | External Medical Summary ---
Author Name Unknown Address Unknown Organization K09:[facility] [place] [address] Laboratory Report Ordering Provider Test Date Status HY,DEPAMPHILIS 03/24/2023 05:50:00 Final Observation Date Value Abnormality Reference (Units ) Status BUN 03/24/2023 05:50:00 24 Above high normal 6-20 (mg/dL) Final Creatinine 03/24/2023 05:50:00 0.5 0.5-1.0 (mg/dL) Final Glomerular filtration rate/1.73 sq M.predicted [Volume Rate/Area] in Serum, Plasma or Blood by Creatinine-based formula (CKD-EPI) 03/24/2023 05:50:00 >90 >=60 (mL/min) Final eGFR is calculated based on the CKD-EPI 2020 equation SODIUM 03/24/2023 05:50:00 138 135-146 (m mol/L) Final Potassium 03/24/2023 05:50:00 4.2 3.5-5.1 (m mol/L) Final Cl 03/24/2023 05:50:00 101 98-107 (mm ol/L) Final CO2 03/24/2023 05:50:00 29 22-32 (mmo l/L) Final Anion gap 03/24/2023 05:50:00 8 7-15 (mmol /L) Final Glucose 03/24/2023 05:50:00 73 70-120 (mg /dL) Final Calcium 03/24/2023 05:50:00 9.0 8.4-10.2 ( mg/dL) Final Performing Location [facility] [place] [address]
--- OUTSIDE RECORDS SUMMARY | 2023-08-25 22:10 | External Medical Summary ---
Author Name Unknown Address Unknown Organization K09:[facility] [place] [address] Laboratory Report Ordering Provider Test Date Status HY,DEPAMPHILIS 03/17/2023 05:50:00 Final Observation Date Value Abnormality Reference (Units ) Status WBC, Total 03/17/2023 05:50:00 12.32 Above high normal 4 .00-10.80 (K/uL) Final RBC 03/17/2023 05:50:00 3.92 3.85-5.15 (M/uL) Final Hemoglobin 03/17/2023 05:50:00 13.6 12.0-15.3 (g/dL) Final HCT 03/17/2023 05:50:00 41.0 36.0-45.2 (%) Final MCV 03/17/2023 05:50:00 104.6 81.5-97.5 (fL) Final MCH 03/17/2023 05:50:00 34.7 27.0-34.0 (pg) Final MCHC 03/17/2023 05:50:00 33.2 32.0-36.0 (g/dL) Final RDW 03/17/2023 05:50:00 13.7 11.5-15.5 (%) Final Platelets 03/17/2023 05:50:00 346 140-400 (K /uL) Final MPV 03/17/2023 05:50:00 9.1 6.6-11.1 ( fL) Final Performing Location [facility] [place] [address]
--- OUTSIDE RECORDS SUMMARY | 2023-08-25 22:10 | External Medical Summary ---
Author Name Unknown Address Unknown Organization K09:[facility] [place] [address] Laboratory Report Ordering Provider Test Date Status HY,DEPAMPHILIS 03/03/2023 05:55:00 Final Observation Date Value Abnormality Reference (Units ) Status WBC, Total 03/03/2023 05:55:00 10.11 4.00-10.8 0 (K/uL) Final RBC 03/03/2023 05:55:00 3.53 3.85-5.15 (M/uL) Final Hemoglobin 03/03/2023 05:55:00 11.8 Below low normal 12 .0-15.3 (g/dL) Final HCT 03/03/2023 05:55:00 36.5 36.0-45.2 (%) Final MCV 03/03/2023 05:55:00 103.4 81.5-97.5 (fL) Final MCH 03/03/2023 05:55:00 33.4 27.0-34.0 (pg) Final MCHC 03/03/2023 05:55:00 32.3 32.0-36.0 (g/dL) Final RDW 03/03/2023 05:55:00 13.5 11.5-15.5 (%) Final Platelets 03/03/2023 05:55:00 275 140-400 (K /uL) Final MPV 03/03/2023 05:55:00 9.6 6.6-11.1 ( fL) Final Performing Location [facility] [place] [address]
--- OUTSIDE RECORDS SUMMARY | 2023-08-25 22:10 | External Medical Summary ---
Author Name Unknown Address Unknown Organization K09:[facility] [place] [address] Laboratory Report Ordering Provider Test Date Status HY,DEPAMPHILIS 03/24/2023 05:50:00 Final Observation Date Value Abnormality Reference (Units ) Status WBC, Total 03/24/2023 05:50:00 12.57 Above high normal 4 .00-10.80 (K/uL) Final RBC 03/24/2023 05:50:00 3.62 3.85-5.15 (M/uL) Final Hemoglobin 03/24/2023 05:50:00 12.6 12.0-15.3 (g/dL) Final HCT 03/24/2023 05:50:00 38.9 36.0-45.2 (%) Final MCV 03/24/2023 05:50:00 107.5 81.5-97.5 (fL) Final MCH 03/24/2023 05:50:00 34.8 27.0-34.0 (pg) Final MCHC 03/24/2023 05:50:00 32.4 32.0-36.0 (g/dL) Final RDW 03/24/2023 05:50:00 13.5 11.5-15.5 (%) Final Platelets 03/24/2023 05:50:00 271 140-400 (K /uL) Final MPV 03/24/2023 05:50:00 9.4 6.6-11.1 ( fL) Final Performing Location [facility] [place] [address]
--- OUTSIDE RECORDS SUMMARY | 2023-08-25 22:10 | External Medical Summary ---
Author Name Unknown Address Unknown Organization K09:[facility] [place] [place] [address] Laboratory Report Ordering Provider Test Date Status HY,DEPAMPHILIS 03/10/2023 05:55:00 Final Observation Date Value Abnormality Reference (Units ) Status WBC, Total 03/10/2023 05:55:00 15.10 Above high normal 4 .00-10.80 (K/uL) Final RBC 03/10/2023 05:55:00 3.74 3.85-5.15 (M/uL) Final Hemoglobin 03/10/2023 05:55:00 13.0 12.0-15.3 (g/dL) Final HCT 03/10/2023 05:55:00 39.2 36.0-45.2 (%) Final MCV 03/10/2023 05:55:00 104.8 81.5-97.5 (fL) Final MCH 03/10/2023 05:55:00 34.8 27.0-34.0 (pg) Final MCHC 03/10/2023 05:55:00 33.2 32.0-36.0 (g/dL) Final RDW 03/10/2023 05:55:00 14.5 11.5-15.5 (%) Final Platelets 03/10/2023 05:55:00 398 140-400 (K /uL) Final MPV 03/10/2023 05:55:00 9.1 6.6-11.1 ( fL) Final Performing Location [facility] [place] [address]
--- OUTSIDE RECORDS SUMMARY | 2023-08-25 22:10 | External Medical Summary ---
Author Name Unknown Address Unknown Organization K09:[facility] [place] [address] Laboratory Report Ordering Provider Test Date Status HY,DEPAMPHILIS 03/10/2023 05:55:00 Final Observation Date Value Abnormality Reference (Units ) Status BUN 03/10/2023 05:55:00 23 Above high normal 6-20 (mg/dL) Final Creatinine 03/10/2023 05:55:00 0.4 Below low normal 0.5-1.0 (mg/dL) Final Glomerular filtration rate/1.73 sq M.predicted [Volume Rate/Area] in Serum, Plasma or Blood by Creatinine-based formula (CKD-EPI) 03/10/2023 05:55:00 >90 >=60 (mL/min) Final eGFR is calculated based on the CKD-EPI 2020 equation SODIUM 03/10/2023 05:55:00 136 135-146 (m mol/L) Final Potassium 03/10/2023 05:55:00 4.5 3.5-5.1 (m mol/L) Final Cl 03/10/2023 05:55:00 95 Below low normal 98- 107 (mmol/L) Final CO2 03/10/2023 05:55:00 31 22-32 (mmo l/L) Final Anion gap 03/10/2023 05:55:00 10 7-15 (mmol /L) Final Glucose 03/10/2023 05:55:00 82 70-120 (mg /dL) Final Calcium 03/10/2023 05:55:00 9.7 8.4-10.2 ( mg/dL) Final Performing Location [facility] [place] [address]
--- OUTSIDE RECORDS SUMMARY | 2023-08-25 22:10 | External Medical Summary ---
Author Name Unknown Address Unknown Organization K09:[facility] [place] [address] Laboratory Report Ordering Provider Test Date Status HY,DEPAMPHILIS 04/07/2023 06:15:22 Final Observation Date Value Abnormality Reference (Units ) Status WBC, Total 04/07/2023 06:15:22 12.37 Above high normal 4 .00-10.80 (K/uL) Final RBC 04/07/2023 06:15:22 3.84 3.85-5.15 (M/uL) Final Hemoglobin 04/07/2023 06:15:22 13.1 12.0-15.3 (g/dL) Final HCT 04/07/2023 06:15:22 41.1 36.0-45.2 (%) Final MCV 04/07/2023 06:15:22 107.0 81.5-97.5 (fL) Final MCH 04/07/2023 06:15:22 34.1 27.0-34.0 (pg) Final MCHC 04/07/2023 06:15:22 31.9 32.0-36.0 (g/dL) Final RDW 04/07/2023 06:15:22 13.0 11.5-15.5 (%) Final Platelets 04/07/2023 06:15:22 275 140-400 (K /uL) Final MPV 04/07/2023 06:15:22 9.4 6.6-11.1 ( fL) Final Performing Location [facility] [place] [address]
--- OUTSIDE RECORDS SUMMARY | 2023-08-25 22:10 | External Medical Summary | Continuity of Care Document ---
Author Name GARTH WELLINGTON Address [address] [place] [address] Phone [phone] [facility] Address [address] [place] [address] Phone [phone] Care Team Providers Care Distribution Accounting Clerk Name Role Phone Psychiatry - Psychiatry Care Team Information Re ceiver Unavailable [facility] Care Team Information Commercial Decorator [phone] Problems Active Problems Provider Date Chronic pain [...] 1units J84.170 Angelina Andrade MD 04/21/2023 Quetiapine Ovpgjksw098eb Tablets take 1 tablet by mouth everyday at bedtime 90tabs Angelina Andrade MD 04/21/2023 Preservision/LuteinCaps ules 1 by mouth daily Unknown 03/02/2023 Sulfamethoxazole/Trimet hoprim KT287-982xc Tablets 1 by mouth 3Xweek. 1 tab every igf-zyf-mkrijm Unknown 03/02/2023 Betamethasone Dipropionate0.05% Cream apply to affected area daily as needed Unknown 03/02/2023 Anoro Dyykkdh66.5-25mcg/Act Aerosol 1 puff once/day 60units Angelina Andrade MD 02/06/2023 Ventolin XHC154(90Base) mcg/Act Aerosol 2 puffs by mouth every 4-6 hours as needed wheezing 8gm Angelina Andrade MD 02/06/2023 OxygenMisc 3l continuous flow - please get patient humidifier use 21/04 Length need 99 months Dx: J84.170, J96.11 1units Angelina Andrade MD 12/05/2022 Fchoxnmuy937(65Fe) mg Tablets 1 by mouth two times daily 180tabs D64.9 Alvin Ibrahim MD 10/24/2020 Iwlgmqpbyz550ph Capsules take 1 capsule by mouth three times daily 270caps G89.21 Angelina Andrade MD 05/09/[address] 1 by mouth every day Unknown 03/03/2020 Donepezil HCL5mg Tablets 1 by mouth every day 90tabs Alvin Ibrahim MD 03/03/2020 Tylenol Extra Wihtobjd815lj Tablets 2 by mouth three times a day Unknown 03/03/2020 Tramadol ZKE97nl Tablets take 1 tablet by mouth twice daily 60tabs Angelina Andrade MD 03/03/2020 Calcium 600+D High Awcnvjo622-617qc-Wrwo Tablets 1 tab by mouth twice a day 180tabs E55.9 Curtis Conner JR, MD 07/13/2019 Cyclobenzaprine BLO60tg Tablets take 1 tablet by mouth twice daily as needed for muscle spasm 60tabs Angelina Andrade MD 12/08/2018 Vitamin D3 Ultra Mfvnfjd55418Juas Tablets take 1 tablet once a week 12tabs Curtis Conner JR, MD Trazodone PTW363yr Tablets take 1 tablet by mouth 90tabs Alvin Ibrahim MD Hxpkdglft9ro Tablets 1 tab by mouth tid needed for anxiety as needed F41.1 Unknown Medications Administered in Office Medication SIG Qnty Indications Ordering Provider Date Injection Kenalog 10 MG NDC [id number] Payal Alves 04/18/2020 Injection Dexamethasone Sodi um [...] CPT Code Status Date Vaccine Lot # [id number] Given 09/01/2022 Tdap (Tetanus, diphtheria & acel. pertussis) Adacel or Boostrix 68505 Given 07/30/2022 Moderna Sars-Co v-2 (Covid-19) Vaccine, BiValent Booster 12y+ [id number] 80723 Given 01/15/2022 Moderna Covid-19 Vaccine 50mcg Booster [id number] 52280 Given 07/04/2021 Moderna Sars-Co v-2 (Covid-19) vaccine, 100 mcg/ 0.5 mL 12Y+ [id number] 90428 Given 12/01/2020 Moderna Sars-Co v-2 (Covid-19) vaccine, 100 mcg/ 0.5 mL 12Y+ [id number] 01630 Given 11/03/2020 Moderna Sars-Co v-2 (Covid-19) vaccine, 100 mcg/ 0.5 mL 12Y+ [id number] U-TD Given 12/25/2006 Td(Adult),Unspecified 40680 Refused 02/06/2023 Shingrix 32779 Refused 10/03/2021 Influenza Virus Vaccine, Quadrivalent (Cciiv4), Derived From Cell 34991 Refused 07/17/2020 Influenza Vaccine High Do se 0.5ML [id number] 60805 Refused 10/21/2019 Influenza Virus Vaccine, Quadrivalent, Im Use 93456 Refused 10/21/2019 Shingrix 90672 Refused 01/11/2019 Pneumococcal Conjugate-Pr evnar 13 23019 Refused 01/11/2019 Pneumococcal Vaccine/Pneu movax 23 71281 Refused 07/13/2018 Influenza Virus Vaccine, Quadrivalent (Cciiv4), Derived From Cell 16547 Refused 04/09/2018 Shingrix 61535 Refused 04/09/2018 Pneumococcal Conjugate-Pr evnar 13 U-FLU [...] kg/m2 O2 % BldC Oximetry 100 % [place] Body Weight 100 lb Procedures Date Code [...] Description Provider 04/21/2023 Z00.01 [facility] [place] [facility] with abnormal findings Garth [...] 2:15 pm - Garth Wellington PA-C at [place] 04/21/2023 - Garth Wellington PA-C* Z00.01 Encounter [...]
--- OUTSIDE RECORDS SUMMARY | 2023-08-25 22:10 | External Medical Summary ---
Author Name Unknown Address Unknown Organization K09:[facility] [place] [address] Laboratory Report Ordering Provider Test Date Status HY,DEPAMPHILIS 03/31/2023 05:50:00 Final Observation Date Value Abnormality Reference (Units ) Status WBC, Total 03/31/2023 05:50:00 11.30 Above high normal 4 .00-10.80 (K/uL) Final RBC 03/31/2023 05:50:00 4.12 3.85-5.15 (M/uL) Final Hemoglobin 03/31/2023 05:50:00 14.6 12.0-15.3 (g/dL) Final HCT 03/31/2023 05:50:00 43.3 36.0-45.2 (%) Final MCV 03/31/2023 05:50:00 105.1 81.5-97.5 (fL) Final MCH 03/31/2023 05:50:00 35.4 27.0-34.0 (pg) Final MCHC 03/31/2023 05:50:00 33.7 32.0-36.0 (g/dL) Final RDW 03/31/2023 05:50:00 13.2 11.5-15.5 (%) Final Platelets 03/31/2023 05:50:00 301 140-400 (K /uL) Final MPV 03/31/2023 05:50:00 9.2 6.6-11.1 ( fL) Final Performing Location [facility] [place] [address]
--- OUTSIDE RECORDS SUMMARY | 2023-08-25 22:10 | External Medical Summary ---
Author Name Unknown Address Unknown Organization K09:[facility] [place] [address] Laboratory Report Ordering Provider Test Date Status HY,DEPAMPHILIS 03/31/2023 05:50:00 Final Observation Date Value Abnormality Reference (Units ) Status BUN 03/31/2023 05:50:00 20 6-20 (mg/dL) Final Creatinine 03/31/2023 05:50:00 0.5 0.5-1.0 (mg/dL) Final Glomerular filtration rate/1.73 sq M.predicted [Volume Rate/Area] in Serum, Plasma or Blood by Creatinine-based formula (CKD-EPI) 03/31/2023 05:50:00 >90 >=60 (mL/min) Final eGFR is calculated based on the CKD-EPI 2020 equation SODIUM 03/31/2023 05:50:00 138 135-146 (m mol/L) Final Potassium 03/31/2023 05:50:00 4.7 3.5-5.1 (m mol/L) Final Cl 03/31/2023 05:50:00 98 98-107 (mm ol/L) Final CO2 03/31/2023 05:50:00 32 22-32 (mmo l/L) Final Anion gap 03/31/2023 05:50:00 8 7-15 (mmol /L) Final Glucose 03/31/2023 05:50:00 83 70-120 (mg /dL) Final Calcium 03/31/2023 05:50:00 9.5 8.4-10.2 ( mg/dL) Final Performing Location [facility] [place] [address]
--- OUTSIDE RECORDS SUMMARY | 2023-08-25 22:10 | External Medical Summary ---
Author Name Unknown Address Unknown Organization K09:[facility] [place] [address] Laboratory Report Ordering Provider Test Date Status HY,DEPAMPHILIS 04/07/2023 06:15:22 Final Observation Date Value Abnormality Reference (Units ) Status BUN 04/07/2023 06:15:22 24 Above high normal 6-20 (mg/dL) Final Creatinine 04/07/2023 06:15:22 0.5 0.5-1.0 (mg/dL) Final Glomerular filtration rate/1.73 sq M.predicted [Volume Rate/Area] in Serum, Plasma or Blood by Creatinine-based formula (CKD-EPI) 04/07/2023 06:15:22 >90 >=60 (mL/min) Final eGFR is calculated based on the CKD-EPI 2020 equation SODIUM 04/07/2023 06:15:22 136 135-146 (m mol/L) Final Potassium 04/07/2023 06:15:22 4.6 3.5-5.1 (m mol/L) Final Cl 04/07/2023 06:15:22 97 Below low normal 98- 107 (mmol/L) Final CO2 04/07/2023 06:15:22 32 22-32 (mmo l/L) Final Anion gap 04/07/2023 06:15:22 7 7-15 (mmol /L) Final Glucose 04/07/2023 06:15:22 79 70-120 (mg /dL) Final Calcium 04/07/2023 06:15:22 9.0 8.4-10.2 ( mg/dL) Final Performing Location [facility] [place] [address]
--- OUTSIDE RECORDS SUMMARY | 2023-08-25 22:10 | External Medical Summary ---
Author Name Unknown Address Unknown Organization K01:[facility] – [place] - [address] [place] [address] Laboratory Report Ordering Provider Test Date Status VICK SOTO 03/12/2023 06:15:00 Final Observation Date Value Abnormality Reference (Units ) Status TSH 03/12/2023 06:15:00 1.41 0.27-4.20 (uIU/mL) Final Performing Location [facility] - [address] [place] [address]
[2023-08-25] MEDS: LORazepam 1 MG TAB PO PRN (22:36)
[2023-08-26 04:31] LABS: Basophils # (auto) 0.06 K/uL (0.00-0.20); Basophils % (auto) 0.4 %; Eosinophils # (auto) 0.01 K/uL (0.00-0.50); Eosinophils % (auto) 0.1 %; Hematocrit (blood only) 36.8 % (37.0-47.0); Hemoglobin 11.8 g/dl (12.0-16.0); Immature Granulocytes % (auto) 0.7 %; Lymphocytes # (auto) 1.32 K/uL (1.20-3.40); Lymphocytes % (auto) 8.6 %; Mean Corpuscular Hemoglobin 29.5 pg (25.0-34.0); Mean Corpuscular Hgb Conc 32.1 g/dL (32.0-36.0); Mean Platelet Volume 9.7 fL (9.4-12.4); Monocytes # (auto) 1.46 K/uL (0.11-0.59); Monocytes % (auto) 9.5 %; Neutrophils # (auto) 12.35 K/uL (1.40-6.50); Neutrophils % (auto) 80.7 %; Platelet Count 302 K/uL (130-400); RDW Coefficient of Variation 13.4 % (11.5-14.5); RDW Standard Deviation 45.5 fL (36.4-46.3)
[2023-08-26 04:39] LABS: Albumin Level 2.9 gm/dl (3.4-5.0); BUN Creatinine Ratio 24.4 (10-20); Calcium 8.7 mg/dl (8.6-10.3); Creatinine Clr Calc Pharmacy 72.2 ml/min; Est GFR (African American) 121.3 ml/min; Est GFR (Non-African American) 104.7 ml/min; Phosphorus 3.2 mg/dl (2.5-4.9); Potassium 3.7 mmol/L (3.5-5.1)
[2023-08-26] MEDS: CEFEPIME 2,000 MG in SYRINGE 0 ML IV SCH ×3 (06:04→21:52)
--- NOTE | 2023-08-26 07:57 | Hospitalist Progress Note ---
Date of Service August 26, 2023 Assessment & Plan (1) Shortness of breath: Plan: Acute on chronic respiratory failure with hypoxia secondary to gram negative or atypical pneumonia. -Increased oxygen requirement to 6L, home O2 2L NC. - -CXR with diffuse interstitial thickening increased from previous CXR. -Patient w/ history of ILD, lives in [facility] home health care associated pneumonia -Will cover with Cefepime 2g q8h IV.. add azithromycin to cover atypical infection -Duoneb and albuterol inhaler PRN. Flutter valve and mucinex ordered. (2) Interstitial lung disease: Plan: -Chronic, noted, had followed with Dr. Mcmahon in the past. Per patient she does not take any inhalers on a daily basis and is on 2L chronically at home. Plan as above while inpatient. (3) Severe protein-calorie malnutrition: Plan: -Chronic, noted. Albumin 3.2 on admission. Encourage good PO intake, appetite not affected by infection per patient. BMI is 15 Ordered boost and nutritional evaluation (4) Osteoporosis: Plan: -Noted, continue home calcium-vitamin D supplement. (5) Anxiety disorder: Plan: -Continue home fluoxetine (6) Closed compression fracture of L2 vertebra: Plan: -Chronic, tylenol 650mg PRN PO q6h ordered. Can add on oxycodone if not at goal with tylenol. (7) Aryan's thyroiditis: Plan: -TSH stable from previous blood work, not on any medications currently. (8) Cluster A personality disorder: Plan: -Continue trazodone, lorazepam, gabapentin, fluoxetine. Plan DVT Prophylaxis: Lovenox 30mg SQ qAM. Code status: DNR/DNI Dispo: telemetry Admission and Anticipated Discharge Date Admission Date: August 25, 2023 Subjective Patient states she feels somewhat better than her previous however she is still far from her baseline. She is markedly malnourished with a BMI of 15. Physical Exam Physical Exam: Patient is pleasant very thin lung exam shows poor air movement and coarse breath sounds equal bilaterally with no focal loss or wheeze Results & Data Results & Data Vital Signs (Past 12 Hours) Vital Signs Pulse Pulse Resp BP Pulse Ox Pulse Ox O2 Del Method 08/26/23 07:00 93 H 32 H 123/70 98 Nasal Cannula 08/26/23 06:04 Nasal Cannula 08/26/23 06:00 97 H 20 149/81 H 94 Nasal Cannula 08/26/23 03:00 74 18 91/58 L 97 Nasal Cannula 08/26/23 00:15 83 20 103/66 97 Nasal Cannula 08/25/23 21:39 99 O2 Del Method O2 Flow Rate O2 Flow Rate 08/26/23 07:00 6 08/26/23 06:04 4 08/26/23 06:00 4 08/26/23 03:00 08/26/23 00:15 6 08/25/23 21:39 Nasal Cannula 6 Laboratory Results Reviewed CBC reviewed chemistry PG Care Time/CCT Total # of Minutes Spent Total Time Spent with Patient: Total time spent is greater than 50% in coordination of care (as documented) at patient's floor/unit and/or counseling patient: Coding Level of Care Code 63187 SUB INP/OBS CARE 2/35MIN Diagnoses Shortness of breath R06.02 Interstitial lung disease J84.9 Severe protein-calorie malnutrition E43 Osteoporosis M81.0 Anxiety disorder F41.9 Closed compression fracture of L2 vertebra S32.020A Encounter type: initial encounter Aryan's thyroiditis E06.3 Cluster A personality disorder F60.9 (6) Closed compression fracture of L2 vertebra Encounter type: initial encounter Qualified Code(s): S32.020A - Wedge compression fracture of second lumbar vertebra, initial encounter for closed fracture
[2023-08-26] MEDS: LIDOCAINE 5% 1 PATCH TD SCH (09:45)
[2023-08-26] MEDS: ASPIRIN 81 MG ECTAB PO SCH (09:45)
[2023-08-26] MEDS: AZITHROMYCIN 500 MG in DEXTROSE 5% 250 ML IV SCH (09:45)
[2023-08-26] MEDS: FERROUS SULFATE 325 MG TAB PO SCH (11:17)
[2023-08-26] MEDS: FLUoxetine HCL 20 MG CAP PO SCH (11:17)
[2023-08-26] MEDS: CALCIUM 600MG + VIT D 400 IU TAB PO SCH (11:17)
[2023-08-26] MEDS: guaiFENesin 600 MG TABCR PO SCH ×2 (11:18→21:30)
[2023-08-26] MEDS: GABAPENTIN 400 MG CAP PO SCH ×3 (11:18→21:30)
[2023-08-26] MEDS: LORazepam 1 MG TAB PO PRN ×2 (11:18→20:07)
[2023-08-26] MEDS: ACETAMINOPHEN 325 MG TAB PO PRN ×2 (11:18→20:08)
--- NOTE | 2023-08-26 16:28 | Electrocardiogram Report ---
Test Reason : Blood Pressure : / mmHG Vent. Rate : 099 BPM Atrial Rate : 099 BPM P-R Int : 128 ms QRS Dur : 070 ms QT Int : 364 ms P-R-T Axes : 011 032 -04 degrees QTc Int : 467 ms Normal sinus rhythm Inferior infarct , age undetermined Poor R wave progression, consider anterior GA vs. lead placement vs. LVH Abnormal ECG When compared with ECG of 12-FEB-2023 15:30, Inferior infarct is now Present T wave inversion now evident in Inferior leads T wave inversion now evident in Lateral leads Confirmed by Micky Bustamante ([id number]) on 08/26/2023 4:27:38 PM Referred By: REFERRED SELF Confirmed By:Heath Bustamante
--- NOTE | 2023-08-26 18:39 | Hospitalist Progress Note ---
Date of Service August 26, 2023 Assessment & Plan (1) Shortness of breath: Plan: Acute on chronic respiratory failure with hypoxia secondary to gram negative or atypical pneumonia. -Increased oxygen requirement to 6L, home O2 2L NC. - -CXR with diffuse interstitial thickening increased from previous CXR. -Patient w/ history of ILD, lives in [facility] home health care associated pneumonia -Will cover with Cefepime 2g q8h IV.. add azithromycin to cover atypical infection -Duoneb and albuterol inhaler PRN. Flutter valve and mucinex ordered. (2) Interstitial lung disease: Plan: -Chronic, noted, had followed with Dr. Mcmahon in the past. Per patient she does not take any inhalers on a daily basis and is on 2L chronically at home. Plan as above while inpatient. (3) Severe protein-calorie malnutrition: Plan: -Chronic, noted. Albumin 3.2 on admission. Encourage good PO intake, appetite not affected by infection per patient. BMI is 15 Ordered boost and nutritional evaluation (4) Osteoporosis: Plan: -Noted, continue home calcium-vitamin D supplement. *Age-related osteoporosis w/ current pathological fracture of L2 vertebra (5) Anxiety disorder: Plan: -Continue home fluoxetine (6) Closed compression fracture of L2 vertebra: Plan: -Chronic, tylenol 650mg PRN PO q6h ordered. Can add on oxycodone if not at goal with tylenol. (7) Aryan's thyroiditis: Plan: -TSH stable from previous blood work, not on any medications currently. (8) Cluster A personality disorder: Plan: -Continue trazodone, lorazepam, gabapentin, fluoxetine. Plan DVT Prophylaxis: Lovenox 30mg SQ qAM. Code status: DNR/DNI Dispo: telemetry Admission and Anticipated Discharge Date Admission Date: August 25, 2023 Results & Data Results & Data Vital Signs (Past 12 Hours) Vital Signs Pulse Pulse Pulse Resp BP BP Pulse Ox 08/26/23 15:12 75 08/26/23 12:41 78 12 113/66 98 08/26/23 10:00 90 20 112/81 96 08/26/23 09:00 87 20 131/83 100 08/26/23 08:52 90 08/26/23 08:28 85 12 129/82 100 08/26/23 07:00 93 H 32 H 123/70 98 O2 Del Method O2 Flow Rate 08/26/23 15:12 08/26/23 12:41 Nasal Cannula 4 08/26/23 10:00 Nasal Cannula 4 08/26/23 09:00 Nasal Cannula 4 08/26/23 08:52 08/26/23 08:28 Nasal Cannula 4 08/26/23 07:00 Nasal Cannula 6 PG Care Time/CCT Total # of Minutes Spent Total Time Spent with Patient: Total time spent is greater than 50% in coordination of care (as documented) at patient's floor/unit and/or counseling patient: Coding Level of Care Code None Diagnoses Shortness of breath R06.02 Interstitial lung disease J84.9 Severe protein-calorie malnutrition E43 Osteoporosis M81.0 Anxiety disorder F41.9 Closed compression fracture of L2 vertebra S32.020A Encounter type: initial encounter Aryan's thyroiditis E06.3 Cluster A personality disorder F60.9 (6) Closed compression fracture of L2 vertebra Encounter type: initial encounter Qualified Code(s): S32.020A - Wedge compression fracture of second lumbar vertebra, initial encounter for closed fracture
[2023-08-26] MEDS: DONEPEZIL HCL 5 MG TAB PO SCH (21:29)
[2023-08-26] MEDS: traZODone HCL 100 MG TAB PO SCH (21:29)
[2023-08-26] MEDS: QUEtiapine FUMARATE 100 MG TABLET PO SCH (21:30)
[2023-08-26] MEDS: ENOXAPARIN INJ 30 MG/0.3 ML SYR SQ SCH (21:30)
--- NOTE | 2023-08-27 00:52 | Billing Data ---
Date of Service August 25, 2023 Coding Level of Care Code 44967 INT INP/OBS CARE
[2023-08-27] MEDS: CEFEPIME 2,000 MG in SYRINGE 0 ML IV SCH ×3 (04:59→20:50)
[2023-08-27 07:15] LABS: Basophils # (auto) 0.09 K/uL (0.00-0.20); Basophils % (auto) 0.6 %; Eosinophils # (auto) 0.84 K/uL (0.00-0.50); Eosinophils % (auto) 5.5 %; Hematocrit (blood only) 37.1 % (37.0-47.0); Hemoglobin 11.9 g/dl (12.0-16.0); Immature Granulocytes # (auto) 0.08 K/uL (0.01-0.20); Immature Granulocytes % (auto) 0.5 %; Lymphocytes # (auto) 0.57 K/uL (1.20-3.40); Lymphocytes % (auto) 3.7 %; Mean Corpuscular Hemoglobin 29.4 pg (25.0-34.0); Mean Corpuscular Hgb Conc 32.1 g/dL (32.0-36.0); Mean Corpuscular Volume 91.6 fL (80.0-100.0); Mean Platelet Volume 9.1 fL (9.4-12.4); Monocytes # (auto) 1.23 K/uL (0.11-0.59); Neutrophils % (auto) 81.7 %; Platelet Count 321 K/uL (130-400); RDW Coefficient of Variation 13.6 % (11.5-14.5); RDW Standard Deviation 46.5 fL (36.4-46.3); Red Blood Count 4.05 M/uL (4.20-5.40); White Blood Count 15.31 K/ul (4.8-10.8)
[2023-08-27 07:28] LABS: Albumin Level 2.8 gm/dl (3.4-5.0); BUN Creatinine Ratio 28.9 (10-20); Calcium 8.4 mg/dl (8.6-10.3); Est GFR (African American) 117.7 ml/min; Est GFR (Non-African American) 101.5 ml/min; Phosphorus 2.3 mg/dl (2.5-4.9); Potassium 3.6 mmol/L (3.5-5.1)
[2023-08-27] MEDS: LORazepam 1 MG TAB PO PRN ×2 (08:07→20:50)
[2023-08-27] MEDS: AZITHROMYCIN 500 MG in DEXTROSE 5% 250 ML IV SCH (08:17)
[2023-08-27] MEDS: ACETAMINOPHEN 325 MG TAB PO PRN (08:18)
[2023-08-27] MEDS: FERROUS SULFATE 325 MG TAB PO SCH (08:19)
[2023-08-27] MEDS: LIDOCAINE 5% 1 PATCH TD SCH (08:19)
[2023-08-27] MEDS: ASPIRIN 81 MG ECTAB PO SCH (08:19)
[2023-08-27] MEDS: FLUoxetine HCL 20 MG CAP PO SCH (08:19)
[2023-08-27] MEDS: guaiFENesin 600 MG TABCR PO SCH ×2 (08:19→20:53)
[2023-08-27] MEDS: CALCIUM 600MG + VIT D 400 IU TAB PO SCH (08:20)
[2023-08-27] MEDS: GABAPENTIN 400 MG CAP PO SCH ×3 (08:20→20:53)
[2023-08-27] MEDS ORDERED: ACETAMINOPHEN 500 MG TAB PO PRN (08:47)
[2023-08-27] MEDS: oxyCODONE HCL IR 5 MG TAB (IMMEDIATE RELEASE) PO PRN ×2 (13:30→20:50)
--- NOTE | 2023-08-27 17:03 | Hospitalist Progress Note ---
Date of Service August 27, 2023 Assessment & Plan (1) Shortness of breath: Plan: 68 year old female admitted for shortness of breath, possible pneumonia. -Increased oxygen requirement to 6L, home O2 2L NC. currently on room air in the hospital at rest but supported saturations -leukocytosis persists -CXR with diffuse interstitial thickening increased from previous CXR. -Patient w/ history of ILD, lives in [facility] home health care associated pneumonia - continues on Cefepime 2g q8h IV. cover gram-negative pneumonia with leukocytosis if continues may consider atypical coverage or unified coverage such as levofloxacin -Duoneb and albuterol inhaler PRN. Flutter valve and mucinex ordered. (2) Interstitial lung disease: Plan: -Chronic, noted, had followed with Dr. Mcmahon in the past. Per patient she does not take any inhalers on a daily basis and is on 2L chronically at home. (3) Severe protein-calorie malnutrition: Plan: -Chronic, noted. Albumin 3.2 on admission. Encourage good PO intake, appetite not affected by infection per patient. (4) Osteoporosis: Plan: -Noted, continue home calcium-vitamin D supplement. (5) Anxiety disorder: Plan: -Continue home fluoxetine (6) Closed compression fracture of L2 vertebra: Plan: -Chronic, tylenol 650mg PRN PO q6h ordered. oxycodone if not at goal with tylenol. (7) Aryan's thyroiditis: Plan: -TSH stable from previous blood work, not on any medications currently. (8) Cluster A personality disorder: Plan: -Continue trazodone, lorazepam, gabapentin, fluoxetine. Plan DVT Prophylaxis: Lovenox 30mg SQ qAM. Code status: DNR/DNI Admission and Anticipated Discharge Date Admission Date: August 25, 2023 Subjective Patient biggest focus is reduction of her opiate use which is chronic. We have changed from hydrocodone to oxycodone twice daily from 3 times daily subsequently she is not pleased with this change. States her pain mostly is in her back. She does have a history of a compression fracture. Interestingly no significant complaints of dyspnea although she is dyspneic in general with her baseline interstitial lung disease, she is not hypoxic She is markedly malnourished with a BMI of 15. Physical Exam Physical Exam: Patient is pleasant but demanding. very thin Underweight with a BMI of 14.8 lung exam shows reduced air movement and coarse breath sounds equal bilaterally with no focal loss or wheeze Results & Data Results & Data Vital Signs (Past 12 Hours) Vital Signs Temp Pulse Pulse Resp BP BP Pulse Ox 08/27/23 16:00 97.9 F 84 18 105/69 08/27/23 15:51 88 08/27/23 12:07 08/27/23 11:39 97.2 F L 88 18 115/74 95 08/27/23 08:13 97.9 F 95 H 18 130/80 90 08/27/23 07:21 88 O2 Del Method O2 Flow Rate 08/27/23 16:00 Room Air 08/27/23 15:51 08/27/23 12:07 Nasal Cannula 4 08/27/23 11:39 Nasal Cannula 2 08/27/23 08:13 Nasal Cannula 2 08/27/23 07:21 Laboratory Results reviewed CBC reviewed chemistry PG Care Time/CCT Total # of Minutes Spent Total Time Spent with Patient: Total time spent is greater than 50% in coordination of care (as documented) at patient's floor/unit and/or counseling patient: Coding Level of Care Code 07115 SUB INP/OBS CARE 2/35MIN Diagnoses Shortness of breath R06.02 Interstitial lung disease J84.9 Severe protein-calorie malnutrition E43 Osteoporosis M81.0 Anxiety disorder F41.9 Closed compression fracture of L2 vertebra S32.020A Encounter type: initial encounter Aryan's thyroiditis E06.3 Cluster A personality disorder F60.9 (6) Closed compression fracture of L2 vertebra Encounter type: initial encounter Qualified Code(s): S32.020A - Wedge compression fracture of second lumbar vertebra, initial encounter for closed fracture
[2023-08-27] MEDS: ALBUT/IPRATROP 3MG/0.5MG NEB 3 ML VIAL NEB PRN (19:38)
[2023-08-27] MEDS: ENOXAPARIN INJ 30 MG/0.3 ML SYR SQ SCH (20:51)
[2023-08-27] MEDS: DONEPEZIL HCL 5 MG TAB PO SCH (20:52)
[2023-08-27] MEDS: traZODone HCL 100 MG TAB PO SCH (20:54)
[2023-08-27] MEDS: QUEtiapine FUMARATE 100 MG TABLET PO SCH (20:54)
[2023-08-28] MEDS: CEFEPIME 2,000 MG in SYRINGE 0 ML IV SCH ×3 (04:36→20:39)
[2023-08-28 07:18] LABS: Basophils # (auto) 0.06 K/uL (0.00-0.20); Basophils % (auto) 0.4 %; Eosinophils # (auto) 0.74 K/uL (0.00-0.50); Eosinophils % (auto) 5.5 %; Hematocrit (blood only) 32.9 % (37.0-47.0); Hemoglobin 11.1 g/dl (12.0-16.0); Immature Granulocytes # (auto) 0.08 K/uL (0.01-0.20); Immature Granulocytes % (auto) 0.6 %; Lymphocytes # (auto) 1.05 K/uL (1.20-3.40); Lymphocytes % (auto) 7.8 %; Mean Corpuscular Hgb Conc 33.7 g/dL (32.0-36.0); Mean Corpuscular Volume 88.9 fL (80.0-100.0); Mean Platelet Volume 9.2 fL (9.4-12.4); Monocytes # (auto) 1.52 K/uL (0.11-0.59); Monocytes % (auto) 11.4 %; Neutrophils # (auto) 9.94 K/uL (1.40-6.50); Neutrophils % (auto) 74.3 %; Platelet Count 303 K/uL (130-400); RDW Coefficient of Variation 13.7 % (11.5-14.5); RDW Standard Deviation 44.2 fL (36.4-46.3); White Blood Count 13.39 K/ul (4.8-10.8)
[2023-08-28] MEDS: LORazepam 1 MG TAB PO PRN (07:31)
[2023-08-28 07:35] LABS: Albumin Level 2.8 gm/dl (3.4-5.0); BUN Creatinine Ratio 30.3 (10-20); Calcium 8.4 mg/dl (8.6-10.3); Creatinine Clr Calc Pharmacy 85.9 ml/min; Est GFR (African American) 130.3 ml/min; Est GFR (Non-African American) 112.4 ml/min; Phosphorus 2.5 mg/dl (2.5-4.9); Potassium 3.8 mmol/L (3.5-5.1)
[2023-08-28] MEDS: FLUoxetine HCL 20 MG CAP PO SCH (09:06)
[2023-08-28] MEDS: guaiFENesin 600 MG TABCR PO SCH ×2 (09:07→20:31)
[2023-08-28] MEDS: GABAPENTIN 400 MG CAP PO SCH ×3 (09:07→20:29)
[2023-08-28] MEDS: CALCIUM 600MG + VIT D 400 IU TAB PO SCH (09:08)
[2023-08-28] MEDS: ASPIRIN 81 MG ECTAB PO SCH (09:08)
[2023-08-28] MEDS: FERROUS SULFATE 325 MG TAB PO SCH (09:08)
[2023-08-28] MEDS: LIDOCAINE 5% 1 PATCH TD SCH (09:09)
[2023-08-28] MEDS: oxyCODONE HCL IR 5 MG TAB (IMMEDIATE RELEASE) PO PRN (09:23)
[2023-08-28] MEDS: AZITHROMYCIN 500 MG in DEXTROSE 5% 250 ML IV SCH (10:21)
[2023-08-28] MEDS: ACETAMINOPHEN 325 MG TAB PO SCH ×3 (14:20→20:26)
--- NOTE | 2023-08-28 18:52 | Hospitalist Progress Note ---
Date of Service August 28, 2023 Assessment & Plan (1) Shortness of breath: Plan: 68 year old female admitted for shortness of breath, possible pneumonia. -Increased oxygen requirement to 6L, home O2 2L NC. currently on room air in the hospital at rest but supported saturations -leukocytosis persists -CXR with diffuse interstitial thickening increased from previous CXR. -Patient w/ history of ILD, lives in [facility] home health care associated pneumonia - continues on Cefepime 2g q8h IV. cover gram-negative pneumonia with leukocytosis if continues may consider atypical coverage or unified coverage such as levofloxacin -Duoneb and albuterol inhaler PRN. Flutter valve and mucinex ordered. continue above meds. (2) Interstitial lung disease: Plan: -Chronic, noted, had followed with Dr. Mcmahon in the past. Per patient she does not take any inhalers on a daily basis and is on 2L chronically at home. (3) Severe protein-calorie malnutrition: Plan: -Chronic, noted. Albumin 3.2 on admission. Encourage good PO intake, appetite not affected by infection per patient. (4) Osteoporosis: Plan: -Noted, continue home calcium-vitamin D supplement. (5) Anxiety disorder: Plan: -Continue home fluoxetine (6) Closed compression fracture of L2 vertebra: Plan: -Chronic, tylenol 650mg PRN PO q6h ordered. oxycodone if not at goal with tylenol. (7) Aryan's thyroiditis: Plan: -TSH stable from previous blood work, not on any medications currently. (8) Cluster A personality disorder: Plan: -Continue trazodone, lorazepam, gabapentin, fluoxetine. Plan DVT Prophylaxis: Lovenox 30mg SQ qAM. Code status: DNR/DNI Admission and Anticipated Discharge Date Admission Date: August 25, 2023 Subjective Patient reports no new symptoms. Review of Systems Review of Systems: All systems reviewed & are unremarkable except as noted in HPI & below Physical Exam Physical Exam: Patient is pleasant but demanding. very thin Underweight with a BMI of 14.8 lung exam shows reduced air movement and coarse breath sounds equal bilaterally with no focal loss or wheeze Results & Data Results & Data Vital Signs (Past 12 Hours) Vital Signs Temp Pulse Resp BP BP Pulse Ox O2 Del Method 08/28/23 15:44 37.0 C 90 16 107/70 95 Nasal Cannula 08/28/23 07:35 Nasal Cannula 08/28/23 07:12 36.3 C L 96 H 20 117/75 90 Nasal Cannula O2 Flow Rate 08/28/23 15:44 5 08/28/23 07:35 5 08/28/23 07:12 6 PG Care Time/CCT Total # of Minutes Spent Total Time Spent with Patient: Total time spent is greater than 50% in coordination of care (as documented) at patient's floor/unit and/or counseling patient: Coding Level of Care Code 91896 SUB INP/OBS CARE 2/35MIN Diagnoses Shortness of breath R06.02 Interstitial lung disease J84.9 Severe protein-calorie malnutrition E43 Osteoporosis M81.0 Anxiety disorder F41.9 Closed compression fracture of L2 vertebra S32.020A Encounter type: initial encounter Aryan's thyroiditis E06.3 Cluster A personality disorder F60.9 Time Spent (min) 35 Comment reviewed records (6) Closed compression fracture of L2 vertebra Encounter type: initial encounter Qualified Code(s): S32.020A - Wedge compression fracture of second lumbar vertebra, initial encounter for closed fracture
[2023-08-28] MEDS: DONEPEZIL HCL 5 MG TAB PO SCH (20:27)
[2023-08-28] MEDS: QUEtiapine FUMARATE 100 MG TABLET PO SCH (20:29)
[2023-08-28] MEDS: traZODone HCL 100 MG TAB PO SCH (20:30)
[2023-08-28] MEDS: ENOXAPARIN INJ 30 MG/0.3 ML SYR SQ SCH (20:30)
[2023-08-29] MEDS: LORazepam 1 MG TAB PO PRN ×2 (04:26→13:41)
[2023-08-29] MEDS: ALBUT/IPRATROP 3MG/0.5MG NEB 3 ML VIAL NEB PRN (04:37)
[2023-08-29] MEDS: CEFEPIME 2,000 MG in SYRINGE 0 ML IV SCH ×3 (05:27→20:55)
[2023-08-29] MEDS: oxyCODONE HCL IR 5 MG TAB (IMMEDIATE RELEASE) PO PRN (07:36)
[2023-08-29] MEDS: FERROUS SULFATE 325 MG TAB PO SCH (08:35)
[2023-08-29] MEDS: CALCIUM 600MG + VIT D 400 IU TAB PO SCH (08:35)
[2023-08-29] MEDS: FLUoxetine HCL 20 MG CAP PO SCH (08:35)
[2023-08-29] MEDS: guaiFENesin 600 MG TABCR PO SCH ×2 (08:35→20:56)
[2023-08-29] MEDS: GABAPENTIN 400 MG CAP PO SCH ×3 (08:36→20:56)
[2023-08-29] MEDS: ACETAMINOPHEN 325 MG TAB PO SCH ×4 (08:36→20:56)
[2023-08-29] MEDS: ASPIRIN 81 MG ECTAB PO SCH (08:36)
[2023-08-29] MEDS: LIDOCAINE 5% 1 PATCH TD SCH (08:37)
[2023-08-29] MEDS: AZITHROMYCIN 500 MG in DEXTROSE 5% 250 ML IV SCH (08:52)
--- NOTE | 2023-08-29 14:35 | XRay Report ---
XR chest 2V PA/lateral HISTORY: 68 years-old Female hypoxia acute hypoxia COMPARISON: 08/25/2023 TECHNIQUE: AP and lateral views of the chest FINDINGS: Cardiac silhouette is enlarged. Chronic interstitial lung disease. There are new bilateral interstiti al and alveolar opacities. No pneumothorax. Possible trace pleural effusions. Gaseous distention of t he stomach. Degenerative changes of the shoulders and spine. IMPRESSION: 1. Cardiomegaly with chronic interstitial lung disease. 2. There are new bilateral mixed interstitial and alveolar opacities suggestive of pulmonary edema ve rsus multifocal pneumonia. ACT 112: Negative or not required by law. The above report was generated using voice recognition software. It may contain grammatical, syntax o r spelling errors. Electronically signed by: Bhargav Adamson M.D. 08/29/2023 2:34 PM
--- NOTE | 2023-08-29 16:36 | Pulmonary Consultation ---
Date of Consultation August 29, 2023 Assessment & Plan (1) Acute on chronic respiratory failure with hypoxemia: (2) Interstitial lung disease: (3) Peripheral eosinophilia: (4) Kyphosis: (5) Restrictive lung disease: Plan Chest x-ray 08/29/2023 personally reviewed: Portable film, poor inspiratory effort, bilateral alveolar as well as reticular marking appreciated The x-rays comparatively worse to x-ray done 08/25/2023 CT chest 02/12/2023: Bilateral apical pleural scarring Increased peripheral reticular marking appreciated bilaterally Traction bronchiectasis appreciated in the right middle lobe as well as right upper lobe Elevated right hemidiaphragm No significant mediastinal lymphadenopathy PFT 12/16/2022 personally reviewed: Severe restrictive lung dysfunction with moderate decrease in DLCO FVC 2 0.67 L 26%, FEV1 0.62 L 32%, FEV1/FVC 93%, TLC 73%, DLCO 41% -- Acute on chronic hypoxic respiratory failure Respiratory bio fire negative for everything on 08/25/2023 Procalcitonin 0.25 -- ILD Autoimmune work-up negative for everything on 11/27/2022, was being treated as if hypersensitive pneumonitis given the history of bird exposure in a trailer Patient was given a trial of prednisone along with Bactrim prophylaxis for approximately 3 months She was supposed to follow-up with Dr. Mcmahon in March 2023 but I do not see a note -- Peripheral eosinophilia Absolute eosinophil count 840 on 08/27/2023 Plan: Given the significant worsening of the chest x-ray compared to the time of admission. I will repeat influenza A/B/RSV as well as COVID 19. Recommend 2D echo Follow-up BNP Continue with antibiotic with atypical coverage Follow-up sputum culture Case was discussed with Dr. Vo Please note the above document was generated using voice recognition software. It may contain grammatical, syntax or spelling errors.Any formal questions or concerns about the content, text or information contained within the body of this dictation should be directly addressed to the provider for clarification. History of Present Illness Attending Physician: Billy Vo History of Present Illness 67-year-old female presented to the hospital for worsening shortness of breath Past medical history: ILD probably from hypersensitive pneumonitis, osteoporosis, anxiety, Aryan's thyroiditis Pulmonary consulted for the same At the time of examination patient was in mild respiratory distress She says she has not been feeling well for approximately couple of weeks. She used to be on steroids and on them she was really good when it comes to her breathing. She finished a course of steroids back end of March 2023 On asking why she did not follow-up with pulmonary, she stated that she moved to a nursing facility and that led to a lot of missed appointments No dysuria, no diarrhea No headache, no blurry vision Denies any fever or chills No nausea vomiting Fair appetite Social history: Lifetime non-smoker Used to have birds at home. Got rid of it when she was diagnosed with possible HP Allergies Allergy/AdvReac Type Severity Reaction Status Date / Time Iodinated Contrast Media Allergy Severe ANAPHYLAXIS Verified 07/01/23 12:49 Sulfa (Sulfonamide Allergy Unknown SEE COMMENT Verified 07/01/23 12:49 Antibiotics) banana AdvReac Severe GI SYMPTOMS Verified 07/01/23 12:49 beet AdvReac Unknown Gastrointestinal Verified 07/01/23 12:49 Upset Home Medications Medication Instructions Recorded Confirmed Type lorazepam 1 mg tablet (Ativan) 1 mg PO Q8H 06/18/18 08/25/23 History Oxygen Home #1 ea 01/24/23 08/25/23 Rx compressor, for nebulizer #1 ea 02/05/23 08/25/23 Rx nebulizer accessories #2 ea 02/05/23 08/25/23 Rx aspirin 81 mg tablet,delayed 81 mg PO DAILY #90 tabs 05/26/23 08/25/23 Rx release (Adult Low Dose Aspirin) calcitonin (salmon) 200 1 spray NA Q24H 30 days #1 inhaler 05/26/23 08/25/23 Rx unit/actuation nasal spray calcium carbonate 500 mg-vitamin 1 tab PO DAILY #90 tabs 05/26/23 08/25/23 Rx D3 5 mcg (200 unit) tablet (Oyster Shell Calcium-Vitamin D3) cholecalciferol (vitamin D3) 25 25 mcg PO DAILY #90 caps 05/26/23 08/25/23 Rx mcg (1,000 unit) capsule cyclobenzaprine 10 mg tablet 10 mg PO BID PRN MUSCLE SPASMS #60 05/26/23 08/25/23 Rx tabs donepezil 5 mg tablet 2.5 mg (1/2 x 5 mg) PO HS #90 tabs 05/26/23 08/25/23 Rx ferrous sulfate 325 mg (65 mg 325 mg PO DAILY #90 tabs 05/26/23 08/25/23 Rx iron) tablet gabapentin 400 mg capsule 400 mg PO TID #90 caps 05/26/23 08/25/23 Rx quetiapine 100 mg tablet (Seroquel) 100 mg PO HS #90 tabs 05/26/23 08/25/23 Rx trazodone 100 mg tablet 100 mg PO HS #90 tabs 05/26/23 08/25/23 Rx fluoxetine 20 mg capsule 20 mg PO DAILY 07/01/23 08/25/23 History lidocaine 4 % topical patch 1 patch topical DAILY pain #30 ea 07/15/23 08/25/23 Rx (Salonpas (lidocaine)) oxycodone 5 mg tablet 5 mg PO Q6H PRN pain 4-10 #120 tabs 08/08/23 08/25/23 Rx acetaminophen 500 mg tablet 1,000 mg PO Q8 08/25/23 08/25/23 History (Tylenol Extra Strength) celecoxib 100 mg capsule (Celebrex) 100 mg PO QAM 08/25/23 08/25/23 History fluoxetine 10 mg capsule 10 mg PO DAILY 08/25/23 08/25/23 History Patient History Medical History Weakness generalized Dyspnea and respiratory abnormalities Hypersensitivity pneumonitis Hypoxemic respiratory failure, chronic Eustachian tube dysfunction Mixed conductive and sensorineural hearing loss of left ear with restricted hearing of right ear Seasonal allergies Surgical History History of adenoidectomy History of tonsillectomy Family History Father Allergies Asthma Other No family history of adverse response to anesthesia No family history of bleeding disorder Social History Smoking Status: Never smoker Second Hand Exposure: No; Do You Dip or Chew Tobacco: No; Hx Alcohol Use: No Hx Substance Use: No Preferred Language: Croatian Communication Ability: Effective Visual Impairment: Limited Hearing Ability: Normal Motion Picture Set Up Worker Required: No Beliefs That Will Affect Care: None marital status: Current Living Situation: Personal Care Facility Current Living Situation Comment: [facility] current occupational status: retired How many Children do You have: 0 Feels Safe at Home: Yes Childhood Exposure to Second-Hand Smoke: No Diet: regular caffeine: Yes during the past year weight has: remained stable Dental Care, Regularly: Yes Physical Activity Frequency: 5-6 Times per Week Seatbelt Use: always Sunscreen Use: No Assistive Devices: Glasses, Oxygen - Continuous, Walker and Wheelchair Review of Systems 2 Review of Systems: All systems reviewed & are unremarkable except as noted in HPI & below Physical Exam 2 Physical Exam: Constitutional: No acute distress HEENT: EOMI, PERRLA Respiratory system: Decreased air entry bilaterally, no wheeze, rhonchi, positive crackles bilateral lower lobes CVS: S1-S2 positive, positive 2 out of 6 systolic murmur appreciated best at aorta Abdomen: Soft, nontender, nondistended, positive bowel sounds x4 Extremities: +2 pulses bilaterally radialis/ dorsalis pedis, no cyanosis, no edema Neuro: Awake alert oriented to self Psych: Normal mood and affect G/U: No Rosa Musculoskeletal: Severe thoracic kyphosis Skin: no rashes, warm and dry Lymphatic: no cervical or axillary lymphadenopathy Results & Data Results & Data Vital Signs (Past 12 Hours) Vital Signs Temp Pulse Pulse Resp BP BP Pulse Ox 08/29/23 14:28 08/29/23 12:53 92 H 24 90 08/29/23 12:32 08/29/23 12:26 36.5 C 84 28 H 101/68 95 08/29/23 07:18 36.9 C 104 H 20 119/79 96 08/29/23 04:38 114 H 90 26 H 08/29/23 04:36 36.7 C 08/29/23 04:31 106 H 25 H 129/79 90 Pulse Ox Pulse Ox Pulse Ox Pulse Ox O2 Del Method O2 Del Method O2 Flow Rate 08/29/23 14:28 94 94 88 L 08/29/23 12:53 High Flow Nasal Cannula 10 08/29/23 12:32 95 Nasal Cannula 08/29/23 12:26 Nasal Cannula 8 08/29/23 07:18 Oxymask 7 08/29/23 04:38 Oxymask 6 08/29/23 04:36 08/29/23 04:31 Oxymask 8 O2 Flow Rate O2 Flow Rate O2 Flow Rate O2 Flow Rate 08/29/23 14:28 10 10 10 08/29/23 12:53 08/29/23 12:32 8 08/29/23 12:26 08/29/23 07:18 08/29/23 04:38 08/29/23 04:36 08/29/23 04:31 Laboratory Results 08/28/23 06:49 08/28/23 06:49 PG Care Time/CCT Total # of Minutes Spent Total Time Spent with Patient: Total time spent is greater than 50% in coordination of care (as documented) at patient's floor/unit and/or counseling patient: Coding Level of Care Code 94351 INT INP/OBS CARE 3/75MIN Diagnoses Acute on chronic respiratory failure with hypoxemia J96.21 Interstitial lung disease J84.9 Peripheral eosinophilia D72.19 Kyphosis M40.209 Restrictive lung disease J98.4
[2023-08-29 18:08] LABS: Base Excess VBG 9.9 mEq/L; HCO3 VBG 37 mmol/L; Oxygen Saturation VBG 73.4 %; PCO2 VBG 58 mmHg (38-50); PO2 VBG 43 mmHg; pH VBG 7.41 (7.36-7.41)
[2023-08-29 18:36] LABS: Influenza A virus by PCR Negative (Neg); Influenza B virus by PCR Negative (Neg); RSV by PCR Negative (Neg); SARS CoV2 RNA(COVID-19) Ceph NEGATIVE (Negative)
[2023-08-29] MEDS: methylPREDNISolone 80 MG in SYRINGE 0 ML IV SCH (20:55)
[2023-08-29] MEDS: ENOXAPARIN INJ 30 MG/0.3 ML SYR SQ SCH (20:55)
[2023-08-29] MEDS: DONEPEZIL HCL 5 MG TAB PO SCH (20:56)
[2023-08-29] MEDS: traZODone HCL 100 MG TAB PO SCH (20:56)
[2023-08-29] MEDS: QUEtiapine FUMARATE 100 MG TABLET PO SCH (20:56)
--- NOTE | 2023-08-29 22:57 | Hospitalist Progress Note ---
Date of Service August 29, 2023 Assessment & Plan (1) Shortness of breath: Plan: 68 year old female admitted for shortness of breath, possible pneumonia. -Increased oxygen requirement to 6L, home O2 2L NC. currently on room air in the hospital at rest but supported saturations -leukocytosis persists -CXR with diffuse interstitial thickening increased from previous CXR. -Patient w/ history of ILD, lives in [facility] home health care associated pneumonia - continues on Cefepime 2g q8h IV. cover gram-negative pneumonia with leukocytosis if continues may consider atypical coverage or unified coverage such as levofloxacin -Duoneb and albuterol inhaler PRN. Flutter valve and mucinex ordered. continue above meds. Patient chest xray is worse today with bilateral pneumonia. BNP is low. viral test are negative. treat for eosinophilic pneumonia. appreciate input from pulmonary. (2) Interstitial lung disease: Plan: -Chronic, noted, had followed with Dr. Mcmahon in the past. Per patient she does not take any inhalers on a daily basis and is on 2L chronically at home. (3) Severe protein-calorie malnutrition: Plan: -Chronic, noted. Albumin 3.2 on admission. Encourage good PO intake, appetite not affected by infection per patient. (4) Osteoporosis: Plan: -Noted, continue home calcium-vitamin D supplement. (5) Anxiety disorder: Plan: -Continue home fluoxetine (6) Closed compression fracture of L2 vertebra: Plan: -Chronic, tylenol 650mg PRN PO q6h ordered. oxycodone if not at goal with tylenol. (7) Aryan's thyroiditis: Plan: -TSH stable from previous blood work, not on any medications currently. (8) Cluster A personality disorder: Plan: -Continue trazodone, lorazepam, gabapentin, fluoxetine. Plan DVT Prophylaxis: Lovenox 30mg SQ qAM. Code status: DNR/DNI Admission and Anticipated Discharge Date Admission Date: August 25, 2023 Subjective Patient reports no improvement. Review of Systems Review of Systems: All systems reviewed & are unremarkable except as noted in HPI & below Physical Exam Physical Exam: Patient is pleasant but demanding. very thin Underweight with a BMI of 14.8 lung exam shows reduced air movement and coarse breath sounds equal bilaterally with no focal loss or wheeze Results & Data Results & Data Vital Signs (Past 12 Hours) Vital Signs Temp Pulse Resp BP Pulse Ox Pulse Ox Pulse Ox 08/29/23 20:46 36.2 C L 89 16 116/78 98 08/29/23 19:05 95 08/29/23 19:00 75 L 08/29/23 14:28 94 08/29/23 12:53 92 H 24 90 08/29/23 12:32 95 08/29/23 12:26 36.5 C 84 28 H 101/68 95 Pulse Ox Pulse Ox O2 Del Method O2 Del Method O2 Flow Rate O2 Flow Rate O2 Flow Rate 08/29/23 20:46 High Flow Nasal Cannula 13 08/29/23 19:05 Nasal Cannula 15 08/29/23 19:00 Nasal Cannula 8 08/29/23 14:28 94 88 L 10 08/29/23 12:53 High Flow Nasal Cannula 10 08/29/23 12:32 Nasal Cannula 8 08/29/23 12:26 Nasal Cannula 8 O2 Flow Rate O2 Flow Rate 08/29/23 20:46 08/29/23 19:05 08/29/23 19:00 08/29/23 14:28 10 10 08/29/23 12:53 08/29/23 12:32 08/29/23 12:26 PG Care Time/CCT Total # of Minutes Spent Total Time Spent with Patient: Total time spent is greater than 50% in coordination of care (as documented) at patient's floor/unit and/or counseling patient: Coding Level of Care Code 62466 SUB INP/OBS CARE 3/50MIN Diagnoses Shortness of breath R06.02 Interstitial lung disease J84.9 Severe protein-calorie malnutrition E43 Osteoporosis M81.0 Anxiety disorder F41.9 Closed compression fracture of L2 vertebra S32.020A Encounter type: initial encounter Aryan's thyroiditis E06.3 Cluster A personality disorder F60.9 (6) Closed compression fracture of L2 vertebra Encounter type: initial encounter Qualified Code(s): S32.020A - Wedge compression fracture of second lumbar vertebra, initial encounter for closed fracture
[2023-08-30] MEDS: methylPREDNISolone 80 MG in SYRINGE 0 ML IV SCH ×3 (02:46→20:59)
[2023-08-30] MEDS: CEFEPIME 2,000 MG in SYRINGE 0 ML IV SCH ×3 (05:20→20:59)
[2023-08-30] MEDS: LORazepam 1 MG TAB PO PRN ×2 (05:29→13:43)
[2023-08-30] MEDS: oxyCODONE HCL IR 5 MG TAB (IMMEDIATE RELEASE) PO PRN (08:02)
[2023-08-30] MEDS: GABAPENTIN 400 MG CAP PO SCH ×3 (08:24→21:00)
[2023-08-30] MEDS: guaiFENesin 600 MG TABCR PO SCH ×2 (08:24→21:00)
[2023-08-30] MEDS: FERROUS SULFATE 325 MG TAB PO SCH (08:24)
[2023-08-30] MEDS: ASPIRIN 81 MG ECTAB PO SCH (08:24)
[2023-08-30] MEDS: ACETAMINOPHEN 325 MG TAB PO SCH ×4 (08:24→20:59)
[2023-08-30] MEDS: FLUoxetine HCL 20 MG CAP PO SCH (08:24)
[2023-08-30] MEDS: CALCIUM 600MG + VIT D 400 IU TAB PO SCH (08:24)
[2023-08-30] MEDS: LIDOCAINE 5% 1 PATCH TD SCH (08:25)
[2023-08-30] MEDS: AZITHROMYCIN 500 MG in DEXTROSE 5% 250 ML IV SCH (08:27)
--- NOTE | 2023-08-30 08:34 | Pulmonology Progress Note ---
Date of Service August 30, 2023 Assessment & Plan (1) Acute on chronic respiratory failure with hypoxemia: (2) Interstitial lung disease: (3) Peripheral eosinophilia: (4) Kyphosis: (5) Restrictive lung disease: Plan Chest x-ray 08/29/2023 personally reviewed: Portable film, poor inspiratory effort, bilateral alveolar as well as reticular marking appreciated The x-rays comparatively worse to x-ray done 08/25/2023 CT chest 02/12/2023: Bilateral apical pleural scarring Increased peripheral reticular marking appreciated bilaterally Traction bronchiectasis appreciated in the right middle lobe as well as right upper lobe Elevated right hemidiaphragm No significant mediastinal lymphadenopathy PFT 12/16/2022 personally reviewed: Severe restrictive lung dysfunction with moderate decrease in DLCO FVC 2 0.67 L 26%, FEV1 0.62 L 32%, FEV1/FVC 93%, TLC 73%, DLCO 41% 2D echo 08/30/2023: EF 65-70%, borderline LVH, grade 1 diastolic dysfunction -- Acute on chronic hypoxic respiratory failure 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 Respiratory bio fire negative for everything on 08/25/2023, repeat COVID- 19/influenza A/B, RSV negative on 08/29/2023 Procalcitonin 0.25 BNP 75 Patient does have peripheral eosinophilia, usually acute eosinophilic pneumonia does not present with peripheral eosinophilia Bronchoalveolar lavage samples showing > 25% eosinophils can lead to the diagnosis but patient is too unstable for bronchoscopy -- ILD Autoimmune work-up negative for everything on 11/27/2022, was being treated as if hypersensitive pneumonitis given the history of bird exposure in a trailer Patient was given a trial of prednisone along with Bactrim prophylaxis for approximately 3 months She was supposed to follow-up with Dr. Mcmahon in March 2023 but I do not see a note -- Peripheral eosinophilia Absolute eosinophil count 840 on 08/27/2023 Plan: Continue treating the patient as if she is in acute exacerbation of her ILD/hypersensitive pneumonitis Does have peripheral eosinophilia, not usually seen in acute eosinophilic pneumonia but cannot be 100% ruled out. Stool for ova and parasites Continue with high-dose Solu-Medrol 80 mg Q8 Continue with antibiotic with atypical coverage Case was discussed with Dr. Vo Please note the above document was generated using voice recognition software. It may contain grammatical, syntax or spelling errors.Any formal questions or concerns about the content, text or information contained within the body of this dictation should be directly addressed to the provider for clarification. Admission and Anticipated Discharge Date Admission Date: August 25, 2023 Subjective Patient seen and examined at bedside. No acute distress She was breathing in the high teens to low 20s. She was saturating 100% on 35 L, 100% high flow I was able to go down to 75% and she was still saturating 92-93% She stated that she is feeling better compared to yesterday. Still generalized lethargy Denies any chest congestion No hemoptysis No chest pain Review of Systems 2 Review of Systems: All systems reviewed & are unremarkable except as noted in Subjective Physical Exam 2 Physical Exam: Constitutional: No acute distress, frail-appearing HEENT: EOMI, PERRLA Respiratory system: Decreased air entry bilaterally, no wheeze, rhonchi, positive crackles bilateral lower lobes CVS: S1-S2 positive, positive 2 out of 6 systolic murmur appreciated best at aorta Abdomen: Soft, nontender, nondistended, positive bowel sounds x4 Extremities: +2 pulses bilaterally radialis/ dorsalis pedis, no cyanosis, no edema Neuro: Awake alert oriented to self Psych: Normal mood and affect G/U: No Rosa Musculoskeletal: Severe thoracic kyphosis Skin: no rashes, warm and dry Lymphatic: no cervical or axillary lymphadenopathy Results & Data Results & Data Vital Signs (Past 12 Hours) Vital Signs Temp Pulse Resp BP Pulse Ox O2 Del Method O2 Flow Rate 08/30/23 08:05 104 H 34 H 92 High Flow Nasal Cannula 35 08/30/23 07:40 36.3 C L 101 H 132/79 08/30/23 00:31 96 Nasal Cannula 11 08/29/23 20:46 36.2 C L 89 16 116/78 98 High Flow Nasal Cannula 13 08/29/23 20:45 High Flow Nasal Cannula 15 FiO2 08/30/23 08:05 100 08/30/23 07:40 08/30/23 00:31 08/29/23 20:46 08/29/23 20:45 Laboratory Results 08/28/23 06:49 08/28/23 06:49 PG Care Time/CCT Total # of Minutes Spent Total Time Spent with Patient: Total time spent is greater than 50% in coordination of care (as documented) at patient's floor/unit and/or counseling patient: Coding Level of Care Code 12577 SUB INP/OBS CARE 3/50MIN Diagnoses Acute on chronic respiratory failure with hypoxemia J96.21 Interstitial lung disease J84.9 Peripheral eosinophilia D72.19 Kyphosis M40.209 Restrictive lung disease J98.4
--- NOTE | 2023-08-30 11:41 | XCELERA ---
[id number] \\[id number]
--- NOTE | 2023-08-30 12:30 | Hospitalist Progress Note ---
Date of Service August 30, 2023 Assessment & Plan (1) Shortness of breath: Plan: 68 year old female admitted for shortness of breath, possible pneumonia. -Increased oxygen requirement to 6L, home O2 2L NC. currently on room air in the hospital at rest but supported saturations -leukocytosis persists -CXR with diffuse interstitial thickening increased from previous CXR. -Patient w/ history of ILD, lives in [facility] home health care associated pneumonia - continues on Cefepime 2g q8h IV. cover gram-negative pneumonia with leukocytosis if continues may consider atypical coverage or unified coverage such as levofloxacin -Duoneb and albuterol inhaler PRN. Flutter valve and mucinex ordered. continue above meds. Latest chest xray is showing bilateral pneumonia. treating for eosinophilic pneumonia. ON corticosteroids. appreciate input from pulmonary. If no improvement in 2 days, may consider palliative care approach. (2) Interstitial lung disease: Plan: -Chronic, noted, had followed with Dr. Mcmahon in the past. Per patient she does not take any inhalers on a daily basis and is on 2L chronically at home. (3) Severe protein-calorie malnutrition: Plan: -Chronic, noted. Albumin 3.2 on admission. Encourage good PO intake, appetite not affected by infection per patient. (4) Osteoporosis: Plan: -Noted, continue home calcium-vitamin D supplement. (5) Anxiety disorder: Plan: -Continue home fluoxetine (6) Closed compression fracture of L2 vertebra: Plan: -Chronic, tylenol 650mg PRN PO q6h ordered. oxycodone if not at goal with tylenol. (7) Aryan's thyroiditis: Plan: -TSH stable from previous blood work, not on any medications currently. (8) Cluster A personality disorder: Plan: -Continue trazodone, lorazepam, gabapentin, fluoxetine. Plan DVT Prophylaxis: Lovenox 30mg SQ qAM. Code status: DNR/DNI Admission and Anticipated Discharge Date Admission Date: August 25, 2023 Subjective Patient appears to be more comfortable (On high flow oxygen) Review of Systems Review of Systems: All systems reviewed & are unremarkable except as noted in HPI & below Physical Exam Physical Exam: Patient is pleasant. Patient is on high flow oxygen. very thin Underweight with a BMI of 14.8 lung exam shows reduced air movement and coarse breath sounds equal bilaterally with no focal loss or wheeze Results & Data Results & Data Vital Signs (Past 12 Hours) Vital Signs Temp Pulse Resp BP Pulse Ox O2 Del Method O2 Flow Rate 08/30/23 12:07 86 24 93 High Flow Nasal Cannula 35 08/30/23 09:00 High Flow Nasal Cannula 35 08/30/23 08:05 104 H 34 H 92 High Flow Nasal Cannula 35 08/30/23 07:40 36.3 C L 101 H 132/79 08/30/23 00:31 96 Nasal Cannula 11 FiO2 08/30/23 12:07 75 08/30/23 09:00 100 08/30/23 08:05 100 08/30/23 07:40 08/30/23 00:31 PG Care Time/CCT Total # of Minutes Spent Total Time Spent with Patient: Total time spent is greater than 50% in coordination of care (as documented) at patient's floor/unit and/or counseling patient: Coding Level of Care Code 14532 SUB INP/OBS CARE 3/50MIN Diagnoses Shortness of breath R06.02 Interstitial lung disease J84.9 Severe protein-calorie malnutrition E43 Osteoporosis M81.0 Anxiety disorder F41.9 Closed compression fracture of L2 vertebra S32.020A Encounter type: initial encounter Aryan's thyroiditis E06.3 Cluster A personality disorder F60.9 (6) Closed compression fracture of L2 vertebra Encounter type: initial encounter Qualified Code(s): S32.020A - Wedge compression fracture of second lumbar vertebra, initial encounter for closed fracture
[2023-08-30] MEDS: traZODone HCL 100 MG TAB PO SCH (20:59)
[2023-08-30] MEDS: QUEtiapine FUMARATE 100 MG TABLET PO SCH (20:59)
[2023-08-30] MEDS: DONEPEZIL HCL 5 MG TAB PO SCH (21:00)
[2023-08-30] MEDS: ENOXAPARIN INJ 30 MG/0.3 ML SYR SQ SCH (21:00)
[2023-08-31] MEDS: methylPREDNISolone 80 MG in SYRINGE 0 ML IV SCH ×3 (03:16→20:49)
[2023-08-31] MEDS: CEFEPIME 2,000 MG in SYRINGE 0 ML IV SCH ×3 (05:18→20:50)
[2023-08-31] MEDS: LORazepam 1 MG TAB PO PRN (06:06)
[2023-08-31 07:01] LABS: Hematocrit (blood only) 34.9 % (37.0-47.0); Hemoglobin 11.4 g/dl (12.0-16.0); Mean Corpuscular Hemoglobin 29.2 pg (25.0-34.0); Mean Corpuscular Hgb Conc 32.7 g/dL (32.0-36.0); Mean Corpuscular Volume 89.5 fL (80.0-100.0); Mean Platelet Volume 9.2 fL (9.4-12.4); Platelet Count 438 K/uL (130-400); RDW Coefficient of Variation 13.2 % (11.5-14.5); RDW Standard Deviation 43.6 fL (36.4-46.3); White Blood Count 14.16 K/ul (4.8-10.8)
[2023-08-31 07:03] LABS: BUN Creatinine Ratio 51.6 (10-20); C Reactive Protein 6.64 mg/dl (0-0.5); Calcium 8.6 mg/dl (8.6-10.3); Creatinine Clr Calc Pharmacy 87.2 ml/min; Est GFR (Non-African American) 114.8 ml/min; Potassium 4.8 mmol/L (3.5-5.1)
[2023-08-31] MEDS: GABAPENTIN 400 MG CAP PO SCH ×3 (07:43→20:52)
[2023-08-31] MEDS: guaiFENesin 600 MG TABCR PO SCH ×2 (07:43→20:50)
[2023-08-31] MEDS: FERROUS SULFATE 325 MG TAB PO SCH (07:44)
[2023-08-31] MEDS: FLUoxetine HCL 20 MG CAP PO SCH (07:44)
[2023-08-31] MEDS: LIDOCAINE 5% 1 PATCH TD SCH (07:44)
[2023-08-31] MEDS: CALCIUM 600MG + VIT D 400 IU TAB PO SCH (07:44)
[2023-08-31] MEDS: ASPIRIN 81 MG ECTAB PO SCH (07:44)
[2023-08-31] MEDS: AZITHROMYCIN 500 MG in DEXTROSE 5% 250 ML IV SCH (07:48)
[2023-08-31] MEDS: ACETAMINOPHEN 325 MG TAB PO SCH ×4 (08:04→20:52)
--- NOTE | 2023-08-31 08:12 | Pulmonology Progress Note ---
Date of Service August 31, 2023 Assessment & Plan (1) Acute on chronic respiratory failure with hypoxemia: (2) Interstitial lung disease: (3) Peripheral eosinophilia: (4) Kyphosis: (5) Restrictive lung disease: Plan Chest x-ray 08/29/2023 personally reviewed: Portable film, poor inspiratory effort, bilateral alveolar as well as reticular marking appreciated The x-rays comparatively worse to x-ray done 08/25/2023 CT chest 02/12/2023: Bilateral apical pleural scarring Increased peripheral reticular marking appreciated bilaterally Traction bronchiectasis appreciated in the right middle lobe as well as right upper lobe Elevated right hemidiaphragm No significant mediastinal lymphadenopathy PFT 12/16/2022 personally reviewed: Severe restrictive lung dysfunction with moderate decrease in DLCO FVC 2 0.67 L 26%, FEV1 0.62 L 32%, FEV1/FVC 93%, TLC 73%, DLCO 41% 2D echo 08/30/2023: EF 65-70%, borderline LVH, grade 1 diastolic dysfunction -- Acute on chronic hypoxic respiratory failure 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 Respiratory bio fire negative for everything on 08/25/2023, repeat COVID- 19/influenza A/B, RSV negative on 08/29/2023 Procalcitonin 0.25 BNP 75 Patient does have peripheral eosinophilia, usually acute eosinophilic pneumonia does not present with peripheral eosinophilia Bronchoalveolar lavage samples showing > 25% eosinophils can lead to the diagnosis but patient is too unstable for bronchoscopy -- ILD Autoimmune work-up negative for everything on 11/27/2022, was being treated as if hypersensitive pneumonitis given the history of bird exposure in a trailer Patient was given a trial of prednisone along with Bactrim prophylaxis for approximately 3 months She was supposed to follow-up with Dr. Mcmahon in March 2023 but I do not see a note -- Peripheral eosinophilia Absolute eosinophil count 840 on 08/27/2023 Plan: Continue treating the patient as if she is in acute exacerbation of her ILD/hypersensitive pneumonitis Does have peripheral eosinophilia, not usually seen in acute eosinophilic pneumonia but cannot be 100% ruled out --> Stool for ova and parasites Continue with high-dose Solu-Medrol 80 mg Q8 Continue with antibiotic with atypical coverage Given the wheezing I will start the patient on scheduled DuoNebs along with Brovana Overall prognosis is guarded and if there is no improvement in the next 24-48 hours. Palliative care/comfort measures should be thought of I did briefly discuss this with the patient and she understands her condition and prognosis Case was discussed with Dr. Vo Please note the above document was generated using voice recognition software. It may contain grammatical, syntax or spelling errors.Any formal questions or concerns about the content, text or information contained within the body of this dictation should be directly addressed to the provider for clarification. Admission and Anticipated Discharge Date Admission Date: August 25, 2023 Subjective Patient seen and examined at bedside. Was in respiratory distress She was on 60 L 86% saturating 97% at the time of examination I tried to go down on the flow and FiO2 but she did desaturate to 82%. She is very fluid dependent Continue with 60 L of flow and try to keep O2 saturation between 88-92% She stated that she is feeling better compared to yesterday but clinically she looks more short of breath compared to when I saw her yesterday Occasional cough with clear phlegm Denies any hemoptysis No headache Review of Systems 2 Review of Systems: All systems reviewed & are unremarkable except as noted in Subjective Physical Exam 2 Physical Exam: Constitutional: In respiratory distress, frail-appearing HEENT: EOMI, PERRLA Respiratory system: Decreased air entry bilaterally, no rhonchi, positive crackles bilateral lower lobes, positive wheeze bilaterally CVS: S1-S2 positive, positive 2 out of 6 systolic murmur appreciated best at aorta Abdomen: Soft, nontender, nondistended, positive bowel sounds x4 Extremities: +2 pulses bilaterally radialis/ dorsalis pedis, no cyanosis, no edema Neuro: Awake alert oriented to self Psych: Normal mood and affect G/U: No Rosa Musculoskeletal: Severe thoracic kyphosis Skin: no rashes, warm and dry Lymphatic: no cervical or axillary lymphadenopathy Results & Data Results & Data Vital Signs (Past 12 Hours) Vital Signs Temp Pulse Pulse Resp BP BP Pulse Ox 08/31/23 07:36 36.8 C 93 H 20 129/77 95 08/31/23 03:56 83 18 97 08/30/23 22:44 84 18 97 08/30/23 21:31 36.3 C L 96 H 20 148/81 H 95 08/30/23 21:00 O2 Del Method O2 Flow Rate FiO2 08/31/23 07:36 High Flow Nasal Cannula 08/31/23 03:56 High Flow Nasal Cannula 40 85 08/30/23 22:44 High Flow Nasal Cannula 40 85 08/30/23 21:31 High Flow Nasal Cannula 40 85 08/30/23 21:00 High Flow Nasal Cannula 40 85 Laboratory Results 08/31/23 05:49 08/31/23 05:49 PG Care Time/CCT Total # of Minutes Spent Total Time Spent with Patient: Total time spent is greater than 50% in coordination of care (as documented) at patient's floor/unit and/or counseling patient: Coding Level of Care Code 83678 SUB INP/OBS CARE 3/50MIN Diagnoses Acute on chronic respiratory failure with hypoxemia J96.21 Interstitial lung disease J84.9 Peripheral eosinophilia D72.19 Kyphosis M40.209 Restrictive lung disease J98.4
--- NOTE | 2023-08-31 11:11 | XRay Report ---
XR chest 1V portable CLINICAL HISTORY: hypoxia COMPARISON STUDY: Chest radiograph August 29, 2023. Chest CT February 12, 2023 FINDINGS: Low lung volumes are again noted. Underlying interstitial lung disease is present. There is no pneumothorax. Trace right pleural effusion is present. Interstitial thickening and alveolar opaci ties have slightly progressed. Cardiomediastinal silhouette is stable. IMPRESSION: Slight progression of interstitial thickening and bilateral airspace opacities. The find ings may reflect pulmonary edema or pneumonia superimposed upon interstitial lung disease. ACT 112: Negative or not required by law. Electronically signed by: Jared Guy M.D. 08/31/2023 11:10 AM
[2023-08-31 11:14] LABS: Basophils # (auto) 0.03 K/uL (0.00-0.20); Basophils % (auto) 0.2 %; Immature Granulocytes # (auto) 0.11 K/uL (0.01-0.20); Immature Granulocytes % (auto) 0.8 %; Lymphocytes # (auto) 0.87 K/uL (1.20-3.40); Lymphocytes % (auto) 6.1 %; Monocytes # (auto) 0.75 K/uL (0.11-0.59); Monocytes % (auto) 5.3 %; Neutrophils # (auto) 12.47 K/uL (1.40-6.50); Neutrophils % (auto) 87.6 %
[2023-08-31] MEDS ORDERED: FUROSEMIDE INJ 20 MG/2 ML VIAL IV ONE (13:42)
[2023-08-31] MEDS: oxyCODONE HCL IR 5 MG TAB (IMMEDIATE RELEASE) PO PRN (13:47)
[2023-08-31] MEDS: ALBUT/IPRATROP 3MG/0.5MG NEB 3 ML VIAL NEB SCH ×2 (14:24→19:42)
[2023-08-31] MEDS: metroNIDAZOLE 500 MG/100 ML BAG IV SCH ×2 (16:46→23:32)
--- NOTE | 2023-08-31 17:00 | Hospitalist Progress Note ---
Date of Service August 31, 2023 Assessment & Plan (1) Shortness of breath: Plan: 68 year old female admitted for shortness of breath, possible pneumonia. -Increased oxygen requirement now on high flow. -Patient w/ history of ILD, lives in [facility] health care associated pneumonia - continues on Cefepime, azithromycin, will also add flagyl on 08/31 Latest chest xray is showing bilateral pneumonia. treating for eosinophilic pneumonia or exacerbation of hypersensitive pneumonitis ON corticosteroids. appreciate input from pulmonary. If no improvement in 2 days, may consider palliative care approach. continue above antibiotics. COntinue formeterol will also give a dose of 20 mg of IV lasix. (2) Interstitial lung disease: Plan: -Chronic, noted, had followed with Dr. Mcmahon in the past. Per patient she does not take any inhalers on a daily basis and is on 2L chronically at home. (3) Severe protein-calorie malnutrition: Plan: -Chronic, noted. Albumin 3.2 on admission. Encourage good PO intake, appetite not affected by infection per patient. (4) Osteoporosis: Plan: -Noted, continue home calcium-vitamin D supplement. (5) Anxiety disorder: Plan: -Continue home fluoxetine (6) Closed compression fracture of L2 vertebra: Plan: -Chronic, tylenol 650mg PRN PO q6h ordered. oxycodone if not at goal with tylenol. (7) Aryan's thyroiditis: Plan: -TSH stable from previous blood work, not on any medications currently. (8) Cluster A personality disorder: Plan: -Continue trazodone, lorazepam, gabapentin, fluoxetine. Plan DVT Prophylaxis: Lovenox 30mg SQ qAM. Code status: DNR/DNI Admission and Anticipated Discharge Date Admission Date: August 25, 2023 Subjective Patient reports no significant improvement Review of Systems Review of Systems: All systems reviewed & are unremarkable except as noted in HPI & below Physical Exam Physical Exam: Patient is pleasant. Patient is on high flow oxygen. very thin Underweight with a BMI of 14.8 lung exam shows reduced air movement and coarse breath sounds equal bilaterally with no focal loss or wheeze Results & Data Results & Data Vital Signs (Past 12 Hours) Vital Signs Temp Pulse Pulse Resp BP Pulse Ox Pulse Ox 08/31/23 14:24 93 H 24 97 08/31/23 12:34 93 H 22 97 08/31/23 12:00 98 08/31/23 11:23 91 H 25 H 97 08/31/23 08:47 08/31/23 08:19 85 20 100 08/31/23 07:36 36.8 C 93 H 20 129/77 95 O2 Del Method O2 Del Method O2 Flow Rate O2 Flow Rate FiO2 08/31/23 14:24 High Flow Nasal Cannula 60 75 08/31/23 12:34 High Flow Nasal Cannula 60 90 08/31/23 12:00 High Flow Nasal Cannula 60 08/31/23 11:23 High Flow Nasal Cannula 60 86 08/31/23 08:47 High Flow Nasal Cannula 40 100 08/31/23 08:19 High Flow Nasal Cannula 40 100 08/31/23 07:36 High Flow Nasal Cannula PG Care Time/CCT Total # of Minutes Spent Total Time Spent with Patient: Total time spent is greater than 50% in coordination of care (as documented) at patient's floor/unit and/or counseling patient: Coding Level of Care Code 79142 SUB INP/OBS CARE 3/50MIN Diagnoses Shortness of breath R06.02 Interstitial lung disease J84.9 Severe protein-calorie malnutrition E43 Osteoporosis M81.0 Anxiety disorder F41.9 Closed compression fracture of L2 vertebra S32.020A Encounter type: initial encounter Aryan's thyroiditis E06.3 Cluster A personality disorder F60.9 Time Spent (min) 50 Comment updated brother (6) Closed compression fracture of L2 vertebra Encounter type: initial encounter Qualified Code(s): S32.020A - Wedge compression fracture of second lumbar vertebra, initial encounter for closed fracture
[2023-08-31 17:49] LABS: BUN Creatinine Ratio 35.4 (10-20); Calcium 8.6 mg/dl (8.6-10.3); Creatinine Clr Calc Pharmacy 56.3 ml/min; Est GFR (African American) 115.2 ml/min; Est GFR (Non-African American) 99.4 ml/min
[2023-08-31] MEDS: FORMOTEROL 20 MCG/2 ML VIAL INH SCH (19:54)
[2023-08-31] MEDS: QUEtiapine FUMARATE 100 MG TABLET PO SCH (20:51)
[2023-08-31] MEDS: traZODone HCL 100 MG TAB PO SCH (20:51)
[2023-08-31] MEDS: DONEPEZIL HCL 5 MG TAB PO SCH (20:51)
[2023-08-31] MEDS: ENOXAPARIN INJ 30 MG/0.3 ML SYR SQ SCH (20:53)
[2023-09-01] MEDS: CEFEPIME 2,000 MG in SYRINGE 0 ML IV SCH ×2 (04:19→13:43)
[2023-09-01] MEDS: methylPREDNISolone 80 MG in SYRINGE 0 ML IV SCH ×3 (04:20→21:47)
[2023-09-01] MEDS: oxyCODONE HCL IR 5 MG TAB (IMMEDIATE RELEASE) PO PRN ×4 (04:31→23:11)
[2023-09-01] MEDS ORDERED: LORazepam 0.5 MG in SYRINGE 0.25 ML IV STA (05:14)
[2023-09-01 07:40] LABS: Basophils # (auto) 0.04 K/uL (0.00-0.20); Basophils % (auto) 0.2 %; Hemoglobin 12.7 g/dl (12.0-16.0); Immature Granulocytes % (auto) 1.1 %; Lymphocytes % (auto) 5.7 %; Mean Corpuscular Hemoglobin 29.2 pg (25.0-34.0); Mean Corpuscular Hgb Conc 31.8 g/dL (32.0-36.0); Mean Platelet Volume 8.8 fL (9.4-12.4); Monocytes # (auto) 0.84 K/uL (0.11-0.59); Monocytes % (auto) 4.8 %; Neutrophils # (auto) 15.37 K/uL (1.40-6.50); Neutrophils % (auto) 88.2 %; Platelet Count 606 K/uL (130-400); RDW Coefficient of Variation 13.7 % (11.5-14.5); RDW Standard Deviation 46.6 fL (36.4-46.3); Red Blood Count 4.35 M/uL (4.20-5.40); White Blood Count 17.45 K/ul (4.8-10.8)
[2023-09-01] MEDS: ALBUT/IPRATROP 3MG/0.5MG NEB 3 ML VIAL NEB SCH ×4 (07:41→20:16)
[2023-09-01] MEDS: FORMOTEROL 20 MCG/2 ML VIAL INH SCH ×2 (07:41→20:16)
--- NOTE | 2023-09-01 07:42 | XRay Report ---
XR chest 1V portable HISTORY: Hypoxia. COMPARISON: Chest 08/31/2023. FINDINGS: No pneumothorax. The cardiac silhouette remains mildly enlarged. There is diffuse interstit ial thickening with hazy bilateral airspace opacities. This remains unchanged. There is a healing lef t lateral fifth rib fracture. No acute fractures identified. Compression deformities within the thora cic and lumbar spine again noted. IMPRESSION: No significant change in the diffuse interstitial thickening and hazy bilateral airspace opacities. ACT 112: Negative or not required by law. Electronically signed by: Miguel Ángel Vyas M.D. 09/01/2023 7:41 AM
[2023-09-01] MEDS: metroNIDAZOLE 500 MG/100 ML BAG IV SCH ×3 (07:57→23:11)
[2023-09-01 08:10] LABS: BUN Creatinine Ratio 51.3 (10-20); C Reactive Protein 3.09 mg/dl (0-0.5); Calcium 9.3 mg/dl (8.6-10.3); Creatinine Clr Calc Pharmacy 69.3 ml/min; Est GFR (African American) 123.3 ml/min; Est GFR (Non-African American) 106.4 ml/min; Potassium 4.5 mmol/L (3.5-5.1)
--- NOTE | 2023-09-01 08:40 | Pulmonology Progress Note ---
Date of Service September 01, 2023 Assessment & Plan (1) Acute on chronic respiratory failure with hypoxemia: (2) Interstitial lung disease: (3) Peripheral eosinophilia: (4) Kyphosis: (5) Restrictive lung disease: Plan IMPRESSION: 68-year-old female with history of interstitial lung disease with concerns for chronic hypersensitivity pneumonitis who presents with acute on chronic hypoxic respiratory failure requiring high levels of FiO2. RECOMMENDATIONS: 1. Acute on chronic respiratory failure with hypoxia - In the setting of interstitial lung disease. Patient without formal diagnosis, however concerns for hypersensitivity pneumonitis in the setting of significant bird exposures. She has been removed from that environment and did complete a course of Bactrim and prednisone. Unfortunately, the patient has not been compliant recently with her outpatient visits. It seems as though the patient has had an acute decline at this time. She will continue with high-dose steroids as well. PJP testing pending. Patient may require PJP prophylaxis given the high dose steroids, patient will likely require PJP prophylaxis. Patient has an allergy to Bactrim. Will clarify her allergy as this represents the most practical treatment at this point. I am concerned that patient's condition is not improving or will be extremely slow and improving. She may benefit from palliative care consultation given her poor prognosis at this point. 2. Interstitial lung disease - Continue with high-dose steroids at this time. She is currently covered with antibiotics empirically at this time which I would agree with completing given her elevated PCT in the setting of respiratory decline. 3. Restrictive Lung Disease - In the setting of severe kyphosis and ILD. Likely worsening patient's respiratory status. Thank you for allowing us to participate in the care of this patient. Admission and Anticipated Discharge Date Admission Date: August 25, 2023 Subjective Patient was seen and evaluated bedside. She reports feeling slightly better today from a respiratory standpoint. She continues to require 60 L, 100% FiO2. She appears frail and slightly tachypneic with conversation. Review of Systems Review of Systems: Unchanged from admission. Physical Exam Physical Exam: VITAL SIGNS - Vital signs and nursing notes were reviewed. GENERAL - 68-year-old female appearing her stated age who is slightly tachypneic at rest and with conversation. LUNGS - Kyphotic. Auscultation reveals diffuse rales throughout all lung barrett. CARDIAC - RRR with S1/S2. No murmur, rubs, or gallops appreciated. ABDOMEN - Abdominal inspection demonstrates a scaphoid abdomen. BS normoactive all four quadrants. No tenderness, palpable masses, or ascites noted. EXTREMITIES - Nail clubbing not present. No peripheral cyanosis. No pretibial edema present. +3/5 radial palpated throughout. PSYCH - A&Ox3 and cooperates fully with examiner. Pt is very pleasant and inte racts well with examiner. Results & Data Results & Data Vital Signs (Past 12 Hours) Vital Signs Temp Pulse Pulse Pulse Resp BP Pulse Ox 09/01/23 08:06 37.4 C 81 22 150/93 H 99 09/01/23 07:41 90 26 H 92 09/01/23 03:39 86 26 H 90 08/31/23 23:25 79 22 100 08/31/23 21:00 O2 Del Method O2 Flow Rate FiO2 09/01/23 08:06 High Flow Nasal Cannula 10 09/01/23 07:41 High Flow Nasal Cannula 60 100 09/01/23 03:39 High Flow Nasal Cannula 60 100 08/31/23 23:25 High Flow Nasal Cannula 60 08/31/23 21:00 High Flow Nasal Cannula 60 100 PG Care Time/CCT Total # of Minutes Spent Total Time Spent with Patient: Total time spent is greater than 50% in coordination of care (as documented) at patient's floor/unit and/or counseling patient: Coding Level of Care Code 51876 SUB INP/OBS CARE 2/35MIN Diagnoses Acute on chronic respiratory failure with hypoxemia J96.21 Interstitial lung disease J84.9 Peripheral eosinophilia D72.19 Kyphosis M40.209 Restrictive lung disease J98.4
[2023-09-01] MEDS: CALCIUM 600MG + VIT D 400 IU TAB PO SCH (09:32)
[2023-09-01] MEDS: FLUoxetine HCL 20 MG CAP PO SCH (09:32)
[2023-09-01] MEDS: FERROUS SULFATE 325 MG TAB PO SCH (09:32)
[2023-09-01] MEDS: guaiFENesin 600 MG TABCR PO SCH ×2 (09:32→21:51)
[2023-09-01] MEDS: ASPIRIN 81 MG ECTAB PO SCH (09:32)
[2023-09-01] MEDS: GABAPENTIN 400 MG CAP PO SCH ×3 (09:32→21:49)
[2023-09-01] MEDS: ACETAMINOPHEN 325 MG TAB PO SCH ×4 (09:33→21:48)
[2023-09-01] MEDS: LIDOCAINE 5% 1 PATCH TD SCH (09:33)
[2023-09-01] MEDS: AZITHROMYCIN 500 MG in DEXTROSE 5% 250 ML IV SCH (09:33)
[2023-09-01] MEDS: LORazepam 1 MG TAB PO PRN ×3 (10:31→23:12)
[2023-09-01] MEDS ORDERED: FUROSEMIDE INJ 20 MG/2 ML VIAL IV ONE (17:22)
[2023-09-01] MEDS: traZODone HCL 100 MG TAB PO SCH (21:50)
[2023-09-01] MEDS: DONEPEZIL HCL 5 MG TAB PO SCH (21:50)
[2023-09-01] MEDS: ENOXAPARIN INJ 30 MG/0.3 ML SYR SQ SCH (21:52)
[2023-09-01] MEDS: QUEtiapine FUMARATE 100 MG TABLET PO SCH (21:54)
--- NOTE | 2023-09-01 22:12 | Hospitalist Progress Note ---
Date of Service September 01, 2023 Assessment & Plan (1) Shortness of breath: Plan: 68 year old female admitted for shortness of breath, possible pneumonia. -Increased oxygen requirement now on high flow. -Patient w/ history of ILD, lives in [facility] health care associated pneumonia - continues on Cefepime, azithromycin, will also add flagyl on 08/31 Latest chest xray is showing bilateral pneumonia. treating for eosinophilic pneumonia or exacerbation of hypersensitive pneumonitis ON corticosteroids. appreciate input from pulmonary. Inflmaatory markers and procal are improving, however clinically no improvement. continue above antibiotics. COntinue formeterol will also give a dose of 20 mg of IV lasix. (2) Interstitial lung disease: Plan: -Chronic, noted, had followed with Dr. Mcmahon in the past. Per patient she does not take any inhalers on a daily basis and is on 2L chronically at home. (3) Severe protein-calorie malnutrition: Plan: -Chronic, noted. Albumin 3.2 on admission. Encourage good PO intake, appetite not affected by infection per patient. (4) Osteoporosis: Plan: -Noted, continue home calcium-vitamin D supplement. (5) Anxiety disorder: Plan: -Continue home fluoxetine (6) Closed compression fracture of L2 vertebra: Plan: -Chronic, tylenol 650mg PRN PO q6h ordered. oxycodone if not at goal with tylenol. (7) Aryan's thyroiditis: Plan: -TSH stable from previous blood work, not on any medications currently. (8) Cluster A personality disorder: Plan: -Continue trazodone, lorazepam, gabapentin, fluoxetine. Plan DVT Prophylaxis: Lovenox 30mg SQ qAM. Code status: DNR/DNI Admission and Anticipated Discharge Date Admission Date: August 25, 2023 Subjective Patient reports feeling better today. Review of Systems Review of Systems: All systems reviewed & are unremarkable except as noted in HPI & below Physical Exam Physical Exam: Patient is pleasant. Patient is on high flow oxygen. very thin Underweight with a BMI of 14.8 lung exam shows reduced air movement and coarse breath sounds equal bilaterally with no focal loss or wheeze Results & Data Results & Data Vital Signs (Past 12 Hours) Vital Signs Temp Pulse Pulse Pulse Resp BP BP 09/01/23 22:03 36.3 C L 66 19 139/86 09/01/23 21:37 09/01/23 20:16 76 17 09/01/23 15:32 36.3 C L 77 22 134/79 09/01/23 14:52 81 18 09/01/23 12:00 09/01/23 11:36 36.4 C L 81 18 132/80 09/01/23 11:17 89 24 Pulse Ox Pulse Ox O2 Del Method O2 Del Method O2 Flow Rate O2 Flow Rate FiO2 09/01/23 22:03 96 High Flow Nasal Cannula 09/01/23 21:37 High Flow Nasal Cannula 60 100 09/01/23 20:16 97 High Flow Nasal Cannula 60 90 09/01/23 15:32 95 High Flow Nasal Cannula 60 09/01/23 14:52 93 High Flow Nasal Cannula 60 84 09/01/23 12:00 98 High Flow Nasal Cannula 60 09/01/23 11:36 95 High Flow Nasal Cannula 60 90 09/01/23 11:17 98 High Flow Nasal Cannula 60 100 PG Care Time/CCT Total # of Minutes Spent Total Time Spent with Patient: Total time spent is greater than 50% in coordination of care (as documented) at patient's floor/unit and/or counseling patient: Coding Level of Care Code 20850 SUB INP/OBS CARE 2/35MIN Diagnoses Shortness of breath R06.02 Interstitial lung disease J84.9 Severe protein-calorie malnutrition E43 Osteoporosis M81.0 Anxiety disorder F41.9 Closed compression fracture of L2 vertebra S32.020A Encounter type: initial encounter Aryan's thyroiditis E06.3 Cluster A personality disorder F60.9 (6) Closed compression fracture of L2 vertebra Encounter type: initial encounter Qualified Code(s): S32.020A - Wedge compression fracture of second lumbar vertebra, initial encounter for closed fracture
[2023-09-02] MEDS: methylPREDNISolone 80 MG in SYRINGE 0 ML IV SCH ×3 (03:25→20:14)
[2023-09-02 06:12] LABS: Hematocrit (blood only) 35.7 % (37.0-47.0); Hemoglobin 11.5 g/dl (12.0-16.0); Mean Corpuscular Hemoglobin 29.5 pg (25.0-34.0); Mean Corpuscular Hgb Conc 32.2 g/dL (32.0-36.0); Mean Corpuscular Volume 91.5 fL (80.0-100.0); Mean Platelet Volume 8.9 fL (9.4-12.4); Platelet Count 441 K/uL (130-400); RDW Coefficient of Variation 13.7 % (11.5-14.5); RDW Standard Deviation 46.3 fL (36.4-46.3); White Blood Count 15.66 K/ul (4.8-10.8)
[2023-09-02 06:29] LABS: C Reactive Protein 1.55 mg/dl (0-0.5); Calcium 8.9 mg/dl (8.6-10.3); Creatinine Clr Calc Pharmacy 84.4 ml/min; Est GFR (African American) 131.6 ml/min; Est GFR (Non-African American) 113.6 ml/min; Potassium 4.6 mmol/L (3.5-5.1)
[2023-09-02 06:45] LABS: Basophils # (auto) 0.02 K/uL (0.00-0.20); Basophils % (auto) 0.1 %; Immature Granulocytes % (auto) 0.6 %; Lymphocytes # (auto) 0.75 K/uL (1.20-3.40); Lymphocytes % (auto) 4.8 %; Monocytes # (auto) 0.55 K/uL (0.11-0.59); Monocytes % (auto) 3.5 %; Neutrophils # (auto) 14.24 K/uL (1.40-6.50)
[2023-09-02] MEDS: FORMOTEROL 20 MCG/2 ML VIAL INH SCH ×2 (07:26→19:33)
[2023-09-02] MEDS: ALBUT/IPRATROP 3MG/0.5MG NEB 3 ML VIAL NEB SCH ×4 (07:26→19:34)
[2023-09-02] MEDS: metroNIDAZOLE 500 MG/100 ML BAG IV SCH ×3 (07:38→23:10)
[2023-09-02] MEDS: LORazepam 1 MG TAB PO PRN ×3 (07:38→20:13)
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
--- NOTE | 2023-09-02 09:34 | Pulmonology Progress Note ---
Date of Service September 02, 2023 Assessment & Plan (1) Acute on chronic respiratory failure with hypoxemia: (2) Interstitial lung disease: (3) Peripheral eosinophilia: (4) Kyphosis: (5) Restrictive lung disease: Plan IMPRESSION: 68-year-old female with history of interstitial lung disease with concerns for chronic hypersensitivity pneumonitis who presents with acute on chronic hypoxic respiratory failure requiring high levels of FiO2. RECOMMENDATIONS: 1. Acute on chronic respiratory failure with hypoxia - In the setting of interstitial lung disease. Patient without formal diagnosis, however concerns for hypersensitivity pneumonitis in the setting of significant bird exposures. She has been removed from that environment and did complete a course of Bactrim and prednisone. Unfortunately, the patient has not been compliant recently with her outpatient visits. It seems as though the patient has had an acute decline at this time. She will continue with high-dose steroids as well as she has shown some slight improvement. PJP testing pending. Since the patient has shown this improvement, she will likely require ongoing high-dose steroids. We did review the options of PJP prophylaxis versus empiric treatment given her underlying lung dysfunction. This was reviewed with my attending and it was agreed upon the patient would likely benefit from PJP treatment doses. Unfortunately, patient reports prior allergy to Bactrim and is unable to specify other than "rash" as far as symptoms that she is experienced in the past. It would make more sense to avoid this medication. Unfortunately, this narrows down her treatment window. We do not have dapsone at this institution. We will start the patient on atovaquone at full treatment doses. She will receive 750 mg twice daily for 21 days. We will address steroid dosing as the patient shows improvement versus regression in her symptoms. At this point, given the severity of her symptoms and current status, I do feel that palliative care discussion engagement would be prudent. I have discussed this with the patient as well. 2. Interstitial lung disease - Continue with high-dose steroids at this time. Complete course of antibiotics as she is showing improvement in her CRP as well as procalcitonin and symptoms at this point. Certainly, this could represent an acute infection on chronic lung disease. 3. Restrictive Lung Disease - In the setting of severe kyphosis and ILD. Likely worsening patient's respiratory status. Thank you for allowing us to participate in the care of this patient. Pulmonary medicine will continue to follow. Admission and Anticipated Discharge Date Admission Date: August 25, 2023 Subjective Patient seen and evaluated at bedside today. She reports that she continues to feel slightly improved. She is down to 50 L, 80 percent FiO2. She is using her flutter valve. She is unable to produce sputum. She offers no new complaints today. Review of Systems Review of Systems: Unchanged from admission. Physical Exam Physical Exam: VITAL SIGNS - Vital signs and nursing notes were reviewed. GENERAL - 68-year-old female appearing her stated age who is slightly tachypneic at rest and with conversation. LUNGS - Kyphotic. Auscultation reveals diffuse rales throughout all lung barrett. CARDIAC - RRR with S1/S2. No murmur, rubs, or gallops appreciated. ABDOMEN - Abdominal inspection demonstrates a scaphoid abdomen. BS normoactive all four quadrants. No tenderness, palpable masses, or ascites noted. PSYCH - A&Ox3 and cooperates fully with examiner. Pt is very pleasant and interacts well with examiner. Results & Data Results & Data Vital Signs (Past 12 Hours) Vital Signs Temp Pulse Pulse Resp BP BP Pulse Ox 09/02/23 08:04 36.5 C 84 24 121/79 96 09/02/23 07:26 91 H 20 98 09/02/23 04:10 73 97 09/01/23 22:50 74 19 92 09/01/23 22:03 36.3 C L 66 19 139/86 96 09/01/23 21:37 O2 Del Method O2 Flow Rate FiO2 09/02/23 08:04 High Flow Nasal Cannula 60 09/02/23 07:26 High Flow Nasal Cannula 60 100 09/02/23 04:10 High Flow Nasal Cannula 60 90 09/01/23 22:50 High Flow Nasal Cannula 60 100 09/01/23 22:03 High Flow Nasal Cannula 09/01/23 21:37 High Flow Nasal Cannula 60 100 PG Care Time/CCT Total # of Minutes Spent Total Time Spent with Patient: Total time spent is greater than 50% in coordination of care (as documented) at patient's floor/unit and/or counseling patient: Coding Level of Care Code 70547 SUB INP/OBS CARE 2/35MIN Diagnoses Acute on chronic respiratory failure with hypoxemia J96.21 Interstitial lung disease J84.9 Peripheral eosinophilia D72.19 Kyphosis M40.209 Restrictive lung disease J98.4
[2023-09-02 09:53] LABS: Toxic Vacuolation 1+
[2023-09-02] MEDS: LIDOCAINE 5% 1 PATCH TD SCH (10:22)
[2023-09-02] MEDS: ASPIRIN 81 MG ECTAB PO SCH (10:22)
[2023-09-02] MEDS: GABAPENTIN 400 MG CAP PO SCH ×3 (10:23→20:15)
[2023-09-02] MEDS: ACETAMINOPHEN 325 MG TAB PO SCH ×4 (10:23→20:13)
[2023-09-02] MEDS: FERROUS SULFATE 325 MG TAB PO SCH (10:23)
[2023-09-02] MEDS: guaiFENesin 600 MG TABCR PO SCH ×2 (10:23→20:15)
[2023-09-02] MEDS: FLUoxetine HCL 20 MG CAP PO SCH (10:23)
[2023-09-02] MEDS: CALCIUM 600MG + VIT D 400 IU TAB PO SCH (10:24)
[2023-09-02] MEDS: ATOVAQUONE 750 MG/5 ML UDC PO SCH ×2 (10:50→20:14)
--- NOTE | 2023-09-02 12:10 | Hospitalist Progress Note ---
Date of Service September 02, 2023 Assessment & Plan (1) Shortness of breath: Plan: 68 year old female admitted for shortness of breath, possible pneumonia. -Increased oxygen requirement now on high flow. -Patient w/ history of ILD, lives in [facility] health care associated pneumonia - continues on Cefepime, azithromycin, will also add flagyl on 08/31 High flow is titrated down on 09/02 to 50 liters Pulmonary will add PJP treatment on 09/02 Latest chest xray is showing bilateral pneumonia. treating for eosinophilic pneumonia or exacerbation of hypersensitive pneumonitis ON corticosteroids. appreciate input from pulmonary. Inflamatory markers and procal are improving, however clinically no improvement. continue above antibiotics. COntinue formeterol Gave a dose of lasix on 08/31 and 09/01 will hold. Patient is critically ill (2) Interstitial lung disease: Plan: -Chronic, noted, had followed with Dr. Mcmahon in the past. Per patient she does not take any inhalers on a daily basis and is on 2L chronically at home. (3) Severe protein-calorie malnutrition: Plan: -Chronic, noted. Albumin 3.2 on admission. Encourage good PO intake, appetite not affected by infection per patient. (4) Osteoporosis: Plan: -Noted, continue home calcium-vitamin D supplement. (5) Anxiety disorder: Plan: -Continue home fluoxetine (6) Closed compression fracture of L2 vertebra: Plan: -Chronic, tylenol 650mg PRN PO q6h ordered. oxycodone if not at goal with tylenol. (7) Aryan's thyroiditis: Plan: -TSH stable from previous blood work, not on any medications currently. (8) Cluster A personality disorder: Plan: -Continue trazodone, lorazepam, gabapentin, fluoxetine. Plan DVT Prophylaxis: Lovenox 30mg SQ qAM. Code status: DNR/DNI Admission and Anticipated Discharge Date Admission Date: August 25, 2023 Subjective Patient reports feeling better. Review of Systems Review of Systems: All systems reviewed & are unremarkable except as noted in HPI & below Physical Exam Physical Exam: Patient is pleasant. Patient is on high flow oxygen. very thin Underweight with a BMI of 14.8 lung exam shows reduced air movement and coarse breath sounds equal bilaterally with no focal loss or wheeze Results & Data Results & Data Vital Signs (Past 12 Hours) Vital Signs Temp Pulse Pulse Resp BP Pulse Ox O2 Del Method 09/02/23 11:26 70 22 98 High Flow Nasal Cannula 09/02/23 08:04 36.5 C 84 24 121/79 96 High Flow Nasal Cannula 09/02/23 07:26 91 H 20 98 High Flow Nasal Cannula 09/02/23 04:10 73 97 High Flow Nasal Cannula O2 Flow Rate FiO2 09/02/23 11:26 50 96 09/02/23 08:04 60 09/02/23 07:26 60 100 09/02/23 04:10 60 90 PG Care Time/CCT Total # of Minutes Spent Total Time Spent with Patient: Total time spent is greater than 50% in coordination of care (as documented) at patient's floor/unit and/or counseling patient: Coding Level of Care Code 87625 SUB INP/OBS CARE 3/50MIN Diagnoses Shortness of breath R06.02 Interstitial lung disease J84.9 Severe protein-calorie malnutrition E43 Osteoporosis M81.0 Anxiety disorder F41.9 Closed compression fracture of L2 vertebra S32.020A Encounter type: initial encounter Aryan's thyroiditis E06.3 Cluster A personality disorder F60.9 Time Spent (min) 50 (6) Closed compression fracture of L2 vertebra Encounter type: initial encounter Qualified Code(s): S32.020A - Wedge compression fracture of second lumbar vertebra, initial encounter for closed fracture
[2023-09-02] MEDS ORDERED: MoRPHine SULFATE 2 MG/ML CARP IV PRN (13:47)
[2023-09-02] MEDS: LORazepam 0.5 MG in SYRINGE 0.25 ML IV SCH ×2 (14:26→23:10)
[2023-09-02] MEDS: oxyCODONE HCL IR 5 MG TAB (IMMEDIATE RELEASE) PO PRN (20:13)
[2023-09-02] MEDS: DONEPEZIL HCL 5 MG TAB PO SCH (20:14)
[2023-09-02] MEDS: traZODone HCL 100 MG TAB PO SCH (20:15)
[2023-09-02] MEDS: QUEtiapine FUMARATE 100 MG TABLET PO SCH (20:15)
[2023-09-02 22:41] LABS: Fungitell (1-3)-B-D-Glucan <31 pg/mL
[2023-09-02] MEDS: ENOXAPARIN INJ 30 MG/0.3 ML SYR SQ SCH (23:10)
[2023-09-03] MEDS: methylPREDNISolone 80 MG in SYRINGE 0 ML IV SCH ×2 (03:38→12:25)
[2023-09-03] MEDS: LORazepam 0.5 MG in SYRINGE 0.25 ML IV SCH ×2 (05:52→16:00)
[2023-09-03] MEDS: FORMOTEROL 20 MCG/2 ML VIAL INH SCH (07:19)
[2023-09-03] MEDS: ALBUT/IPRATROP 3MG/0.5MG NEB 3 ML VIAL NEB SCH ×2 (07:20→11:22)
[2023-09-03] MEDS: oxyCODONE HCL IR 5 MG TAB (IMMEDIATE RELEASE) PO PRN (07:51)
[2023-09-03] MEDS: metroNIDAZOLE 500 MG/100 ML BAG IV SCH (07:52)
[2023-09-03] MEDS: ASPIRIN 81 MG ECTAB PO SCH (07:53)
[2023-09-03] MEDS: ACETAMINOPHEN 325 MG TAB PO SCH ×2 (07:53→12:25)
[2023-09-03] MEDS: GABAPENTIN 400 MG CAP PO SCH ×2 (07:54→13:50)
[2023-09-03] MEDS: FLUoxetine HCL 20 MG CAP PO SCH (07:54)
[2023-09-03] MEDS: FERROUS SULFATE 325 MG TAB PO SCH (07:54)
[2023-09-03] MEDS: CALCIUM 600MG + VIT D 400 IU TAB PO SCH (07:54)
[2023-09-03] MEDS: LORazepam 1 MG TAB PO PRN ×2 (08:06→13:49)
[2023-09-03] MEDS: LIDOCAINE 5% 1 PATCH TD SCH (08:14)
[2023-09-03] MEDS: ATOVAQUONE 750 MG/5 ML UDC PO SCH (08:19)
[2023-09-03] MEDS: guaiFENesin 600 MG TABCR PO SCH (08:19)
[2023-09-03 08:57] LABS: Creatinine Clr Calc Pharmacy 84.4 ml/min; Est GFR (African American) 131.6 ml/min; Est GFR (Non-African American) 113.6 ml/min
--- NOTE | 2023-09-03 09:59 | Pulmonology Progress Note ---
Date of Service September 03, 2023 Assessment & Plan (1) Acute on chronic respiratory failure with hypoxemia: (2) Interstitial lung disease: (3) Peripheral eosinophilia: (4) Kyphosis: (5) Restrictive lung disease: Plan IMPRESSION: 68-year-old female with history of interstitial lung disease with concerns for chronic hypersensitivity pneumonitis who presents with acute on chronic hypoxic respiratory failure requiring high levels of FiO2. RECOMMENDATIONS: 1. Acute on chronic respiratory failure with hypoxia - In the setting of interstitial lung disease. Patient without formal diagnosis, however concerns for hypersensitivity pneumonitis in the setting of significant bird exposures. She has been removed from that environment and did complete a course of Bactrim and prednisone. Unfortunately, the patient has not been compliant recently with her outpatient visits. It seems as though the patient has had an acute decline at this time. She will continue with high-dose steroids as well as she has shown some slight improvement. PJP testing pending. Since the patient has shown this improvement, she will likely require ongoing high-dose steroids. We did review the options of PJP prophylaxis versus empiric treatment given her underlying lung dysfunction. This was reviewed with my attending and it was agreed upon the patient would likely benefit from PJP treatment doses. Unfortunately, patient reports prior allergy to Bactrim and is unable to specify other than "rash" as far as symptoms that she is experienced in the past. It would make more sense to avoid this medication. Unfortunately, this narrows down her treatment window. We do not have dapsone at this institution. We will start the patient on atovaquone at full treatment doses. She will receive 750 mg twice daily for 21 days. We will address steroid dosing as the patient shows improvement versus regression in her symptoms. At this point, given the severity of her symptoms and current status, I do feel that palliative care discussion engagement would be prudent. I have discussed this with the patient as well. Unfortunately, a code purple was called overhead in the early afternoon hours and patient was found to have ongoing hypoxia. She had an OxyMask placed on top of her high flow nasal cannula. I instructed nursing staff to provide her a dose of her as needed Ativan. I had an extensive conversation with the patient discussing my concerns that this is representing her dying process and that transition to comfort measures should be highly considered at this point. She recommends that I reach out to her brother. I spoke to her brother, Elieser, by phone. I had a lengthy conversation with him as well discussing change in clinical status as well as my concerns for progression of her disease process and terminal status. He had multiple questions, none of which were related to the active dying process. I did eventually explain to him that his sister would like to speak to him regarding end-of-life decision making. This was communicated to nursing staff who facilitated phone call. I did speak to Elieser again at the presence of his sister at bedside. Clinically, she does appear worse at this time and is struggling to breathe. I did reiterate that at this point, the patient is dying process and unfortunately is struggling to breathe. I did recommend given the patient's extensive interstitial lung disease history and concern for hypoxic failure with her struggling, that we transition to more of a comfort approach. The patient is in agreement. In the meantime, I had reached out to palliative care medicine who was kind enough to come to bedside and fully transition the patient to comfort measures only at that time. 2. Interstitial lung disease - Continue with high-dose steroids at this time. Complete course of antibiotics as she is showing improvement in her CRP as well as procalcitonin and symptoms at this point. Certainly, this could represent an acute infection on chronic lung disease. 3. Restrictive Lung Disease - In the setting of severe kyphosis and ILD. Likely worsening patient's respiratory status. Thank you for allowing us to participate in the care of this patient. Pulmonary medicine will continue to follow. Admission and Anticipated Discharge Date Admission Date: August 25, 2023 Subjective Patient seen and evaluated at bedside. Her oxygen requirement is increased to 100% FiO2 again. She appears tachypneic, but reports that she continues to feel okay. She complains of some pain in her lower back. Review of Systems Review of Systems: Unchanged from admission. Physical Exam Physical Exam: VITAL SIGNS - Vital signs and nursing notes were reviewed. GENERAL - 68-year-old female appearing her stated age who is slightly tachypneic at rest and with conversation. LUNGS - Kyphotic. Auscultation reveals diffuse rales throughout all lung barrett. CARDIAC - RRR with S1/S2. No murmur, rubs, or gallops appreciated. ABDOMEN - Abdominal inspection demonstrates a scaphoid abdomen. BS normoactive all four quadrants. No tenderness, palpable masses, or ascites noted. PSYCH - A&Ox3 and cooperates fully with examiner. Pt is very pleasant and interacts well with examiner. Results & Data Results & Data Vital Signs (Past 12 Hours) Vital Signs Temp Pulse Pulse Resp BP Pulse Ox O2 Del Method 09/03/23 08:20 36.5 C 87 19 130/87 97 High Flow Nasal Cannula 09/03/23 07:23 96 H 19 94 High Flow Nasal Cannula 09/03/23 07:20 94 H 19 95 High Flow Nasal Cannula 09/03/23 02:30 67 18 93 High Flow Nasal Cannula O2 Flow Rate FiO2 09/03/23 08:20 50 09/03/23 07:23 50 100 09/03/23 07:20 50 100 09/03/23 02:30 50 80 PG Care Time/CCT Total # of Minutes Spent Total Time Spent with Patient: Total time spent is greater than 50% in coordination of care (as documented) at patient's floor/unit and/or counseling patient: Coding Level of Care Code 65140 SUB INP/OBS CARE 3/50MIN Diagnoses Acute on chronic respiratory failure with hypoxemia J96.21 Interstitial lung disease J84.9 Peripheral eosinophilia D72.19 Kyphosis M40.209 Restrictive lung disease J98.4
[2023-09-03] MEDS ORDERED: MoRPHine SULFATE 4 MG/ML 1 ML CARP\\VIAL IV STA (14:32)
[2023-09-03] MEDS ORDERED: ONDANSETRON INJ 2 MG/ML 2 ML VIAL IV PRN (14:34)
[2023-09-03] MEDS ORDERED: HYDROmorphone BOLUS from BAG IV PRN (14:34)
[2023-09-03] MEDS ORDERED: MoRPHine BOLUS from BAG IV PRN (14:34)
[2023-09-03] MEDS ORDERED: LORazepam 0.5 MG TAB PO PRN (14:34)
[2023-09-03] MEDS ORDERED: ONDANSETRON 4 MG OD TAB SL PRN (14:34)
--- NOTE | 2023-09-03 14:38 | XRay Report ---
XR chest 1V portable CLINICAL HISTORY: worsening hypoxia TECHNIQUE: Single frontal radiograph of the chest was obtained. Comparison: Comparison is made to chest radiograph 09/01/2023 FINDINGS: No lines and tubes are seen. The cardiomediastinal silhouette is stable. Likely left perihilar airspa ce opacity superimposed upon interstitial lung disease. No evidence of pleural effusion or pneumothor ax. IMPRESSION: Left perihilar airspace disease may represent atelectasis, pneumonia, and/or aspiration. ACT 112: Negative or not required by law. Electronically signed by: Lalo Patel M.D. 09/03/2023 2:36 PM
[2023-09-03] MEDS ORDERED: MoRPHine SULF/NSS 100 MG/100 ML BAG IV SCH (14:45)
[2023-09-03] MEDS ORDERED: HYDROmorphone/NSS 100 MG/100 ML BAG IV SCH (14:45)
[2023-09-03] MEDS ORDERED: LORazepam 0.5 MG in SYRINGE 0.25 ML IV PRN (14:46)
--- NOTE | 2023-09-03 14:56 | Palliative Care Progress Note ---
Date of Service September 03, 2023 Assessment & Plan (1) Dyspnea and respiratory abnormalities: Plan: Terminal dyspnea due to end-stage ILD. Patient is transitioning from a process of living to a process of going. Anticipated survival of hours to days. (2) Weakness generalized: (3) Severe muscle deconditioning: (4) Acute on chronic respiratory failure with hypoxemia: (5) Palliative care by specialist: (6) Advanced care planning/counseling discussion: Plan: ACP face to face with pt and her brother Arsen on phone x30min. Pt advised she is transitioning to EOL. Escalating therapies are not helping. Worsening resp failure in spite of 100% FiO2 on HFNC. CPR/intubation will not help, referse or cure the underlying terminal lung failure. Comfort care discussed. Brother had many questions about how palliative med differs from hospice. Met with pt/family. Provided overview of Palliative Medicine, a subspecialty that provides specialized medical care for people living with a serious illness by offering a focus on quality of life. Palliative Medicine is often conflated with hospice: I advised patient/family that Palliative and hospice can be partners but we are not the same. It is important to understand the difference so that we may be informed, and not afraid. Palliative Medicine works to improve QOL through reduction of symptom burden/more control over their illness, for both the patient and family. Palliative medicine clinicians are board certified, specially-trained and another member of the patient's medical care team. We often provide an extra layer of support because our care is based on the needs of the patient, not the prognosis; as such, it's appropriate at any age/advancing stage of a serious illness and can be provided along with curative treatment. Palliative Medicine clinicians are also trained in advanced communication methodologies, to facilitate complex discussions about advanced illness planning, which are needed to help assure that the treatment choices match the patient's goals, aka delivering Goal Concordant care. Finally, we discussed that hospice is a visiting nurse service that focuses on care delivered at the very end of life for patients with terminal illness, with life expectancy less than 6 month. We discussed the goals of hospice as a patient service and the goals of care; we discussed EOL trajectories and transitions toshia the emotional impact of realizing mortality as a concrete reality from prior abstract considerations. Pt was reassured that no matter where they are along this trajectory, they are not alone - their medical team will remain by their side through their journey. Discussed the pros/cons of accepting help when especially weakened and distressed by pain-which would also help provide relief/decrease caregiver burden/strain. Patient/family and I discussed patients with pulm fibrosis represent a group of individuals with a chronic respiratory disease who are without disease-reversing treatment options and, absent lung transplantation, inevitably face progressive decline and . We discussed that IPF is a progressive fibro-proliferative lung disease that affects approximately 128,000 individuals in the [place] annually. (7) Interstitial lung disease: Plan * Erin is dying. She has terminal ILD. Anticipate she will within next hours to days. She is aware of her mortality. She verbalizes appreciation for very clear direct communication. * Her brother Arsen is on the phone, she asked staff to call him. Extended d/w Arsen re EOL, terminal lung disease and at his request the difference between hospice and palliative care. * Moved to [employer]. Pt is agreement, repeatedly asking us to make sure she does not suffer and "please don't leave me, I'm scared." * [employer] meds ordered. Stat dose Ativan and MS IV then will begin Dilaudid infusion with bolus option and [employer] titration protocol. * Multiple visits through the afternoon. Discussions with pulm, nursing, pharmacy, manager compliance, primary team * TS 110min Thank you for allowing us to participate in the ongoing care of this patient. Please don't hesitate to call or page with any additional concerns. Dr. Eulalia Chavarria DNP Director, Palliative Care Admission and Anticipated Discharge Date Admission Date: August 25, 2023 Subjective [employer] earlier this afternoon with signif dyspnea crisis worsening in spite of escalated therapies Pulm med at bedside patient in distress, resp effort into the 40-50 range, +use of accessory muscles and she is calling out for help, crying she cannot breathe and she is scared Her brother, Arsen, is on phone at bedside Review of Systems Review of Systems: All systems reviewed & are unremarkable except as noted in Subjective Physical Exam Physical Exam: Chronically ill-appearing, cachectic female, sitting up at 90 degrees, in marked resp distress with + High flow nasal cannula in place. + Bitemporal wasting. Pupils are equal round and reactive to light. Extraocular movements are intact. + Dentition poor, + membranes moist, + extensive dental decay and caries. Multiple missing teeth and fractures. Neck is supple. There is no stridor. There is no appreciable JVD. Lungs with bilateral crackles and diminished airflow. + marked conversational dyspnea. + significant use of accessory muscles. + significant abdominal breathing. Significant respiratory effort at rest. Tachycardic. Abdomen scaphoid. Bowel sounds present. Nontender to palpation. Mild epigastric tenderness. Diffuse generalized weakness with significant muscle wasting. She is awake alert and oriented x 3. Tearful, scared, crying out. Results & Data Vital Signs (Past 12 Hours) Vital Signs Temp Pulse Pulse Resp BP BP Pulse Ox 09/03/23 13:47 81 24 91 09/03/23 11:43 36.5 C 77 16 126/79 98 09/03/23 11:42 76 18 92 09/03/23 11:23 72 15 100 09/03/23 08:20 36.5 C 87 19 130/87 97 09/03/23 07:23 96 H 19 94 09/03/23 07:20 94 H 19 95 O2 Del Method O2 Flow Rate FiO2 09/03/23 13:47 High Flow Nasal Cannula 55 100 09/03/23 11:43 High Flow Nasal Cannula 40 09/03/23 11:42 High Flow Nasal Cannula 40 75 09/03/23 11:23 High Flow Nasal Cannula 40 09/03/23 08:20 High Flow Nasal Cannula 50 09/03/23 07:23 High Flow Nasal Cannula 50 100 09/03/23 07:20 High Flow Nasal Cannula 50 100 Laboratory Results Data reviewed Diagnostic Findings Data reviewed PG Care Time/CCT Total # of Minutes Spent Total Time Spent with Patient: Total time spent is greater than 50% in coordination of care (as documented) at patient's floor/unit and/or counseling patient: I spent 110 minutes overall addressing this case: 5 min in medical data review/discussion with referring provider(s) and/or preparation for the visit 50 min in direct interaction with the patient/exam 30 min in Advance Care Planning/Goals of Care discussions as detailed above in note (must be >16min) 5 min in subsequent review and synthesis of assessment and plan 20 min communicating with other providers regarding the patient's case: Nursing, spiritual care, pharmacy, pulmonary medicine, primary medicine team Prolonged Care Time Prolonged Care Time: Yes Advanced Care Planning 72476 Advanced Care Planning 30 Min [place] [address] SUB INP/OBS CARE 3/50MIN Patient Type Established History Comprehensive Exam Comprehensive Medical Decision Making High Complexity Diagnoses Dyspnea and respiratory abnormalities R06.00; R06.89 Weakness generalized R53.1 Severe muscle deconditioning R29.898 Acute on chronic respiratory failure with hypoxemia J96.21 Palliative care by specialist Z51.5 Advanced care planning/counseling discussion Z71.89 Interstitial lung disease J84.9 Additional Codes Advanced Care Planning - 75436 Advanced Care Planning 30 Min: 84828 Advanced Care Planning 30 Min ([id number]) Prolonged Care Time - Prolonged Care Time: Yes ([id number])
[2023-09-03] MEDS ORDERED: LORazepam 2 MG/1 ML VIAL IV ONE (15:00)
[2023-09-03] MEDS ORDERED: LORazepam 2 MG in SYRINGE 1 ML IV ONE (15:00)
--- NOTE | 2023-09-03 22:11 | Hospitalist Progress Note ---
Date of Service September 03, 2023 Assessment & Plan (1) Shortness of breath: Plan: 68 year old female admitted for shortness of breath, possible pneumonia. -Increased oxygen requirement now on high flow. -Patient w/ history of ILD, lives in [facility] health care associated pneumonia - continues on Cefepime, azithromycin, will also add flagyl on 08/31 High flow is titrated down on 09/02 to 50 liters Pulmonary will add PJP treatment on 09/02 Latest chest xray is showing bilateral pneumonia. treating for eosinophilic pneumonia or exacerbation of hypersensitive pneumonitis ON corticosteroids. appreciate input from pulmonary. Inflamatory markers and procal are improving, however clinically no improvement. continue above antibiotics. COntinue formeterol Gave a dose of lasix on 08/31 and 09/01 will hold. Patient is critically ill. Patient converted to comfort measures on 09/03 due to her lack of improvemnt and worsening respiratory function. (2) Acute on chronic respiratory failure with hypoxemia: (3) Interstitial lung disease: Plan: -Chronic, noted, had followed with Dr. Mcmahon in the past. Per patient she does not take any inhalers on a daily basis and is on 2L chronically at home. (4) Peripheral eosinophilia: (5) Kyphosis: (6) Restrictive lung disease: (7) Severe protein-calorie malnutrition: Plan: -Chronic, noted. Albumin 3.2 on admission. Encourage good PO intake, appetite not affected by infection per patient. (8) Osteoporosis: Plan: -Noted, continue home calcium-vitamin D supplement. (9) Anxiety disorder: Plan: -Continue home fluoxetine (10) Closed compression fracture of L2 vertebra: Plan: -Chronic, tylenol 650mg PRN PO q6h ordered. oxycodone if not at goal with t ylenol. 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 (12) Cluster A personality disorder: Plan: -Continue trazodone, lorazepam, gabapentin, fluoxetine. Plan DVT Prophylaxis: Lovenox 30mg SQ qAM. Code status: DNR/DNI Admission and Anticipated Discharge Date Admission Date: August 25, 2023 Subjective 68 yo female reports feeling anxious Review of Systems Review of Systems: All systems reviewed & are unremarkable except as noted in HPI & below Physical Exam Physical Exam: Patient is pleasant. Patient is on high flow oxygen. very thin Underweight with a BMI of 14.8 lung exam shows reduced air movement and coarse breath sounds equal bilaterally with no focal loss or wheeze Results & Data Results & Data Vital Signs (Past 12 Hours) Vital Signs Temp Pulse Pulse Resp BP Pulse Ox O2 Del Method 09/03/23 20:38 Oxymask, High Flow Nasal Cannula 09/03/23 13:47 81 24 91 High Flow Nasal Cannula 09/03/23 11:43 36.5 C 77 16 126/79 98 High Flow Nasal Cannula 09/03/23 11:42 76 18 92 High Flow Nasal Cannula 09/03/23 11:23 72 15 100 High Flow Nasal Cannula O2 Flow Rate FiO2 09/03/23 20:38 70 09/03/23 13:47 55 100 09/03/23 11:43 40 09/03/23 11:42 40 75 09/03/23 11:23 40 PG Care Time/CCT Total # of Minutes Spent Total Time Spent with Patient: Total time spent is greater than 50% in coordination of care (as documented) at patient's floor/unit and/or counseling patient: Coding Level of Care Code 24274 SUB INP/OBS CARE 2/35MIN Diagnoses Shortness of breath R06.02 Acute on chronic respiratory failure with hypoxemia J96.21 Interstitial lung disease J84.9 Peripheral eosinophilia D72.19 Kyphosis M40.209 Restrictive lung disease J98.4 Severe protein-calorie malnutrition E43 Osteoporosis M81.0 Anxiety disorder F41.9 Closed compression fracture of L2 vertebra S32.020A Encounter type: initial encounter Aryan's thyroiditis E06.3 Cluster A personality disorder F60.9 (10) Closed compression fracture of L2 vertebra Encounter type: initial encounter Qualified Code(s): S32.020A - Wedge compression fracture of second lumbar vertebra, initial encounter for closed fracture
[2023-09-04] MEDS: HYDROmorphone BOLUS from BAG IV PRN ×9 (02:45→22:53)
[2023-09-04] MEDS: LORazepam 0.5 MG in SYRINGE 0.25 ML IV PRN ×2 (02:55→07:20)
[2023-09-04] MEDS ORDERED: LORazepam 1 MG in SYRINGE 0.5 ML IV PRN (09:03)
[2023-09-04] MEDS ORDERED: HYDROmorphone INJ 0.5 MG/0.5 ML SYR IV STA (09:07)
[2023-09-04] MEDS: LIDOCAINE 5% 1 PATCH TD SCH (09:11)
[2023-09-04] MEDS ORDERED: HYDROmorphone BOLUS from BAG IV PRN (13:18)
--- NOTE | 2023-09-04 15:21 | Hospitalist Progress Note ---
Date of Service September 04, 2023 Assessment & Plan (1) Shortness of breath: Plan: Present on admission. Known severe interstitial lung disease with chronic respiratory failure. Suspected bilateral pneumonia present on admission. No further treatment at this time. Comfort measures only (2) Acute on chronic respiratory failure with hypoxemia: Plan: Supplemental oxygen per nasal cannula in place. No further titration. Comfort measures only (3) Interstitial lung disease: Plan: Chronic. No further intervention at this time. Supportive care (4) Peripheral eosinophilia: Plan: No further treatment at this time. Comfort care measures (5) Restrictive lung disease: Plan: No further treatment at this time. Comfort care measures (6) Severe protein-calorie malnutrition: Plan: No further treatment at this time. Comfort care measures Plan Comfort care measures. The patient is expected to in the hospital this admission. Admission and Anticipated Discharge Date Admission Date: August 25, 2023 Subjective Unresponsive. Groaning respirations. Appears terminal Review of Systems 2 Review of Systems: The patient is unresponsive and unable to answer any questions regarding review of systems Physical Exam 2 Physical Exam: General-unresponsive. No fever HEENT-head atraumatic and normocephalic, pupils equal and reactive to light Neck-no lymphadenopathy or thyromegaly, trachea midline Chest-scattered rhonchi from anterior approach. No audible wheezing. Groaning respirations Cardiac-irregular rhythm. Normal rate. Normal S1 and S2 Abdomen-hypoactive bowel sounds. No apparent ascites Extremities-no lower extremity edema Neuro-unresponsive. Cannot assess Psych-unresponsive. Cannot assess Results & Data Results & Data Vital Signs (Past 12 Hours) Vital Signs Pulse Resp Pulse Ox O2 Del Method O2 Flow Rate 09/04/23 10:30 Nasal Cannula 2 09/04/23 07:38 Oxymask, High Flow Nasal Cannula 09/04/23 03:21 87 26 H 100 Oxymask, High Flow Nasal Cannula 70 Laboratory Results 09/02/23 05:51 09/03/23 08:22 PG Care Time/CCT Total # of Minutes Spent Total Time Spent with Patient: Total time spent is greater than 50% in coordination of care (as documented) at patient's floor/unit and/or counseling patient: Coding Level of Care Code 31091 SUB INP/OBS CARE 3/50MIN Diagnoses Shortness of breath R06.02 Acute on chronic respiratory failure with hypoxemia J96.21 Interstitial lung disease J84.9 Peripheral eosinophilia D72.19 Restrictive lung disease J98.4 Severe protein-calorie malnutrition E43
[2023-09-04] MEDS: GLYCOPYRROLATE 0.2 MG/ML VIAL IV PRN ×2 (18:03→22:05)
--- NOTE | 2023-09-04 18:03 | Palliative Care Progress Note ---
Date of Service September 04, 2023 Assessment & Plan (1) Dyspnea and respiratory abnormalities: Plan: Terminal dyspnea due to end-stage ILD. Patient is transitioning from a process of living to a process of going. Anticipated survival of hours to days. (2) Weakness generalized: (3) Severe muscle deconditioning: (4) Acute on chronic respiratory failure with hypoxemia: (5) Palliative care by specialist: (6) Interstitial lung disease: Plan * Erin is dying. She has terminal ILD. Anticipate she will within next hours to days. * Increased Dilaudid to 0.3mg per hour with 0.3mg bolus q10m as needed. Ativan increased to 1mg IV and I added robinul for later in the day onset of increased secretions. By 5pm was notified she is much more comfortable as meds were given through the day * tolerated withdrawal of HFNC and now on 2lpm NC * Continue [employer]. * TS 60min through the day by telephonic mitochondrial disorders counselor consultation Thank you for allowing us to participate in the ongoing care of this patient. Please don't hesitate to call or page with any additional concerns. Dr. Eulalia Chavarria DNP Director, Palliative Care Admission and Anticipated Discharge Date Admission Date: August 25, 2023 Subjective numerous contacts thru the floorworker into evening with nursing staff (I am in outpatient clinic today) pt had a hard night, still struggling with symptoms [employer]PERATIONS SPECIALIST adjustment requested she remains anxious on high flow but keeps pulling it off her face Review of Systems Review of Systems: All systems reviewed & are unremarkable except as noted in Subjective Results & Data Vital Signs (Past 12 Hours) Vital Signs O2 Del Method O2 Flow Rate 09/04/23 10:30 Nasal Cannula 2 09/04/23 07:38 Oxymask, High Flow Nasal Cannula PG Care Time/CCT Total # of Minutes Spent Total Time Spent: 65 Total Time Spent with Patient: Total time spent is greater than 50% in coordination of care (as documented) at patient's floor/unit and/or counseling patient: Coding [place] [address] SUB INP/OBS CARE 2/35MIN Patient Type Established History Comprehensive Medical Decision Making Moderate Complexity Diagnoses Dyspnea and respiratory abnormalities R06.00; R06.89 Weakness generalized R53.1 Severe muscle deconditioning R29.898 Acute on chronic respiratory failure with hypoxemia J96.21 Palliative care by specialist Z51.5 Interstitial lung disease J84.9
--- NOTE | 2023-09-05 07:55 | Discharge Summary ---
Date of Service September 05, 2023 Admission HPI Per Admitting Provider Erin is a 68 year old female w/ PmHx interstitial lung disease, history of pneumothorax, osteoporosis, severe protein-calorie malnutrition, short-term memory loss, presbyesophagus, anxiety, cluster A personality disorder, nicholas's thyroiditis coming in for shortness of breath/difficulty breathing. Patient states that over the past 3 weeks she's had progressive worsening of her shortness of breath. There has not been any associated cough, sore throat, sputum production, post nasal drip, ear pain, fevers, or chills. She states that in the past she had been diagnosed with ILD and had seen Dr. Mcmahon previously for pulmonology. She has not seen him for a while however per patient. She currently lives at the [facility] living. In the ER WBC 19.50, neutrophil 17.87, Na 133, Mag 1.6, procal 0.25. UA with RBC and 1+ protein. Respiratory panel negative. CXR interstitial/fibrotic lung disease with no lobar consolidation or large pleural effusion, diffuse interstitial thickening appears increased from previous. Patient was not given anything in the ER. Principal Diagnosis Bilateral pneumonia, acute on chronic respiratory failure, end-stage int erstitial lung disease Discharge Exam Not applicable Discharge Data Allergies Allergy/AdvReac Type Severity Reaction Status Date / Time Iodinated Contrast Media Allergy Severe ANAPHYLAXIS Verified 07/01/23 12:49 Sulfa (Sulfonamide Allergy Unknown SEE COMMENT Verified 07/01/23 12:49 Antibiotics) banana AdvReac Severe GI SYMPTOMS Verified 07/01/23 12:49 beet AdvReac Unknown Gastrointestinal Verified 07/01/23 12:49 Upset Consultations 08/25/23 19:45 ED Decision to Admit Stat 08/29/23 12:45 Consult Pulmonology Routine 09/02/23 09:09 Consult Palliative Care Routine Hospital Course (1) Shortness of breath: Present on admission. Known severe interstitial lung disease with chronic respiratory failure. Suspected bilateral pneumonia present on admission. No further treatment at this time. Comfort measures only (2) Acute on chronic respiratory failure with hypoxemia: Supplemental oxygen per nasal cannula in place. No further titration. Comfort measures only (3) Interstitial lung disease: Chronic. No further intervention at this time. Supportive care (4) Peripheral eosinophilia: No further treatment at this time. Comfort care measures (5) Restrictive lung disease: No further treatment at this time. Comfort care measures (6) Severe protein-calorie malnutrition: No further treatment at this time. Comfort care measures Plan Comfort care measures. The patient is expected to in the hospital this admission. Total Time Total Time Spent Total Time Spent (In Minutes): 30 minutes Discharge Plan Discharge Items Patient Disposition: Other Date/Time: 09/04/23 23:13 Coding Level of Care Code 41907 IN/OBS DISCH 30 MIN/LESS Diagnoses Shortness of breath R06.02 Acute on chronic respiratory failure with hypoxemia J96.21 Interstitial lung disease J84.9 Peripheral eosinophilia D72.19 Restrictive lung disease J98.4 Severe protein-calorie malnutrition E43
== END 2023-09-04 23:55 | disposition expired | DRG 177 ==
LOC: ED 15:14 → EDINP 20:34 → SUATTDRO 20:34 → 2N 08-26 20:58 → 3N 08-28 01:54